=== PATIENT | female | born 1945 | race Caucasian/White ===

== ENCOUNTER 2018-05-22 15:25 | Outpatient (REF) | payer MEDICARE, OTHER, SELFPAY | END 2018-05-22 15:26 | LOC: NCHCN 15:25 | PROVIDERS: PCP Family Medicine; Visit Provider Nurse Practitioner Family | DX: R82.90 Unspecified abnormal findings in urine (principal) | CPT/HCPCS: 87077; 87086; 87186 ==

== ENCOUNTER 2019-03-11 17:45 | Outpatient (REF) | payer MEDICARE, OTHER, SELFPAY | END 2019-03-11 18:05 | LOC: NCHCN 17:45 | PROVIDERS: PCP Family Medicine; Visit Provider Registered Nurse | DX: N39.46 Mixed incontinence (principal) | CPT/HCPCS: 87086 ==

== ENCOUNTER 2019-03-24 13:03 | Outpatient (REF) | payer MEDICARE, OTHER, SELFPAY ==
[2019-03-24 21:40] LABS: Bilirubin Negative (Negative); Blood Moderate (Negative); Clarity Clear; Glucose Negative (Negative); Ketones Negative (Negative); Leukocyte Esterase Negative (Negative); Nitrite Negative (Negative); Specific Gravity 1.015 (1.005-1.025); Urobilinogen 0.2 EU/dL (Up TO 0.2)
[2019-03-24 22:00] LABS: Bacteria Rare HPF (Negative); C & S Indicated? No; Casts Negative LPF (Negative); Crystals Negative HPF (Negative); Epithelial Cells Rare HPF (Negative); Mucus Negative (Negative); WBC Negative HPF (0-5)
== END 2019-03-24 13:23 ==
LOC: NCHCN 13:03
PROVIDERS: PCP Family Medicine; Visit Provider Registered Nurse
DX: R31.9 Hematuria, unspecified (principal)
CPT/HCPCS: 81003; 81015

== ENCOUNTER 2019-06-11 16:58 | Outpatient (REF) | payer MEDICARE, OTHER, SELFPAY ==
[2019-06-11 21:08] LABS: Bilirubin Negative (Negative); Blood Moderate (Negative); Clarity Clear (Clear); Glucose Negative (Negative); Ketones Trace mg/dL (Negative); Leukocyte Esterase Small (Negative); Nitrite Negative (Negative); Specific Gravity 1.015 (1.005-1.025); pH 6.5 (5-8)
[2019-06-11 21:35] LABS: Bacteria Moderate HPF (Negative); C & S Indicated? C&S Done As Ordered; Epithelial Cells Moderate HPF (Negative); Mucus Heavy (Negative); Other Cells Rare Renal (Negative)
== END 2019-06-11 17:18 ==
LOC: NCHCN 16:58
PROVIDERS: PCP Family Medicine; Visit Provider Nurse Practitioner Family
DX: R31.9 Hematuria, unspecified (principal)
CPT/HCPCS: 81003; 81015; 87086

== ENCOUNTER 2020-07-08 14:33 | Outpatient (REF) | payer MEDICARE, OTHER, SELFPAY ==
[2020-07-08 21:43] LABS: HCT 41.2 % (36.0-46.0); HGB 13.6 g/dL (11.2-15.7); MCH 29.8 pg (27.0-33.0); MCV 90.2 fL (80-95); MPV 10.6 fL (8.0-11.0); Platelet Count 196 10^3/uL (130-400); RBC 4.57 10^6/uL (3.93-5.22); RDW 12.7 % (11.7-14.6); WBC 3.92 10^3/uL (4.4-10.8)
[2020-07-08 21:49] LABS: Iron 89 ug/dL (50-170); Total Iron Binding Capacity 325 ug/dL (250-450); Transferrin Sat 27 % (15-50)
[2020-07-08 22:05] LABS: Anion Gap 6.3 mmol/L (3-11); BUN 6 mg/dL (7-18); CO2 30.7 mmol/L (21.0-32.0); Calcium 9.1 mg/dL (8.5-10.1); Chloride 98 mmol/L (98-107); Ferritin 134 ng/mL (8-252); Glucose 100 mg/dL (74-106); Potassium 3.8 mmol/L (3.5-5.1); Sodium 135 mmol/L (136-145)
== END 2020-07-08 14:53 ==
LOC: NCHCN 14:33
PROVIDERS: PCP Family Medicine; Visit Provider Family Medicine
DX: I48.0 Paroxysmal atrial fibrillation (principal); F01.50 Vascular dementia, unspecified severity, without behavioral disturbance, psychotic disturbance, mood disturbance, and anxiety; I69.30 Unspecified sequelae of cerebral infarction; E11.9 Type 2 diabetes mellitus without complications; Z91.81 History of falling
CPT/HCPCS: 80048; 85027; 82728; 83540; 83550

== ENCOUNTER 2022-01-31 16:21 | Outpatient (REF) | payer MEDICARE, OTHER, SELFPAY ==
--- OUTSIDE RECORDS SUMMARY | 2022-01-31 16:29 | XMS_ITS ---
:1945 Author Care Team Providers Name Role Phone GINGER SAPP MD Primary Care Provider [phone] [facility] MEDICAL RECORDS OTHER [phone] [facility] OTHER [phone] Allergies Code Code System Name Reaction Severity Status Onset 2670 RxNorm Codeine ? ? Active ? 95376 RxNorm Oxybutynin ? ? Active ? Penicillins ? ? Active ? Medications Name Status Start Date Stop Date ? ? Aricept 10 mg tablet Active ? Not availab le Take 1 tablet every day by oral route. fluoxetine 40 mg capsule Active ? Not johann ilable Take 1 capsule every day by oral route. Forteo 20 mcg/dose (620 mcg/2.48 mL) subcutaneous pen injector A ctive ? Not available Inject 20 micrograms every day by subcutaneous route. Hyzaar 100 mg-25 mg tablet Active ? Not a vailable Take 1 tablet every day by oral route. metoprolol succinate ER 50 mg tablet,extended release Active ? Not available Take 1 tablet every day by oral route. Myrbetriq 25 mg tablet,extended release Active ? Not available Take 1 tablet every day by oral route. omeprazole 20 mg capsule,delayed release Active ? Not available Take 1 capsule every day by oral route. Pradaxa 150 mg capsule Active ? Not avail able Take 1 capsule twice a day by oral route. simvastatin 20 mg tablet Active ? Not johann ilable Take 1 tablet every day by oral route. Problems Name Status Onset Date Source ? Type 2 Diabetes Mellitus Active 11/22/2021 ? Metabolic Syndrome X Active 11/22/2021 ? Obesity Active 11/22/2021 ? Anemia Active 11/22/2021 ? Vascular Dementia Active 11/22/2021 ? Depressive Disorder Active 11/22/2021 ? Obstructive Sleep Apnea Syndrome Active 11/22/2021 ? Cataract Active 11/22/2021 ? Decreased Hearing Active 11/22/2021 ? Hypertensive Disorder Active 11/22/2021 ? Atrial Fibrillation Active 11/22/2021 ? Allergic Rhinitis Active 11/22/2021 ? Gastroesophageal Reflux Disease Active 11/22/2021 ? Hiatal Hernia Active 11/22/2021 ? Hematuria Syndrome Active 11/22/2021 ? Pruritus of Skin Active 11/22/2021 ? Chronic Back Pain Active 11/22/2021 ? Hallux Valgus and Bunion Active 11/22/2021 ? Osteoporosis Active 11/22/2021 ? Daytime Somnolence Active 11/22/2021 ? Snoring Active 11/22/2021 ? Incontinence Active 11/22/2021 ? Compression Fracture of Lumbar Spine Active 11/22/2021 ? Late Effect of Fracture of Lumbar Vertebra Active 11/22 ? Falls Active 11/22/2021 ? Anticoagulant Therapy Active 11/22/2021 ? Weakness of Right Hand Active 11/22/2021 ? 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 Procedures None recorded. Results Lab Results None recorded. Past Encounters 01/20/2022 Health Education Given; Obstructive Slee p Apnea Syndrome Amber Wilson, TOLL GATE TENDER: [address] [place] [address] [place] [phone], Ph. 11/28/2021 Snoring; Health Education Given; Abnorma l Involuntary Movement; Cramp in Lower Limb Associated with Sleep Consuelo Justice MD, Board Certified Sleep Ph ysician: [address] [place] [address] [address], [place] [address], Ph. Social History Tobacco Smoking Status Never Smoker Vaccine List None recorded. Plan of Care Patient Instructions We discussed signs and symptoms you are exhibiting that may be due to Obstructive Sleep Apnea or other sleep disorders. We went over sleep conditions that I suspect you may have that will benefit from further evaluation. The next step is to diagnose your sleep disorder through sleep study testing. We will get permission from your insuran ce to do the home sleep study. Call us back in 2 to 3 weeks if you do not get a call from us about scheduling your sleep study. Please call [facility] if you ar e not able to make it to your sleep study Follow-up of home sleep study results, r epeat home sleep study if needed, when results are conclusive can have follow-up with Amber Wilson TOLL GATE TENDER to go over Reminders Provider Appointments None recorded. ? ? Lab None recorded. ? ? Referral None recorded. ? ? Procedures None recorded. ? ? Surgeries None recorded. ? ? Imaging None recorded. ? ? Vitals 01/20/2022 03:15PM Office 30 Height Weight BMI Blood Pressure 144.78 cm 75.3 kg 35.9 kg/m2 128/74 mm[Hg] 11/28/2021 03:45PM New Patient 45 Height Weight BMI Blood Pressure 144.78 cm 75.3 kg 35.9 kg/m2 133/82 mm[Hg]
--- OUTSIDE RECORDS SUMMARY | 2022-01-31 16:29 | XMS_ITS | Encounter Summary ---
:1945 Author Care Team Providers Name Role Phone Valerie Santana MD Primary Care Provider [phone] [facility] Medical Records OTHER [phone] [facility] OTHER [phone] Reason for Visit SLEEP CLINIC Follow-Up Other (specify) Assessment and Plan Assessment Note I provided greater than 40 minutes in the care of this patient, more than half the time was spent in afqu-wn-cemr couns eling. 1. Health education given ? learning about sleeping we ll 2. Obstructive sleep apnea syndr ome Patient is a pleasant 76-year- old female who follows up today for HST results. The study is positive for moderate BI associated with significant nocturnal hypoxia. The results are an underest imation due to poor quality data that is a common problem of unmonitored home sleep studies. Overall AHI 28.5/AHR; supine AHI 29/HR; cristhian SPO2 85% on room air; 10.4 minutes spent with SPO2 less than or equal to 88% on room air. Today I discu ssed the results with the patient and treatment options. The patient will be started on CPAP therapy. We discussed commonly encountered difficulties when getting acclimated to CPAP, including mask/inter face issues. The patient will use [facility] for her DME. Once the patient has received her CPAP machine, she will trial for 1 month and follow-up thereafter. If dur ing that time she has any questions or c oncerns she is strongly encouraged to contact our office. All questions were answered and she appears to have a good understanding of plan of care. ? auto-Pap equipment ? sleep apnea: care instruct ions Discussion Note Remember to always take precautio ns on drowsy driving. If you experience sleepiness while driving, find a safe area to socket puller and take a break. Research suggests taking a power nap (15 to 20 sujata sherrie) and/or coffee (or caffeine containi ng food such as dark chocolate) may be effective aides. As always, you should use your judgement on whether to drive at all, if you are sleep deprived or feeling sleepy. Thank you for the kind opportunity to pa rticipate in your medical care. You expressed good understanding of your diagnosis and treatment, and agreed to proceed with the plan we discussed together. If yo u have any questions or concerns prior t o your next appointment, please call Sleep Clinic. Plan of Care Reminders Provider Appointments Return to on or around Kerri Wilson, Office 04/21/2022 HOSI[facility] KNITTER Lab None ? ? recorded. Referral None ? ? recorded. Procedures None ? ? recorded. Surgeries None ? ? recorded. Imaging None ? ? recorded. Medications Name Start Date ? ? Aricept 10 mg tablet ? Take 1 tablet every day by oral route. fluoxetine 40 mg capsule ? Take 1 capsule every day by oral route. Forteo 20 mcg/dose (620 mcg/2.48 mL) subcutaneous pen injector ? Inject 20 micrograms every day by subcutaneous route. Hyzaar 100 mg-25 mg tablet ? Take 1 tablet every day by oral route. metoprolol succinate ER 50 mg tablet,extended release ? Take 1 tablet every day by oral route. Myrbetriq 25 mg tablet,extended release ? Take 1 tablet every day by oral route. omeprazole 20 mg capsule,delayed release ? Take 1 capsule every day by oral route. Pradaxa 150 mg capsule ? Take 1 capsule twice a day by oral route. simvastatin 20 mg tablet ? Take 1 tablet every day by oral route. Medications Administered None recorded. Vitals Height Weight BMI Blood Pressure 4 ft 9 in 166 lbs 35.9 kg/m2 128/74 mm[Hg] Results Lab Results None recorded. Allergies Code Code System Name Reaction Severity Onset 0380 RxNorm Codeine ? ? ? 92223 RxNorm Oxybutynin ? ? ? Penicillins ? ? ? Problems Name Status Onset Date Source ? [...] Accident Active 10/2021 ? Procedures None recorded. Vaccine List None recorded. Social History Tobacco Smoking Status Never Smoker What is your level of alcohol Occasional Notes: a few times a year consumption? Live alone or with others? with others Are you currently employed? N What is your level of caffeine Occasional Notes: 3 c decafe coffee a consumption? day Do you or have you ever used any other N forms of tobacco or nicotine? Do you use any illicit or recreational N drugs? Functional Status Unknown. Past Encounters 01/20/2022 Health Education Given; Obstructive Slee p Apnea Syndrome Amber Wilson HOSIERY KNITTER: [address] [place] [phone], Ph. History of Present Illness Note: <div><strong>The patient is a pleasant 76-year-old female who presents today for follow-up HST</strong>

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
</div><div>
</div><div><strong>PREVIOUS SLEEP EVALUATION: </strong></div><div><strong>12/19/2021. HST. ESS , [place] 12/22, weight 166 pounds, BMI 35.92.</strong>
<strong>1. Positive for obstructive sleep apnea associated with significant nocturnal hypoxemia. The severity is at least moderate, but may be underestimated due to poor data quality that is a common problem of unmonitored home sleep studies.</strong>
<strong>2. Overall AHI 28.5/HR; supine AHI 29/HR; right lateral AHI N/A; left lateral AHI N/A; prone AHI N/A</strong>
<strong>3. Mean SPO2: 93% and cristhian SPO2: 85% on room air; 10.4 minutes spent with SPO2 less than or equal to 88% on room air.</strong>
<strong>4. Note there were large p eriods with poor quality PT AF data, during which airflow channel was used to score respiratory events. Unfortunately this is a common problem with HST.</strong></div><div>
</div><div><strong>11/28/2021. Sleep consult for further evaluation of loud snoring, witnessed apnea, excessive daytime sleepiness, memory deficits.</strong>

<strong>TODAY: </strong></div><div><strong>Patient states she slept well on the night of her home sleep study. She has had no significant changes since her initial consult visit 11/28/2021. She continues to have mild snoring, daughter reports witnessed periods of apnea and excessive daytime sleepiness.</strong></div><div>

</div> Review of Systems ? Notes: A 14-point <strong>REVIEW OF SYSTEM</strong> was obtained and reviewed, includes CONSTITUTIONAL, EYE S, ALLERGY, NEUROLOGIC, ENDOCRINE, GI, CARDIOVASCULAR, SKIN, MSK, E NT, , RESPIRATORY, HEMATOLOGIC, PSYCH systems. Pertinent symptoms are discu ssed in history, otherwise negative. Physical Exam ? Notes: <div>GENERAL: {{chronically ill appearing well appearing#}}, appearing {{older than younger than stated#}} age, no acute distress, {{normal tall lean obese#}} build, accompanied by her daughter and sister today

PSYCHIATRIC: we ll groomed, fluent speech, good insight, linear thought process, good eye co ntact, {{flat balanced#}} affect
NEUROLOGIC: alert, oriented, symmetric f acial expression

<strong>Clinical Data Reviewed:</strong>

1. {{Modified Pediatric Vaiden Sleepiness Scale Vaiden Sleepiness Sca le*}}: _8_ out of {{21 due to not driving 24#}}.

2. {{S leep study results not available, requested Unable to obtain sleep study report s No sleep study reports Sleep study results as above.#}}

3. {{Lab re sults as outlined. Labs pending. No pertinent labs available. #}}

</ div>
--- OUTSIDE RECORDS SUMMARY | 2022-01-31 16:29 | XMS_ITS | CCD ---
:1945 Author Care Team Providers Name Role Phone Tali STROUD Attending Physician Unavailable Sumit HERNANDEZ Er Physician 1 Unavailable D. Registered Nurse Unavailable P. Registered Nurse Unavailable Vital Signs Vital Sign Value Unit Date/Time Recent/Initial? BMI (Body Mass Index) 35.92 kg/m^2 01/05/2022 17:23 In itial VS Weight Measured 166 lbs 01/05/2022 17:23 Initial VS Height 57 in 01/05/2022 17:23 Initial VS BSA (Body Surface 1.74 m^2 01/05/2022 17:23 Initia l VS Area) BP Systolic 152 mmHg 01/05/2022 17:23 Initial VS BP Diastolic 131 mmHg 01/05/2022 17:23 Initial VS Respiratory Rate 18 bpm 01/05/2022 17:23 Initial VS Heart Rate 85 bpm 01/05/2022 17:23 Initial VS O2 % BldC Oximetry 98 % 01/05/2022 17:23 Initi al VS Body Temperature 36.8 degrees 01/05/2022 17:23 Initial VS BP Systolic 90 mmHg 01/05/2022 21:47 Most Recent VS BP Diastolic 64 mmHg 01/05/2022 21:47 Most Recent VS Respiratory Rate 20 bpm 01/05/2022 21:47 Most Re cent VS Heart Rate 80 bpm 01/05/2022 21:47 Most Recent VS O2 % BldC Oximetry 96 % 01/05/2022 21:47 Most Recent VS Body Temperature 36 degrees 01/05/2022 21:47 Most Re cent VS Allergies Allergy Code Allergy Type Reaction Status PENICILLINS (CLASS) 37562 Drug allergy Anaphylaxis Active LISINOPRIL 77246 Drug allergy UNKNOWN Active CODEINE 2670 Drug allergy UNKNOWN Active Procedures Unknown or Not Available. History of Immunizations Unknown or Not Available. Problems Problem Code Start Date Resolved Date Status Fracture of shaft of 97956758 08/12/2019 Active humerus, sequela Intermittent atrial 433846166 Active fibrillation Hypertension 57154843 Active Dementia 75946985 Active A fib 81694046 Active Results COMPREHENSIVE METABOLIC PANEL (CMP) - Co llect Date/Time: 01/05/2022 18:10 Test Name Code Test Result Test Units Test Ref Range GLUCOSE 2345-7 119 mg/dL L=70 H=11 6 BUN 3094-0 22 mg/dL L=6 H=25 CREATININE 2160-0 0.75 mg/dL L=0.51 H=0.95 SODIUM SERUM 2951-2 133 mmol/L L=136 H=14 5 POTASSIUM SERUM 2823-3 4.1 mmol/L L=3.4 H =5.2 CHLORIDE SERUM 2075-0 96 mmol/L L=96 H= 110 CARBON DIOXIDE (CO2) 2028-9 32 mmol/L L=22 H=34 ANION GAP 08011-0 5.3 mmol/L CALCIUM SERUM 55936-7 9.6 mg/dL L=8.2 H=10.2 BILIRUBIN TOTAL 1975-2 0.4 mg/dL L=0.0 H =1.3 ALK. PHOS. 6768-6 57 U/L L=46 H=11 6 SGOT (AST) 1920-8 23 U/L L=15 H=37 SGPT (ALT) 1742-6 19 U/L L=12 H=78 TOTAL PROTEIN 2885-2 6.9 gm/dL L=6.0 H=8 .0 ALBUMIN 1751-7 3.5 gm/dL L=3.4 H=5. 0 AGE 76 years eGFR (non-Afr.Amer.) 56857-4 75 mL/min eGFR (Afr-Eritrean) 02488-4 91 mL/min CBC W/ DIFFERENTIAL* - Collect Date/Time : 01/05/2022 21:35 Test Name Code Test Result Test Units Test Ref Range WBC 6690-2 7.05 th/cmm L=5.00 H=10.00 NEUT % 72.5 % L=40.0 H=80.0 LYMPH % 14.6 % L=10.0 H=50.0 MONO % 97105-7 12.2 % L=2.0 H=12.0 EOS % 0.3 % L=0.0 H=8. 0 BASO % 0.1 % L=0.0 H=3. 0 IG % 2514-8 0.3 % L=0.0 H=1. 1 NRBC % 62056-3 0.0 % L=0.0 H=0. 0 NEUT abs count 751-8 5.1 th/cmm L=1.6 H= 8.4 LYMPH abs count 731-0 1.0 th/cmm L=1.5 H =4.0 MONO abs count 742-7 0.9 th/cmm L=0.2 H= 1.0 EOS abs count 711-2 0.0 th/cmm L=0.0 H=0 .5 BASO abs count 704-7 0.0 th/cmm L=0.0 H= 0.2 IG abs count 83333-4 0.0 th/cmm L=0.0 H=0. 1 NRBC abs count 33470-2 0.0 mil/cmm L=0.0 H= 0.0 RBC 789-8 3.68 mil/cmm L=3.90 H=5.40 HEMOGLOBIN 718-7 11.4 gm/dL L=12.0 H=16.0 HEMATOCRIT 4544-3 34 % L=37 H=47 MCV 787-2 91 fL L=82 H=92 MCH 785-6 31.0 pg L=27.0 H=31.0 MCHC 786-4 34.0 % L=32.0 H=36.0 RDW-SD 788-0 44.4 fL L=39.0 H=49.0 PLATELET COUNT 777-3 204 th/cmm L=150 H= 450 CBC W/ DIFFERENTIAL* - Collect Date/Time : 01/05/2022 18:10 Test Name Code Test Result Test Units Test Ref Range WBC 6690-2 8.24 th/cmm L=5.00 H=10.00 NEUT % 80.5 % L=40.0 H=80.0 LYMPH % 7.8 % L=10.0 H=50.0 MONO % 89398-5 10.9 % L=2.0 H=12.0 EOS % 0.1 % L=0.0 H=8. 0 BASO % 0.2 % L=0.0 H=3. 0 IG % 2514-8 0.5 % L=0.0 H=1. 1 NRBC % 79368-4 0.0 % L=0.0 H=0. 0 NEUT abs count 751-8 6.6 th/cmm L=1.6 H= 8.4 LYMPH abs count 731-0 0.6 th/cmm L=1.5 H =4.0 MONO abs count 742-7 0.9 th/cmm L=0.2 H= 1.0 EOS abs count 711-2 0.0 th/cmm L=0.0 H=0 .5 BASO abs count 704-7 0.0 th/cmm L=0.0 H= 0.2 IG abs count 51740-2 0.0 th/cmm L=0.0 H=0. 1 NRBC abs count 68896-8 0.0 mil/cmm L=0.0 H= 0.0 RBC 789-8 3.81 mil/cmm L=3.90 H=5.40 HEMOGLOBIN 718-7 11.7 gm/dL L=12.0 H=16.0 HEMATOCRIT 4544-3 35 % L=37 H=47 MCV 787-2 92 fL L=82 H=92 MCH 785-6 30.7 pg L=27.0 H=31.0 MCHC 786-4 33.5 % L=32.0 H=36.0 RDW-SD 788-0 45.0 fL L=39.0 H=49.0 PLATELET COUNT 777-3 201 th/cmm L=150 H= 450 URINALYSIS WITH REFLEX CULT IF POSITIVE* - Collect Date/Time: 01/05/2022 19:30 Test Name Code Test Result Test Units Test Ref Range COLLECTION MODE: CLEAN CATCH N/A Color 5778-6 YELLOW N/A yellow Appearance 5767-9 CLEAR N/A clear Glucose urine 77190-7 NEGATIVE N/A negative mg/ dl Bilirubin 5770-3 NEGATIVE N/A negative Ketones 2514-8 TRACE N/A negative mg/d l Spec gravity 5811-5 1.010 N/A 1.003 - 1.030 pH urine 2756-5 7.0 N/A 5.0 - 7.0 Protein 37322-9 NEGATIVE N/A negative mg/d l Urobilinogen 28098-0 0.2 N/A <or= 1 EU/d l Nitrite. 5802-4 NEGATIVE N/A negative Blood 5794-3 SMALL N/A negative Leukocytes. NEGATIVE N/A negative MICROSCOPIC INDICATED N/A WBCs. 45986-3 0-5 N/A 0-5 / hpf RBCs 98873-2 10-25 N/A 0-5 / hpf Epith cells 05033-7 0-5 N/A 0-5 / hpf Cell types renal N/A Crystals none N/A none Bacteria none N/A none Mucus 8247-9 none N/A none Casts 33803-3 0-5 N/A none /lp f Cast types hyaline N/A TYPE AND SCREEN* - Collect Date/Time: 18:10 Test Name Code Test Result Test Units Test Ref Range Blood Group 883-9 O N/A Rh (D) 06412-3 POSITIVE N/A Antibody Screen 1005-8 NEGATIVE N/A Active Medications Unknown or Not Available. Medications Administered During Visit Medication Dose Units Frequency Route Date/Time of Last Dose FentaNYL INJ SDV: 25 MCG X1 IVP 022 22:01 100MCG/2ML Encounters Encounter Diagnosis Diagnosis Code Start Date Contusion of abdominal wall, initial encounter I684AUD 01/05/2022 Social History Smoking Status Code Start Date End Date Never smoker [id number] Patient Decision Aids Unknown or Not Available. Discharge Instructions You were admitted to [facility] on 01/05/2022 17:12 with a principal diagnosis of Contusion of abdominal wall , initial encounter You had the following tests done: CBC W/ DIFFERENTIAL* URINALYSIS WITH REFLEX CULT IF POSITIVE* CBC W/ DIFFERENTIAL* COMPREHENSIVE METABOLIC PANEL (CMP) TYPE AND SCREEN* You were discharged from [facility] on 01/05/2022 22:07 Should you have any questions prior to d ischarge, please contact a member of your healthcare team. If you have left the ho spital and have any questions, please contact your primary care physician. Chief Complaint and Reason For Visit Chief Complaint Date of Onset BACK PAIN Function Status Unknown or Not Available. Plan of Care Unknown or Not Available. Referral/Transition of Care Unknown or Not Available.
--- OUTSIDE RECORDS SUMMARY | 2022-01-31 16:29 | XMS_ITS | Encounter Summary ---
:1945 Author Care Team Providers Name Role Phone Valerie Santana MD Primary Care Provider [phone] [facility] Medical Records OTHER [phone] [facility] OTHER [phone] Reason for Visit SLEEP CLINIC New Adult Patient Assessment and Plan Assessment Note I provided greater than 60 minutes in th e care of this patient, more than half the time was spent in dgod-ms-taon counseling. Home sleep study, although in lab sleep study would be preferred, due to patient's dementia, mobility limitations requiring caregiver help, and erratic sleep schedule, we mutually decided with patient a nd her family members that home study wo uld be the best modality. If the first home study attempt fails, w e will try again a second time. 1. Snoring Suspect Obstructive Sleep Apnea based o n loud snoring, witnessed apneas, excessive daytime sleepiness, memory deficits. Patient also appears to have a movement disorder, unclear if this is severe restl ess legs or something else, and reports a lot of movements in sleep including sometimes falling out of bed. Comorbidities include dementia, CVA, day time somnolence, chronic back pain, depression, hiatal hernia, incontinence, suspected movement disorder that is not diagnosed, We had a thorough discussion of Obstruc tive Sleep Apnea, including pathophysiology, associated meterman cardiovascular, neurocognitive, and overall health effects, and importance of treatment. Weight loss encouraged. Treatment options discussed. Proceed with home sleep study, she is u nable to come in for diagnostic sleep study due to fall risk, confusion, and requiring higher levels of caregiving then tech can provide, if needed we will repeat multiple times to try to get a conclusi ve results. ? home sleep testing (PROC) - Please note if the first home sleep study is inconclusive we need to repeat it, vishnu macias cannot have an in lab study due to reasons in note Her follow-up will be wi Amber Wilson SECURITY SALES CONSULTANT 2. Health education given ? learning about sleeping we ll 3. Abnormal involuntary movement 4. Cramp in lower limb associate d with sleep Start trial of magnesium Discussion Note Remember to always take precautio ns on drowsy driving. If you experience sleepiness while driving, find a safe area to mandrel puller and take a break. Research suggests [...] please call Sleep Clinic. Plan of Care Patient Instructions We discussed [...] conclusive can have follow-up with Amber Wilson SECURITY SALES CONSULTANT to go over Reminders Provider Appointments Return to on or around Kerri Wilson, Office 04/21/2022 SECURITY SALES CONSULTANT Lab None ? ? recorded. Referral None ? ? recorded. Procedures Home Sleep 11/28/2021 ? Testing (PROC) Surgeries None ? ? recorded. Imaging None [...] ft 9 in 166 lbs 35.9 kg/m2 133/82 mm[Hg] Results Lab Results None recorded. Allergies Code Code System Name Reaction Severity Onset 2670 RxNorm Codeine ? ? ? 44956 RxNorm Oxybutynin ? ? ? Penicillins ? [...] N drugs? Functional Status Unknown. Past Encounters 11/28/2021 Snoring; Health Education Given; Abnorma l Involuntary Movement; Cramp in Lower Limb Associated with Sleep Consuelo Justice MD, Board Certified Sleep Ph ysician: [address] [place] [address] [address], [place] [address], Ph. History of Present Illness Note: <div><strong>Sleep Medicine New Patient Consult</strong></div><div&gt ;Karla Shah is a 76-year-old woman, with her daughter as power of material specialist, with history of dementia, CVA, daytime somnolence, chronic back pain, depression, hiatal hernia, incontinence, suspected movement disorder that is not diagnosed, who presents for new patient sleep evaluation</div>< div>
</div><div><strong>PREVIOUS SLEEP EVALUATION: </strong>{{Reviewed in detail and summarized as follows: Records not available, requested. Records not available. None. None #}}</div><div>
</div><div><strong>CHIEF COMPLAINT/HI STORY OF PRESENT ILLNESS: </strong> </div><div>Patients reports biggest problem with sleep is </div><div>splits time with Karla, her sister</div><div>ARELIS Wilson na </div><div>early onset dementia, vascular dementia</div><div>fallen out of bed a couple of times</div><div>daytime sleepiness</div><div>falling asleepat wheel</div><div>loud snoring</div><div>witnessed apneas</div><div>restless legs, had it for decades, both legs</div><div>symptoms years ago</div><div>has fallen out of bed</div><div>tried to get up</div><div>moves in bed a lot</div><div>on donepezil for memory, took it in morning</div><div>? visual hallucinations</div><div>
</div><div>
</div><div><strong>SLEEP SCHEDULE:</strong> Bedtime {{ variable#}} {{am pm#}}, sleeping a lot during the day. Sleep onset latency {{less than 30 30 to 60 greater than 60 variable few#}} minutes, Awakenings {{0-2 variable multiple#}} times per night, Able to fall backasleep within {{up to 30 minutes up to few hours variable few minutes #}}, Wake time {{ noon#}} {{pm am#}}. Naps {{Rare Occasionally Nearly Everyday Everyday*}}.</div><div><br&g t;</div><div><strong>SLEEP ENVIRONMENT:</strong> {{Pets wake patient up. Chil dren wake patient up. Noise from outside room wake patient up. Light wakes patient up. No environmental disruptions identified. No environmental disruptions identified. #}} </div><div>sleepin same room w/ sister.</div><div>
</div><div><strong>SLEEP QUALITY:</strong> {{Fair Very good Adequate Very poor Poor#}}</div><div>
&lt ;/div><div><strong>DAYTIME/NEUROCOGNITIVE FUNCTION:</strong> {{Sleepy* Alert}}. {{Problems with memory Problems with memory, concentration and mood* No problems with memory, concentration, mood}}.</div><div>
</div><div><strong>SLEEP RELATED THOUGHTS/BEHAVIORS:</strong> {{Deny insomnia related thought patterns or behaviors, except Gautier active mind. Stressful thoughts interfering with sleep. Tendency to clock watch. Worry about getting good night sleep. Deny insomnia related thought patterns or behaviors. #}}. {{Gautier active mind. St ressful thoughts interfering with sleep. Tendency to clock watch. Worry about getting good night sleep. .#}} {{Stressful thoughts interfering with sleep. Tendency to clock watch. Worry about getting good night sleep. .#}} {{Tendency to clock watch. Worry about getting good night sleep. .#}} {{Worry about getting good night sleep. .#}}</div><div>
</div><div><strong>SLEEP BREATHING:</strong> {{Snoring. Witnessed apneas. Loud Snoring.#}} {{Witnessed apneas.* Waking up gasping for air.}} {{Witnessed apneas. Waking up gasping for air.*}} {{Mouth breathing. Chronic nasal congestion. Mouth breathing occ#}} {{Chronic nasal congestion. .#}}</div><div>
</div><div><strong>LEG SYMPTOMS:</strong> {{Legs move before sleepand/or during sleep.*}} {{Leg movements are worse in evenings. .#}} {{Relieved by movement. .#}} {{Relieved by counterpressure. .#}} {{Leg cramps especially in evening.*}} {{Toss and turn at night.* Sheets are messy after sleep.}} {{Sheets are messy after sleep.*}} </div><div>
</div><div>
</div><div><strong>MOVEMENT SYMPTOMS</strong>{{S leeptalk. Sleepwalk: No sleepwalking #}}.</div><div>
</div><div><strong>DREAM SYMPTOMS:</strong> {{Dream enactment behavior:*}}Possible, she has fallen out o f bed, unclear if this is dream enactment behavior versus movements very severe restless movements. {{Disturbing nightmares Recurring nightmares No disturbing dreams #}}.</div><div>
</div><div><strong>WEAKNESS SYMPTOMS:</strong> {{Muscles suddenly become weak triggered by emotion Muscles may feel weak but no emotional triggers known Deny cataplexy related symptoms #}} {{Experienced inability to move upon waking up in remote past Experiences inability to move upon waking up on regular basis Deny sleep paralysis #}}.</div><div>
</div ><div><strong>DRIVING:</strong> {{Experienced drowsy driving in past related to sleep deprivation Intermittent drowsy driving episodes Regular drowsy driving episodes Deny drowsy driving #}}. {{Follows drowsy driving precautions. Aware of drowsy driving precautions and plans to follow them. .#}}</div><div>
</div><div><strong>OTHER PERTINENT SYMPTOMS: </strong> </div><div>
</div><div><strong>PRODUCT/SUBSTANCE USE:</strong>{{No smoking No smoking, quit in remote past No smoking quit recently Current Smoker}}. {{Contemplating quitting Ready to quit Not interested in quitting .#}}. {{No alcohol use 1-2 alcohol drinks daily 3+ alcohol drinks daily Variable alcohol use Rare alcohol use#}}. {{Recreational MJ use Medical MJ use Rare MJ use Cocaine Heroin/Non-prescribed Opiate No regular illicitdrug use#}}.</div><div>
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
</div><div>
</div> Review of Systems ? Notes: <div>A 14-point <strong>REVI EW OF SYSTEM</strong> was obtained and reviewed, includes CONSTITUTIONAL, EYE S, ALLERGY, NEUROLOGIC, ENDOCRINE, GI, CARDIOVASCULAR, SKIN, MSK, E NT, , RESPIRATORY, HEMATOLOGIC, PSYCH systems. Pertinent symptoms are discu ssed in history, otherwise negative.

Fatigue, vo ice problems, swallowing problems, frequent cough, nausea, constipation, heartb urn, irregular heart rate, frequent urination, muscle weakness in legs, debbi n in knees, pain in back, skin itch</div> Physical Exam ? Notes: <div>GENERAL: {{chronically ill appearing well appearing#}}, appearing {{older than younger than stated#}} age, no acute distress, {{normal tall lean obese#}} build
HEENT: atraumatic skull, moist mucous membranes, Mallampati 3</div ><div>PSYCHIATRIC: well groomed, fluent speech, good insight, linear thought process, good eye contact, {{flat balanced#}} affect
NEUROLOGIC: alert, oriented, symmetric facial expression

<stron g>Clinical Data Reviewed:</strong>

1. {{Modified Pediatric Bonnyman Sleepiness Scale Bonnyman Sleepiness Scale*}}: _13_ out of {{21 due to not driving 24#}}.

2. [place] [employer] Questionnaire positive for {{0 1 2 3#}} ou t of 3 Categories.

3. {{Sleep study results as above. Sleep study result s not available, requested Unable to obtain sleep study reports No sleep study reports#}}

4. {{Lab results as outlined. Labs pending. No p ertinent labs available. #}}

5. {{Sleep log reviewed, consistent with hi story. Sleep log reviewed. Sleep log not filled. #}}</div>
[2022-01-31 20:33] LABS: Reticulocyte 1.9 % (0.5-2.4)
[2022-01-31 20:43] LABS: Iron 58 ug/dL (50-170); Total Iron Binding Capacity 340 ug/dL (250-450); Transferrin Sat 17 % (15-50)
[2022-01-31 20:55] LABS: Ferritin 105 ng/mL (8-252)
== END 2022-01-31 16:22 | disposition home or self-care (01) ==
LOC: NCHCN 16:21
PROVIDERS: PCP Family Medicine; Visit Provider Internal Medicine
DX: D64.9 Anemia, unspecified (principal); K66.1 Hemoperitoneum
CPT/HCPCS: 82728; 83540; 83550; 85045

== ENCOUNTER 2022-05-12 23:25 | Outpatient (REF) | payer MEDICARE, OTHER, SELFPAY ==
[2022-05-12 20:41] LABS: Bilirubin Negative (Negative); Blood Moderate (Negative); Clarity Clear (Clear); Glucose Negative (Negative); Ketones Negative (Negative); Leukocyte Esterase Moderate (Negative); Nitrite Negative (Negative); Specific Gravity 1.015 (1.005-1.025); Urobilinogen 0.2 EU/dL (Up TO 0.2)
[2022-05-12 20:48] LABS: Bacteria Few HPF (Negative); C & S Indicated? Yes; Casts Negative LPF (Negative); Crystals Negative HPF (Negative); Epithelial Cells Few HPF (Negative); Mucus Negative (Negative)
== END 2022-05-12 23:26 | disposition home or self-care (01) ==
LOC: NCHCN 23:25
PROVIDERS: PCP Family Medicine; Visit Provider Family Medicine
DX: N39.46 Mixed incontinence (principal)
CPT/HCPCS: 87077; 81003; 81015; 87086; 87186

== ENCOUNTER 2022-05-17 15:57 | Outpatient (REF) | payer MEDICARE, OTHER, SELFPAY | END 2022-05-17 15:58 | disposition home or self-care (01) | LOC: NCHCN 15:57 | PROVIDERS: PCP Family Medicine; Visit Provider Family Medicine ==

== ENCOUNTER 2022-05-22 22:31 | Outpatient (REF) | payer MEDICARE, OTHER, SELFPAY ==
[2022-05-22 23:16] LABS: BUN 18 mg/dL (7-18); CREATININE 0.7 mg/dL (0.55-1.02); Calcium 9.3 mg/dL (8.5-10.1); Chloride 98 mmol/L (98-107); Glucose 103 mg/dL (74-106); Potassium 4.4 mmol/L (3.5-5.1); Sodium 133 mmol/L (136-145)
== END 2022-05-22 22:32 | disposition home or self-care (01) ==
LOC: NCHCN 22:31
PROVIDERS: PCP Family Medicine; Visit Provider Family Medicine
DX: I10 Essential (primary) hypertension (principal)
CPT/HCPCS: 80048

== ENCOUNTER 2022-11-13 16:54 | Outpatient (REF) | payer MEDICARE, OTHER, SELFPAY ==
[2022-11-13 21:05] LABS: COMMENT (LAB VIEW ONLY) 27.16 mg/dL; Microalb ug/mg Crea 27.2 ug/mg Cr
== END 2022-11-13 16:55 | disposition home or self-care (01) ==
LOC: NCHCN 16:54
PROVIDERS: PCP Family Medicine; Visit Provider Family Medicine
DX: E11.9 Type 2 diabetes mellitus without complications (principal)
CPT/HCPCS: 82043; 82570

== ENCOUNTER 2023-03-22 16:28 | Outpatient (REF) | payer MEDICARE, OTHER, SELFPAY | END 2023-03-22 16:29 | disposition home or self-care (01) | LOC: NCHCN 16:28 | PROVIDERS: PCP Family Medicine; Visit Provider Family Medicine | DX: R30.0 Dysuria (principal) | CPT/HCPCS: 87086 ==

== ENCOUNTER 2023-10-19 21:35 | Outpatient (REF) | payer MEDICARE, OTHER, SELFPAY ==
--- OUTSIDE RECORDS SUMMARY | 2023-10-19 21:37 | XMS_ITS | CCD ---
Author Name Unknown Address [address] [place] [address] [id number] Organization Unknown Address [address] [place] [address] [id number] Care Team Providers Care Putty And Patch Worker Name Role Phone SEKOUGINGER Jeramie Attending Physician [phone] Vital Signs Unknown or Not Available. Allergies Allergy Code Allergy Type Reaction Status PENICILLINS (CLASS) 14432 Drug allergy Anaphylaxis Ac tive LISINOPRIL 88354 Drug allergy UNKNOWN Active CODEINE 2670 Drug allergy UNKNOWN Active Procedures Unknown or Not Available. History of Immunizations Unknown or Not Available. Problems Problem Code Start Date Resolved Date Status Fracture of shaft of humerus, sequela 06674020 9 Active Intermittent atrial fibrillation 343642391 Active Hypertension 64673596 Active Dementia 70115411 Active A fib 38866028 Active Results Unknown or Not Available. Active Medications Medication Code Dose Units Frequency Route Modificatio n Start Date/Time oxyCODONE HCl 5MG Oral Tablet 6194470 1 TABLET NEEDED EVERY 4 HOURS ORAL 08/14/2019 16:18 Prescription Detail TAKE 1 TABLET ORAL NEEDED EVERY 4 DENG RS. Not to exceed 6 tabs daily Acetaminophen 500MG Oral Tablet 664013 2 TABLET NEEDED THREE TIMES A DAY ORAL 08/14/2019 16:07 Prescription Detail TAKE 2 TABLET ORAL NEEDED THREE TIMES A DAY FOR PAIN Aricept 10MG Oral Tablet 458904 10 MILLIGRAMS DAILY ORAL 019 16:06 Prescription Detail TAKE 10 MILLIGRAMS ORAL DAILY Dok 100MG Oral Capsule, Liquid Filled 0015136 100 MILLIGRAMS TWICE A DAY ORAL 019 16:06 Prescription Detail TAKE 100 MILLIGRAMS ORAL TWICE A DAY Hyzaar 100MG-25MG Oral Tablet 069582 1 EACH DAILY ORAL 08/14/2019 16:06 Prescription Detail TAKE 1 EACH ORAL DAILY Metoprolol Succinate 100MG Oral Tablet, Extended Release 363319 100 MILLIGRAMS DAILY ORAL 16:06 Prescription Detail TAKE 100 MILLIGRAMS ORAL DAILY Pradaxa 150MG Oral Capsule 6508899 150 MILLIGRAMS TWICE A DAY ORAL 07/23 16:06 Prescription Detail TAKE 150 MILLIGRAMS ORAL TWICE A DAY Simvastatin 20MG Oral Tablet 855128 20 MILLIGRAMS DAILY ORAL 019 16:06 Prescription Detail TAKE 20 MILLIGRAMS ORAL DAILY Medications Administered During Visit Unknown or Not Available. Encounters Encounter Diagnosis Diagnosis Code Start Date Encounter for screening mamm ogram for malignant neoplasm of breast Z1231 02/17/2022 Social History Smoking Status Code Start Date End Date Never smoker [id number] Patient Decision Aids Unknown or Not Available. Discharge Instructions You were admitted to [facility] on 02/17/2022 12:55 with a principal diagnosis of Encounter for screening mammogram for malignant neoplasm of breast You were discharged from [facility] on 02/17/2022 12:55 Should you have any questions prior to discharge, please contact a member of your healthcare team. If you have left the hospital and have any questions, please contact your primary care physician. Chief Complaint and Reason For Visit Chief Complaint Date of Onset SCR Function Status Unknown or Not Available. Plan of Care Unknown or Not Available. Referral/Transition of Care Unknown or Not Available.
--- OUTSIDE RECORDS SUMMARY | 2023-10-19 21:37 | XMS_ITS | CCD ---
Author Name Unknown Address [address] [place] [address] [id number] Organization Unknown Address [address] [place] [address] [id number] Care Team Providers Care Log Hauler Name Role Phone CATALINO STROUD Attending Physician [phone] MINERVA HERNANDEZ Er Physician [phone] JUDY Saldaña Registered Nurse [phone] KARLEE Booker Registered Nurse [phone] Vital Signs Vital Sign Value Unit Date/Time Recent/Initial ? BMI (Body Mass Index) 35.92 kg/m^2 01/05/2022 17: 23 Initial VS Weight Measured 166 lbs 01/05/2022 17:23 Ini tial VS Height 57 in 01/05/2022 17:23 Initial VS BSA (Body Surface Area) 1.74 m^2 01/05/2022 1 7:23 Initial VS BP Systolic 152 mmHg 01/05/2022 17:23 Initial VS BP Diastolic 131 mmHg 01/05/2022 17:23 Initia l VS Respiratory Rate 18 bpm 01/05/2022 17:23 In itial VS Heart Rate 85 bpm 01/05/2022 17:23 Initial VS O2 % BldC Oximetry 98 % 01/05/2022 17:23 Initial VS Body Temperature 36.8 degrees 01/05/2022 17:23 In itial VS BP Systolic 90 mmHg 01/05/2022 21:47 Most Re cent VS BP Diastolic 64 mmHg 01/05/2022 21:47 Most R ecent VS Respiratory Rate 20 bpm 01/05/2022 21:[address] Recent VS Heart Rate 80 bpm 01/05/2022 21:47 Most Rec ent VS O2 % BldC Oximetry 96 % 01/05/2022 21:47 Most Recent VS Body Temperature 36 degrees 01/05/2022 21:[address] Recent VS Allergies Allergy Code Allergy Type Reaction Status PENICILLINS (CLASS) 62351 Drug allergy Anaphylaxis Ac tive LISINOPRIL 96732 Drug allergy UNKNOWN Active CODEINE 2670 Drug allergy UNKNOWN Active Procedures Unknown or Not Available. History of Immunizations Unknown or Not Available. Problems Problem Code Start Date Resolved Date Status Fracture of shaft of humerus, sequela 79471907 9 Active Intermittent atrial fibrillation 384143887 Active Hypertension 70065256 Active Dementia 01771639 Active A fib 63108668 Active Results COMPREHENSIVE METABOLIC PANE L (CMP) - Collect Date/Time: 01/05/2022 18:10 Test Name Code Test Result Test Units Test Ref Rang e GLUCOSE 2345-7 119 mg/dL L=70 H=116 BUN 3094-0 22 mg/dL L=6 H=25 CREATININE 2160-0 0.75 mg/dL L=0.51 H=0.95 SODIUM SERUM 2951-2 133 mmol/L L=136 H=145 POTASSIUM SERUM 2823-3 4.1 mmol/L L=3.4 H=5 .2 CHLORIDE SERUM 2075-0 96 mmol/L L=96 H=110 CARBON DIOXIDE (CO2) 2028-9 32 mmol/L L=22 H=34 ANION GAP 17909-2 5.3 mmol/L CALCIUM SERUM 28856-6 9.6 mg/dL L=8.2 H=10. 2 BILIRUBIN TOTAL 1975-2 0.4 mg/dL L=0.0 H=1 .3 ALK. PHOS. 6768-6 57 U/L L=46 H=116 SGOT (AST) 1920-8 23 U/L L=15 H=37 SGPT (ALT) 1742-6 19 U/L L=12 H=78 TOTAL PROTEIN 2885-2 6.9 gm/dL L=6.0 H=8.0 ALBUMIN 1751-7 3.5 gm/dL L=3.4 H=5.0 AGE 76 years eGFR (non-Afr.Amer.) 47259-9 75 mL/min eGFR (Afr-Azerbaijani) 00148-8 91 mL/min CBC W/ DIFFERENTIAL* - Colle ct Date/Time: 01/05/2022 21:35 Test Name Code Test Result Test Units Test Ref Rang e WBC 6690-2 7.05 th/cmm L=5.00 H=10.00 NEUT % 72.5 % L=40.0 H=80.0 LYMPH % 14.6 % L=10.0 H=50.0 MONO % 27794-6 12.2 % L=2.0 H=12.0 EOS % 0.3 % L=0.0 H=8.0 BASO % 0.1 % L=0.0 H=3.0 IG % 2514-8 0.3 % L=0.0 H=1.1 NRBC % 93389-3 0.0 % L=0.0 H=0.0 NEUT abs count 751-8 5.1 th/cmm L=1.6 H=8. 4 LYMPH abs count 731-0 1.0 th/cmm L=1.5 H=4 .0 MONO abs count 742-7 0.9 th/cmm L=0.2 H=1. 0 EOS abs count 711-2 0.0 th/cmm L=0.0 H=0.5 BASO abs count 704-7 0.0 th/cmm L=0.0 H=0. 2 IG abs count 01703-9 0.0 th/cmm L=0.0 H=0.1 NRBC abs count 84765-6 0.0 mil/cmm L=0.0 H=0. 0 RBC 789-8 3.68 mil/cmm L=3.90 H=5.40 HEMOGLOBIN 718-7 11.4 gm/dL L=12.0 H=16.0 HEMATOCRIT 4544-3 34 % L=37 H=47 MCV 787-2 91 fL L=82 H=92 MCH 785-6 31.0 pg L=27.0 H=31.0 MCHC 786-4 34.0 % L=32.0 H=36.0 RDW-SD 788-0 44.4 fL L=39.0 H=49.0 PLATELET COUNT 777-3 204 th/cmm L=150 H=45 0 CBC W/ DIFFERENTIAL* - [facility] ct Date/Time: 01/05/2022 18:10 Test Name Code Test Result Test Units Test Ref Rang e WBC 6690-2 8.24 th/cmm L=5.00 H=10.00 NEUT % 80.5 % L=40.0 H=80.0 LYMPH % 7.8 % L=10.0 H=50.0 MONO % 48356-3 10.9 % L=2.0 H=12.0 EOS % 0.1 % L=0.0 H=8.0 BASO % 0.2 % L=0.0 H=3.0 IG % 2514-8 0.5 % L=0.0 H=1.1 NRBC % 56395-9 0.0 % L=0.0 H=0.0 NEUT abs count 751-8 6.6 th/cmm L=1.6 H=8. 4 LYMPH abs count 731-0 0.6 th/cmm L=1.5 H=4 .0 MONO abs count 742-7 0.9 th/cmm L=0.2 H=1. 0 EOS abs count 711-2 0.0 th/cmm L=0.0 H=0.5 BASO abs count 704-7 0.0 th/cmm L=0.0 H=0. 2 IG abs count 36810-0 0.0 th/cmm L=0.0 H=0.1 NRBC abs count 40557-8 0.0 mil/cmm L=0.0 H=0. 0 RBC 789-8 3.81 mil/cmm L=3.90 H=5.40 HEMOGLOBIN 718-7 11.7 gm/dL L=12.0 H=16.0 HEMATOCRIT 4544-3 35 % L=37 H=47 MCV 787-2 92 fL L=82 H=92 MCH 785-6 30.7 pg L=27.0 H=31.0 MCHC 786-4 33.5 % L=32.0 H=36.0 RDW-SD 788-0 45.0 fL L=39.0 H=49.0 PLATELET COUNT 777-3 201 th/cmm L=150 H=45 0 URINALYSIS WITH REFLEX CULT IF POSITIVE* - Collect Date/Time: 01/05/2022 19:30 Test Name Code Test Result Test Units Test Ref Rang e COLLECTION MODE: CLEAN CATCH N/A Color 5778-6 YELLOW N/A yellow Appearance 5767-9 CLEAR N/A clear Glucose urine 87164-7 NEGATIVE N/A negative mg /dl Bilirubin 5770-3 NEGATIVE N/A negative Ketones 2514-8 TRACE N/A negative mg/dl Spec gravity 5811-5 1.010 N/A 1.003 - 1.03 0 pH urine 2756-5 7.0 N/A 5.0 - 7.0 Protein 86704-8 NEGATIVE N/A negative mg/dl Urobilinogen 65298-7 0.2 N/A <or= 1 EU/dl Nitrite. 5802-4 NEGATIVE N/A negative Blood 5794-3 SMALL N/A negative Leukocytes. NEGATIVE N/A negative MICROSCOPIC INDICATED N/A WBCs. 03457-7 0-5 N/A 0-5 / hpf RBCs 25081-7 10-25 N/A 0-5 / hpf Epith cells 05848-7 0-5 N/A 0-5 / hpf Cell types renal N/A Crystals none N/A none Bacteria none N/A none Mucus 8247-9 none N/A none Casts 51291-9 0-5 N/A none /lpf Cast types hyaline N/A TYPE AND SCREEN* - Collect D ate/Time: 01/05/2022 18:10 Test Name Code Test Result Test Units Test Ref Rang e Blood Group 883-9 O N/A Rh (D) 59494-0 POSITIVE N/A Antibody Screen 1005-8 NEGATIVE N/A Active Medications Medications Administered During Visit Medication Dose Units Frequency Route Date/Time of Last Dose FentaNYL INJ SDV: 100MCG/2ML 25 MCG X1 I EXPELLER OPERATOR 01/05/2022 22:01 Encounters Encounter Diagnosis Diagnosis Code Start Date Contusion of abdominal wall, initial encounter S 301XXA 01/05/2022 Social History Smoking Status Code Start Date End Date Never smoker 737244538 Patient Decision Aids Unknown or Not Available. Discharge Instructions You were admitted to [facility] on 01/05/2022 17:12 with a principal diagnosis of Contusion of abdominal wall, initial encounter You had the following tests done:CBC W/ DIFFERENTIAL*URINALYSIS WITH REFLEX CULT IF POSITIVE*CBC W/ DIFFERENTIAL*COMPREHENSIVE METABOLIC PANEL (CMP)TYPE AND SCREEN* You were discharged from [facility] on 01/05/2022 22:07 Should you have [...]
--- OUTSIDE RECORDS SUMMARY | 2023-10-19 21:37 | XMS_ITS | CCD ---
Author Name Unknown Address [address] [place] [address] [phone] Organization Unknown Address [address] [place] [address] [phone] Care Team Providers Care Manufacturing Manager Name Role Phone SEKOUGINGER Jeramie Attending Physician [phone] Vital Signs Unknown or Not Available. Allergies Allergy Code Allergy Type Reaction Status PENICILLINS (CLASS) 85719 Drug allergy Anaphylaxis Ac tive LISINOPRIL 21761 Drug allergy UNKNOWN Active CODEINE 2670 Drug allergy UNKNOWN Active Procedures Unknown or Not Available. History of Immunizations Unknown or Not Available. Problems Problem Code Start Date Resolved Date Status Fracture of shaft of humerus, sequela 54963398 9 Active Intermittent atrial fibrillation 322115339 Active Hypertension 18173117 Active Dementia 34622731 Active A fib 45943617 Active Results Unknown or Not Available. Active Medications Medication Code Dose Units Frequency Route Modificatio n Start Date/Time oxyCODONE HCl 5MG Oral Tablet 9500689 1 TABLET NEEDED EVERY 4 HOURS ORAL 08/14/2019 16:18 Prescription Detail TAKE 1 TABLET ORAL NEEDED EVERY 4 DENG RS. Not to exceed 6 tabs daily Acetaminophen 500MG Oral Tablet 169287 2 TABLET NEEDED THREE TIMES A DAY ORAL 08/14/2019 16:07 Prescription Detail TAKE 2 TABLET ORAL NEEDED THREE TIMES A DAY FOR PAIN Aricept 10MG Oral Tablet 308033 10 MILLIGRAMS DAILY ORAL 019 16:06 Prescription Detail TAKE 10 MILLIGRAMS ORAL DAILY Dok 100MG Oral Capsule, Liquid Filled 9023205 100 MILLIGRAMS TWICE A DAY ORAL 019 16:06 Prescription Detail TAKE 100 MILLIGRAMS ORAL TWICE A DAY Hyzaar 100MG-25MG Oral Tablet 501193 1 EACH DAILY ORAL 08/14/2019 16:06 Prescription Detail TAKE 1 EACH ORAL DAILY Metoprolol Succinate 100MG Oral Tablet, Extended Release 460451 100 MILLIGRAMS DAILY ORAL 16:06 Prescription Detail TAKE 100 MILLIGRAMS ORAL DAILY Pradaxa 150MG Oral Capsule 2344370 150 MILLIGRAMS TWICE A DAY ORAL 07/23 16:06 Prescription Detail TAKE 150 MILLIGRAMS ORAL TWICE A DAY Simvastatin 20MG Oral Tablet 405387 20 MILLIGRAMS DAILY ORAL 019 16:06 Prescription Detail TAKE 20 MILLIGRAMS ORAL DAILY Medications Administered During Visit Unknown or Not Available. Encounters Encounter Diagnosis Diagnosis Code Start Date Localized swelling, mass and lump, trunk R222 02/07/2022 Social History Smoking Status Code Start Date End Date Never smoker [id number] Patient Decision Aids Unknown or Not Available. Discharge Instructions You were admitted to [facility] on 02/07/2022 14:32 with a principal diagnosis of Localized swelling, mass and lump, trunk You were discharged from [facility] on 02/07/2022 14:33 Should you have any questions prior to discharge, please contact a member of your healthcare team. If you have left the hospital and have any questions, please contact your primary care physician. Chief Complaint and Reason For Visit Chief Complaint Date of Onset SEROMA R SIDE OF BACK Function Status Unknown or Not Available. Plan of Care Unknown or Not Available. Referral/Transition of Care Unknown or Not Available.
== END 2023-10-19 21:36 | disposition home or self-care (01) ==
LOC: NCHCN 21:35
PROVIDERS: PCP Family Medicine; Visit Provider Family Medicine
DX: N39.0 Urinary tract infection, site not specified (principal)
CPT/HCPCS: 87077; 87086; 87186

== ENCOUNTER 2024-05-20 16:10 | Outpatient (REF) | payer MEDICARE, OTHER, SELFPAY ==
--- OUTSIDE RECORDS SUMMARY | 2024-05-20 16:13 | XMS_ITS ---
Author Organization Unknown Address [address] [place] [address] [phone] Phone Care Team Providers Care Organizational Development Director Name Role Phone JUDY MUNIZ Registered Nurse Unavailable KARLEE FREDERICK Registered Nurse Unavailable LUANNE Cesar Attending Unavailable [facility] Unavailable SEKOU Bobo Primary Unavailable UNLISTED PROVIDER - REQUESTED Xhandoff Un available Results CBC W/ DIFFERENTIAL* - Colle ct Date/Time: 01/05/2022 21:35 [facility] ID: [id number] [address] [place] [address], [address] LOINC: 41266-3 Test Value Unit Reference Range Code Code System Flag WBC 7.05 th/cmm L=5.00 H=10.00 6690-2 LOINC NEUT % 72.5 % L=40.0 H=80.0 LYMPH % 14.6 % L=10.0 H=50.0 MONO % 12.2 % L=2.0 H=12.0 27304-2 LOINC H EOS % 0.3 % L=0.0 H=8.0 BASO % 0.1 % L=0.0 H=3.0 IG % 0.3 % L=0.0 H=1.1 2514-8 LOINC NRBC % 0.0 % L=0.0 H=0.0 82369-0 LOINC NEUT abs count 5.1 th/cmm L=1.6 H=8.4 751-8 LOINC LYMPH abs count 1.0 th/cmm L=1.5 H=4.0 731-0 LOINC L MONO abs count 0.9 th/cmm L=0.2 H=1.0 742-7 LOINC EOS abs count 0.0 th/cmm L=0.0 H=0.5 711-2 LOINC BASO abs count 0.0 th/cmm L=0.0 H=0.2 704-7 LOINC IG abs count 0.0 th/cmm L=0.0 H=0.1 43545-0 LOINC NRBC abs count 0.0 mil/cmm L=0.0 H=0.0 42118-6 LOINC RBC 3.68 mil/cmm L=3.90 H=5.40 789-8 LOINC L HEMOGLOBIN 11.4 gm/dL L=12.0 H=16.0 718-7 LOINC L HEMATOCRIT 34 % L=37 H=47 4544-3 LOINC L MCV 91 fL L=82 H=92 787-2 LOINC MCH 31.0 pg L=27.0 H=31.0 785-6 LOINC MCHC 34.0 % L=32.0 H=36.0 786-4 LOINC RDW-SD 44.4 fL L=39.0 H=49.0 788-0 LOINC PLATELET COUNT 204 th/cmm L=150 H=450 777-3 LOINC URINALYSIS WITH REFLEX CULT IF POSITIVE* - Collect Date/Time: 01/05/2022 19:30 [facility] ID: [id number] [address] [employer] [employer], [place], [address] LOINC: 05118-3 Test Value Unit Reference Range Code Code System Flag COLLECTION MODE: CLEAN CATCH Color YELLOW yellow 5778-6 LOINC Appearance CLEAR clear 5767-9 LOINC Glucose urine NEGATIVE negative mg/dl 39462-3 LOINC Bilirubin NEGATIVE negative 5770-3 LOINC Ketones TRACE negative mg/dl 2514-8 LOINC A Spec gravity 1.010 1.003 - 1.030 5811-5 LOINC pH urine 7.0 5.0 - 7.0 2756-5 LOINC Protein NEGATIVE negative mg/dl 81422-4 LOINC Urobilinogen 0.2 <or= 1 EU/dl 62212-6 LOINC Nitrite. NEGATIVE negative 5802-4 LOINC Blood SMALL negative 5794-3 LOINC A Leukocytes. NEGATIVE negative MICROSCOPIC INDICATED WBCs. 0-5 0-5 / hpf 38222-7 LOINC RBCs 10-25 0-5 / hpf 28289-6 LOINC Epith cells 0-5 0-5 / hpf 20939-0 LOINC Cell types renal Crystals none none Bacteria none none Mucus none none 8247-9 LOINC Casts 0-5 none /lpf 41977-9 LOINC Cast types hyaline Other 98874-3 LOINC TYPE AND SCREEN* - Collect D ate/Time: 01/05/2022 18:10 [facility] ID: [id number] [address] [employer] [employer], [place], [id number] LOINC: Test Value Unit Reference Range Code Code System Flag Blood Group O 883-9 LOINC Rh (D) POSITIVE 36947-2 LOINC Antibody Screen NEGATIVE 1005-8 [facility] COMPREHENSIVE METABOLIC PANE L (CMP) - Collect Date/Time: 01/05/2022 18:10 [facility] ID: [id number] [address] [place] [address], [address] LOINC: 92946-4 Test Value Unit Reference Range Code Code System Flag GLUCOSE 119 mg/dL L=70 H=116 2345-7 LOINC H BUN 22 mg/dL L=6 H=25 3094-0 LOINC CREATININE 0.75 mg/dL L=0.51 H=0.95 2160-0 LOINC SODIUM SERUM 133 mmol/L L=136 H=145 2951-2 LOINC L POTASSIUM SERUM 4.1 mmol/L L=3.4 H=5.2 2823-3 LOINC CHLORIDE SERUM 96 mmol/L L=96 H=110 2075-0 LOINC CARBON DIOXIDE (CO2) 32 mmol/L L=22 H=34 2028-9 LOINC ANION GAP 5.3 mmol/L 03841-3 LOINC CALCIUM SERUM 9.6 mg/dL L=8.2 H=10.2 35840-6 LOINC BILIRUBIN TOTAL 0.4 mg/dL L=0.0 H=1.3 1975-2 LOINC ALK. PHOS. 57 U/L L=46 H=116 6768-6 LOINC SGOT (AST) 23 U/L L=15 H=37 1920-8 LOINC SGPT (ALT) 19 U/L L=12 H=78 1742-6 LOINC TOTAL PROTEIN 6.9 gm/dL L=6.0 H=8.0 2885-2 LOINC ALBUMIN 3.5 gm/dL L=3.4 H=5.0 1751-7 LOINC AGE 76 years eGFR (non-Afr.Amer.) 75 mL/min 96457-9 LOINC eGFR (Afr-Marshallese) 91 mL/min 45002-0 LOINC CBC W/ DIFFERENTIAL* - Colle ct Date/Time: 01/05/2022 18:10 [facility] ID: [id number] [address] [employer] [employer], [place], [address] LOINC: 00206-3 Test Value Unit Reference Range Code Code System Flag WBC 8.24 th/cmm L=5.00 H=10.00 6690-2 LOINC NEUT % 80.5 % L=40.0 H=80.0 H LYMPH % 7.8 % L=10.0 H=50.0 L MONO % 10.9 % L=2.0 H=12.0 20020-8 LOINC EOS % 0.1 % L=0.0 H=8.0 BASO % 0.2 % L=0.0 H=3.0 IG % 0.5 % L=0.0 H=1.1 2514-8 LOINC NRBC % 0.0 % L=0.0 H=0.0 17349-9 LOINC NEUT abs count 6.6 th/cmm L=1.6 H=8.4 751-8 LOINC LYMPH abs count 0.6 th/cmm L=1.5 H=4.0 731-0 LOINC L MONO abs count 0.9 th/cmm L=0.2 H=1.0 742-7 LOINC EOS abs count 0.0 th/cmm L=0.0 H=0.5 711-2 LOINC BASO abs count 0.0 th/cmm L=0.0 H=0.2 704-7 LOINC IG abs count 0.0 th/cmm L=0.0 H=0.1 01155-3 LOINC NRBC abs count 0.0 mil/cmm L=0.0 H=0.0 69621-6 LOINC RBC 3.81 mil/cmm L=3.90 H=5.40 789-8 LOINC L HEMOGLOBIN 11.7 gm/dL L=12.0 H=16.0 718-7 LOINC L HEMATOCRIT 35 % L=37 H=47 4544-3 LOINC L MCV 92 fL L=82 H=92 787-2 LOINC MCH 30.7 pg L=27.0 H=31.0 785-6 LOINC MCHC 33.5 % L=32.0 H=36.0 786-4 LOINC RDW-SD 45.0 fL L=39.0 H=49.0 788-0 LOINC PLATELET COUNT 201 th/cmm L=150 H=450 777-[address] CXR ABD PELVIS WITH IV ON LY* - Completed: 01/05/2022 20:54 LOINC: Radiation optimization: All CT scans at this facility use at least one of these dose optimization techniques: automated exposure control; mA and/or kV adjustment per patient size (includes targeted exams where dose is matched to clinical indication); or iterative reconstruction. CT CHEST: Lungs: No infiltrates nor lung contusion. No pleural effusions. No pneumothorax. No nodules of concern. No significant focal findings in the trachea and main stem bronchi. Mediastinum: No evidence of mediastinal hematoma. No hilar nor mediastinal adenopathy. Cardiac: Mild cardiomegaly. No pericardial effusion. Caliber of thoracic aorta is within normal limits. No dissection. Osseous: No acute rib nor scapular nor sternal fractures. No acute thoracic vertebral fractures. There is non acute chronic appearing mild compression fracture of T2 vertebral body with approximately 10-15% height loss. No significant osseous lesions. CT OF THE ABDOMEN AND PELVIS:There is a large hematoma over the posterior right side of the lower chest and abdomen. This exhibits signs of active bleeding/contrast extravasation. This large hematoma measures approximately 15 cm wide by 3 cm AP by 15 cm craniocaudal. There is a nondisplaced fracture of the right transverse process of L1 noted. No other fracture is identified. There are superior end plate compression fractures of L1, L2, L3, L4, and L5, most prominent at L4 where there is greater than 50% loss of vertebral height. No retropulsion. No acute fracture lines evident in these vertebrae. There is no ascites. There is a 2.5 cm benign appearing cyst in the liver/right hepatic lobe. No other focal hepatic findings. No dilated intrahepatic ducts. There is a 5 mm hyperdense structure in the gallbladder posterior wall which is either a small gallstone or polyp. This can be studied with ultrasound. CBD is not dilated. Pancreas unremarkable. Spleen size is normal. No splenic laceration. The splenic and portal veins are patent. There are no adrenal masses. No evidence of renal laceration. Tiny cysts are noted in both kidneys. Small nonobstructive calculus in the left kidney. No hydronephrosis. Abdominal aorta is calcified but not enlarged. No evidence of aortic nor aortoiliac segment trauma. No incidental periaortic adenopathy. No evidence of anterior abdominal wall hernia. No bowel obstruction. No evidence of bowel wall nor mesenteric hematoma. In the pelvis the uterus and adnexal regions are age-appropriate. No free fluid. No intrapelvic nor inguinal adenopathy. No evidence of appendicitis nor acute diverticulitis. There is uniform urinary bladder wall thickening. Osseous: Right transverse process L1 nondisplaced fracture. Chronic compression fractures as described above. No significant osseous lesions. IMPRESSION: 1. There is a large posterior right subcutaneous hematoma with evidence of active bleeding. This measures approximately 15 by 15 by 3 cm. There is a subjacent nondisplaced fracture of the right transverse process of L1. No other fracture is identified. 2. No evidence of significant intrathoracic nor intraabdominal/pelvic trauma sequelae. 3. Small gallstone versus polyp incidentally noted. No dilatation of the biliary tree. Also benign 2.5 cm cyst in the liver and multiple tiny cysts in both kidneys. Dictated by: PERRY RANGEL MD Transcribed by: WENCESLAO 01/06/22/09:54 D Thursday, January 06, 2022 8:56:55 AM/#[id number] Electronically Reviewed and Signed By: GERSON RANGEL MD 01/06/22 10:19 Copy for: [facility] HEALTH INFORMATION MGMT DISCHARGED Social History Type Status Start Date End Date Code Code Syst em Smoking History Never smoker (Never Smoked) 668996943 SNOMED CT Sex Female Gender Identity Female [id number] Vital Signs Vital Sign Value Unit [place] Value [place] Unit Date/Time Recent/Initial? Code Code System Body Mass Index 35.92 kg/m2 01/05/2022 17:23 Initial 59310 -5 LOINC Systolic Blood Pressure 90 mm[Hg] 01/05/2022 21:47 Most Recent 8480- 6 LOINC Diastolic Blood Pressure 64 mm[Hg] 01/05/2022 21:47 Most Recent 8462- 4 LOINC Systolic Blood Pressure 152 mm[Hg] 01/05/2022 17:23 Initial 8480- 6 LOINC Diastolic Blood Pressure 131 mm[Hg] 01/05/2022 17:23 Initial 8462- 4 LOINC Body Surface Area 1.74 m2 01/05/2022 17:23 Initial 3140- 1 LOINC Height 144.780 0 cm 57.00 in 01/05/2022 17:23 Initial 8302- 2 LOINC O2 Saturation 96 % 2021 21:47 Most Recent 20167 -5 INC O2 Saturation 98 % 2021 17:23 Initial 05992 -5 LOINC Pulse 80.0 /min 01/05/2022 21:47 Most Recent 8867- 4 LOINC Pulse 85.0 /min 01/05/2022 17:23 Initial 8867- 4 LOINC Respiration 20 /min 01/06/20 22 21:47 Most Recent 9279- 1 LOINC Respiration 18 /min 01/06/20 22 17:23 Initial 9279- 1 LOINC Temperature 36.0 Juliette 96.8 F 01/06/20 22 21:47 Most Recent 8310- 5 LOINC Temperature 36.8 Juliette 98.2 F 01/06/20 22 17:23 Initial 8310- 5 LOINC Weight 75.30 kg 166.00 lbs 01/05/2022 17:23 Initial 07873 -7 [facility] Medications Medication Start Date End Date Route Frequency Dose Code Code System Medication Instructions Home Meds oxyCODONE HCl 5MG Oral Tablet 08/14/2019 Unknown ORAL NEEDED EVERY 4 HOURS 1 TABLET 2938361 RxNorm TAKE 1 TABLET ORAL NEEDED EVERY 4 HOURS. Not to exceed 6 tabs daily Aricept 10MG Oral Tablet 08/14/2019 Unknown ORAL DAILY 10 MILLIGRAMS 544907 RxNorm TAKE 10 MILLIGRAMS ORAL DAILY Hyzaar 100MG-25MG Oral Tablet 08/14/2019 Unknown ORAL DAILY 1 unit(s) 438424 RxNorm TAKE 1 EACH ORAL DAILY Metoprolol Succinate 100MG Oral Tablet, Extended Release 08/14/2019 Unknown ORAL DAILY 100 MILLIGRAMS 341064 RxNorm TAKE 100 MILLIGRAMS ORAL DAILY Acetaminophen 500MG Oral Tablet 08/14/2019 Unknown ORAL NEEDED THREE TIMES A DAY 2 TABLET 340230 RxNorm TAKE 2 TABLET ORAL NEEDED THREE TIMES A DAY FOR PAIN Dok 100MG Oral Capsule, Liquid Filled 08/14/2019 Unknown ORAL TWICE A DAY 100 MILLIGRAMS 4861771 RxNorm TAKE 100 MILLIGRAMS ORAL TWICE A DAY Pradaxa 150MG Oral Capsule 08/14/2019 Unknown ORAL TWICE A DAY 150 MILLIGRAMS 2685799 RxNorm TAKE 150 MILLIGRAMS ORAL TWICE A DAY Simvastatin 20MG Oral Tablet 08/14/2019 Unknown ORAL DAILY 20 MILLIGRAMS 333375 RxNorm TAKE 20 MILLIGRAMS ORAL DAILY OMEPRAZOLE 20MG ORAL TABLET, DELAYE 08/14/2019 Unknown ORAL TWICE A DAY 20 MILLIGRAMS RxNorm TAKE 20 MILLIGRAMS ORAL TWICE A DAY TOLTERODINE TART ER 4 MG CAP 08/14/2019 Unknown ORAL DAILY 1 MILLIGRAMS RxNorm TAKE 1 MILLIGRAMS ORAL DAILY Assessment You had the following problems:FRACTURE OF SHAFT OF HUMERUS, SEQUELAINTERMITTENT ATRIAL FIBRILLATIONHYPERTENSIONDEMENTIAA FIB Hospital Discharge Instructions Should you have any questions prior to discharge, please contact a member of your healthcare team. If you have left the hospital and have any questions, please contact your primary care physician. Reason For Referral No Data Found Problems Problem Start Date Resolved Date Status Code Code System FRACTURE OF SHAFT OF HUMERUS , SEQUELA active 53449198 SNOMED-CT INTERMITTENT ATRIAL FIBRILLATION active 700184893 SNOMED-CT HYPERTENSION active 00179234 SNOMED- CT DEMENTIA active 30860227 SNOMED-CT A FIB active 60930685 SNOMED-CT STROKE 08/13/2019 resolved 579215254 SNOMED-CT Allergies and Adverse Reactions Allergy Substance Reaction Severity Start Date Concern Status Code Code System PENICILLINS (CLASS) Anaphylaxis (SNOMED-CT: 74417777) Moderate Active 93230 RxNorm CODEINE Active 2670 RxNorm LISINOPRIL Active 86410 RxNorm Plan of Treatment MM SCREEN BILAT 02/17/2022 US EXTREMITY 02/07/2022 Encounters Encounter Diagnosis Start Date Code Code Sys tem Contusion of abdominal wall, initial encounter 022 SNOMED-CT Personal Care Team Section Performer Name Performer Role Active Date Inactive Da te
--- OUTSIDE RECORDS SUMMARY | 2024-05-20 16:14 | XMS_ITS ---
Author Organization Unknown Address [address] [place] [phone] Phone Care Team Providers Care Zoning Engineer Name Role Phone SEKOU Bobo Attending Unavailable Results MM SCREENING BILAT MAMMO W T DAJUAN W CAD - Completed: 02/17/2022 14:48 LOINC: Digital mammograms were inte rpreted according to the usual protocol including computer analysis with CADx system including tomosynthesis. Comparison with prior examinations. No suspicious masses or microcalcifications are seen. The skin and axilla are unremarkable. There has been no significant change compared to the prior examinations. IMPRESSION: No evidence for malignancy. Yearly mammography is recommended. BI-RADS Assessment: Category 1. Negative. BREAST DENSITY: b. There are scattered areas of fibroglandular density. TECHNOLOGIST: Kalyani Arroyo RT (R) (CT) Dictated by: JOEL ORTIZ MD Transcribed by: [facility] 02/17/22/15:14 D Thursday, February 17, 2022 1:46:54 PM [id number] Electronically Reviewed and Signed By: MARI ORTIZ MD 02/17/22 15:52 Copy for: SEKOU Bobo via fax Copy for: [facility] HEALTH INFORMATION MGMT Social History Type Status Start Date End Date Code Code Syst em Smoking History Never smoker (Never Smoked) 086853373 SNOMED CT Sex Female Gender Identity Female [id number] Medications Medication Start Date End Date Route Frequency Dose Code Code System Medication Instructions Home Meds oxyCODONE HCl 5MG Oral Tablet 08/14/2019 Unknown ORAL NEEDED EVERY 4 HOURS 1 TABLET 2483620 RxNorm TAKE 1 TABLET ORAL NEEDED EVERY 4 HOURS. Not to exceed 6 tabs daily Aricept 10MG Oral Tablet 08/14/2019 Unknown ORAL DAILY 10 MILLIGRAMS 473245 RxNorm TAKE 10 MILLIGRAMS ORAL DAILY Hyzaar 100MG-25MG Oral Tablet 08/14/2019 Unknown ORAL DAILY 1 unit(s) 114421 RxNorm TAKE 1 EACH ORAL DAILY Metoprolol Succinate 100MG Oral Tablet, Extended Release 08/14/2019 Unknown ORAL DAILY 100 MILLIGRAMS 759637 RxNorm TAKE 100 MILLIGRAMS ORAL DAILY Acetaminophen 500MG Oral Tablet 08/14/2019 Unknown ORAL NEEDED THREE TIMES A DAY 2 TABLET 367722 RxNorm TAKE 2 TABLET ORAL NEEDED THREE TIMES A DAY FOR PAIN Dok 100MG Oral Capsule, Liquid Filled 08/14/2019 Unknown ORAL TWICE A DAY 100 MILLIGRAMS 1775963 RxNorm TAKE 100 MILLIGRAMS ORAL TWICE A DAY Pradaxa 150MG Oral Capsule 08/14/2019 Unknown ORAL TWICE A DAY 150 MILLIGRAMS 3596696 RxNorm TAKE 150 MILLIGRAMS ORAL TWICE A DAY Simvastatin 20MG Oral Tablet 08/14/2019 Unknown ORAL DAILY 20 MILLIGRAMS 003165 RxNorm TAKE 20 MILLIGRAMS ORAL DAILY OMEPRAZOLE [...] OF SHAFT OF HUMERUS , SEQUELA active 60238349 SNOMED-CT INTERMITTENT ATRIAL FIBRILLATION active 390894774 SNOMED-CT HYPERTENSION active 55267865 SNOMED- CT DEMENTIA active 18157245 SNOMED-CT A FIB active 90773656 SNOMED-CT STROKE 08/13/2019 resolved 553030451 SNOMED-CT Allergies and Adverse Reactions Allergy Substance Reaction Severity Start Date Concern Status Code Code System PENICILLINS (CLASS) Anaphylaxis (SNOMED-CT: 82109466) Moderate Active 99365 RxNorm CODEINE Active 2670 RxNorm LISINOPRIL Active 47408 RxNorm Plan of Treatment MM SCREEN BILAT 02/17/2022 US EXTREMITY 02/07/2022 Encounters Encounter Diagnosis Start Date Code Code Sys tem Encounter for screening mamm ogram for malignant neoplasm of breast 02/17/2022 SNOMED-CT Personal Care Team Section Performer Name Performer Role Active Date Inactive Da te
--- OUTSIDE RECORDS SUMMARY | 2024-05-20 16:14 | XMS_ITS ---
Author Organization Unknown Address [address] [place] [phone] Phone Care Team Providers Care Career Development Coordinator/Teacher Name Role Phone SEKOU Bobo Attending Unavailable Results US EXAM CHEST - Completed: 0 02/07/2022 15:55 LOINC: ULTRASOUND OF THE SUPERFICIA L TISSUES OF THE BACK: Comparison is made with chest CT dated 05 January 2022. There is a fluid collection with septations in the subcutaneous fat of the lower back, which is measured at 15.3 x 3.4 x 14.2 cm consistent with a seroma. There is no visible blood flow currently. The size measured has not significantly changed from the prior exam. IMPRESSION: Roughly stable size of previously noted hematoma in the subcutaneous tissues of the back. Dictated by: CEO ENDER LAGUERRE MD Transcribed by: VERA 02/08/22/09:57 [id number] Electronically Reviewed and Signed By: ENDER LAGUERRE MD 02/08/22 12:13 Copy for: SEKOU Bobo via fax Copy for: 185 HEALTH INFORMATION MGMT Social History Type Status Start Date End Date Code Code Syst em Smoking History Never smoker (Never Smoked) 111179514 SNOMED CT Sex Female Gender Identity Female [id number] Medications Medication Start Date End Date Route Frequency Dose Code Code System Medication Instructions Home Meds oxyCODONE HCl 5MG Oral Tablet 08/14/2019 Unknown ORAL NEEDED EVERY 4 HOURS 1 TABLET 1536233 RxNorm TAKE 1 TABLET ORAL NEEDED EVERY 4 HOURS. Not to exceed 6 tabs daily Aricept 10MG Oral Tablet 08/14/2019 Unknown ORAL DAILY 10 MILLIGRAMS 083296 RxNorm TAKE 10 MILLIGRAMS ORAL DAILY Hyzaar 100MG-25MG Oral Tablet 08/14/2019 Unknown ORAL DAILY 1 unit(s) 794234 RxNorm TAKE 1 EACH ORAL DAILY Metoprolol Succinate 100MG Oral Tablet, Extended Release 08/14/2019 Unknown ORAL DAILY 100 MILLIGRAMS 318889 RxNorm TAKE 100 MILLIGRAMS ORAL DAILY Acetaminophen 500MG Oral Tablet 08/14/2019 Unknown ORAL NEEDED THREE TIMES A DAY 2 TABLET 478515 RxNorm TAKE 2 TABLET ORAL NEEDED THREE TIMES A DAY FOR PAIN Dok 100MG Oral Capsule, Liquid Filled 08/14/2019 Unknown ORAL TWICE A DAY 100 MILLIGRAMS 3145670 RxNorm TAKE 100 MILLIGRAMS ORAL TWICE A DAY Pradaxa 150MG Oral Capsule 08/14/2019 Unknown ORAL TWICE A DAY 150 MILLIGRAMS 2013183 RxNorm TAKE 150 MILLIGRAMS ORAL TWICE A DAY Simvastatin 20MG Oral Tablet 08/14/2019 Unknown ORAL DAILY 20 MILLIGRAMS 455899 RxNorm TAKE 20 MILLIGRAMS ORAL DAILY OMEPRAZOLE [...] OF SHAFT OF HUMERUS , SEQUELA active 72697291 SNOMED-CT INTERMITTENT ATRIAL FIBRILLATION active 154046973 SNOMED-CT HYPERTENSION active 27114390 SNOMED- CT DEMENTIA active 24372733 SNOMED-CT A FIB active 15999268 SNOMED-CT STROKE 08/13/2019 resolved 916366474 SNOMED-CT Allergies and Adverse Reactions Allergy Substance Reaction Severity Start Date Concern Status Code Code System PENICILLINS (CLASS) Anaphylaxis (SNOMED-CT: 22307541) Moderate Active 41063 RxNorm CODEINE Active 2670 RxNorm LISINOPRIL Active 54904 RxNorm Plan of Treatment MM SCREEN BILAT 02/17/2022 US EXTREMITY 02/07/2022 Encounters Encounter Diagnosis Start Date Code Code Sys tem Localized swelling, mass and lump, trunk 02/07/2022 SNOMED-CT Personal Care Team Section Performer Name Performer Role Active Date Inactive Da te
--- OUTSIDE RECORDS SUMMARY | 2024-05-20 16:15 | XMS_ITS | Encounter Summary ---
Author Organization [facility] Address [address] [place] [address] Care Team Providers Care Frame Maker Name Role Phone Valerie Santana MD Primary Care Provider [phone] Reason for Visit * Reason Comments Memory Loss * Referral (Routine) - Receiving Office to Obtain Authorization Specialty Diagnoses / Procedures Referred By Adi trejo Referred To Contact Psychology Diagnoses Vascular dementia (HCC-CMS) Atypical depression Valerie Santana MD [address] [place] [phone] [facility] [address] [place] [id number] Referral ID Status Reason Start Date Expiration Date Visits Requested Visits Authorized [id number] Receiving Office to Obtain Authorization 2 2 Encounter Details Date Type Department Care Team (Late st Contact Info) Description 12/01/2022 15:00 EST Office Visit [facility] Memory Program - Medical Office Building [address] [place] [id number] Bertha Madden, PhD [address] [place] [address] [address] [place] [address] Memory loss (Primary Dx) Social History Tobacco Use Types Packs/Day Years Used Date Smoking Tobacco: Never Smokeless Tobacco: Never Interpersonal Safety Answer Date Record ed Physically Hurt Never 05/23/2020 Verbally Threaten Not on file 05/23/2020 Sex and Gender Information Value Date Recorded Sex Assigned at Not on file Gender Identity Female 08/12/2021 14:27 EDT Sexual Orientation Not on file documented as of this encounter Functional Status Functional Status Response Date of Assess ment Are you deaf or do you have serious difficulty h earing? No 01/06/2022 Are you blind or do you have serious difficulty seeing, even when wearing glasses? No 01/06/2022 Do you have serious difficul ty walking or climbing stairs? (5 years old or older) Yes 01/06/2022 Do you have difficulty dress ing or bathing? (5 years old or older) No 01/06/2022 Because of a physical, menta l, or emotional condition, do you have difficulty doing errands alone such as visiting a doctor's office or shopping? (15 years old or older) No 01/06/2022 Cognitive Status Response Date of Assessm ent Because of a physical, menta l, or emotional condition, do you have serious difficulty concentrating, remembering, or making decisions? (5 years old or older) No 01/06/2022 documented as of this encounter Progress Notes * Bertha Madden, PhD - 12/01/2022 1500 EST NEUROPSYCHOLOGICAL EVALUATION Karla Gillis was seen for interview and testing on 12/01/2022. She was referred by Valerie Santana MDand was seen as an outpatient at the Medical Office Building on the [facility]. She was referred to the Memory Program by her primary care providerfor evaluation of her cognitive status and neurological work-up in the setting of a prior CVA (2016) and diagnosis of vascular dementia (2017). Concerns have been raised for possible Lewy body or Alzheimer's disease in addition to her vascular dementia in the setting of visual hallucinations, irritability/argumentative behavior (with some improvement on fluoxetine), and progressive cognitive decline. PATIENT PROFILE: Ms. Gillis is a 77-year-old, right-handed, woman who was born in [place] and raised in [place]. Her mother at age 68 from heart failure, and her father at age 65 from a blood disease. She has four siblings, one of whom at age 72 from heart issues. Her of 45 years in 2009. She has four children from that marriage. Ms. 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 She currently resides in [place], [place] with her daughter, Artem, and her daughter's significant other. Additionally, her sister, Chaparrita (age 72), is currently staying with them until June 2023. The plan is for Ms. Gillis to then return with Chaparrita to her home in [place], where she usually spends part of the year. There is no known family history of dementia. Family psychiatric history is positive for schizophrenia in a son. Ms. Gillis's pertinent medical history is positive for A-fib, hypertension, hyperlipidemia, type IIdiabetes, and bilateral sensorineural hearing loss. She is prescribed fluoxetine (20 mg) for mood. Additionally, as mentioned, neurological history is positive for CVA (2015) and vascular dementia. She was prescribed donepezil by her primary care doctor in 2016 for the latter. Ms. Gillis was seen by Dr. Cadence Cabrera for neurological work-up in May 2017, who documented the following: The clinical picture reflects a combination of R CVA (left visual and tactile extinction and subtle L sided neglect) and extensive bi-hemispheric microvascular disease. MoCA shows deficits in divided attention/concentration, calculations, and mild memory deficits. She has had some impulsive and dis inhibited behavior. She was administered the SLUMS during a primary care office visit in May 2022, which yielded a score of 19/30 (c/w MOCA 22/30 in mid-2015). CT of the head was completed in October 2022 (in the context of a fall) and reportedly demonstratedthe following findings: Brain: Moderate cerebral atrophy. Moderate periventricular white matter hypodensity. No edema or hemorrhage. 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 Cerebral ventricles: Ex vacuo dilation of the ventricular system. HISTORY OF PRESENTING ILLNESS: Ms. Gillis states that her primary care physician, Dr. Santana, referred her to the Memory Program, though she was uncertain as to why she was being seen. She did recallthat she had completed some cognitive testing in the past following her stroke. Upon inquiry, she de nies problems with recalling remote information, recent events, or conversations. She states that her daughter has been managing her appointments and scheduled activities since she had her stroke. She denies problems with procedural memory, such as when accessing previously well-learned skills (e.g., cooking). She reports that she occasionally misplaces her belongings, though notes that this doesnot represent a change for her. She denies problems with word finding. She reports no issues with auditory comprehension, reading comprehension, or changes in her handwriting. She states that she has never been very good at math, but she does not feel that there have been any declines in this area. She reports no difficulty with decision- making/reasoning. Regarding geographic orientation, she reports that she had to stop driving after her stroke due to a loss of her peripheral vision. However, she states that she is not getting lost or disoriented in familiar areas. Ms. Gillis reports a positive mood, denying depression or anxiety. She reports occasional irritability, stating, I fight with my sister all the time. She expressed disappointment that she is unableto live alone. She denies anhedonia, a passive wish for , or suicidal ideation. Regarding sleep, she states that she wakes up in the middle of the night due to incontinence that leads to her soaking through her adult diapers. She uses a CPAP due to diagnosed apnea. She states that her energy level during the day is lousy. Appetite is described as okay. She states that she lost her sense of taste after her stroke. Weight has reportedly been stable. She reports frequent, well-formed visual hallucinations, including seeing fairies in the trees. She does not find these perceptual experiences to be upsetting/disturbing, and she reports that she has always had these experiences (evenpreceding her stroke). Delusions are not reported. She reports that she rarely drinks alcohol (an occasional drink if she goes out with her daughter or sister), and she does not use tobacco products.She reports that she does not get routine exercise because her left side has been too weak since the stroke. Ms. Gillis's daughter, Artem, and her sister, Chaparrita, were available to provide additional information about Ms. Gillis's cognitive functioning and daily activities. Artem states that it is difficult to say exactly when she first began to notice that her mother was having cognitive issues, butbelieves that symptoms predated her stroke and then worsened considerably after her stroke. She reports that her mother's remote memory is fairly well-preserved, but she sometimes believes that her daughter was present during events that occurred during her childhood. She states that her mother's recall of recent events is inconsistent, noting that sometimes she is sharp as a tack, while in other instances she seems more forgetful. She is reportedly more forgetful for conversations and repeats herself frequently. Artem has been managing her mother's appointments since she had her stroke.There have been declines in her procedural memory (e.g., phone use has declined), and Artem states that she no longer allows her mother to cook because she may forget to turn the stove off. She often misplaces and/or loses her belongings (e.g., dentures, phone). Artem feels that her mother's decision-making skills and judgment have declined. Artem has Power of Equine Intern. Her sister notes that they used to play [employer] on a regular basis, but Ms. Gillis is no longer able to do this duein part to a decline in her math skills. Ms. Gillis requires some prompts to wash her hair and a little bit of assistance in the shower due to physical limitations, but otherwise she is independent for basic self-care. Her sister and daughter help her manage her medications, as otherwise she would not remember to take them. Artem states that her mother no longer does any education paraprofessional, but she feels this is due to her mother's tendency to be somewhat of a primadonna rather than due to a cognitive deficit. Yulia states that her mother was having trouble managing her finances even prior to her stroke, noting that she had trouble accurately filling out checks and was constantly overdrawing her account. As such, Artem nowmanages her finances. Artem believes there have been declines in her navigational skills; when apassenger with others she will not recognize what road they are on, even in familiar areas. Yulia states that her mother does still tend to be socially engaged and enjoys being taken out for shopping trips. She does not believe that she is depressed or anxious, though consistent with Ms. Gillis's report, she notes that she tends to argue with her sister. Yulia states that her mother began having visual hallucinations after her stroke, including seeing animals and children playing. She has also been experiencing vivid dreams and is talking in her sleep, according to her sister. Regarding other concerns, Artem indicates that her mother refuses to exercise, and she questions whether this (as well as her refusal to assist with education paraprofessional) is due to being obstinate versus being incapable. Historically, she has not been compliant with recommended PT exercises. BEHAVIORAL OBSERVATION AND MENTAL STATUS EXAMINATION: Ms. Gillis presented as well-dressed, neatly groomed woman who arrived promptly for her scheduled appointment accompanied by her daughter and hersister. She ambulated with a rolling walker. She reported that her vision is 20/20 in the setting of past cataract surgery. She noted that she has hearing aids but did not wear them on the day of testing. Nevertheless, hearing appeared adequate for testing purposes. Speech was spontaneous and normal in rate, volume and prosody; no word finding difficulties or paraphasic errors were noted. Thinking was logical and goal directed. She appeared to be a reliable historian. Additionally, she remembered upcoming activities that were planned for later in the day following her appointment (going to the [employer] for lunch and to [place] to do some shopping). Affect was appropriate in range, and mood appeared euthymic. Behaviorally, she frequently moved/tapped her right foot throughout the int erview and testing. Additionally, she was observed to frequently pull down her mask and put her fingers in her mouth. Ms. Gillis's daughter and sister have also observed these behaviors, particularlyover the past year; they do not report other examples of hyperorality. She obtained a score of 6 onthe Geriatric Depression Scale, which is indicative of probable depression. NEUROPSYCHOLOGICAL FINDINGS: Ms. Gillis was administered a battery of neuropsychological tests, evaluating a range of cognitive functions. Her performance on these measures is reviewed below. 1. Orientation: She was mostly oriented to the time, with the exception of the date. She was oriented to place, except for the name of the [facility]. She was able to name the current foreign banknote teller. She could provide the first name of the [employer] and the last name of the Governor of [place]. 2. Attention/processing: She could repeat 5 digits forward and 3 digits backward, which falls in the low average range for her age. She was able to complete 2 out of 5 trials of a serial subtraction task. She was unable to spell world backwards. Her performance on a timed visual scanning and sequencing task fell within the low average range. 3. Communication skills: On a confrontation naming task, she was able to name 19 of 25 pictures. Her oral fluency was borderline impaired; she was able to generate 11 animal names in one minute. She was able to follow 4 out of 7 verbal commands. She made one error when asked to repeat a single sentence. She was able to read and write single sentences. Sight word reading skill was low average. 4. Memory functioning: She could correctly recall 1 of 3 words after a brief delay. Immediate recall of short stories was borderline impaired (5th percentile); 30-minute delayed recall of short stories was average (25th percentile); recognition performance fell within the low average range (10-16th percentile). Immediate recall of visually-presented spatial material was low average (9th percentile); 30-minute delayed recall of visuospatial information was low average (9th percentile); recognition performance fell within the low average to average range. On a 10-item list learning task, she was able to recall 2, 4 and 6 words across three trials which fell within the borderline range; following a delay she was able to recall 3 of the words which fell within the borderline range; on the recognition trial she correctly identified 10 of the words and misidentified none of the distractor word(s). 5. Spatial organization skills: Her block design reproductions were performed in the impaired rangefor her age. Her clock drawing earned 12 out of 15 possible points; she incorrectly placed the minute hand. On a task which required her to reproduce four geometric designs, she earned 7 out of 11 points; she was unable to copy a cube. She was unable to copy intersecting pentagons. 6. Reasoning skills: She earned 4 out of 8 possible points when asked to solve 4 word-pair similarities. She earned 8 out of 9 possible points when asked to solve 3 functional verbal problems. 7. Index scores: She achieved a score of 20 on the MMSE-2, which falls in the borderline impaired range (T = 31) and at the 3rd percentile, and an Adjusted Total Score of 74 on the CERAD-NB, which falls in the borderline impaired range (T = 30) and at the 2nd percentile. SUMMARY AND IMPRESSION: Ms. Gillis is a 77-year-old, right-handed, woman with 10 years of education. She was referred to the Memory Program by her primary care provider for evaluation of her cognitive status and neurological work-up in the setting of a prior CVA (2016) and diagnosis of vascular dementia (2017). Concerns have been raised for possible Lewy body or Alzheimer's disease in addition to her vascular dementia in the setting of visual hallucinations, irritability/argumentative behavior (with some improvement on fluoxetine), and progressive cognitive decline. According to her daughter, cognitive difficulties likely predated her stroke but significantly worsened following her CVA. On testing, Ms. Gillis was found to be mostly oriented to date/time and place. Weaknesses were documented across tests of auditory attention/working memory. Visual processing speed was low average. Assessment of language skills revealed weaknesses for confrontation naming, verbal fluency, and her ability to follow multi-step commands. Memory testing yielded inconsistent findings. Immediate recallof prose material was borderline impaired, though her retention of the material was adequate for her age. She showed borderline impaired learning and recall on a list-learning test, but she showed perfect recognition of the material. Immediate and delayed recall of visual material was low average. On other testing, she showed weaknesses for visual construction/spatial organization skills and conceptual reasoning. Functional problem-solving was intact. Overall, Ms. Gillis's neuropsychological assessment results showed weaknesses across multiple cognitive domains, including for aspects of complex attention and executive functioning, spatial organization skills, verbal fluency, and memory. Regarding the latter, she showed some inconsistency in her performance, and the overall pattern was not overly compelling for an amnestic process (i.e., rapid forgetting of material over time delays). Diagnostically, the documented cognitive weaknesses combined with associated declines in adaptive functioning meet criteria for a major neurocognitive disorder. In terms of etiological considerations, her pattern of performance on cognitive testing, combinedwith collateral report of perhaps some fluctuations in her cognitive status (i.e., at times she is sharp as a tack), continues to be most consistent with a vascular dementia. However, neurological work-up will help to more confidently clarify diagnoses, including exploring the possibility of a comorbid lewy body component. Of note, while her daughter reports that hallucinations emerged following her stroke, Ms. Gillis was less certain as to the exact onset. Additional behaviors that may warrant further evaluation include excessive right foot motor activity, possible hyper-oral behavior (though this seems limited to placing her fingers in her mouth), vivid dreams, and somniloquy. PLAN: Ms. Gillis will be seen for neurological consultation by Dr. Carl Estrada on 12/15/22 for thesecond part of her Memory Program work-up. DIAGNOSIS: Memory Loss (R41.3) TIME / PROCEDURES: Neurobehavioral Status Examination - 73 minutes (1 unit of 47541) provided by neuropsychologist; Professional services time - 85 minutes (1 unit of 45887) provided by neuropsychologist; Testing by lead manufacturing technician - 75 minutes (1 [place] of 21570 and 1 unit(s) of 96437) consisting of administration and scoring. Bertha Madden, PhD Psychologist - Doctorate documented in this encounter Plan of Treatment Not on file documented as of this encounter Visit Diagnoses Diagnosis Memory loss- Primary documented in this encounter Care Teams Frame Maker Relationship Specialty Start Date End Date Valerie Santana MD [address] [place] [id number] PCP - General 10/11/16 documented as of this encounter
--- OUTSIDE RECORDS SUMMARY | 2024-05-20 16:15 | XMS_ITS | Encounter Summary ---
Author Organization [facility] Address [address] [place] [address] Care Team Providers Care Rocket Engine Mechanic Name Role Phone Valerie Santana MD Primary Care Provider [phone] Encounter Details Date Type Department Care Team (Latest Contact Info) Description 05/21/2020 Travel Social History Tobacco Use Types Packs/Day Years Used Date Smoking Tobacco: Never Smokeless Tobacco: Never Sex and Gender Information Value Date Recorded Sex Assigned at Not on file Gender Identity Female 08/12/2021 14:27 EDT Sexual Orientation Not on file COVID-19 Exposure Response Date Recorded In the last month, have you been in contact with someone who was confirmed or suspected to have Coronavirus / COVID-19? No / Unsure 05/21/2020 13:40 EDT documented as of this encounter Functional Status Functional Status Response Date of Assess ment Because of a physical, menta l, or emotional condition, does this person have difficulty doing errands alone such as visiting a doctor's office or shopping? No 08/11/2019 Cognitive Status Response Date of Assessm ent Because of a physical, menta l, or emotional condition, does this person have serious difficulty concentrating, remembering, or making decisions? No 08/11/2019 documented as of this encounter Plan of Treatment Not on file documented as of this encounter Visit Diagnoses Not on filedocumented in this encounter Care Teams Rocket Engine Mechanic Relationship Specialty Start Date End Date Valerie Santana MD [address] [place] [id number] PCP - General 10/11/16 documented as of this encounter
--- OUTSIDE RECORDS SUMMARY | 2024-05-20 16:15 | XMS_ITS | Encounter Summary ---
Author Organization [facility] Address [address] [place] [address] Care Team Providers Care A/C Tech Name Role Phone Valerie Santana MD Primary Care Provider [phone] Reason for Visit * Reason Comments Fall Fell at 130pm, on bl ood thinners Encounter Details Date Type Department Care Team (Late st Contact Info) Description 11/01/2022 17:00 EST [facility] [id number] Asuncion Bloom PA-C [address] [place] [address] [address] [place], [place] [id number] Fall, initial encounter (Primary Dx) Social History Tobacco Use Types Packs/Day Years Used Date Smoking Tobacco: Never Smokeless Tobacco: Never Interpersonal Safety Answer Date Record ed Physically Hurt Never 05/23/2020 Verbally Threaten Not on file 05/23/2020 Sex and Gender Information Value Date Recorded Sex Assigned at Not on file Gender Identity Female 08/12/2021 14:27 EDT Sexual Orientation Not on file documented as of this encounter Last Filed Vital Signs Vital Sign Reading Time Taken Comments Blood Pressure 182/86 11/01/2022 1718 EST Pulse 72 11/01/2022 1718 EST Temperature 36.2 ??C (97.1 ??F) 11/01/2022 1718 EST Respiratory Rate 22 11/01/2022 1718 EST Oxygen Saturation 98% 11/01/2022 1718 EST Inhaled Oxygen Concentration - - Weight - - Height - - Body Mass Index - - documented in this encounter Functional Status Functional Status Response [...] as of this encounter Progress Notes * Jennifer Novak, RN - 11/01/2022 1700 EST CC/HPI: Pt's dtr reports fall at 130pm. Pt is on blood thinners. Not a witnessed fall. She fell off bed and struck her head on bookcase. Bump on forehead-not bleeding. Little scrape by her L eye. C/o RUE pain. Covid Screening: In the last 72 hours, has the patient had: New or unusual cough, shortness of breath, new nasal congestion, sore throat, fever, chills, body aches, or new loss of taste or smell without a reasonable alternative diagnosis*? (If yes, assign to ARC)- NO In the past 10 days, has the patient had a positive Covid test OR a confirmed close Covid exposure (<6ft for > 15mins in 24hr period)? (if yes, assign to ARC, regardless of vaccination status)-NO *may be determined by RN or in discussion with available provider (ASSISTANT BRANCH MANAGER's and CCA's can defer to Charge Nurse to complete triage when appropriate) PCP: Valerie Santana * Asuncion Bloom PA-C - 11/01/2022 1700 EST [facility] Chief Complaint(s): Fall (Fell at 130pm, on blood thinners) Assessment & Plan: Karla was seen today for fall. Diagnoses and all orders for this visit: Fall, initial encounter Karla Gillis is a 77 y.o. female who is anticoagulated with history of ischemic strokes presentsfor evaluation with her daughter today for evaluation of head injury. Patient reports that she fellgetting out of bed and struck her head at approximately 1:30 pm today. The fall was unwitnessed. Patient denies loss of consciousness. Patient is generally well appearing, afebrile, stable on exam with hematoma present on the left forehead. Pt meets criteria for CT scan of head due to age and anticoagulated. Discussed option for ambulance transfer for faster evaluation but daughter declines and will drive pt directly to [facility]. I did call ahead and notify [facility] to anticipate her arrival. An appropriate medical screening examination was performed. The patient was assessed prior to discharge and deemed stable for discharge to ED by private vehicle with daughter driving. Patient verbalizes understanding and agreement with this plan of care. HPI: Karla Gillis is a 77 y.o. female who is here with complaint of head injury. Pt is here with daughter today. Pt is anticoagulated due to Pt reportedly fell getting out of her bed and struck her head today around 1:30 pm. She denies LOC but was unwitnessed fall. Pt had immediate swelling over the forehead on the left side. She has history of stroke and daughter states she has no cognitive changes this afternoon from her baseline. Patient denies: nausea, vomiting, facial droop slurred speech, vision changes, confusion, new weakness or numbness/tingling in an extremity. Social History Tobacco Use Smoking Status Never Smokeless Tobacco Never I have reviewed current problem list, current medications and allergies. ROS: Review of Systems Musculoskeletal: Positive for falls. Neurological: Negative for dizziness, loss of consciousness and headaches. See HPI for details Objective: Vitals and nursing notes reviewed Examination: BP (!) 182/86 Pulse 72 Temp 36.2 ??C (97.1 ??F) (Skin) Resp 22 SpO2 98% Physical Exam Constitutional: General: She is not in acute distress. Skin: Comments: Hematoma present on the left forehead with small superficial wound overlying that is not bleeding. Neurological: Mental Status: She is alert. Cranial Nerves: No dysarthria or facial asymmetry. This note may be in part documented using [employer] dictation software. Please forgive any errors, omissions or typos that may result from use of dictation. documented in this encounter Plan of Treatment Not on file documented as of this encounter Visit Diagnoses Diagnosis Fall, initial encounter- Primary documented in this encounter Historical Medications * This list may reflect changes made after this encounter. Medication Sig Dispensed Refills Start Date End Date ibuprofen (MOTRIN) 600 mg tablet 1 Tablet every 8 hours. 11/26/2020 FLUoxetine (PROZAC) 20 mg tablet FLUOXETINE HCL 20 MG TABS 06/07/2021 metoprolol SUCCinate (TOPROL-XL) 50 mg tablet 1 Tablet every 24 hours. 11/10/2020 simvastatin (ZOCOR) 20 mg tablet Take 1 Tablet by mouth at bedtime. teriparatide 20 mcg/dose (620mcg/2.48mL) pen injector FORTEO 620 MCG/2.48ML SOPN METOPROLOL SUCCINATE ORAL Take 50 mg by mouth daily. 12/15/2022 alendronate (FOSAMAX) 70 mg tablet Take 70 mg by mouth. 12/17/2020 023 ibuprofen (MOTRIN) 800 mg tablet Take 800 mg by mouth every 6 hours as needed. 12/15/2022 mupirocin (BACTROBAN) 2 % ointment Apply 1 application topically 3 times daily. 12/15/2022 NYSTOP powder APPLY A SMALL AMOUNT TO SKIN TWICE DAILY 08/25/2022 12/15/2022 acetaminophen (TYLENOL) 500 mg tablet Take 1,000 mg by mouth every 6 hours as needed. 12/15/2022 added in this encounter Care Teams A/C Tech Relationship Specialty Start Date End Date Valerie Santana MD [address] [facility] [place] [address] (work) PCP - General 10/11/16 documented as of this encounter
--- OUTSIDE RECORDS SUMMARY | 2024-05-20 16:15 | XMS_ITS | Encounter Summary ---
Author Organization [facility] Address [address] [place] [address] Care Team Providers Care Strategic Sourcing Manager Name Role Phone Valerie Santana MD Primary Care Provider [phone] Reason for Referral * Radiology Services (Routine/Next Available) - New Request Specialty Diagnoses / Procedures Referred By Contac t Referred To Contact Diagnoses Age-related osteoporosis without current pathological fracture Asymptomatic menopausal state Procedures DXA BONE DENSITY Valerie Santana MD [address] [place] [address] [facility] Referral ID Status Reason Start Date Expiration Date V isits Requested Visits Authorized [id number] New Request 11/14/2022 1 1 Reason for Visit * Radiology Services (Routine/Next Available) - New Request Specialty Diagnoses / Procedures [facility] Referred To Contact Diagnoses Age-related osteoporosis without current pathological fracture Asymptomatic menopausal state Procedures DXA BONE DENSITY Valerie Santana MD [address] [place] [address] [facility] [place] Referral ID Status Reason Start Date Expiration Date V isits Requested Visits Authorized [id number] New Request 11/14/2022 1 1 Encounter Details Date Type Department Care Team (Latest Contact Info) Description 01/26/2023 13:42 EDT - 01/26/2023 23:59 EDT Hospital Encounter [facility] Xray [address] [place] [address] Age-related osteoporosis without current pathological fracture; Asymptomatic menopausal state Discharge Disposition: Home or Self Care Social History Tobacco Use Types Packs/Day Years [...] No 01/06/2022 documented as of this encounter Medications at Time of Discharge Medication Sig Dispensed Refills Start Date End Date acetaminophen (TYLENOL) 325 mg tablet Take 2 Tablets by mouth every 4 hours as needed for Pain. 01/10/2022 Cetirizine 10 mg capsule Take 1 Capsule by mouth daily. DABIGATRAN ETEXILATE MESYLATE (PRADAXA ORAL) Take 150 mg by mouth 2 times daily. donepezil (ARICEPT) 10 mg tablet Take 1 Tablet by mouth daily. FLUoxetine (PROZAC) 20 mg tablet FLUOXETINE HCL 20 MG TABS 06/07/2021 ibuprofen (MOTRIN) 600 mg tablet 1 Tablet every 8 hours. 11/26/2020 losartan-hydrochlorothi azide (HYZAAR) 100-25 mg per tablet Take 1 Tablet by mouth daily. metoprolol SUCCinate (TOPROL-XL) 50 mg tablet 1 Tablet every 24 hours. 11/10/2020 omeprazole (PRILOSEC) 20 mg capsule Take 1 Capsule by mouth daily. simvastatin (ZOCOR) 20 mg tablet Take 1 Tablet by mouth at bedtime. teriparatide 20 mcg/dose (620mcg/2.48mL) pen injector FORTEO 620 MCG/2.48ML SOPN mirabegron (MYRBETRIQ) 25 mg extended release tablet Take 1 Tablet by mouth 2 times daily. 04/21/2024 documented as of this encounter Discharge Disposition Disposition Code Departure Means Destination Home or Self Care documented in this encounter Plan of Treatment Not on file documented as of this encounter Procedures Procedure Name Priority Date/Time Associated Diagnosis Comments DXA BONE DENSITY Routine 01/26/2023 14:3 7 EDT Age-related osteoporosis without current pathological fracture Asymptomatic menopausal state documented in this encounter Results * DXA BONE DENSITY (01/26/2023 14:37 EDT) Anatomical Region Laterality Modality DEXA Narrative 01/29/2023 16:34 EDT Table formatting from the original result was not included. Indication: postmenopausal; screening for osteoporosis; prior fracture; Accession number: [id number] Clinical Information Provided by Patient: Have had a previous hip or vertebral fracture ?? Has had a low trauma fracture ?? Has used the following medications: Forteo (i.e. parathyroid hormone), Vitamin D, Calcium Patient maximum height was 60 Menopause Age 55 No regular weight bearing exercise ?? Onset of menses at age 17 Number of children 4 Bone Density: Exam date 01/26/2023 Region BMD (g/cm2) T-score Z-score Classification AP Spine(L1-L4) 0.965 -0.7 ??1.8 Normal Femoral Neck(Left) 0.384 -4.2 -2.0 Osteoporosis Total Hip(Left) 0.513 -3.5 -1.6 Osteoporosis World Health Organization criteria for BMD impression classify patients as Normal (T-score at or above -1.0), Osteopenia (T-score between -1.0 and -2.5), or Osteoporosis (T-score at or below -2.5). ?? 10-year Fracture Risk: FRAX not reported because: ??Some T-score for Spine Total or Hip Total or Femoral Neck at or below -2.5 ??Prior hip or vertebral fracture Impression: ??OSTEOPOROSIS. The patient has established osteoporosis, based on the Left Femoral Neck T-score and the existence of a prior fracture. The patient has risk factors, including: previous fracture. Discussion: HIGH RISK OF FRACTURE. BONE DENSITY IS UNDESIRABLY LOW AT ONE OR MORE SKELETAL SITES, CONSISTENT WITH POSTMENOPAUSAL OSTEOPOROSIS. This patient's lowest T-score, in a patient who has previously fractured, ?? meets the World Health Organization's (WHO) criteria for severe osteoporosis. In untreated patients, the risk of osteoporotic fracture increases approximately two-fold for each 1.0 SD decrease in T-score. ??Low bone density is not the only risk factor for fracture; also consider factors such as patient's age, frailty or poor health, risk of falling, risk of injury, previous osteoporotic fracture, family history of osteoporosis, cigarette smoking, low body weight, etc. ?? Not everyone with low bone mineral density has osteoporosis; osteomalacia and other metabolic bone disorders should also be considered. Patients who have osteoporosis should be evaluated for specific diseases and conditions (secondary causes) that may cause or contribute to bone loss. ?? The [place] [employer] Clinical Endocrinologists (AACE) and National Osteoporosis Foundation (NOF) recommend pharmacologic intervention for all postmenopausal women with a previous hip or vertebral fracture and a T-score in this range. The patient should follow a healthful lifestyle (good nutrition with adequate calcium and vitamin D, and appropriate weight-bearing exercise). *As indicated, always consider the FRAX assessment with all other relevant clinical risk factors. Follow-Up: Consider a repeat BMD and Vertebral Fracture Assessment (VFA) exam in 2 years or sooner if medically necessary, to reassess this patient's status. Reported by: Clay Boogie MD, on 01/26/2023 2:39:00 PM. Valerie Santana MD IMG DEXA ORDERABLES documented in this encounter Visit Diagnoses Diagnosis Age-related osteoporosis without current pathological fracture Senile osteoporosis Asymptomatic menopausal state Asymptomatic postmenopausal status (age-related) (natural) documented in this encounter Care Teams Strategic Sourcing Manager Relationship Specialty Start Date End Date Valerie Santana MD [address] [place] [address] PCP - General 10/11/16 documented as of this encounter
--- OUTSIDE RECORDS SUMMARY | 2024-05-20 16:15 | XMS_ITS | Encounter Summary ---
Author Organization [facility] Address [address] [place] [address] Care Team Providers Care Intern Architect Name Role Phone Valerie Santana MD Primary Care Provider [phone] Encounter Details Date Type Department Care Team (Late st Contact Info) Description 09/25/2022 Orders Only [facility] Memory Program - Medical Office Building [address] [place] [address] Hugo Estrada MD [address] [facility] Medical Office Building, [address] [place] [address] Memory loss (Primary Dx) Social History Tobacco [...] No 01/06/2022 documented as of this encounter Plan of Treatment Not on file documented as of this encounter Results * VITAMIN B12 (12/01/2022 14:19 EST) Pathologist [facility] Vitamin B12 375 211 - 911 pg/mL 12/01/2022 18:08 EST [facility] Blood VENOUS BLOOD / Unknown Venipuncture / Unknown 12/01/2022 14:19 EST 12/01/2022 14:19 EST Hugo Estrada MD CHEMISTRY & BLOOD GA S ORDERABLES Performing Organization Address City/[facility] de Phone Number [facility] [address] [place] [address] * TSH (12/01/2022 14:19 EST) Pathologist [facility] TSH 1.66 0.47 - 4.68 mIU/L 12/01/2022 17:07 EST [facility] Blood VENOUS BLOOD / Unknown Venipuncture / Unknown 12/01/2022 14:19 EST 12/01/2022 14:19 EST Narrative [facility] - 12/01/2022 17:07 EST The results of this assay can be falsely lowered due to the consumption of Biotin. Hugo Estrada MD CHEMISTRY & BLOOD GA S ORDERABLES Performing Organization Address [facility] Co de Phone Number [facility] [address] [place] [address] * SYPHILIS SEROLOGY (12/01/2022 14:19 EST) Pathologist [facility] Syphilis Serology Negative Negative 12/04/2022 11:29 EST [facility] Blood VENOUS BLOOD / Unknown Venipuncture / Unknown 12/01/2022 14:19 EST 12/01/2022 14:19 EST Hugo Estrada MD IMMUNOLOGY AND LARISA MARIE ORDERABLES [facility] [address] [place] [address] * (ABNORMAL) COMPREHENSIVE METABOLIC PANEL (CMP) (12/01/2022 14:19 EST) Sodium 136 136 - 145 mmol/L 12/01/2022 16:[address] [facility] Potassium 4.5 3.5 - 5.0 mmol/L 12/01/2022 16:[address] [facility] Chloride 98 96 - 110 mmol/L 12/01/2022 16:[address] [facility] CO2 Total 28 22 - 32 mmol/L 12/01/2022 16:[address] [facility] Glucose 113(H) 70 - 100 mg/dL 12/01/2022 16:[address] [facility] BUN 20 10 - 26 mg/dL 12/01/2022 16:[address] [facility] Creatinine 0.55 0.52 - 1.04 mg/dL 12/01/2022 16:[address] [facility] eGFR 94 >60 mL/min/1.7 3m2 12/01/2022 16:[address] [facility] Total Protein 6.8 6.3 - 8.2 g/dL 12/01/2022 16:[address] [facility] Albumin 4.2 3.4 - 4.9 g/dL 12/01/2022 16:[address] [facility] Alkaline Phosphatase 33(L) 38 - 126 U/L 12/01/2022 16:[address] [facility] AST 34 15 - 46 U/L 12/01/2022 16:[address] [facility] ALT 18 <35 U/L 12/01/2022 16:[address] [facility] Bilirubin, Total <0.5 <1.4 mg/dL 12/01/19 16:[address] [facility] Calcium 9.9 8.5 - 10.5 mg/dL 12/01/2022 16:[address] [facility] Albumin/Globulin Ratio 1.6 1.0 - 2.5 12/01/2022 16:[address] [facility] Anion Gap 10 5 - 14 12/01/2022 16:[address] [facility] Blood VENOUS BLOOD / Unknown Venipuncture / Unknown 12/01/2022 14:19 EST 12/01/2022 14:19 EST Hugo Estrada MD CHEMISTRY & BLOOD GA S ORDERABLES Performing Organization Address City/State/[facility] Co de Phone Number [facility] [address] [place] [address] * COMPLETE BLOOD COUNT AND DIFFERENTIAL (12/01/2022 14:19 EST) WBC 4.40 4.00 - 12.40 K/cmm 12/01/2022 16:[address] [facility] RBC 4.46 3.86 - 5.04 M/cmm 12/01/2022 16:[address] [facility] Hemoglobin 13.2 11.6 - 15.2 gm/dL 12/01/2022 16:[address] [facility] HCT 39.3 34.9 - 44.4 % 12/01/2022 16:[address] [facility] MCV 88 81 - 98 fl 12/01/2022 16:[address] [facility] MCH 29.6 26.7 - 33.3 pg 12/01/2022 16:[address] [facility] MCHC 33.6 32.1 - 35.9 gm/dL 12/01/2022 16:[address] [facility] RDW-CV 14.3 <14.7 % 12/01/2022 16:[address] [facility] RDW-SD 46.0 <50.4 fl 12/01/2022 16:[address] [facility] PLT 194 141 - 377 K/cmm 12/01/2022 16:[address] [facility] MPV 10.5 9.5 - 12.7 fl 12/01/2022 16:[address] [facility] % Neutrophils 57.0 % 12/01/2022 16:[address] [facility] % Lymphocytes 25.7 % 12/01/2022 16:[address] [facility] % Monocytes 14.8 % 12/01/2022 16:[address] [facility] % Eosinophils 1.6 % 12/01/2022 16:[address] [facility] % Basophils 0.7 % 12/01/2022 16:[address] [facility] % Immature Grans 0.2 % 12/01/19 16:[address] [facility] Absolute Neutrophils 2.51 2.20 - 8.85 K/cmm 12/01/2022 16:[address] [facility] Absolute Lymphocytes 1.13 1.09 - 3.30 K/cmm 12/01/2022 16:[address] [facility] Absolute Monocytes 0.65 0.10 - 0.80 K/cmm 12/01/2022 16:[address] [facility] Absolute Eosinophils 0.07 0.03 - 0.61 K/cmm 12/01/2022 16:[address] [facility] ABS Basophils 0.03 0.01 - 0.11 K/cmm 12/01/2022 16:[address] [facility] Absolute Immature Grans 0.01 0.00 - 0.06 K/cmm 12/01/2022 16:[address] [facility] Type of Differential: Auto 12/01/2022 16:[address] [facility] Blood VENOUS BLOOD / Unknown Venipuncture / Unknown 12/01/2022 14:19 EST 12/01/2022 14:19 EST Hugo Estrada MD PACKAGES & DNA PROBE ORDERABLES [facility] [address] [place] [address] documented in this encounter Visit Diagnoses Diagnosis Memory loss- Primary documented in this encounter Care Teams Intern Architect Relationship Specialty Start Date End Date Valerie Santana MD [address] [place] [address] PCP - General 10/11/16 documented as of this encounter
--- OUTSIDE RECORDS SUMMARY | 2024-05-20 16:15 | XMS_ITS | Encounter Summary ---
Author Organization [facility] Address [address] [place] [address] Care Team Providers Care Negative Turner Name Role Phone Valerie Santana MD Primary Care Provider [phone] Reason for Visit * Reason Comments Trauma GREEN TRAUMA TRANSFE R * Auth/Cert Specialty Diagnoses / Procedures Referred By Contac t Referred To Contact Diagnoses Hematoma Traumatic hematoma Fall at home, initial encounter Hematoma Referral ID Status Reason Start Date Expiration Date Visits Re quested Visits Authorized [id number] 1 1 Encounter Details Date Type Department Care Team (Late st Contact Info) Description 01/05/2022 23:05 EDT - 01/10/2022 13:56 EDT Hospital Encounter [facility] Neurosurgery Unit [address], [place] [address] Eliaen Peres MD MPH 111 [facility], [facility] [address] [place] [address] Sherman Blas MD 111 [facility] [address] [place] [address] Hematoma (Primary Dx); Fall at home, initial encounter; Compression fracture of lumbar vertebra, unspecified lumbar vertebral level, initial encounter (HCC) Discharge Disposition: Home-Health Care Svc Social History Tobacco Use Types Packs/Day Years [...] or suspected to have Coronavirus / COVID-19? Unable to assess 01/05/2022 21:30 EDT documented as of this encounter Last Filed Vital Signs Vital Sign Reading Time Taken Comments Blood Pressure 133/100 01/10/2022 1340 EDT Pulse 69 01/10/2022 1314 EDT Temperature 35.9 ??C (96.6 ??F) 01/10/2022 1314 EDT Respiratory Rate 16 01/10/2022 1314 EDT Oxygen Saturation 99% 01/10/2022 1314 EDT Inhaled Oxygen Concentration - - Weight 75.3 kg (166 lb) 01/05/2022 2309 EDT Height 139.7 cm (4' 7) 01/05/2022 2309 EDT Body Mass Index 38.58 01/05/2022 2309 EDT documented in this encounter Functional Status Functional [...] No 01/06/2022 documented as of this encounter Discharge Summaries * Ulices Phan MD - 01/10/2022 0735 EDT Discharge Summary Primary Care Provider: Valerie Santana Attending Physician: Sherman Blas MD Date of Injury: 01/05/2022 Admit Date: 01/05/2022 Discharge Date: 01/10/22 Disposition: Home with home health Problems and Procedures Admitting Diagnosis: Posterior abdominal wall hematoma Compression deformities T2-T3, T12-L5 Principal/Final Diagnosis: Post abdominal wall hematoma Compression deformities T2-T3, T12 L5 Additional Problems Managed in the Hospital Active Hospital Problems Diagnosis Date Noted ??? *Hematoma 01/06/2022 ??? Fall at home, initial encounter 01/08/2022 ??? Traumatic hematoma 01/06/2022 Resolved Hospital Problems No resolved problems to display. Hospital Course Karla Gillis is a 76-year-old woman with a history of atrial fibrillation on Pradaxa, prior CVA x2, HTN, HLD, dementia presented as a green trauma transfer after a mechanical ground-level fall. There was concern for active extravasation from her posterior abdominal wall, with hematoma and hypotensive episodes. Her Pradaxa was reversed, and she was stable to fluid responsive. There is no evidence of active extravasation on new imaging. She was also found to have compression deformities at T2-3, T12-L5 (some of which were chronic) for which spine surgery was consulted recommend nonoperative management we will follow her in clinic as an outpatient. She was admitted for observation in the setting of reversal of anticoagulation with posterior wall hematoma. She remained hemodynamically stable and had stable hematocrits. She worked with physical therapy who recommended QU[facility]IN, although she has significant assistance with her daughters at home therefore she would prefer to go home. She was discharged home after tolerating renal diet, pain controlled on oral agents, and ambulating on the unit. She will have home health physical therapy and Occupational Therapy. She does not necessitate follow-up with acute care surgery clinic. She will follow up with spine surgery as scheduled to discuss her thoracic and lumbar spine. Incidental findings: No Allergies and Immunizations Allergies Allergen Reactions ??? Oxybutynin Chloride Anaphylaxis ??? Penicillins Anaphylaxis and Other (See Comments) Ended up in a coma ??? Lisinopril ??? Codeine GI upset emesis There is no immunization history on file for this patient. Transition of Care Plans Prognosis: good Condition at Discharge Good Assessment at Discharge Vital signs: Patient Vitals for the past 12 hrs: BP Heart Rate Resp Temp SpO2 O2 Flow Rate (L/min) O2 Device 01/10/22 0849 140/53 65 BPM -- -- -- -- -- 01/10/22 0527 108/80 -- 16 37.1 ??C (98.8 ??F) 98 % 0 l/min None 01/10/22 0108 (!) 151/93 -- 17 36.9 ??C (98.4 ??F) 96 % -- None Exam at Discharge: General Appearance: alert, cooperative, no distress Lung: non labored breathing on RA Heart: regular rate and rhythm Abdomen: soft, nontender, nondistended Back: Right flank ecchymosis and hematoma stable Extremities: warm and well perfused Results Pending at Discharge Test results still pending from this admission None Relevant Studies at Discharge CT ANGIO ABDOMEN PELVIS Result Date: 01/06/2022 CT ANGIO ABDOMEN PELVIS 01/06/2022 12:25 AM Signs and Symptoms/Comments: Aureliano. fib on AC with fall ontobackside found to have active extravasation on CT with flank hematoma at [facility], hypotensive in route now corrected after fluid bolus Comparison: No relevant prior imaging available for comparison Technique: Prior to the intravenous injection of contrast media, precontrast CT scans were obtained throughout the abdomen and pelvis. Then, utilizing a multislice CT scanner, and following an intravenous bolus injection of nonionic contrast media, arterial and venous phase CT angiography of the abdomen and pelvis was performed. Scanning was performed from the lower lungs to the lesser trochanters. 3-D reconstructions were performed utilizing the coronal and sagittal MPR, radial CPR, and volume rendering algorithms on an independent work station. Findings: Vasculature: The aorta is normal in caliber. There is scattered atherosclerotic disease without evidence of flow-limiting stenosis. The celiac, superior mesenteric, renal, inferior mesenteric, common iliac, internal iliac, external iliac, common femoral, and proximal portions of the superficial and deep femoral arteries are widely patent. Incidentally noted is the origin of the common hepatic artery from the SMA. No evidence of acute va scular injury. The main venous structures of the abdomen and pelvis are unremarkable. Nonangiographic findings: Lower chest: No significant abnormality. Hepatobiliary: The liver parenchyma enhances normally. No evidence of traumatic liver injury There is a hepatic cyst. No suspicious lesions. The gallbladder and biliary system are unremarkable. Spleen, pancreas, adrenal glands: No significant abnormality including no evidence of traumatic injury Kidneys, ureters, bladder: No significant abnormality including no evidence of traumatic injury. Tiny hypodense lesions, statistically likely to represent small renal cysts. Reproductive organs: The uterus is surgically absent. No suspicious adnexalmass. Bowel: No evidence of acute traumatic injury. No evidence of obstruction or acute inflammation. There are colonic diverticula without associated focal inflammatory changes. Normal appendix. Peritoneal cavity: No organized fluid collection. No free air. Lymphatics: No lymphadenopathy. Abdominal wall: Centered in the right mid posterior abdominal wall there is a high density collection representing hematoma measuring approximately 14.1 x 2.1 x 7.5 cm. No actively extravasated contrast is seen on multiphase CT. There is extensive soft tissue bruising over the back and right flank and this area. Musculoskeletal: Multilevel compression deformities in the lumbar spine as reported on the accompanying CT of the lumbar spine. 1. No evidence of solid organ or hollow viscus traumatic injury in the abdomen or pelvis. No evidence of traumatic vascular injury. 2. In the right posterior abdominal wall there is a 14 x 1 x 2.1 x 7.[address] evidence of active extravasation. 3. Chronic and incidental findings as above. I have personally reviewed the images and the above interpretation and agree with the findings. CT CERVICAL SPINE WO CONTRAST Result Date: 01/06/2022 EXAM: CT CERVICAL SPINE WO CONTRAST HISTORY: Neck trauma (Age >= 65y) TECHNIQUE: CT cervical spine without contrast. Structured report code: [id number] COMPARISON: None. FINDINGS: SURGICAL CHANGES: None. FRACTURES: No acute fracture in the cervical spine. Approximately 20% height loss of the T2 superior endplate ALIGNMENT: Minimal anterolisthesis of C4 on C5 BONES: Superior endplate height loss at T2 as above. There are tiny cervical ribs at C7. No concerning lesions. INTERVERTEBRAL DISCS: Multilevel degenerative changes JOINTS: Multilevel facet arthropathy Anterior atlanto-axial, lateral atlanto-axial, and atlanto-occipital joints are normal in alignment. No abnormal joint space widening. SPINAL CANAL: No severe stenosis. NEURAL FORAMINA: Multilevel bilateral neural foraminal narrowing of varying degrees LUNG APICES: Clear. EXTRASPINAL SOFT TISSUES: Calcifications in the descending aorta. VISIBLE INTRACRANIAL CONTENTS: Unremarkable. 1. No acute fracture of the cervical spine. 2. There is approximately 20% height loss of the superior endplate of T2 consistent with an age-indeterminate fracture. Correlation for focal tenderness isrecommended. I have personally reviewed the images and the above interpretation and agree with the findings. CT HEAD WO CONTRAST Result Date: 01/06/2022 EXAM: CT HEAD WO CONTRAST HISTORY: fall hx dementia, on AC; Head trauma, mod- severe TECHNIQUE: CT head without contrast. Structured report code: [email or web address] COMPARISON: None available FINDINGS: PARENCHYMA: No evidence of acute large territory infarction. 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 No parenchymal hemorrhage. No mass or midline shift. There is diffuse parenchymal volume loss. Hypodensities in the supratentorial white matter are nonspecific but typically the sequela of chronic microangiopathic disease. EXTRA-AXIAL SPACES: No extra- axial hemorrhage. No extra-axial collection. No extra-axial mass. VENTRICULAR SYSTEM: No intraventricular hemorrhage. No obstructive hydrocephalus. Mild asymmetric enlargementof the right lateral ventricle secondary to right-sided encephalomalacia. VESSELS: Limited evaluation without IV contrast. Normal density in the dural venous sinuses. Calcifications in the carotid siphons. BONES: No concerning lesions. No evidence of fracture. ORBITS: Prior bilateral lens extractions. PARANASAL SINUSES/MASTOID AIR CELLS: Predominantly clear. EXTRACRANIAL SOFT TISSUES: Unremarkable. No acute intracranial abnormality including no evidence of calvarial fracture or intracranial hemorrhage. I have personally reviewed the images and the above interpretation and agree with the findings. MR CERVICAL SPINE WO CONTRAST Result Date: 01/08/2022 EXAM: MRI CERVICAL SPINE WO CONTRAST HISTORY: sustained lower extremity clonus on exam, assess for compressive cervical pathology TECHNIQUE: MRI of the cervical spine without contrast. Structured report code: [email or web address] COMPARISON: CT cervical spine 01/06/2022. FINDINGS: Detailed evaluation is significantly limited by motion artifacts. SURGICAL CHANGES: None. ALIGNMENT: Slight straightening of lordosis with minimal retrolisthesis C3 on C4 and slight anterolisthesis C7 on T1. BONES: No significant vertebral body height loss. No concerning lesions. Multilevel uncovertebral hypertrophy and multilevel degenerative facet arthropathy. INTERVERTEBRAL DISCS: Multilevel degenerative disc disease, most pr onounced at C5-C6. SPINAL CANAL AND SPINAL CORD: There is faint apparent long segment T2 hyperintensity involving the central aspect of the cervical cord extending from the cervicomedullary junction into the upper thoracic cord seen best on the sagittal T2-weighted sequence, not clearly seen on theaxial sequences. No fluid collections. No high-grade spinal canal stenosis. Slight flattening of the ventral thecal sac and slight indentation of the dorsal thecal sac noted at several levels secondary to degenerative changes. NEURAL FORAMINA: Varying degrees of stenosis secondary to uncovertebral hypertrophy and degenerative facet arthropathy. Evaluation is limited on oblique sequences by motionartifacts. On the right, stenosis appears severe at C4-C5 and C5-C6, mild at remaining levels. On the left, stenosis appears severe at C5-C6, moderate at C2-C3 and C4-C5, and mild at remaining levels. VISIBLE EXTRASPINAL SOFT TISSUES AND INTRACRANIAL CONTENTS: Unremarkable. Significantly limited evaluation due to motion artifacts. Multilevel degenerative changes, without high grade spinal canal stenosis. Varying degrees of neural foraminal stenosis, which appears severeon the right at C4-C5 and C5- C6 and on the left at C5-C6. Faint apparent long segment T2 hyperintensity in the cervical cord seen on the sagittal T2-weighted sequence is not clearly seen on axial sequences and is favored to represent artifact. If there is persistent concern for myelopathy, a repeatexamination should be considered with efforts to reduce motion artifacts. MR THORACIC SPINE WO CONTRAST Result Date: 01/08/2022 EXAM: MRI THORACIC SPINE WO CONTRAST HISTORY: sustained lower extremity clonus on exam, assess for compressive cervical pathology TECHNIQUE: MRI of the thoracic spine without contrast. Large qpnxd-mu-zcit sagittal T2-weighted sequences were obtained. COMPARISON: CT thoracic and lumbar spine 01/06/2022. FINDINGS: Large kiypb-na-xbsc sagittal T2-weighted sequence again demonstrates compression deformities involving the T2, T11, T12 vertebral bodies and each lumbar vertebral body. There is slight anterolisthesis of L3 on L4 and slight buckling of the L4 posterior cortex causing mild spinal canal stenosis. No significant buckling of the posterior cortex at other levels. Mild associated edema associated with the L1 fracture. No significant edema associated with the remaining fractures. Remaining thoracic vertebral bodies demonstrate normal height. Previously seen transverse process fractures are poorly imaged. No concerning osseous lesions. No spinal canal fluid collections. No high-grade sp inal canal stenosis identified in the thoracic spine. No definite signal abnormality involving the thoracic cord or conus, the assessment of which is significantly limited by motion artifacts. Discogenic and facet degenerative changes are present throughout the thoracic and lumbar spine. Varying degrees of neural foraminal stenosis are noted, considered moderate in severity on both sides at T10-T11 and T12-L1 and multiple lumbar levels although poorly imaged. Included extraspinal soft tissues are unremarkable. No high grade spinal canal stenosis in the thoracic spine. No definite thoracic cord signal abnormality, the evaluation of which is significantly limited by motion artifacts. Redemonstrated multiple compression deformities in the thoracic and lumbar spine. Mild edema associated with the L1 fracturesuggests subacute age. Remaining fractures appear chronic, without significant associated edema. XR CHEST PORTABLE 1 VIEW Result Date: 01/06/2022 XR CHEST PORTABLE 1 VIEW 01/06/2022 1:50 AM CLINICAL HISTORY/COMMENTS: trauma fall COMPARISON: None available. FINDINGS: Single portable AP view of the chest performed 15 degrees upright. Lines/tubes:None Soft tissues, bones and extrathoracic findings: No significant abnormalities. Cardiac and mediastinal contours: Normal. Lungs: Lung volumes are low. The lungs are clear. The pulmonary vascularity is normal. Pleura: No visible pleural abnormalities. Low lung volumes. Otherwise unremarkable chest radiograph. I have personally reviewed the images and the above interpretation and agree with the findings. CT LUMBAR SPINE WO CONTRAST Result Date: 01/06/2022 EXAM: CT LUMBAR SPINE WO CONTRAST HISTORY: recon lower T and L spine, ttp over lower t spine and L spine TECHNIQUE: CT lumbar spine without contrast. Structured report code: [id number] COMPARISON: MR lumbar spine 08/21/2007 FINDINGS: SURGICAL CHANGES: None. FRACTURES/BONES: Evaluation is limited by diffuse osseous demineralization. There are multilevel compression deformities throughout the lumbar spine. Approximately 80% height loss at L4 and approximately 30% height loss L2 are similar compared with 2007. The remaining visible vertebral bodies show compression deformities new or worse comparedwith 2007 including approximately 30% height loss at L5, 20% height loss at the superior endplate of L3, 30% height loss at L1, and 30% height loss at T12. Subtle lucency through the right L1 transverse process likely represents a nondisplaced fracture. No concerning lesions. ALIGNMENT: No significant spondylolisthesis. INTERVERTEBRAL DISCS: Multilevel degenerative disease JOINTS: Multilevel facet arthropathy. No joint space widening to suggest ligamentous injury. SPINAL CANAL: There is likely severe spinal canal stenosis at the level L4 secondary to retropulsion as a sequela of chronic compression deformity, similar to 2007. NEURAL FORAMINA: Multiple levels of bilateral neural foraminal narrowing, many of them severe. EXTRASPINAL SOFT TISSUES: Please see the separate report for the concurrently performed CTA of the abdomen and pelvis. 1. Limited evaluation due to diffuse severe osseous demineralization. There are compression deformities at every vertebral level imaged (T12-L5). Chronic depression deformities at L2 and L4 appear similar compared with 2007. The other levels are age indeterminate but new since 2007. 2. Apparent nondisplaced right L1 transverse process fracture. I have personally reviewed the images and the above interpretation and agree with the findings. CT THORACIC SPINE WO CONTRAST Result Date: 01/06/2022 EXAM: CT THORACIC SPINE WO CONTRAST HISTORY: t-spine tenderness, fall TECHNIQUE: CT thoracic spine without contrast. Structured report code: [id number] COMPARISON: None. FINDINGS: SURGICAL CHANGES: None. FRACTURES: Redemonstrated age- indeterminate compression deformities of T12 and L1 with no intervalchange. Mild compression deformity of T11, age indeterminate. Lucency in right transverse process of L1 is more distinct on this exam, consistent with acute nondisplaced fracture. There are also moresubtle cortical lucencies to the T10, T11, and T12 transverse processes on the right. ALIGNMENT: Normal. BONES: Compression deformities as above. No concerning lesions. Bilateral cervical ribs. INTERV ERTEBRAL DISCS: No significant abnormality. JOINTS: Multilevel facet arthropathy. No joint space widening to suggest ligamentous injury. SPINAL CANAL: No significant stenosis. NEURAL FORAMINA: Moderate to severe neural foraminal stenosis bilaterally at T8-9 and T10-T11. LUNGS: Clear where visible. EXTRASPINAL SOFT TISSUES: Partial expiratory imaging of kidneys. Vicariously expressed contrast in gallbladder. Partially imaged liver hypodensity, likely hepatic cyst. Large hematoma in the subcutaneous tissues of the posterior thorax, similar to prior. 1. Age-indeterminate compression deformities of T2, T3, T11-L1. 2. Nondisplaced fractures of the right T10, T11, T12, and L1 transverse processes. 3. Moderate to severe stenosis of neural foramina atT8-9 and T10-T11. 4. Subcutaneous hematoma in the dorsal soft tissues. I have personally reviewed the images and the above interpretation and agree with the findings. Last Lab Results at Discharge CBC: Recent Labs 03/20/22 0533 01/09/22 0702 01/10/22 0612 WBC 4.69 3.81* 3.88* RBC 2.68* 2.80* 2.64* HGB 8.2* 8.4* 8.1* HCT 24.0* 26.0* 24.0* MCV 90 93 91 MCH 30.6 30.0 30.7 MCHC 34.2 32.3 33.8 PLT 137* 148 154 NEUTROABS 3.02 2.59 2.33 Discharge Follow Up Follow-up appointments and procedures Other - Amb Consult/Follow Up Home Health Services I certify that this patient is under my care and that I, or another Medicare allowed practitioner (DO WEN, HANNAH) working with me, had a [id number] encounter with this patient on this date: 01/10/2022 The discharge summary or progress note will provide further details that support the need for the home health services and the plan of care.: Yes Enter the allowed practitioner (DO WEN, HANNAH) who will provide oversight of this patient's home heatlh care needs and plan of care: Oscar Shani The patient???s homebound status is related to the following diagnoses, illness or condition (describe): multiple non-op spine fractures, post abd wall hematoma (resolved) Patient needs one or more of the following to leave home: The assistance or supervision of another person Leaving the home is medically contraindicated due to: Risk of falls and/or history of falls requirethe assistance/supervision of another person The following conditions illustrate the patient???s normal inability to leave home AND that leavinghome requires a considerable and taxing effort: Other Please Specify: frequent falls, sustained multiple non-operative spine fractures and needs assistance with mobilization Skilled Care Requested: Physical Therapy Occupational therapy Physical therapy is needed for: Evaluation Safety Gait/Mobility Assessment and Training Strength Training/Exercise Program Occupational Therapy for: ADL Training Authorizing Provider: Ulices Phan MD Amb Consult/Follow Up Orthopedics Fall T2-3, T12-L5 comp frx; T10-L1 TP frx Reason for Request: Fall T2-3, T12-L5 comp frx; T10-L1 TP frx Authorizing Provider: Aubree Paul MD Follow-up labs and tests XR LUMBAR SPINE 2-3 VIEWS Complete by: Feb 08, 2022 (Approximate) Authorizing Provider: Aubree Paul MD XR THORACIC SPINE 2 VIEWS Complete by: Feb 08, 2022 (Approximate) Authorizing Provider: Aubree Paul MD WARREN NIELSEN, MD 01/10/2022 9:42 documented in this encounter Medications at Time of Discharge [...] capsule Take 1 Capsule by mouth daily. alendronate (FOSAMAX) 70 mg tablet Take 70 mg by mouth. 12/17/2020 023 clindamycin (CLEOCIN) 150 mg capsule Take 300 mg by mouth 4 times daily. Take for poor dentition, infection prevention prior to tooth removal 3 conjugated estrogens 0.625mg/G (PREMARIN) vaginal cream Place 0.5 g vaginally daily. 12/15/2022 FLUoxetine (PROZAC) 20 mg capsule Take 20 mg by mouth daily. 12/15/2022 METOPROLOL SUCCINATE ORAL Take 50 mg by mouth daily. 12/15/2022 mirabegron (MYRBETRIQ) 25 mg extended release tablet Take 1 Tablet by mouth 2 times daily. 04/21/2024 simvastatin (ZOCOR) 20 mg tablet Take 30 mg by mouth at bedtime. 12/15/2022 teriparatide (FORTEO) 20 mcg/dose (600mcg/2.4mL) pen injector Inject 20 mcg into the skin daily. 12/15/2022 documented as of this encounter Ordered Prescriptions Prescription Sig Dispensed Refills Start Date End Da te acetaminophen (TYLENOL) 325 mg tablet Take 2 Tablets by mouth every 4 hours as needed for Pain. 01/10/2022 documented in this encounter Discharge Disposition Disposition Code Departure Means Destination Home-Health Care [facility] [place] [place] Home documented in this encounter Progress Notes * Amado Heart OTR-L - 01/10/[address] [facility] Rehabilitation Therapy [facility] Therapy [facility] Occupational Therapy Discontinue/Discharge Note Date: 01/10/2022 SUBJECTIVE: None OBJECTIVE: The patient initiated occupational therapy on 01/08/2022. The patient has been discharged from the hospital. Please refer to the Occupational Therapy Initial Evaluation Note dated 01/08/2022 for details. ASSESSMENT: Unable to assess her current status as the patient was not seen for any additional therapy sessions. GOALS: All goals discontinued. PLAN: Discontinue occupational therapy. SHAKEEL Giraldo 01/10/2022 14:14 * Meli Fink DPT - 01/10/[address] [facility] Rehabilitation Therapy [facility] Physical Therapy Discontinue/Discharge Note Date: 01/13/2022 SUBJECTIVE: None OBJECTIVE: The patient initiated physical therapy on 01/09/22 The patient has been discharged from the hospital. Please refer to the Physical Therapy Initial Evaluation Note dated 01/09/22 for details. ASSESSMENT: Unable to assess her current status as the patient was not seen for any additional therapy sessions. GOALS: All goals discontinued. PLAN: Discontinue physical therapy. Meli Fink DPT 01/13/2022 20:51 * Anne Lopez - 01/10/2022 0945 EDT CM Discharge Note CASE MANAGEMENT DISCHARGE NOTE DISCHARGE DATE/TIME: 01/10/2022 1300 DESTINATION: Home with Home Health (If discharging to [facility]) COVID swab ordered and completed: TRANSPORTATION: Private Car ACCEPTING MD AND NUMBER: Valerie Santana MD RN REPORT/UNIT: NA TREASURY ANALYST/CHARGE/MD NOTIFIED (Y/N): yes FORMS: (Acute to acute, COLST, MOLST, WILLIAMS, Screen, PASRR, Ambulance): na IM SIGNED (Y/NA): yes HOME HEALTH: [facility] DME: No new DME indicated, has walker and cane at home. PHARMACY/PRESCRIPTIONS: [id number] - [place], [place] - [address] [facility] [phone] [address] [place] [address] MEDS TO BEDS UTILIZED : YES/NO no Patient and/or family who participated in discharge plan: Plan developed with Karla and her daughter OTHER: Plan was to discharge to a [facility] only if it was a local facility. No beds were offered, daughter was agreeable to discharge home with 13/05 care and Home Health. Home Health was ordered. Daughter is hoping that OP PT could be explored after wraps up services. Head Of Data encouraged daughter to call PCP to support on going orders. Daughter also would like Karla to be on a purwick at home, Head Of Data encouraged her to call Karla's Urologist to explore home options for increased urination that may be contributing to her falls. No new DME indicated. Daughter picking up around 1300. Anne Lopez [facility] Trauma Equipment Operator Trauma Services Ph# [phone] Pg# [phone] * Meli Fink DPT - 01/09/[address] [facility] Rehabilitation Therapy Acute Therapy [facility] Physical Therapy Initial Evaluation Note Date of Service: 01/09/2022 Reason for Referral: Evaluate and treat Mobility Precautions Activity: Activity as tolerated SUBJECTIVE: Subjective Information Reported by: Patient Reporting Person Comment: I think I will be able to go home. My sister and daughter can help. Pain Comments: Pt verbalized LBP, did not quantify the pain OBJECTIVE: Patient Profile: Patient is a 76 y.o. female admitted on 01/05/2022 secondary to Hematoma The patient lives at [address] [place] [id number] HPI: Per note 01/06/22 Patient is a 76-year-old female with a history of A. fib on Pradaxa, prior strokes x2, with no residual deficits, with symptoms of dysarthria on one, and confusion on another, hypertension, hyperlipidemia, dementia, who presented as a transfer from outside hospital following evaluation after a fallthat happened earlier on 01/05/22. She was getting out of her bed and collapsed due to weakness, andsprung backwards hitting her back on a bar of the bed. Her family brought her to the hospital for evaluation, where she was found to have a hematoma of her back with likely active extravasation. She was transferred to [facility], and was noted to have 2 episodes of hypotension in a row, butthese were responsive to fluids. She was given Praxbind in the ED. ?? She notes that she does not have any pain right now except when people press on her back. She notesthat she takes the Pradaxa because of her aversion to the frequent INR checks. ?? Medications (per memory of daughter, needs med rec if stays) Cozaar, metoprolol, omeprazole, simvastatin, Detrol ?? Past surgical history: Cervix repair, related Tonsillectomy Foot surgery ?? Allergies: Lisinopril, cough. Penicillins, coma for 5 days. Codeine, vomiting ?? Family history: Son with schizophrenia. No known family history of clotting/bleeding disorders. ?? Social history: Non-smoker. Infrequent alcohol. No recreational drugs. Home Environment: Safety Assessment / Living Environment Home environment: Trailer/Mobile home Home layout: One level Entrance Stairs: Stairs to enter with rails # of Steps to Enter: 4 Bathroom Accessibility: Accessible via walker Bathroom Set up: Walk-in shower, Handicapped height toilet Bedrooms/Bathrooms: Able to live on main level with bedroom/bathroom Home Equipment Mobility Equipment: Cane, Walker Walker Specifics: Rolling walker - 4 wheels Support Person: Siblings, Family Support Comment: Pt appears to have 24/7 assistance from daughteradam's and pt's sister General Information Hand Dominance: Right Support Support Person: Siblings, Family Support Comment: Pt appears to have 24/7 assistance from daughteradam's and pt's sister Prior Level of Function: Prior Level of Function Comment: Pt needed supervision level of assist for shower transfer, had assist from daughter and family for all home management, transportation, medication- per OT note Occupation: Retired Medical/Surgical History: Current: The patient has Traumatic hematoma; Hematoma; and Fall at home, initial encounter on theirproblem list. Past: The patient has no past medical history on file. The patient has no past surgical history on file. Medications Current Medications: Current medications reviewed Arousal, Attention, and Cognition: Arousal/Alertness: Alert Orientation Level: Oriented X 4 Following Commands: Follows one step commands consistently Safety Awareness Comments: Pt reports having urge incontinence Behavioral Characteristics: Pleasant and cooperative Cardiopulmonary: Vital Signs Vital Signs with Activity Comment: Vitals taken prior to mobilization, please see chart for details Integumentary/Anthropometric: Additional Comments: Present on mid/lower back around thoracic region, TTP R posterior side Skin Status and Appearance: Ecchymosis Devices: IV Sitting Posture General Assessment: Impairments noted Head: Forward Head Shoulders: Rounded shoulders Trunk: Forward trunk lean Range of Motion and Joint Integrity: General Assessment Range of Motion: Within normal limits as demonstrated functionally except as noted Muscle Performance: Strength: Manual muscle testing not formally performed, strength observed to be > 3/5 with grossmovement Throughout: Bilateral upper extremities, Bilateral lower extremities Sensation, Reflexes, and Nerve Integrity: Sensory Function Additional Comments: Light touch grossly intact Neuromotor Function/Development: Not evaluated Balance, Mobility, and Gait: Static Sitting Balance Static Sitting Balance: No problems noted Additional Comments: Pt sitting in recliner upon entry of room Dynamic Sitting Balance Additional Comments: Once pt was assisted to toilet, provided call almaraz, pt instructed to ring prior to standing, pt able to manage hygiene seated independently,pt was assisted from toilet (transfer section for details) Static Standing Balance Additional Comments: Tolerated standing ~2-3 mins w/ min contact-close supervision assist x1 w/ RW,- following use of toilet pt was assisted w/ doffing old and donning fresh brief Mobility Additional Comments: Transfers: From recliner, pt cued for hand placement on walker, getting to edge of seat and required min contact assist x1 w/ RW. Pt transferred from stand to sit on toilet w/ mod assist x1, step by step cueing provided by therapist for technique to align LE up w/ toilet seat and use of grab bar to control lowering. Sit to stand from toilet, min contact assist x1, cues for use of UE support and use of grab bar and increased RALEIGH. Pt transferred an additional 3x's throughout session to w/c and recliner at a level of min contact-close supervision level of assist w/ RW, improvement in ability to apply cues for hand placement on RW. Gait: Requires use of assistive device for ambulation Gait Additional Comments: Pt demonstrated initially ~15 feet to restroom w/ min contact assist x1 and use of RW. Pt ambulated an additional ~50 feet w/ min contact assist x1 and use of RW. Following stairs pt ambulated ~25 feet back to room. VC for pacing, rest breaks as appropriate (longer distance ambulation), step/stride length and energy conservation techniques. Pt was to/from stair well by wheelchair to assist w/ energy conservation prior to use of stairs. Gait Pattern/Gait Deviations Observable at Foot and Ankle: Decreased push off bilaterally, Shuffled steps, Wide base of support,Bilateral decreased heel strike Observable Full Body Gait Deviations: Forward flexed posture, Antalgic, Step discontinuity, Increased yaneth Weight Bearing: Effective weight bearing through upper extremities Stairs Stair Management: One rail right, One rail left Level of Assistance: Moderate assistance Additional Comments: Prior to pt trial, therapist performed demonstration w/ step-to technique and use of unilateral railing. Pt returned demo and ascended/descended 10 steps w/ mod assist x1 and unilateral railing. Pt cued for sequencing, pacing and rest breaks as appropriate. Pt additionally cuedfor breathing technique following activity. Self-Care, Home Management, Work, Leisure: Self-Care, Home Management, Work, Leisure: Not evaluated Informed Consent: Informed Consent: The patient consented to the Physical Therapy evaluation. The patient agrees to and understands the Physical Therapy treatment plan and goals. Interventions Completed Today: Time: 1335 Total Treatment Time (minutes): 40 Timed Code Treatment Minutes: 23 Present for the Therapy Session Comments: RN student nurse present through latter half of session Procedures: Therapeutic activities Therapeutic Activities Minutes: Please refer to Mobility (transfers), gait and stair sections for details on intervention provided Patient Status at the End of the Therapy Session, The patient was left in the: recliner with the: Call almaraz in reach, Chair alarm on Patient Status at the End of the Therapy Session Comments: Rn aware of pt status Patient/Family Education: Activity/Work/Community: Activity/energy conservation, Importance of out of bed activity, Pacing, Energy conservation techniques Mobility, Transfers, and Gait: Balance training, Functional transfers, Gait training safety, Stair training safety, Mobility recommendations Recommendations: Discharge recommendations/planning, Postural education Safety: Fall risk, Safety Therapy Specific: Comprehensive team approach, Role of physical therapy, Treatment plan/goals, Planof care Learner: Patient Method: Demonstration, Verbal Barriers to Learning: None Outcome: Verbalized understanding, Needs reinforcement, Requires assist Team Communication Notified: Nurse, Primary occupational therapist When: Prior to therapy session, After therapy session By: [id number] communication Notification Comments: Prior: spoke w/ RN in regards to pt status Post: Spoke w/ RN/primary OT in regards to pt performance and d/c recommendations ASSESSMENT: The patient presents with a physical therapy diagnosis of: Impaired gait, Impaired self-care, Pain,Impaired posture which is consistent with the medical diagnosis of: R posterior abdominal wall hematoma, nondisplaced fracture of T10, T11, T12, L1 transverse process Pt was appropriate for skilled physical therapy evaluation and intervention in the acute care setting due to the above stated functional deficits. Prior to admission pt was utilizing RW for ambulation in home and required assistance from family members for ADL's. Today pt was at a level of min-mod assist w/ the majority of her functional tasks: transfers, short distance ambulation and stair management. Anticipate slow and steady progression, throughout course of clinical stay. Once medically appropriate, recommendation is for return home w/ 14/05 adequate physical assist w/ the addition of HH Pt services. If adequate assistance was not available, pt will require QUENTIN to further maximize functional mobility and enhance activity tolerance. Physical Therapy is medically necessary to: address these body structure/function impairments, activity limitations, and participation restrictions, establish and progress mobility/exercise and provide recommendations for staff and safe discharge planning, provide family/caregiver education to assist the patient Short-Term Goals: Time Frame: N/a Long-Term Goals: Time Frame: 1-2 weeks Goal: Pt demonstrates bed mobility w/ close supervision assist x1 w/o bed features Status: Initiated Goal: Pt demonstrates consistent transfers w/ close supervision assist x1 and use of RW Status: Initiated Goal: Pt demonstrates ambulation 50-100 feet w/ close supervision assist x1 and use of RW Status: Initiated Goal: Pt demonstrates stairs similar to home set-up w/ min contact assist x1 Status: Initiated Goal: Pt/caregivers verbalize understanding of d/c recommendations Status: Initiated PLAN: Frequency: Times per week Times Per Week: 1-2 Intensity: 15-45 minutes Duration: Duration of hospitalization Interventions May Include: Therapeutic activities, Therapeutic exercise, Gait training Patient/Family Education: Discharge planning, Recommendations, Equipment, Falls Prevention, Family/caregiver education, Safety, Role of physical therapy/occupational therapy/rehabilitation, Patient education Recommended Discharge Destination: Home vs. subacute rehabilitation Recommended Discharge Destination Comments: If home pt requires adequate 24/7 physical assistance Therapy Specific Services: Physical therapy Therapy Specific Services Comments: PT vs PT at rehab Equipment Recommended: Patient has all necessary equipment Meli Fink DPT 01/09/2022 20:22 * Meli Fink DPT - 01/09/[address] [facility] Rehabilitation Therapy Acute Therapy [facility] Physical Therapy Contact Note Date of Service: 01/09/2022 A physical therapy consult order was received, the medical record was reviewed, and an examination was completed. Please refer to the completed therapy notes for specifics. Full note to follow. The recommendation for discharge is home w/ 24/7 adequate physical assistance vs QUENTIN. Meli Fink DPT 01/09/2022 16:27 * Patsy Austin RN - 01/09/2022 1453 EDT Data: AAOx4, x1 assist w/walker. Can be inc of urine. Action: Medications administered per MAR, pt takes pills whole in applesauce Response: Home vs QUENTIN PATSY AUSTIN RN 01/09/2022 14:54 * Anne Lopez - 01/09/2022 1001 EDT Images from the original note were not included. Case Management: The patient has been deemed appropriate for placement at a half-way facility (SNF). Listed patient at the following facilities: Explained to patient and/or family that patients who are deemed medically ready for discharge to a SNF will be listed with all the facilities in the surrounding area of their home. We will make everyeffort to discharge the patient a SNF of their preference or an area of preference that meets the patient's health care needs. We will provide the patient with a choice of bed offers from accepting fa cilities. If there is no SNF bed available or being offered in the patient's preferred area after 1day, the search will be expanded. The patient will be expected to accept the first available bed offer as determined to be reasonable by the payor. If the patient is ready for discharge & no longer requires acute care, or refused to accept appropriate placement, this could result in a financialobligation to the patient for the cost of the continued hospital stay. Choice form signed, copy given to patient and/or family. Head Of Data will follow up with family around potential beds and time lines. Addendum: Karla and her daughter are in agreement with facilities close to home but will not accept a placement in [facility]. They said if a bed is available at local locations to their home they willmove forward, if not they will plan to discharge home with home health. Anne Lopez [facility] Trauma Equipment Operator Trauma Services Ph# [phone] Pg# [phone] * Litzy Pablo MD - 01/09/2022 0791 EDT Surgery Progress Note Service Date: 01/09/2022 Admit Date: 01/05/2022 23:05 Procedure: None Chief Complaint: Fall 24 Hour Events: - NATHAN Subjective Doing well this morning. Pain worse with movement but manageable. Has been out of bed to the bathroom. Tolerating diet. Passing gas and having bowel movements. Objective Vital Signs: Temp: [35.9 ??C (96.7 ??F)-37.1 ??C (98.8 ??F)] , Heart Rate: [57 BPM-58 BPM] , Pulse:[55-74] , Pulse From Oximetry: [63 BPM] , Resp: [16-18] , BP: (121-158)/(49-80) , SpO2: [95 %-100 %] I/O: Intake/Output Summary (Last 24 hours) at 01/09/2022 0739 Last data filed at 01/08/2022 0900 Gross per 24 hour Intake 240 ml Output -- Net 240 ml No intake/output data recorded. Physical Exam: General Appearance: alert, cooperative, no distress Lung: non labored breathing on RA Heart: regular rate and rhythm Abdomen: soft, nontender, nondistended Back: Right flank ecchymosis and hematoma (stable), some extension of ecchymosis to left flank (stable0 Extremities: warm and well perfused Labs: Recent Labs 01/06/22 2358 01/07/22 0515 01/08/22 0533 WBC 3.98* 3.98* 4.69 RBC 2.85* 2.84* 2.68* HGB 8.6* 8.6* 8.2* HCT 25.0* 25.0* 24.0* MCV 88 88 90 MCH 30.2 30.3 30.6 MCHC 34.4 34.4 34.2 PLT 135* 140* 137* NEUTROABS 2.41 2.44 3.02 No results for input(s): NA, K, CL, CO2, BUN, CREATININE, CALCIUM, CALCCA, CAION, MG, PHOS, LABALBUin the last 72 hours. No results for input(s): PROTIME, INR, PTT in the last 72 hours. No results for input(s): TBIL, ALKPHOS, AST, ALT, LIPASE, AMYLASE in the last 72 hours. No results for input(s): PHISTAT, PCOISTAT, POISTAT, POCTCO2, R3NQNONS, POCFIO2 in the last 72 hours. No results for input(s): CK, MB, CKMBINDEX, TROPONINI in the last 72 hours. Imaging: MRI THORACIC SPINE WO CONTRAST IMPRESSION No high grade spinal canal stenosis in the thoracic spine. No definite thoracic cord signal abnormality, the evaluation of which is significantly limited by motion artifacts.Redemonstrated multiple compression deformities in the thoracic and lumbar spine. Mild edema associated with the L1 fracture suggests subacute age. Remaining fractures appear chronic, without significant associated edema MRI CERVICAL SPINE WO CONTRAST IMPRESSION Significantly limited evaluation due to motion artifacts. Multilevel degenerative changes, without high grade spinal canal stenosis. Varying degrees of neural foraminal stenosis, which appears severeon the right at C4-C5 and C5- C6 and on the left at C5-C6. Faint apparent long segment T2 hyperintensity in the cervical cord seen on the sagittal T2-weighted sequence is not clearly seen on axial sequences and is favored to represent artifact. If there is persistent concern for myelopathy, a repeatexamination should be considered with efforts to reduce motion artifacts. Assessment 76-year-old female with a history of A. fib on Pradaxa, prior strokes x2, , hypertension, hyperlipidemia, dementia,??who presented as a green trauma transfer after a fall from standing. Hypotensive with active extrav in R flank hematoma at OSH. Repeat imaging at [facility], w/o active extrav. Now stable from hemodynamic and lab standpoint, MR without concern for canal stenosis or cord abnormality, Spinesigned off. ?? Injury list: - Right posterior abdominal wall hematoma - Nondisplaced fractures of the right T10, T11, T12, and L1 transverse processes - Age-indeterminate compression deformities of T2, T3, T11-L1 Plan - Appreciate Spine consult Follow up 1 month [facility] with upright XR (referral placed) - Regular diet - CBC QD - AAT - Lovenox dvt ppx 30mg BID - PT/OT - OT recommending QUENTIN Dispo: Patient medically ready for discharge, pending PT eval LITZY PABLO MD 01/09/2022 7:39 [facility] #[id number] Associated attestation - Oscar Mcleod MD - 01/09/2022 1926 EDT I saw and examined this patient with the residents and agree with the above note as it relates to the observations that were made and the treatment plan that was proposed. My specific comments follow: Patient on anti-coagulants, presented with an abdominal wall hematoma after a fall. Stable OT/PT evaluation for DC planning * Aubree Paul MD - 01/08/2022 1812 EDT Neurosurgery Sign Off Note Patient s/p fall on Pradaxa found to have T2-T3; T12-L5 compression fractures on imaging and right sided thoracic TP fractures. Stable on upright XR. MR without concern for canal stenosis or cord abnormality. No acute neurosurgical intervention. Please re-consult at [phone] with further neurosurgical concerns. Plan/ -Neurosurgery to sign off -Follow up 1 month Jakub Spine with upright XR (referral placed) AUBREE PAUL MD 01/08/22 18:15 Neurosurgery Resident Pager [phone] with questions * Amado Heart, OTR-L - 01/08/[address] [facility] Rehabilitation Therapy Acute Therapy [facility] [place] Occupational Therapy Initial Evaluation Note Date of Service: 01/08/2022 Reason for Referral: Evaluate and treat Mobility Precautions Activity: Activity as tolerated Monitors/Equipment Precautions Monitors: Bed alarm, Chair alarm SUBJECTIVE: Subjective Information Reported by: Patient Reporting Person Comment: My back still hurts Pain Comments: Pt verbalized LBP, did not quantify the pain OBJECTIVE: Patient Profile: Patient is a 76 y.o. female admitted on 01/05/2022 secondary to Hematoma. The patient lives at [address] [place] [address] Hand Dominance: Right Current Illness / Injury: Per MD's H&P, Patient is a 76-year-old female with a history of A. fib on Pradaxa, prior strokes x2, with no residual deficits, with symptoms of dysarthria on one, and confusion on another, hypertension, hyperlipidemia, dementia, who presented as a transfer from outside hospital following evaluation after a fall that happened earlier on 01/05/22. She was getting out of her bed and collapsed due to weakness, and sprung backwards hitting her back on a bar of the bed. Her family brought her to the hospital for evaluation, where she was found to have a hematoma of herback with likely active extravasation. She was transferred to [facility], and was noted to have 2 episodes of hypotension in a row, but these were responsive to fluids. She was given Praxbindin the ED. ?? She notes that she does not have any pain right now except when people press on her back. She notesthat she takes the Pradaxa because of her aversion to the frequent INR checks Support Person: Siblings, Family Amount of Support Support Comment: Pt seems to have 24/7 assistance from daughter and her SO, pt's sister Prior Level of Function: Prior Level of Function Comment: Pt needed supervision level of assist for shower transfer, had assist from daughter and family for all home management, transportation, medication Occupation: Retired Medical/Surgical History: Current: The patient has Traumatic hematoma; Hematoma; and Fall at home, initial encounter on theirproblem list. Past: The patient has no past medical history on file. The patient has no past surgical history on file. Current Medications: Current medications reviewed Body Functions and Performance Skills Cardiovascular/Respiratory Systems Function: Other Comment: Vitals were monitored this session, all WNL. Pt remained asymtomatic throughout Mental Functions: Arousal/Alertness: Alert Orientation Level: Oriented X 4 Following Commands: Follows one step commands consistently, Follows two step commands with increased time Attention: Attends with cues to redirect, Impaired sustained attention Safety Awareness: Demonstrates decreased safety awareness Safety Awareness Comments: Pt reports that she has been rushing to the bathroom to urinate and haveBM. Pt reports having urge incontinence, states that it's relatively safe to do the same. Executive Function: Planning, Insight Behavioral Characteristics: Pleasant Short Zivctkwbfyl-Kbwdll-[id number] Test of Cognitive Impairment (Short-Blessed) Short-Blessed - Total score (n/28): 10 Pt demonstrates deficits in areas of delayed recall, sustained attention to task Sensory Functions: Sensory Function Additional Comments: Light touch grossly intact Hearing: Intact to conversational tones Vision - Basic Assessment Current Vision: No new vision problems reported Neuromusculoskeletal and Movement Related Functions: Range of Motion: No problems noted Strength: Manual muscle testing not formally performed, strength observed to be > 3/5 with grossmovement Skin and Related Structure Functions: Skin General Assessment Additional Comments: Noted palmsize echymoses and swelling on pt's lower back, Skin Palpation Palpation: Warm to touch, Tender to palpation Areas of Occupation and Performance Skills Basic Activities of Daily Living: Feeding Level of Assistance: Complete independence Grooming Level of Assistance: Minimal contact assistance (For stability when reaching forward at the sink.) Upper Body Dressing Level of Assistance: Complete independence Lower Body Dressing Don/Doff Right Sock: Supervision assist while performing in figure 4 position, after providing education on bending/lifting and twisting activity modifications Don/Doff Left Sock: Supervision assist while performing in figure 4 position, after providing education on bending/lifting and twisting activity modifications Pull Up Over Hips: Min contact assist to pull up briefs Toileting Clothing Management in Stance: Mod A for stabilization and pulling/removing briefs from the hips. Hygiene Management Seated: Supervision Mobility General Mobility: Impaired Additional Comments: Upon standing, pt demonstrates retroward LOB, needs min contact assist to correct it. Performed x3 trials, with 2nd and 3rd therapist cued pt to maintain shoulder width RALEIGH, and blocked pt's foot from sliding forward. Pt ambulates from recliner to bathroom with close supervision level assist. Pt demonstrates difficulty planning and sequencing her movements when turning in bathroom, needs verbal cueing to sequence the same. Sit to Stand Transfer: From recliner Level of Assistance: Moderate assistance Sit to Stand Transfer: From toilet Level of Assistance: Moderate assistance Adaptive Equipment for Toileting: Grab bar Adaptive Equipment for Transfers: Rolling walker Additional Comments: Pt needed verbal cueing appropriate hand placement on DMEs, posture correction Stand to Sit Transfer: To recliner Level of Assistance: Moderate assistance Stand to Sit Transfer: To toilet Level of Assistance: Moderate assistance Adaptive Equipment for Transfers: Grab bar, Rolling walker Additional Comments: Pt needed verbal cueing appropriate hand placement on DMEs, posture correction Instrumental Activities of Daily Living: Instrumental Activities of Daily Living: Not evaluated Not Evaluated Reason: Not appropriate for diagnosis/reasons for referral Informed Consent: The patient consented to the Occupational Therapy evaluation. The patient agrees to and understandsthe Occupational Therapy treatment plan and goals. Interventions Completed Today: Time: 0945 Total Treatment Time (minutes): 30 Timed Code Treatment Minutes: 10 Procedures: Self-care/home management Self-Care/Home Management 1: Refer to Mobility section for skilled for techniques and safety provided throughout the session. Therapist educate pt on basic presentation of her injury and activity modifications to ensure pt's safety and limiting pain , pt verbalized understanding, needs practice Self-Care/Home Management 2: Educated pt on maintaining and bowel/bladder schedule and regulate thefrequency in order to prevent incidence of urge incontinence. Pt verbalized understanding Patient Status at the End of the Therapy Session, The patient was left in the: recliner with the: Call almaraz in reach, Chair alarm on Patient/Family Education: Activity/Work/Community: Activity/energy conservation, Importance of out of bed activity, Pacing, Energy conservation techniques Bowel and Bladder: Bladder schedule Recommendations: Discharge recommendations/planning Safety: Fall risk, Safety Therapy Specific: Role of occupational therapy, Treatment plan/goals Learner: Patient Method: Demonstration, Verbal Barriers to Learning: Cognition Outcome: Verbalized understanding, Needs practice Team Communication Notified: Nurse, Primary physical therapist When: Prior to therapy session, After therapy session By: [id number] communication About: Pt's status and dc recommendations ASSESSMENT: Ms Acosta was appropriate for skilled OT evaluation this date due to R posterior abdominal wall hematoma, nondisplaced fracture of T10, T11, T12, L1 transverse process. Currently presents with impaired balance, limited attention to task, decreased safety awareness, increased fall risk. Per CM notesand pt's reports she appears to be functioning below her baseline and anticipate she would require a short [facility] for inpatient rehab for working towards improving her functional skills, safety and prevent further falls and injuries prior to return to her normal context Medical Necessity: occupational therapy is medically necessary to provide compensatory and remediation training to maximize the patient's independence and participation in activities of daily living and instrumental activities of daily living. Short Term Goals: Time Frame: Refer to LTGs [facility] Goals: Time Frame: 4-5 weeks Goal: Pt will perform LB dressing with Mod I Goal: Pt will complete toileting tasks with Set up assist Goal: Pt will demonstrate dynamic standing balance with Mod I Goal: Pt will verbalize understanding and apply activity modifications to avoid bending/lifting andtwisting in order to promote healing at the site of injury PLAN: Occupational therapy will be provided by the occupational therapist and/or prn occupational therapist when medically appropriate Frequency: Times per week Times Per Week: 1-2 Intensity: 15-45 minutes Duration: Duration of hospitalization Interventions May Include: Therapeutic activities, Therapeutic exercise, Self- care/home management,Neuromuscular re-education, Cognitive function intervention Patient/Family Education: Discharge planning, Recommendations, Equipment, Falls Prevention, Family/caregiver education, Safety, Role of physical therapy/occupational therapy/rehabilitation Further Data: Continued evaluation Recommended Discharge Destination: Subacute rehabilitation Therapy Specific Services: Physical therapy, Occupational therapy Equipment Recommended: To be determined SHAKEEL Giraldo, 01/08/2022, 15:56 * Amado Heart OTR-L - 01/08/[address] [facility] Rehabilitation Therapy [facility] Therapy [facility] Occupational Therapy Contact Note Date of Service: 01/08/2022 OT orders received and evaluated this AM. Pt presents with impaired balance and limited safety awareness. Anticipate would require a short [facility] stay for skilled inpatient rehab prior to return home. SHAKEEL Giraldo, 01/08/2022, 12:17 * Meli Fink DPT - 01/08/[address] [facility] Rehabilitation Therapy [facility] Therapy [facility] Physical Therapy Contact Note Date of Service: 01/08/2022 A physical therapy consult order was received, the medical record was reviewed. Discussion w/ RN prior, pt is heading to MRI at 12:00pm, pending when pt returns from MRI skilled therapy will follow up later this PM or tomorrow AM. ADDENDUM: Primary OT evaluated pt, recommending short stay at [facility] prior to return home. Skilled PT will follow up tomorrow AM for formal evaluation. Meli Fink DPT 01/08/2022 12:03 * Roger Baker MD - 01/08/2022 0952 EDT Neurosurgery Daily Progress Note Problems: T2-T3; T12-L5 compression deformities Right T10, T11, T12, and L1 transverse process fractures Posterior abdominal wall hematoma History of: Paroxysmal atrial fibrillation on Pradaxa CVA without residual deficit Hypertension Hyperlipidemia Dementia 24 Hr/ No acute events, MRI pending Subjective: No new complaints. EXAM: Awake, alert, conversant Tour Driver 5/5 bilaterally Elbow flexion 5/5 bilaterally Elbow extension 5/5 bilaterally Deltoids 5/5 bilaterally Sensation light touch grossly symmetric in the bilateral upper extremities Hip flexion 5/5 bilaterally Knee flexion 5/5 bilaterally Dorsiflexion 5/5 bilaterally Plantar flexion 5/5 bilaterally Sensation light touch grossly symmetric in bilateral lower extremities LABS: Laboratory studies independently reviewed. WBC/Hgb/Hct/Plts: 4.69/8.2/24.0/137 (01/08 05) PT/INR/PTT: 17.4/1.5/40 (01/05 2307) Assessment: Karla is a 76-year-old female with past medical history of atrial fibrillation on Pradaxa and CVA without residual deficits on exam who presented after she fell getting out of bed secondary to global weakness causing her to roll backwards and hit her side and head on bed. Found to have posterior abdominal wall hematoma in addition to T2-T3; T12-L5 compression fractures on imaging and right sidedthoracic TP fractures. On exam, patient is full strength and sensation throughout but hyperreflexicwith sustained clonus in the lower extremities. Plan for MR cervical spine to assess for compressive cervical pathology. Plan: No acute neurosurgical intervention MR cervical spine without contrast to include licensing and registration director of the thoracic spine Okay for activity as tolerated from neurosurgery perspective Okay for diet from neurosurgery perspective Okay for DVT chemoprophylaxis from neurosurgery perspective Roger Baker MD Neurosurgery resident 01/08/2022 9:52 Page 1221 with questions * Kim Boggs MD - 01/08/2022 0731 EDT Surgery Progress Note Service Date: 01/08/2022 Admit Date: 01/05/2022 23:05 Procedure: None Chief Complaint: Fall 24 Hour Events: - H/H stable, spaced to daily CBCs - NATHAN Subjective Doing well this morning, has ongoing R flank pain but otherwise no issues. Asking about a urine culture because her urine is cloudy and dark. Denies dysuria and frequency. Objective Vital Signs: Temp: [36.3 ??C (97.3 ??F)-37.2 ??C (99 ??F)] , Heart Rate: [60 BPM] , Pulse: [61-66] , Pulse From Oximetry: [65 BPM-72 BPM] , Resp: [16-20] , BP: (106-150)/(47-74) , SpO2: [96 %-99 %] I/O: Intake/Output Summary (Last 24 hours) at 01/08/2022 0731 Last data filed at 01/07/2022 1800 Gross per 24 hour Intake 640 ml Output -- Net 640 ml I&O By Type - 3 Shifts Including Current In: 240 [P.O.:240] Out: - Physical Exam: General Appearance: alert, cooperative, no distress Lung: non labored breathing on RA Heart: regular rate and rhythm Abdomen: soft, nontender, nondistended Back: Right flank ecchymosis and hematoma, some extension of ecchymosis to left flank, mid thoracictenderness Extremities: warm and well perfused, no edema Labs: Recent Labs 01/05/22230601/06/22 1115 01/06/22 1815 01/06/22 2358 01/07/22 0515 WBC 5.95 < > 3.30* 3.98* 3.98* RBC 3.40* < > 2.85* 2.85* 2.84* HGB 10.2* < > 8.4* 8.6* 8.6* HCT 30.4* < > 25.7* 25.0* 25.0* MCV 89 < > 90 88 88 MCH 30.0 < > 29.5 30.2 30.3 MCHC 33.6 < > 32.7 34.4 34.4 PLT 170 < > 149 135* 140* NEUTROABS 4.61 -- -- 2.41 2.44 < > = values in this interval not displayed. Recent Labs 01/05/222306 NA 131* K 3.9 CL 95* CO2 30 BUN 21 CREATININE 0.48* Recent Labs 03/17/22 2307 PROTIME 17.4* INR 1.5* PTT 40* No results for input(s): TBIL, ALKPHOS, AST, ALT, LIPASE, AMYLASE in the last 72 hours. No results for input(s): PHISTAT, PCOISTAT, POISTAT, POCTCO2, N1BBRLHT, POCFIO2 in the last 72 hours. No results for input(s): CK, MB, CKMBINDEX, TROPONINI in the last 72 hours. Imaging: EXAM: CT THORACIC SPINE WO CONTRAST IMPRESSION 1. Age-indeterminate compression deformities of T2, T3, T11-L1. 2. Nondisplaced fractures of the right T10, T11, T12, and L1 transverse processes. 3. Moderate to severe stenosis of neural foramina at T8-9 and T10-T11. 4. Subcutaneous hematoma in the dorsal soft tissues. Assessment 76-year-old female with a history of A. fib on Pradaxa, prior strokes x2, , hypertension, hyperlipidemia, dementia,??who presented as a green trauma transfer after a fall from standing. Hypotensive with active extrav in R flank hematoma at OSH. Repeat imaging at [facility], w/o active extrav. Now stable from hemodynamic and lab standpoint, awaiting MRs per Spine consult. ?? Injury list: - Right posterior abdominal wall hematoma - Nondisplaced fractures of the right T10, T11, T12, and L1 transverse processes - Age-indeterminate compression deformities of T2, T3, T11-L1 Plan - Appreciate Spine consult MR cervical spine without contrast to include licensing and registration director of the thoracic spine Upright thoracolumbar x-rays, AP and lateral, after mobilization Okay for activity as tolerated Okay for DVT chemoprophylaxis - Regular diet, discontinue mIVF - CBC QD - AAT - Lovenox dvt ppx 30mg BID - PT/OT Kim Boggs MD 01/08/2022 7:31 ACS #[id number] Associated attestation - Raulito Cervantes MD PhD - 01/22/2022 0027 EDT Attending attestation statement: I saw and examined the patient on 01/08/22 and agree with the findings and plans as documented in the resident/ADVERTISING COLUMNIST note. Raulito Cervantes MD PhD Acute Care Surgery Pager #[phone] * Vesta Cruz MD - 01/07/2022 0958 EDT Surgery Progress Note Service Date: 01/07/2022 Admit Date: 01/05/2022 23:05 Procedure: None Chief Complaint: Fall 24 Hour Events: - Spine consult - Hct stabilized at 25 - regular diet, AAT, restarted dvt ppx Subjective Doing well this morning. Has flank pain with movement. Has not been out of bed. Tolerating diet. Nonausea/emesis. No lightheadedness or dizziness. Objective Vital Signs: Temp: [36.1 ??C (97 ??F)-37 ??C (98.6 ??F)] , Heart Rate: [60 BPM- 75 BPM] , Pulse: --,Pulse From Oximetry: [79 BPM] , Resp: [16-18] , BP: (106-153)/(47-74) , SpO2: [95 %-98 %] I/O: Intake/Output Summary (Last 24 hours) at 01/07/2022 0958 Last data filed at 01/07/2022 0800 Gross per 24 hour Intake 2100.08 ml Output 420 ml Net 1680.08 ml I&O By Type - 3 Shifts Including Current In: 2100.1 [P.O.:400; I.V.:1700.1] Out: 420 [Urine:420] Physical Exam: General Appearance: alert, cooperative, no distress Lung: non labored breathing on RA Heart: regular rate and rhythm Abdomen: soft, nontender, nondistended Back: Right flank ecchymosis and hematoma, some extension of ecchymosis to left flank, mid thoracictenderness Extremities: warm and well perfused, no edema Labs: Recent Labs 01/05/22 2307 01/06/22 1115 01/06/22 1815 01/06/22 2358 01/07/22 0515 WBC 5.95 < > 3.30* 3.98* 3.98* RBC 3.40* < > 2.85* 2.85* 2.84* HGB 10.2* < > 8.4* 8.6* 8.6* HCT 30.4* < > 25.7* 25.0* 25.0* MCV 89 < > 90 88 88 MCH 30.0 < > 29.5 30.2 30.3 MCHC 33.6 < > 32.7 34.4 34.4 PLT 170 < > 149 135* 140* NEUTROABS 4.61 -- -- 2.41 2.44 < > = values in this interval not displayed. Recent Labs 01/05/22 2307 NA 131* K 3.9 CL 95* CO2 30 BUN 21 CREATININE 0.48* Recent Labs 01/05/22 2307 PROTIME 17.4* INR 1.5* PTT 40* No results for input(s): TBIL, ALKPHOS, AST, ALT, LIPASE, AMYLASE in the last 72 hours. No results for input(s): PHISTAT, PCOISTAT, POISTAT, POCTCO2, G2FACJFT, POCFIO2 in the last 72 hours. No results for input(s): CK, MB, CKMBINDEX, TROPONINI in the last 72 hours. Imaging: EXAM: CT THORACIC SPINE WO CONTRAST IMPRESSION 1. Age-indeterminate compression deformities of T2, T3, T11-L1. 2. Nondisplaced fractures of the right T10, T11, T12, and L1 transverse processes. 3. Moderate to severe stenosis of neural foramina at T8-9 and T10-T11. 4. Subcutaneous hematoma in the dorsal soft tissues. Assessment 76-year-old female with a history of A. fib on Pradaxa, prior strokes x2, , hypertension, hyperlipidemia, dementia,??who presented as a green trauma transfer after a fall from standing. Hypotensive with active extrav in R flank hematoma at OSH. Repeat imaging at [facility], w/o active extrav ?? Injury list: - Right posterior abdominal wall hematoma - Nondisplaced fractures of the right T10, T11, T12, and L1 transverse processes - Age-indeterminate compression deformities of T2, T3, T11-L1 Plan - Appreciate Spine consult MR cervical spine without contrast to include licensing and registration director of the thoracic spine Upright thoracolumbar x-rays, AP and lateral, after mobilization Okay for activity as tolerated Okay for diet from Okay for DVT chemoprophylaxis - Regular diet, discontinue mIVF once taking adequate PO - CBC Q12 - AAT - Lovenox dvt ppx 30mg BID - PT/OT LITZY PABLO MD PGY-2 01/07/2022 9:58 Attestation statement: I performed or was present during the guerrero or critical portions of the visit and participated in the management of the patient. I agree with the findings and plan of care documented in the resident's/fellow's note. Feels much better, start to mobilize today. Vesta Cruz MD Acute Care Surgery Pager #[phone] 01/07/22 * Roger Baker MD - 01/07/2022 0853 EDT Neurosurgery Daily Progress Note Problems: T2-T3; T12-L5 compression deformities Right T10, T11, T12, and L1 transverse process fractures Posterior abdominal wall hematoma History of: Paroxysmal atrial fibrillation on Pradaxa CVA without residual deficit Hypertension Hyperlipidemia Dementia 24 Hr/ No acute events, MRI pending Subjective: Doing well, no complaints this AM EXAM: Awake, alert, conversant Tour Driver 5/5 bilaterally Elbow flexion 5/5 bilaterally Elbow extension 5/5 bilaterally Deltoids 5/5 bilaterally Sensation light touch grossly symmetric in the bilateral upper extremities Hip flexion 5/5 bilaterally Knee flexion 5/5 bilaterally Dorsiflexion 5/5 bilaterally Plantar flexion 5/5 bilaterally Sensation light touch grossly symmetric in bilateral lower extremities LABS: Laboratory studies independently reviewed. WBC/Hgb/Hct/Plts: 3.98/8.6/25.0/140 (01/07 0515) PT/INR/PTT: 17.4/1.5/40 (01/05 2307) Assessment: Karla is a 76-year-old female with past medical history of atrial fibrillation on Pradaxa and CVA without residual deficits on exam who presented after she fell getting out of bed secondary to global weakness causing her to roll backwards and hit her side and head on bed. Found to have posterior abdominal wall hematoma in addition to T2-T3; T12-L5 compression fractures on imaging and right sidedthoracic TP fractures. On exam, patient is full strength and sensation throughout but hyperreflexicwith sustained clonus in the lower extremities. Plan for MR cervical spine to assess for compressive cervical pathology. Plan: No acute neurosurgical intervention MR cervical spine without contrast to include licensing and registration director of the thoracic spine Okay for activity as tolerated from neurosurgery perspective Okay for diet from neurosurgery perspective Okay for DVT chemoprophylaxis from neurosurgery perspective Roger Baker MD Neurosurgery resident 01/07/2022 8:55 Page 3330 with questions * Anne Lopez - 01/06/2022 1156 EDT Initial Case Management/Social Work Assessment and Discharge Plan/Readmission Risk Assessment REASON FOR ADMISSION: Hematoma Patient understands reason for admission: Yes PATIENT INFO VERIFIED: PCP Type of housing (single family, condo, apartment, intermediate, single room occupancy, [facility] funded hotel room, group fpc) - Single level home Who does the patient live with? Daughter and sister Does the patient have access to their own bedroom/bathroom/kitchen - or is it shared with others? shared LIVING ARRANGEMENTS AND ACCESSIBILITY ISSUES: Living Arrangements: Children, Family members, Private residence Levels: 1 Stairs to enter: 4 or more Handicap access: Railings to upstairs Bathroom located on bedroom level?: Yes What in home social supports are available to the patient? Children, Family member(s) Is 24/7 care available? Yes ADVANCED DIRECTIVES, POA &/or COLST IN PLACE: Healthcare Directive: No, patient does not have advance directive for healthcare treatment DIRECTIVES FOR FINANCES: TRANSPORTATION: Transportation: Family CULTURAL, JAINISM and/or LANGUAGE factors affecting health care/discharge planning: Spiritual/Cultural Requests: None Insurance Information: Nutrition: DISCHARGE RISK ASSESSMENT: Lives at home with limited or no community support;History of falls;Incontinent (Cronic Afib) Total # selected above: Score of 2 - 4: This patient is at MODERATE RISK for re-hospitalization Tentative plan to address the risk of re-hospitalization for those at HIGH MODERATE RISK: Increasedcommunity/outpatient support RAPT TOOL: Age: >75 Gender: Male Ambulation distance: Housebound most of the time Gait device: Crutch/Walker Community Services: Home health, MOW, SAS-none of one time a week Will you live with someone who will care for you?: Yes RAPT Tool Score: 6 SBIRT: SASQ (Single Alcohol Screening Question) How many times in the past year have you had 4 or more drinks in a single day?: Never How many times in the past year have you used an illegal drug or used a prescription medication fornon-medical reasons?: Never Intervention in place/initiated?: No, not indicated FUNCTIONAL STATUS: Activities patient requires assistance: Bathing, Mobility Assistive Devices: Walker, Cane Walker type: Front wheel COMMUNITY RESOURCES/SUPPORTS: Primary Care Provider: Valerie Santana PCP Verified: Specialists: Cardiology Type of Home Health Services: None DME Provider: Pharmacy: [id number], [place] - [address] [facility] [address] [facility] [id number] [address] [facility] [id number], [place] [address] [facility] [address] [place] [facility] [address] [facility] [id number] Home Health: Other: POST HOSPITAL TRANSITION PLAN: Once medically ready for discharge Karla would like to transition home as she has support from sister and daughter and granddaughter next door. Patient is a 76-year-old female with a history of A. fib on Pradaxa, prior strokes x2, with no residual deficits, with symptoms of dysarthria on one, and confusion on another, hypertension, hyperlipidemia, dementia, who presented as a transfer from outside hospital following evaluation after a fallthat happened earlier on 01/05/22. She was getting out of her bed and collapsed due to weakness, andsprung backwards hitting her back on a bar of the bed. Her family brought her to the hospital for evaluation, where she was found to have a hematoma of her back with likely active extravasation. She was transferred to [facility], and was noted to have 2 episodes of hypotension in a row, butthese were responsive to fluids. She was given Praxbind in the ED. Head Of Data met with Karla in her room. Karla reports that she falls a lot. She said the reason she fell this time was she was getting out of bed to use the restroom and was moving to quickly. She fell on the floor urinated and was unable to get up. Her sister and daughter were scared to move her but was able to help her off the ground. Karla lives in a house and trailer. Her bathroom is small but has a shower chair and is assisted daily with her hygiene needs do to her risk of falling. Once in the house she is on one floor. She uses a cane and walker to move throughout the house. There is a small lip/step into the kitchen. Karla stated that if she were to be discharged today she would call her daughter to come get her. At time of assessment her morning labs were not back and still was NPO. Karla moved to [place] from the [facility] with her who was a vet, he passed within two years of moving to [place] from [facility]. She reports no large health issues, but does have significant osteopetrosis, Afib, and she has to urinate a lot, at night is out of bed 5-6 times a night. If she discharges over the weekend she will not likely need any DME as she has cane, walker and shower chair at home. Anne Lopez [facility] Trauma Equipment Operator Trauma Services Ph# [phone] Pg# [phone] ANNE LOPEZ 01/06/2022 11:56 * Litzy Pablo MD - 01/06/2022 1130 EDT C-Spine Clearance Report is final? yes Report has been read by [facility] attending radiologist? yes Final report negative for any cervical spine injury? yes If ???Yes?? to ALL questions the patient is cleared radiologically and collar can be removed If ???No?? to ANY of the questions discuss with team/spine consult Plan: - Remove C-collar * Litzy Pablo MD - 01/06/2022 1101 EDT Trauma Tertiary Summer Counselor Complaint: Fall from standing Admit Date: 01/05/2022 24 Hour Events: - Admitted to ACS - NAEO Subjective: Doing ok today. Right flank is sore where bruising is. No weakness or numbness in extremities. No nausea/emesis. Pain well controlled. She remembers the fall and did not hit her head. Shedid have the wind knocked out of her. No issues breathing now. Injuries Identified: See problem list VS: Vital Signs BP: (!) 144/86 Pulse: 61 Heart Rate: 73 BPM Resp: 20 Temp: 37 ??C (98.6 ??F) SpO2: 98 % O2 Flow Rate (L/min): 0 l/min O2 Device: None Limitations to participate in tertiary survey no Physical Exam: Head: normocephalic/atraumatic Eyes: pupils 3 mm, bilaterally reactive to light ENT: oropharynx clear Neck: supple, non-tender and trachea midline Respiratory: clear to auscultation bilaterally, nonlabored on RA Cardiovascular: regular rate and rhythm Abdomen: soft, nontender, nondistended Back: right flank ecchymosis and hematoma, mid thoracic tenderness, no L spine tenderness Pelvis: non-tender, stable to anterior/posterior/lateral compression Genitourinary: normal female genitalia Musculoskeletal/Extremities: no palpable long bone deformities and motor/sensation grossly intact Skin: grossly intact, right flank ecchymosis Neurologic: alert, oriented, normal speech, no focal findings or movement disorder noted Pressure Ulcer Present on admission? No Lab results: Labs reviewed significant for Hgb 9.2, Hct 27.4 I&O's: No intake/output data recorded. Imaging: EXAM: CT HEAD WO CONTRAST 01/06/22 IMPRESSION No acute intracranial abnormality including no evidence of calvarial fracture or intracranial hemorrhage. EXAM: CT CERVICAL SPINE WO CONTRAST 01/06/22 IMPRESSION 1. No acute fracture of the cervical spine. 2. There is approximately 20% height loss of the superior endplate of T2 consistent with an age-indeterminate fracture. Correlation for focal tenderness is recommended. CT ANGIO ABDOMEN PELVIS 01/06/2022 12:25 AM IMPRESSION 1. No evidence of solid organ or hollow viscus traumatic injury in the abdomen or pelvis. No evidence of traumatic vascular injury. 2. In the right posterior abdominal wall there is a 14 x 1 x 2.1 x 7.[address] evidence of active extravasation. 3. Chronic and incidental findings as above. EXAM: CT LUMBAR SPINE WO CONTRAST 01/06/22 IMPRESSION 1. Limited evaluation due to diffuse severe osseous demineralization. There are compression deformities at every vertebral level imaged (T12-L5). Chronic depression deformities at L2 and L4 appear similar compared with 2007. The other levels are age indeterminate but new since 2006. 2. Apparent nondisplaced right L1 transverse process fracture. XR CHEST PORTABLE 1 VIEW 01/06/2022 1:50 AM IMPRESSION Low lung volumes. Otherwise unremarkable chest radiograph. Assessment/Problems: Active Hospital Problems Diagnosis Date Noted ??? *Hematoma 01/06/2022 ??? Traumatic hematoma 01/06/2022 76-year-old female with a history of A. fib on Pradaxa, prior strokes x2, , hypertension, hyperlipidemia, dementia, who presented as a green trauma transfer after a fall from standing. Injury list: - Right posterior abdominal wall hematoma - Nondisplaced right L1 transverse process fracture - T2 endplate fracture, indeterminate age Any pertinent new history? No Any significant new examination findings? Yes, plan thoracic c-spine ordered Med reconciliation complete? Yes Final radiology reads checked? Yes Any significant new traumatic findings on radiologic reads? Yes, plan spine consult Any significant Incidental findings on final radiologic reads? No All ED Lines removed? (all trauma ED Lines should be removed within 24hrs) Yes Plan: - Repeat CBC this evening - NPO pending repeat CBC - Follow up CT T-spine - Appreciate spine consult - Upright thoracolumbar x-rays, AP and lateral, after mobilization - MR cervical spine without contrast to include licensing and registration director of the thoracic spine - Holding chemoppx pending CBC Discharge Plan/Referrals Needed: None Prophylaxis: SCDs, holding chemoppx for bleeding Is PICC or Central line present? No, PICC/Central line not present. LITZY PABLO MD 01/06/2022 11:02 Associated attestation - Raphael Duffy MD - 01/06/2022 [id number] EDT Attending note I examined and discussed this pt with the residents on 01/06/22 and agree with the above note. Slow drift Hgb, repeat this evening, no skin thread, T spine fx seen on fu, spine consult Raphael Duffy MD [id number] documented in this encounter H&P Notes * Luis Pelaez MD - 01/06/2022 0357 EDT Trauma Surgery Admission H+P Date/Time of Injury: 01/05/22 Date/Time Arrival to [facility]: 01/06/2022 Date of Service: 01/06/2022 Transferred from: [facility] Mode of Transport: Ambulance Trauma Alert: yes Trauma Attending Present: Erb Trauma Team Evaluation: Green Mechanism of Injury: FFS Protective Equipment: none Head Injury: GCS on arrival: 15 GCS: Alert and oriented x3 Chief Complaint: Trauma, FFS, hematoma HPI: Patient is a 76-year-old female with a history of A. fib on Pradaxa, prior strokes x2, with no residual deficits, with symptoms of dysarthria on one, and confusion on another, hypertension, hyperlipidemia, dementia, who presented as a transfer from outside hospital following evaluation after a fallthat happened earlier on 01/05/22. She was getting out of her bed and collapsed due to weakness, andsprung backwards hitting her back on a bar of the bed. Her family brought her to the hospital for evaluation, where she was found to have a hematoma of her back with likely active extravasation. She was transferred to [facility], and was noted to have 2 episodes of hypotension in a row, butthese were responsive to fluids. She was given Praxbind in the ED. She notes that she does not have any pain right now except when people press on her back. She notesthat she takes the Pradaxa because of her aversion to the frequent INR checks. Medications (per memory of daughter, needs med rec if stays) Cozaar, metoprolol, omeprazole, simvastatin, Detrol Past surgical history: Cervix repair, related Tonsillectomy Foot surgery Allergies: Lisinopril, cough. Penicillins, coma for 5 days. Codeine, vomiting Family history: Son with schizophrenia. No known family history of clotting/bleeding disorders. Social history: Non-smoker. Infrequent alcohol. No recreational drugs. Review of Systems: A 10 point review of systems was completed with the patient pertinent positives are in the history of present illness all others are negative PMH PSH No past medical history on file. No past surgical history on file. Social History Family history Social History Tobacco Use ??? Smoking status: Never Smoker ??? Smokeless tobacco: Never Used Substance Use Topics ??? Alcohol use: Not on file No family history on file. Medications Medications Prior to Admission Medication Sig Dispense Refill Last Dose ??? Cetirizine 10 mg capsule Take 1 Capsule by mouth daily. ??? conjugated estrogens 0.625mg/G (PREMARIN) vaginal cream Place 0.5 g vaginally daily. ??? DABIGATRAN ETEXILATE MESYLATE (PRADAXA ORAL) Take by mouth 2 times daily. 01/05/2022 ??? diphenhydrAMINE (BENADRYL) 25 mg capsule Take 25 mg by mouth every 6 hours as needed (1-2 tabs). ??? GLUC HCL/GLUC MARRERO/KI-[id number]-[id number] (GLUCOSAMINE COMPLEX ORAL) Take by mouth. ??? loratadine (CLARITIN) 10 mg tablet Take 10 mg by mouth daily. ??? losartan (COZAAR) 100 mg tablet Take 100 mg by mouth daily. 01/05/2022 ??? METOPROLOL SUCCINATE ORAL Take 100 mg by mouth daily. 01/05/2022 ??? omeprazole (PRILOSEC) 20 mg capsule Take 20 mg by mouth daily. 01/05/2022 ??? simvastatin (ZOCOR) 20 mg tablet Take 30 mg by mouth at bedtime. 01/05/2022 ??? tolterodine (DETROL LA) 4 mg long acting capsule Take 4 mg by mouth daily. 01/05/2022 Allergies Allergies Allergen Reactions ??? Oxybutynin Chloride Anaphylaxis ??? Penicillins Anaphylaxis and Other (See Comments) Ended up in a coma ??? Lisinopril ??? Codeine GI upset emesis Immunizations There is no immunization history on file for this patient. Physical Exam: Initial VS: BP 109/68 HR 69 RR 14 T 97.2 SP02 100 Exam: Head: normocephalic/atraumatic Eyes: pupils 2 mm, bilaterally reactive to light ENT: oropharynx clear Neck: supple, non-tender and trachea midline Respiratory: clear to auscultation bilaterally Cardiovascular: palpable peripheral pulses present Abdomen: soft, non-tender Back: hematoma, no spinal tendernous, though obscured at level of hematoma Pelvis: non-tender, stable to anterior/posterior/lateral compression Rectal: normal spincter tone, no gross blood Genitourinary: normal female genitalia Musculoskeletal: no palpable long bone deformities and motor/sensation grossly intact Skin: grossly intact hematoma, ecchymosis on back Neurologic: alert, oriented, normal speech, no focal findings or movement disorder noted, screeningmental status exam normal Pressure Ulcer Present on admission? No Objective Data: Labs:I have personally reviewed CBC: Lab Results Component Value Date WBC 5.95 01/05/2022 RBC 3.40 (L) 01/05/2022 HGB 10.2 (L) 01/05/2022 HCT 30.4 (L) 01/05/2022 MCV 89 01/05/2022 MCH 30.0 01/05/2022 MCHC 33.6 01/05/2022 PLT 170 01/05/2022 NEUTROABS 4.61 01/05/2022 SEDRATE 5 06/11/2014 BMP: Lab Results Component Value Date NA 131 (L) 01/05/2022 K 3.9 01/05/2022 CL 95 (L) 01/05/2022 CO2 30 01/05/2022 BUN 21 01/05/2022 CREATININE 0.48 (L) 01/05/2022 CALCIUM 9.3 06/11/2014 MG 1.60 (L) 11/09/2017 LABALBU 4.1 06/11/2014 Coagulation: Lab Results Component Value Date PROTIME 17.4 (H) 01/05/2022 PTT 40 (H) 01/05/2022 FAST: Normal ECG: N/A Radiographic Findings: CT ANGIO ABDOMEN PELVIS Result Date: 01/06/2022 1. No evidence of solid organ or hollow viscus traumatic injury in the abdomen or pelvis. No evidence of traumatic vascular injury. 2. In the right posterior abdominal wall there is a 14 x 1 x 2.1 x 7.[address] evidence of active extravasation. 3. Chronic and incidental findings as above. CT CERVICAL SPINE WO CONTRAST Result Date: 01/06/2022 No acute fracture of the cervical spine. There is approximately 20% height loss of the superior endplate of T2 Correlate for focal symptoms. CT HEAD WO CONTRAST Result Date: 01/06/2022 No acute intracranial abnormality including no evidence of calvarial fracture or intracranial hemorrhage. XR CHEST PORTABLE 1 VIEW Result Date: 01/06/2022 Low lung volumes. Otherwise unremarkable chest radiograph. CT LUMBAR SPINE WO CONTRAST Result Date: 01/06/2022 Limited evaluation due to diffuse severe osseous demineralization. There are compression deformities at every vertebral level imaged (T12-L5). Chronic depression deformities at L2 and L4 appear similar compared with 2007. The other levels are age indeterminate but new since 2007. Widespread degenerative changes. Assessment: 76-year-old female with a history of A. fib on Pradaxa, prior strokes x2, , hypertension, hyperlipidemia, dementia, who presented as a green trauma transfer after a fall. Initially with concern for active extravasation also with hypotensive episodes. Pradaxa has been reversed, stable after fluid boluses. No active extravasation on new imaging. We will follow serial crit. Injuries: Posterior abdominal wall hematoma Active Hospital Problems Diagnosis Date Noted ??? *Hematoma 01/06/2022 ??? Traumatic hematoma 01/06/2022 Plan: Admit for obs, NPO Tertiary in am Follow-up am crit Follow-up final reads Clear c-collar when final read back Holding DVT prophylaxis Patient discussed with ACS chief Dr. Tarun PELAEZ MD 01/06/2022 3:59 Associated attestation - Sherman Blas MD - 01/13/2022 0947 EDT Attending attestation statement: I saw and examined the patient on 01/05/2022 and agree with the findings and plans as documented. Karla Gillis is a 76 y.o. female who presents to the [facility] as a green trauma activation following fall from standing, sustaining the following identified injuries: Posterior Abdominal Wall Hematoma: Admit given reported hypotensive episodes. Praxbind has been given to reverse pradaxa, currently HD stable, monitor carefully for hematoma expansion. Tertiary survey will be completed once medically appropriate. Georges Blas MD Acute Care Surgery Pager #[phone] documented in this encounter Consult Notes * Yasmany Waters MD - 01/06/2022 1211 EDT Neurosurgery Consult Problems: T2-T3; T12-L5 compression deformities Right T10, T11, T12, and L1 transverse process fractures Posterior abdominal wall hematoma History of: Paroxysmal atrial fibrillation on Pradaxa CVA without residual deficit Hypertension Hyperlipidemia Dementia Anticoagulation or Antiplatelet use: HPI: Karla is a 76-year-old female with past medical history of atrial fibrillation on Pradaxa, CVA without residual deficits, hypertension, hyperlipidemia, and dementia who presented after a fall that occurred on 01/05 when she was getting out of bed and collapsed due to weakness resulting in a fall backwards causing her to hit the back of her head on the bed bar. Family transported her to the hospital where she was found to have a posterior abdominal wall hematoma in addition to age-indeterminate T2-T3; T12-L5 compression deformities and right sided thoracic transverse process fractures. She had2 episodes of hypotension which responded to fluid bolus at OSH and was given Praxbind to reverse Pradaxa. Patient transferred to [facility] for higher level of care. Neurosurgery consulted for thoracolumbar compression deformities. On bedside interview, patient states that she has generally felt weaker on the left side since CVA 5 years ago. She currently uses a walker to get around at home and has done so for approximately 4 years. She feels unsteady on her feet and thinks subjective left-sided weakness plays a part as well.She denies current back pain but endorses side pain on the right which is where she hit during the fall. She denies any leg pain, new numbness/tingling, changes in bowel or bladder habits. She does endorse that she has some trouble holding onto things at times and gives example as moving things around in the refrigerator and dropping them. PMH: No past medical history on file. PSH: No past surgical history on file. Problem List: Patient Active Problem List Diagnosis ??? Traumatic hematoma ??? Hematoma ROS: A 10 point ROS was completed and pertinent positives were mentioned in the HPI and ALL OTHERS ARE NEGATIVE FH: No family history on file. SH: Social History Substance and Sexual Activity Alcohol Use None Social History Tobacco Use Smoking Status Never Smoker Smokeless Tobacco Never Used ALL: Allergies Allergen Reactions ??? Oxybutynin Chloride Anaphylaxis ??? Penicillins Anaphylaxis and Other (See Comments) Ended up in a coma ??? Lisinopril ??? Codeine GI upset emesis MEDS: Medications Prior to Admission Medication Sig Dispense Refill Last Dose ??? Cetirizine 10 mg capsule Take 1 Capsule by mouth daily. ??? conjugated estrogens 0.625mg/G (PREMARIN) vaginal cream Place 0.5 g vaginally daily. ??? DABIGATRAN ETEXILATE MESYLATE (PRADAXA ORAL) Take by mouth 2 times daily. 01/05/2022 ??? diphenhydrAMINE (BENADRYL) 25 mg capsule Take 25 mg by mouth every 6 hours as needed (1-2 tabs). ??? GLUC HCL/GLUC MARRERO/NG-BPE-R-GLUC (GLUCOSAMINE COMPLEX ORAL) Take by mouth. ??? loratadine (CLARITIN) 10 mg tablet Take 10 mg by mouth daily. ??? losartan (COZAAR) 100 mg tablet Take 100 mg by mouth daily. 01/05/2022 ??? METOPROLOL SUCCINATE ORAL Take 100 mg by mouth daily. 01/05/2022 ??? omeprazole (PRILOSEC) 20 mg capsule Take 20 mg by mouth daily. 01/05/2022 ??? simvastatin (ZOCOR) 20 mg tablet Take 30 mg by mouth at bedtime. 01/05/2022 ??? tolterodine (DETROL LA) 4 mg long acting capsule Take 4 mg by mouth daily. 01/05/2022 EXAM: Awake alert Sitting upright in bed Appears comfortable Upper extremities: Tour Driver 5/5 bilaterally Elbow flexion 5/5 bilaterally Elbow extension 5/5 bilaterally Deltoids 5/5 bilaterally Sensation light touch grossly symmetric in the bilateral upper extremities Triceps reflex 2-3+ bilaterally No apparent Shira sign Lower extremity: Hip flexion 5/5 bilaterally Knee flexion 5/5 bilaterally Dorsiflexion 5/5 bilaterally Plantar flexion 5/5 bilaterally Sensation light touch grossly symmetric in bilateral lower extremities 3-4+ patellar reflex bilaterally Sustained ankle clonus on the left and greater than 5 beats of clonus on the right HEENT: Normocephalic and atraumatic CV: Regular rate, normotensive PULM: No increased work of breathing on room air LABS: Laboratory studies independently reviewed. WBC/Hgb/Hct/Plts: 3.84/9.2/27.4/161 (01/06 1115) Na/K/Cl/CO2/BUN/Creat/C Bili/UC Bili:131/3.9/95/30/21/0.48/--/-- (01/05 2307) PT/INR/PTT: 17.4/1.5/40 (01/05 2307) IMAGING: Imaging studies independently reviewed. CT lumbar spine: IMPRESSION 1. Limited evaluation due to diffuse severe osseous demineralization. There are compression deformities at every vertebral level imaged (T12-L5). Chronic depression deformities at L2 and L4 appear similar compared with 2007. The other levels are age indeterminate but new since 2006. ?? 2. Apparent nondisplaced right L1 transverse process fracture. Assessment: Karla is a 76-year-old female with past medical history of atrial fibrillation on Pradaxa and CVA without residual deficits on exam who presented after she fell getting out of bed secondary to global weakness causing her to roll backwards and hit her side and head on bed. Found to have posterior abdominal wall hematoma in addition to T2-T3; T12-L5 compression fractures on imaging and right sidedthoracic TP fractures. On exam, patient is full strength and sensation throughout but hyperreflexicwith sustained clonus in the lower extremities. Plan for upright thoracolumbar x-rays after mobilization and MR cervical spine to assess for compressive cervical pathology. Plan: No acute neurosurgical intervention Upright thoracolumbar x-rays, AP and lateral, after mobilization MR cervical spine without contrast to include licensing and registration director of the thoracic spine Okay for activity as tolerated from neurosurgery perspective Okay for diet from neurosurgery perspective Okay for DVT chemoprophylaxis from neurosurgery perspective Patient's status and plan discussed with chief neurosurgery resident, Sharon Page DO. YASMANY WATERS MD Neurosurgery resident 01/06/2022 13:20 Page [phone] with questions Associated attestation - Jamar King MD - 01/07/2022 0908 EDT Attending Attestation: I saw and examined the patient with the residents and agree with the assessment and plan documented in this encounter ED Notes * Eliane Peres MD MPH - 01/05/20222 EDT This patient received an evaluation and medical screening exam for emergent medical conditions at the [facility] on 01/05/2022 This note was created and authored by SALVADOR MARTINEZ MD, working under the supervision of Domo Peres MD MPH. This documentation is recorded by Nadia Olvera acting as Scribe under the direction and presence of Eliane Peres MD MPH and SALVADOR MARTINEZ MD. Eliane Peres MD MPH and SALVADOR MARTINEZ MD: We personally performed the services recorded by the scribe in our presence. We confirm the scribe's documentation has been reviewed by us to accurately andcompletely record our work, treatment, procedures, and medical decision making. ED Attending's Supervisory Statement I, Eliane Peres MD MPH, performed a history and exam of this patient and discussed the case withthe resident. I have reviewed and edited this note, and the documentation is consistent with my findings, assessment and plan. I fully participated in the medical decision making. Medical Decision Making and ED Course Well-appearing with reassuring vital signs and exam with large hematoma and ecchymosis along the right back and flank. Had episode of hypotension in route but now resolved post fluid resuscitation. Patient is on metoprolol and dabigatran. Did not get reversed. No new traumatic findings on primary or secondary survey. Plan of care includes trauma minor, type and screen, coags, CT angio abdomen pelvis given findings of active extravasation and episode of interval hypotension. Will also recon L-spine with her tenderness to palpation and no formal L-spine views. Given her documented dementia though appearing generally alert and oriented here in the ED will also obtain CT head and C-spine thoughoverall low suspicion for C-spine or intracranial injury. A medical screening was performed. Imaging obtained was reviewed and independently interpreted: CT reads pending at time of admission laboratory results independently reviewed, significant for: Hemoglobin 10.2 from 13.5 4 years ago. Sodium 131, BMP otherwise unremarkable. PTT at 40. INR 1.5. Lactic acid 1.2. 2349: Patient administered 5 g IV idarucizumab. 0139: Case discussed with ACS who agreed to evaluate the patient. Patient admitted to [facility] Karla Gillis is a 76 y.o. female with a history of atrial fibrillation and dementia who presentsto the ED as a Green Trauma transfer. The patient reports that this morning, she fell while trying to get out of her bed and landed on her back. She denies head strike. She presented to [facility] and had CT imaging which demonstrated large hematoma on her right flank. She was referred here for furtherevaluation. EMS reports that en route, the patient was hypotensive but responded well to fluids. The patient denies urinary symptoms, chest pain, or shortness of breath. She states she ambulates witha walker at baseline. She is anti-coagulated on warfarin. History was provided by: Patient, EMS, Medical records Patient's pertinent PMH, FH, SH were reviewed and updated PRN. ROS A 10-point review of systems was performed. The patient answered negative to all questions with theexceptions of those explicitly detailed as positives in the HPI. Pertinent negatives are also explicitly stated. Physical Exam Vital Signs Temp: 36.8 ??C (98.3 ??F) Temp src: Oral Pulse: 61 Resp: 18 SpO2: 100 % BP: 109/68 BP Device: BP Machine O2 Device: None (Room air) Nursing notes and vital signs were reviewed. PRIMARY SURVEY Airway intact Breathing spontaneously. Equal breath sounds. Circulation: No obvious source of blood loss. 2+ Distal pulses. Disability: GCS 15. Moving all extremities spontaneously. Sensation intact throughout. SECONDARY SURVEY Head: Atraumatic ENT: No septal hematoma. Patent oropharynx. Moist mucus membranes. Neck/back: Large hematoma with surrounding ecchymoses extending along the midline of the back alongthe right flank. L spine and low T spine tenderness to palpation without deformity. Chest: No chest wall tenderness. No flail physiology. Abdomen: Soft, nontender, nondistended. Pelvis: Stable to compression and distraction. Extremities: No long bone tenderness to palpation or deformities. No edema. Skin: Warm and dry. Psych: No overt thought or mood disorder. Procedures Procedures Clinical Impression Final diagnoses: Hematoma Disposition Condition at departure from the Emergency Department: Stable Disposition decisions were made weighing risks and benefits of hospitalization vs. outpatient treatment, the risk for further decompensation, and the patient???s wishes. Admitted. The patient required admission for further workup or management of their condition * Sunshine Torre RN - 01/05/2022 0724 EDT TCALL: KARLA GILLIS, 45, REFERRED BY LYN, 76 Y O F FALL THIS A.M. W/ H/O AFIB ON PRADAXA,R BACK PAIN W/ CT SCAN, SUB Q HEMATOMA AND ACTIVE BLEEDING. INITIAL H/H. BASELINE ANEMIA. documented in this encounter Miscellaneous Notes * Plan of Care - Jamie Hendrix RN - 01/10/2022 1355 EDT Problem: High Fall Risk: Goal: Patient will Remain Free of Falls due to Med. Side Effects Outcome: Met This Shift Problem: High Fall Risk: Goal: Patient Will Remain Free from Fall-Related Injury Outcome: Met This Shift Problem: High Fall Risk: Goal: Patient will Remain Free of Falls due to Dizziness/Vertigo Outcome: Met This Shift Problem: Daily Care Plan Goals Goal: Care Plan Documentation Outcome: Met This Shift Flowsheets (Taken 01/10/2022 0830) Area of Focus: Discharge Plan Goal This Shift: pt will discharge home safely Nursing Discharge Note D: Patient noted with discharge orders to: home with home health. A: No prescriptions. Reviewed discharge instructions and prescriptions with Patient and Family IV d/c'd. Belongings collected and sent home with patient. Report called to MI Downing at [facility]. R: Patient and Family verbalized understanding of discharge instructions and denied further questions. JAMIE HENDRIX RN 01/10/2022 13:55 * Plan of Care - Anne Lopez - 01/10/2022 0924 EDT 01/10/22 09 Home Health Referral Information [place] [facility] * Plan of Care - Sherrie De La Rosa RN - 01/10/2022 0254 EDT Data: Pt s/p fall with head strike. A&Ox3, PERRLA intact, 5/5 strength throughout. Hematoma on R flank. Denies pain. Assist x1 OOB with walker. Rings appropriately. Action: Administered medications per MAR. Q4 VS. Hourly checks and bed alarm in place to maintain safety. Clustered care to promote rest. Response: VSS. Remained free of falls/injury. Call almaraz within reach. Slept between care. No acute distress noted. SHERRIE DE LA ROSA RN 01/10/2022 2:55 * Plan of Care - Thom Roper - 01/09/2022 1350 EDT Problem: Nutritional: Goal: Ability to attain and maintain optimal nutritional status will improve Outcome: Ongoing D: admitted with dx thoracic spine fx and right flank hematoma s/p standing height fall at home. CAOX3 and has no complaints or pain. No pain on ambulation but only with turns. Able to express needs to utilize bathroom, but can have urinary incontinence and uses incontinence brief. Regular diet. A: Q4 VS, x1 assist with walker, supported nutrition by helping order meals, assisted PT with ambulation up and down stairs. R: tolerated ambulation well. Ate 100% breakfast without difficulty. Plan according to GEORGES and isto discharge to [facility] or home. Resting in chair comfortably. Thom Roper RN Student. 01/09/22 * Plan of Care - Kelsey Hines - 01/08/2022 1453 EDT 01/08/22 1453 Medicare IM Notice IM notice status Surrogate received notification verbally and IM mailed or emailed. IM notice given on admission? Yes * Plan of Care - Mahogany Darnell RN - 01/07/2022 1524 EDT Problem: High Fall Risk: Goal: Patient Will Remain Free from Fall-Related Injury Outcome: Ongoing Problem: Daily Care Plan Goals Goal: Care Plan Documentation Outcome: Ongoing Problem: Pain: Goal: Pain level will decrease Outcome: Ongoing Data: pt is a&ox2-3/confused at times, large hematoma on R flank/back-painful on exertion, up wone assist and walker to the BR, purewick in place, tolerating a regular diet, VSS Action: q4 vitals and neuros, meds given per MAR, bed bath this morning, tylenol administered for LYNNE Response: pt sitting up in bed, LYNNE relieved by meds, denies pain and any needs at this time, will monitor pt safety and comfort MAHOGANY DARNELL RN 01/07/2022 15:24 * Plan of Care - Kelsey Hines - 01/07/2022 1457 EDT 01/07/22 1454 Observation Notification Notification of outpatient observation services Surrogate received notification verbally and the RAMON sent by certified mail or emailed. Obs letter complete? Yes * Plan of Care - Roxanne Gonzalez RN - 01/06/2022 1734 EDT Data: Admitted for workup post-fall. Large hematoma to back is painful when moved or when area is touched but patient denies pain at rest. Monitoring VS q4h Action: Patient kept NPO and on bedrest per MD orders. Bathed and changed bedsheets. Using purewickto manage incontinence. Patient cleared of c-spine precautions by , Lola J collar removed. Daughter provided med list from PCP, PATIENT RELATIONS DIRECTOR med rec completed and MD updated regarding changes. Clindamycin added to med list by and they are aware that the home med list is available in the paper chart ifneeded. Response: Tolerated bed mobility well and agreeable to SCD/CODY hose applications. Hungry but agreeable to POC. Pending MRI. ROXANNE VELÁZQUEZ RN 01/06/2022 17:34 Problem: High Fall Risk: Goal: Patient will Remain Free of Falls due to Med. Side Effects 01/06/2022 1734 by Roxanne Velázquez RN Outcome: Met This Shift 01/06/2022 1734 by Roxanne Velázquez RN Outcome: Met This Shift 01/06/2022 172 by Roxanne Velázquez RN Outcome: Met This Shift Problem: High Fall Risk: Goal: Patient Will Remain Free from Fall-Related Injury 01/06/2022 1734 by Roxanne Velázquez RN Outcome: Met This Shift 01/06/2022 1734 by Roxanne Velázquez RN Outcome: Met This Shift Problem: High Fall Risk: Goal: Patient will Remain Free of Falls due to Altered Elimination 01/06/2022 1734 by Roxanne Velázquez RN Outcome: Met This Shift 01/06/2022 173 by Roxanne Velázquez RN Outcome: Met This Shift 01/06/2022 172 by Roxanne Velázquez RN Outcome: Met This Shift Problem: High Fall Risk: Goal: Patient will Remain Free of Falls due to Dizziness/Vertigo 01/06/2022 1734 by Roxanne Velázquez RN Outcome: Met This Shift 01/06/2022 173 by Roxanne Velázquez RN Outcome: Met This Shift 01/06/2022 172 by Roxanne Velázquez RN Outcome: Met This Shift Problem: High Fall Risk: Goal: Patient will Remain Free of Falls due to Altered Mobility 01/06/2022 1734 by Roxanne Velázquez RN Outcome: Met This Shift 01/06/2022 1734 by Roxanne Velázquez RN Outcome: Met This Shift 01/06/2022 1729 by Roxanne Velázquez RN Outcome: Met This Shift Problem: High Fall Risk: Goal: Patient will Remain Free of Falls due to Confusion 01/06/2022 1734 by Roxanne Velázquez RN Outcome: Met This Shift 01/06/2022 1734 by Roxanne Velázquez RN Outcome: Met This Shift 01/06/2022 172 by Roxanne Velázquez RN Outcome: Met This Shift Problem: Daily Care Plan Goals Goal: Care Plan Documentation 01/06/2022 1734 by Roxanne Velázquez RN Outcome: Met This Shift 01/06/2022 1734 by Roxanne Velázquez RN Outcome: Met This Shift 01/06/2022 1729 by Roxanne Velázquez RN Outcome: Met This Shift Problem: Pain: Goal: Pain level will decrease 01/06/2022 1734 by Roxanne Velázquez RN Outcome: Met This Shift 01/06/2022 1734 by Roxanne Velázquez RN Outcome: Met This Shift Problem: Nutritional: Goal: Ability to attain and maintain optimal nutritional status will improve 01/06/2022 1734 by Roxanne Velázquez RN Outcome: Met This Shift 01/06/2022 1734 by Roxanne Velázquez RN Outcome: Met This Shift documented in this encounter Plan of Treatment Not on file documented as of this encounter Procedures Procedure Name Priority Date/Time Associated Diagnosis Comments COMPLETE BLOOD COUNT AND DIFFERENTIAL Routine 01/10/2022 6:12 EDT COMPLETE BLOOD COUNT AND DIFFERENTIAL Routine 01/09/2022 7:02 EDT MR THORACIC SPINE WO CONTRAST Routine 01/08/2022 13:21 EDT MR CERVICAL SPINE WO CONTAST Routine 01/08/2022 13:20 EDT COMPLETE BLOOD COUNT AND DIFFERENTIAL Routine 01/08/2022 5:33 EDT COMPLETE BLOOD COUNT AND DIFFERENTIAL Routine 01/07/2022 5:15 EDT COMPLETE BLOOD COUNT AND DIFFERENTIAL Routine 01/06/2022 23:58 EDT COMPLETE BLOOD COUNT Routine 01/06/2022 18:[address] THORACIC SPINE WO CONTRAST Routine 01/06/2022 12:31 EDT COMPLETE BLOOD COUNT Routine 01/06/2022 11:15 EDT ZZCOVID-19 TEST [facility] PCR Today 01/06/2022 2:55 EDT COVID-19 TESTING Routine 01/06/2022 2:55 EDT XR CHEST PORTABLE 1 VIEW STAT 01/06/2022 2:[address] LUMBAR SPINE WO CONTRAST STAT 01/06/2022 1:[address] ANGIO ABDOMEN PELVIS STAT 01/06/2022 1:[address] HEAD WO CONTRAST STAT 01/06/2022 0 [address] CERVICAL SPINE WO CONTRAST STAT 01/06/2022 0:51 EDT SCREENING GLUCOSE Routine 01/05/2022 23: 07 EDT TRAUMA PACK MINOR Routine 01/05/2022 23: 07 EDT LACTIC ACID STAT 01/05/2022 23:07 EDT PTT Routine 01/05/2022 23:07 EDT PROTIME Routine 01/05/2022 23:07 EDT COMPLETE BLOOD COUNT AND DIFFERENTIAL Routine 01/05/2022 23:07 EDT TYPE AND SCREEN STAT 01/05/2022 23:07 EDT BUN Routine 01/05/2022 23:07 EDT CREATININE Routine 01/05/2022 23:07 EDT ELECTROLYTES Routine 01/05/2022 23:07 EDT documented in this encounter Results * (ABNORMAL) COMPLETE BLOOD COUNT AND DIFFERENTIAL (01/10/2022 6:12 EDT) WBC 3.88(L) 4.00 - 12.40 K/cmm 01/10/2022 8:10 [facility] RBC 2.64(L) 3.86 - 5.04 M/cmm 01/10/2022 8:10 [facility] Hemoglobin 8.1(L) 11.6 - 15.2 gm/dL 01/10/2022 8:10 [facility] HCT 24.0(L) 34.9 - 44.4 % 01/10/2022 8:10 [facility] MCV 91 81 - 98 fl 01/10/2022 8:10 [facility] MCH 30.7 26.7 - 33.3 pg 01/10/2022 8:10 [facility] MCHC 33.8 32.1 - 35.9 gm/dL 01/10/2022 8:10 [facility] RDW-CV 13.6 <14.7 % 01/10/2022 8:10 [facility] RDW-SD 44.7 <50.4 fl 01/10/2022 8:10 [facility] PLT 154 141 - 377 K/cmm 01/10/2022 8:10 [facility] MPV 10.4 9.5 - 12.7 fl 01/10/2022 8:10 [facility] % Neutrophils 59.9 % 01/10/2022 8:10 [facility] % Lymphocytes 22.2 % 01/10/2022 8:10 [facility] % Monocytes 13.4 % 01/10/2022 8:10 [facility] % Eosinophils 3.4 % 01/10/2022 8:10 [facility] % Basophils 0.8 % 01/10/2022 8:10 [facility] % Immature Grans 0.3 % 01/11/20 8:10 [facility] Absolute Neutrophils 2.33 2.20 - 8.85 K/cmm 01/10/2022 8:10 [facility] Absolute Lymphocytes 0.86(L) 1.09 - 3.30 K/cmm 01/10/2022 8:10 T [facility] Absolute Monocytes 0.52 0.10 - 0.80 K/cmm 01/10/2022 8:10 T [facility] Absolute Eosinophils 0.13 0.03 - 0.61 K/cmm 01/10/2022 8:10 [facility] ABS Basophils 0.03 0.01 - 0.11 K/cmm 01/10/2022 8:10 [facility] Absolute Immature Grans 0.01 0.00 - 0.06 K/cmm 01/10/2022 8:10 [facility] Type of Differential: Auto 01/10/2022 8:10 [facility] Blood VENOUS BLOOD / Unknown Venipuncture / Unknown 01/10/2022 6:12 EDT 01/10/2022 7:55 EDT Vesta Cruz MD PACKAGES & DNA PROBE ORDERABLES Performing Organization Address City/State/[facility] Co de Phone Number [facility] [address] [place] [address] * (ABNORMAL) COMPLETE BLOOD COUNT AND DIFFERENTIAL (01/09/2022 7:02 EDT) WBC 3.81(L) 4.00 - 12.40 K/cmm 01/09/2022 7:57 [facility] RBC 2.80(L) 3.86 - 5.04 M/cmm 01/09/2022 7:57 [facility] Hemoglobin 8.4(L) 11.6 - 15.2 gm/dL 01/09/2022 7:57 [facility] HCT 26.0(L) 34.9 - 44.4 % 01/09/2022 7:57 [facility] MCV 93 81 - 98 fl 01/09/2022 7:57 [facility] MCH 30.0 26.7 - 33.3 pg 01/09/2022 7:57 [facility] MCHC 32.3 32.1 - 35.9 gm/dL 01/09/2022 7:57 [facility] RDW-CV 13.3 <14.7 % 01/09/2022 7:57 [facility] RDW-SD 45.4 <50.4 fl 01/09/2022 7:57 [facility] PLT 148 141 - 377 K/cmm 01/09/2022 7:57 [facility] MPV 10.2 9.5 - 12.7 fl 01/09/2022 7:57 [facility] % Neutrophils 68.0 % 01/09/2022 7:57 [facility] % Lymphocytes 16.0 % 01/09/2022 7:57 [facility] % Monocytes 12.6 % 01/09/2022 7:57 [facility] % Eosinophils 2.4 % 01/09/2022 7:57 [facility] % Basophils 0.5 % 01/09/2022 7:57 [facility] % Immature Grans 0.5 % 01/10/20 7:57 [facility] Absolute Neutrophils 2.59 2.20 - 8.85 K/cmm 01/09/2022 7:57 [facility] Absolute Lymphocytes 0.61(L) 1.09 - 3.30 K/cmm 01/09/2022 7:57 [facility] Absolute Monocytes 0.48 0.10 - 0.80 K/cmm 01/09/2022 7:57 [facility] Absolute Eosinophils 0.09 0.03 - 0.61 K/cmm 01/09/2022 7:57 [facility] ABS Basophils 0.02 0.01 - 0.11 K/cmm 01/09/2022 7:57 [facility] Absolute Immature Grans 0.02 0.00 - 0.06 K/cmm 01/09/2022 7:57 [facility] Type of Differential: Auto 01/09/2022 7:57 EDT [facility] Blood VENOUS BLOOD / Unknown Venipuncture / Unknown 01/09/2022 7:02 EDT 01/09/2022 7:44 EDT Vesta Cruz MD PACKAGES & DNA PROBE ORDERABLES [facility] [address] [place] [address] * MR THORACIC SPINE WO CONTRAST (01/08/2022 13:21 EDT) Anatomical Region Laterality Modality Spine Magnetic Resonan ce 01/08/2022 13:4 3 EDT Impressions 01/08/2022 13:43 EDT No high grade spinal canal stenosis in the thoracic spine. No definite thoracic cord signal abnormality, the evaluation of which is significantly limited by motion artifacts. Redemonstrated multiple compression deformities in the thoracic and lumbar spine. Mild edema associated with the L1 fracture suggests subacute age. Remaining fractures appear chronic, without significant associated edema. Narrative 01/08/2022 13:43 EDT EXAM: MRI THORACIC SPINE WO CONTRAST HISTORY: sustained lower extremity clonus on exam, assess for compressive cervical pathology TECHNIQUE: MRI of the thoracic spine without contrast. Large niqje-fv-pyxw sagittal T2-weighted sequences were obtained. COMPARISON: CT thoracic and lumbar spine 01/06/2022. FINDINGS: Large makbi-at-ikmq sagittal T2-weighted sequence again demonstrates compression deformities involving the T2, T11, T12 vertebral bodies and each lumbar vertebral body. There is slight anterolisthesis of L3 on L4 and slight buckling of the L4 posterior cortex causing mild spinal canal stenosis. No significant buckling of the posterior cortex at other levels. Mild associated edema associated with the L1 fracture. No significant edema associated with the remaining fractures. Remaining thoracic vertebral bodies demonstrate normal height. Previously seen transverse process fractures are poorly imaged. No concerning osseous lesions. No spinal canal fluid collections. No high-grade spinal canal stenosis identified in the thoracic spine. No definite signal abnormality involving the thoracic cord or conus, the assessment of which is significantly limited by motion artifacts. Discogenic and facet degenerative changes are present throughout the thoracic and lumbar spine. Varying degrees of neural foraminal stenosis are noted, considered moderate in severity on both sides at T10-T11 and T12-L1 and multiple lumbar levels although poorly imaged. Included extraspinal soft tissues are unremarkable. Procedure Note Luis Manuel Marcos MD - 01/08/2022 EXAM: MRI THORACIC SPINE WO CONTRAST HISTORY: sustained lower extremity clonus on exam, assess for compressivecervical pathology TECHNIQUE: MRI of the thoracic spine without contrast. Large tgsze-gt-zhfgcihqfaqs T2-weighted sequences were obtained. COMPARISON: CT thoracic and lumbar spine 01/06/2022. FINDINGS: Large nngyu-nc-hlqt sagittal T2-weighted sequence again demonstratescompression deformities involving the T2, T11, T12 vertebral bodies andeach lumbar vertebral body. There is slight anterolisthesis of L3 on L4and slight buckling of the L4 posterior cortex causing mild spinal canalstenosis. No significant buckling of the posterior cortex at other levels.Mild associated edema associated with the L1 fracture. No significantedema associated with the remaining fractures. Remaining thoracicvertebral bodies demonstrate normal height. Previously seen transverseprocess fractures are poorly imaged. No concerning osseous lesions. No spinal canal fluid collections. Nohigh-grade spinal canal stenosis identified in the thoracic spine. Nodefinite signal abnormality involving the thoracic cord or conus, theassessment of which is significantly limited by motion artifacts. Discogenic and facet degenerative changes are present throughout thethoracic and lumbar spine. Varying degrees of neural foraminal stenosisare noted, considered moderate in severity on both sides at T10-T11 [id number] and multiple lumbar levels although poorly imaged. Included extraspinal soft tissues are unremarkable. IMPRESSION No high grade spinal canal stenosis in the thoracic spine. No definitethoracic cord signal abnormality, the evaluation of which is significantlylimited by motion artifacts. Redemonstrated multiple compression deformities in the thoracic and lumbarspine. Mild edema associated with the L1 fracture suggests subacute age.Remaining fractures appear chronic, without significant associatededema. Parisa Sharif MD IMG MRI ORDERABLES * MR CERVICAL SPINE WO CONTRAST (01/08/2022 13:20 EDT) Anatomical Region Laterality Modality Spine Magnetic Resonan ce 01/08/2022 13:3 2 EDT Impressions 01/08/2022 13:32 EDT Significantly limited evaluation due to motion artifacts. Multilevel degenerative changes, without high grade spinal canal stenosis. Varying degrees of neural foraminal stenosis, which appears severe on the right at C4-C5 and C5-C6 and on the left at C5-C6. Faint apparent long segment T2 hyperintensity in the cervical cord seen on the sagittal T2-weighted sequence is not clearly seen on axial sequences and is favored to represent artifact. If there is persistent concern for myelopathy, a repeat examination should be considered with efforts to reduce motion artifacts. Narrative 01/08/2022 13:32 EDT EXAM: MRI CERVICAL SPINE WO CONTRAST HISTORY: sustained lower extremity clonus on exam, assess for compressive cervical pathology TECHNIQUE: MRI of the cervical spine without contrast. Structured report code: [id number] COMPARISON: CT cervical spine 01/06/2022. FINDINGS: Detailed evaluation is significantly limited by motion artifacts. SURGICAL CHANGES: None. ALIGNMENT: Slight straightening of lordosis with minimal retrolisthesis C3 on C4 and slight anterolisthesis C7 on T1. BONES: No significant vertebral body height loss. No concerning lesions. Multilevel uncovertebral hypertrophy and multilevel degenerative facet arthropathy. INTERVERTEBRAL DISCS: Multilevel degenerative disc disease, most pronounced at C5-C6. SPINAL CANAL AND SPINAL CORD: There is faint apparent long segment T2 hyperintensity involving the central aspect of the cervical cord extending from the cervicomedullary junction into the upper thoracic cord seen best on the sagittal T2-weighted sequence, not clearly seen on the axial sequences. No fluid collections. No high-grade spinal canal stenosis. Slight flattening of the ventral thecal sac and slight indentation of the dorsal thecal sac noted at several levels secondary to degenerative changes. NEURAL FORAMINA: Varying degrees of stenosis secondary to uncovertebral hypertrophy and degenerative facet arthropathy. Evaluation is limited on oblique sequences by motion artifacts. On the right, stenosis appears severe at C4-C5 and C5-C6, mild at remaining levels. On the left, stenosis appears severe at C5-C6, moderate at C2-C3 and C4-C5, and mild at remaining levels. VISIBLE EXTRASPINAL SOFT TISSUES AND INTRACRANIAL CONTENTS: Unremarkable. Procedure Note Luis Manuel Marcos MD - 01/08/2022 EXAM: MRI CERVICAL SPINE WO CONTRAST HISTORY: sustained lower extremity clonus on exam, assess for compressivecervical pathology TECHNIQUE: MRI of the cervical spine without contrast. Structured reportcode: [id number] COMPARISON: CT cervical spine 01/06/2022. FINDINGS: Detailed evaluation is significantly limited by motion artifacts. SURGICAL CHANGES: None. ALIGNMENT: Slight straightening of lordosis with minimal retrolisthesis C3 on C4 andslight anterolisthesis C7 on T1. BONES: No significant vertebral body height loss. No concerning lesions.Multilevel uncovertebral hypertrophy and multilevel degenerative facetarthropathy. INTERVERTEBRAL DISCS: Multilevel degenerative disc disease, most pronounced at C5-C6. SPINAL CANAL AND SPINAL CORD: There is faint apparent long segment T2 hyperintensity involving thecentral aspect of the cervical cord extending from the cervicomedullaryjunction into the upper thoracic cord seen best on the sagittalT2-weighted sequence, not clearly seen on the axial sequences. No fluid collections. No high-grade spinal canal stenosis. Slightflattening of the ventral thecal sac and slight indentation of the dorsalthecal sac noted at several levels secondary to degenerative changes. NEURAL FORAMINA: Varying degrees of stenosis secondary to uncovertebral hypertrophy anddegenerative facet arthropathy. Evaluation is limited on oblique sequencesby motion artifacts. On the right, stenosis appears severe at C4-C5 andC5-C6, mild at remaining levels. On the left, stenosis appears severe atC5-C6, moderate at C2-C3 and C4-C5, and mild at remaining levels. VISIBLE EXTRASPINAL SOFT TISSUES AND INTRACRANIAL CONTENTS: Unremarkable. IMPRESSION Significantly limited evaluation due to motion artifacts. Multilevel degenerative changes, without high grade spinal canal stenosis.Varying degrees of neural foraminal stenosis, which appears severe on theright at C4-C5 and C5-C6 and on the left at C5-C6. Faint apparent long segment T2 hyperintensity in the cervical cord seen onthe sagittal T2-weighted sequence is not clearly seen on axial sequencesand is favored to represent artifact. If there is persistent concern formyelopathy, a repeat examination should be considered with efforts toreduce motion artifacts. Parisa Sharif MD [facility] [place] ORDERABLES * (ABNORMAL) COMPLETE BLOOD COUNT AND DIFFERENTIAL (01/08/2022 5:33 EDT) WBC 4.69 4.00 - 12.40 K/cmm 01/08/2022 8:01 EDT [facility] RBC 2.68(L) 3.86 - 5.04 M/cmm 01/08/2022 8:01 [facility] Hemoglobin 8.2(L) 11.6 - 15.2 gm/dL 01/08/2022 8:01 [facility] HCT 24.0(L) 34.9 - 44.4 % 01/08/2022 8:01 [facility] MCV 90 81 - 98 fl 01/08/2022 8:01 [facility] MCH 30.6 26.7 - 33.3 pg 01/08/2022 8:01 [facility] MCHC 34.2 32.1 - 35.9 gm/dL 01/08/2022 8:01 [facility] RDW-CV 13.2 <14.7 % 01/08/2022 8:01 [facility] RDW-SD 43.6 <50.4 fl 01/08/2022 8:01 [facility] PLT 137(L) 141 - 377 K/cmm 01/08/2022 8:01 [facility] MPV 10.5 9.5 - 12.7 fl 01/08/2022 8:01 [facility] % Neutrophils 64.5 % 01/08/2022 8:01 [facility] % Lymphocytes 20.9 % 01/08/2022 8:01 [facility] % Monocytes 11.9 % 01/08/2022 8:01 [facility] % Eosinophils 2.1 % 01/08/2022 8:01 [facility] % Basophils 0.2 % 01/08/2022 8:01 [facility] % Immature Grans 0.4 % 01/09/20 8:01 [facility] Absolute Neutrophils 3.02 2.20 - 8.85 K/cmm 01/08/2022 8:01 [facility] Absolute Lymphocytes 0.98(L) 1.09 - 3.30 K/cmm 01/08/2022 8:01 [facility] Absolute Monocytes 0.56 0.10 - 0.80 K/cmm 01/08/2022 8:01 [facility] Absolute Eosinophils 0.10 0.03 - 0.61 K/cmm 01/08/2022 8:01 [facility] ABS Basophils 0.01 0.01 - 0.11 K/cmm 01/08/2022 8:01 [facility] Absolute Immature Grans 0.02 0.00 - 0.06 K/cmm 01/08/2022 8:01 [facility] Type of Differential: Auto 01/08/2022 8:01 [facility] Blood VENOUS BLOOD / Unknown Venipuncture / Unknown 01/08/2022 5:33 EDT 01/08/2022 7:54 EDT Vesta Cruz MD PACKAGES & DNA PROBE ORDERABLES Performing Organization Address City/State/[facility] Co de Phone Number [facility] [address] [place] [id number] * (ABNORMAL) COMPLETE BLOOD COUNT AND DIFFERENTIAL (01/07/2022 5:15 EDT) WBC 3.98(L) 4.00 - 12.40 K/cmm 01/07/2022 5:56 [facility] RBC 2.84(L) 3.86 - 5.04 M/cmm 01/07/2022 5:56 [facility] Hemoglobin 8.6(L) 11.6 - 15.2 gm/dL 01/07/2022 5:56 [facility] HCT 25.0(L) 34.9 - 44.4 % 01/07/2022 5:56 [facility] MCV 88 81 - 98 fl 01/07/2022 5:56 [facility] MCH 30.3 26.7 - 33.3 pg 01/07/2022 5:56 [facility] MCHC 34.4 32.1 - 35.9 gm/dL 01/07/2022 5:56 [facility] RDW-CV 13.3 <14.7 % 01/07/2022 5:56 [facility] RDW-SD 43.2 <50.4 fl 01/07/2022 5:56 [facility] PLT 140(L) 141 - 377 K/cmm 01/07/2022 5:56 [facility] MPV 10.4 9.5 - 12.7 fl 01/07/2022 5:56 [facility] % Neutrophils 61.3 % 01/07/2022 5:56 [facility] % Lymphocytes 22.1 % 01/07/2022 5:56 [facility] % Monocytes 13.8 % 01/07/2022 5:56 [facility] % Eosinophils 2.0 % 01/07/2022 5:56 [facility] % Basophils 0.5 % 01/07/2022 5:56 [facility] % Immature Grans 0.3 % 01/08/20 5:56 [facility] Absolute Neutrophils 2.44 2.20 - 8.85 K/cmm 01/07/2022 5:56 [facility] Absolute Lymphocytes 0.88(L) 1.09 - 3.30 K/cmm 01/07/2022 5:56 [facility] Absolute Monocytes 0.55 0.10 - 0.80 K/cmm 01/07/2022 5:56 [facility] Absolute Eosinophils 0.08 0.03 - 0.61 K/cmm 01/07/2022 5:56 [facility] ABS Basophils 0.02 0.01 - 0.11 K/cmm 01/07/2022 5:56 [facility] Absolute Immature Grans 0.01 0.00 - 0.06 K/cmm 01/07/2022 5:56 [facility] Type of Differential: Auto 01/07/2022 5:56 [facility] Blood VENOUS BLOOD / Unknown Venipuncture / Unknown 01/07/2022 5:15 EDT 01/07/2022 5:44 EDT Litzy Pablo MD PACKAGES & DNA PROBE ORDERABLES [facility] [address] [place] [address] * (ABNORMAL) COMPLETE BLOOD COUNT AND DIFFERENTIAL (01/06/2022 23:58 EDT) WBC 3.98(L) 4.00 - 12.40 K/cmm 01/07/2022 0:17 [facility] RBC 2.85(L) 3.86 - 5.04 M/cmm 01/07/2022 0:17 [facility] Hemoglobin 8.6(L) 11.6 - 15.2 gm/dL 01/07/2022 0:17 [facility] HCT 25.0(L) 34.9 - 44.4 % 01/07/2022 0:17 [facility] MCV 88 81 - 98 fl 01/07/2022 0:17 [facility] MCH 30.2 26.7 - 33.3 pg 01/07/2022 0:17 [facility] MCHC 34.4 32.1 - 35.9 gm/dL 01/07/2022 0:17 [facility] RDW-CV 13.3 <14.7 % 01/07/2022 0:17 [facility] RDW-SD 42.9 <50.4 fl 01/07/2022 0:17 [facility] PLT 135(L) 141 - 377 K/cmm 01/07/2022 0:17 [facility] MPV 9.7 9.5 - 12.7 fl 01/07/2022 0:17 [facility] % Neutrophils 60.4 % 01/07/2022 0:17 [facility] % Lymphocytes 22.6 % 01/07/2022 0:17 [facility] % Monocytes 14.6 % 01/07/2022 0:17 [facility] % Eosinophils 1.8 % 01/07/2022 0:17 [facility] % Basophils 0.3 % 01/07/2022 0:17 [facility] % Immature Grans 0.3 % 01/08/20 0:17 [facility] Absolute Neutrophils 2.41 2.20 - 8.85 K/cmm 01/07/2022 0:17 [facility] Absolute Lymphocytes 0.90(L) 1.09 - 3.30 K/cmm 01/07/2022 0:17 [facility] Absolute Monocytes 0.58 0.10 - 0.80 K/cmm 01/07/2022 0:17 [facility] Absolute Eosinophils 0.07 0.03 - 0.61 K/cmm 01/07/2022 0:17 [facility] ABS Basophils 0.01 0.01 - 0.11 K/cmm 01/07/2022 0:17 [facility] Absolute Immature Grans 0.01 0.00 - 0.06 K/cmm 01/07/2022 0:17 [facility] Type of Differential: Auto 01/07/2022 0:17 [facility] Blood VENOUS BLOOD / Unknown Venipuncture / Unknown 01/06/2022 23:58 EDT 01/07/2022 0:10 EDT Litzy Pablo MD PACKAGES & DNA PROBE ORDERABLES [facility] [address] [place] [address] * (ABNORMAL) COMPLETE BLOOD COUNT (01/06/2022 18:15 EDT) WBC 3.30(L) 4.00 - 12.40 K/cmm 01/06/2022 19:08 EDT [facility] RBC 2.85(L) 3.86 - 5.04 M/cmm 01/06/2022 19:08 [facility] Hemoglobin 8.4(L) 11.6 - 15.2 gm/dL 01/06/2022 19:08 [facility] HCT 25.7(L) 34.9 - 44.4 % 01/06/2022 19:08 [facility] MCV 90 81 - 98 fl 01/06/2022 19:08 [facility] MCH 29.5 26.7 - 33.3 pg 01/06/2022 19:08 [facility] MCHC 32.7 32.1 - 35.9 gm/dL 01/06/2022 19:08 [facility] RDW-CV 13.3 <14.7 % 01/06/2022 19:08 [facility] RDW-SD 43.9 <50.4 fl 01/06/2022 19:08 [facility] PLT 149 141 - 377 K/cmm 01/06/2022 19:08 [facility] MPV 10.3 9.5 - 12.7 fl 01/06/2022 19:08 [facility] Blood VENOUS BLOOD / Unknown Venipuncture / Unknown 01/06/2022 18:15 EDT 01/06/2022 18:51 EDT Litzy Pablo MD HEMATOLOGY & PF4 ORD ERABLES Performing Organization Address City/State/[facility] Co de Phone Number [facility] [address] [place] [address] * CT THORACIC SPINE WO CONTRAST (01/06/2022 12:31 EDT) Anatomical Region Laterality Modality Computed Tomogra phy 01/06/2022 15:0 7 EDT Impressions 01/06/2022 15:07 EDT 1. Age-indeterminate compression deformities of T2, T3, T11-L1. 2. Nondisplaced fractures of the right T10, T11, T12, and L1 transverse processes. 3. Moderate to severe stenosis of neural foramina at T8-9 and T10-T11. 4. Subcutaneous hematoma in the dorsal soft tissues. I have personally reviewed the images and the above interpretation and agree with the findings. Narrative 01/06/2022 15:07 EDT EXAM: CT THORACIC SPINE WO CONTRAST HISTORY: t-spine tenderness, fall TECHNIQUE: CT thoracic spine without contrast. Structured report code: [id number] COMPARISON: None. FINDINGS: SURGICAL CHANGES: None. FRACTURES: Redemonstrated age-indeterminate compression deformities of T12 and L1 with no interval change. Mild compression deformity of T11, age indeterminate. Lucency in right transverse process of L1 is more distinct on this exam, consistent with acute nondisplaced fracture. There are also more subtle cortical lucencies to the T10, T11, and T12 transverse processes on the right. ALIGNMENT: Normal. BONES: Compression deformities as above. No concerning lesions. Bilateral cervical ribs. INTERVERTEBRAL DISCS: No significant abnormality. JOINTS: Multilevel facet arthropathy. No joint space widening to suggest ligamentous injury. SPINAL CANAL: No significant stenosis. NEURAL FORAMINA: Moderate to severe neural foraminal stenosis bilaterally at T8-9 and T10-T11. LUNGS: Clear where visible. EXTRASPINAL SOFT TISSUES: Partial expiratory imaging of kidneys. Vicariously expressed contrast in gallbladder. Partially imaged liver hypodensity, likely hepatic cyst. Large hematoma in the subcutaneous tissues of the posterior thorax, similar to prior. Procedure Note Clay Greene MD - 01/06/2022 EXAM: CT THORACIC SPINE WO CONTRAST HISTORY: t-spine tenderness, fall TECHNIQUE: CT thoracic spine without contrast. Structured report code:[id number] COMPARISON: None. FINDINGS: SURGICAL CHANGES: None. FRACTURES: Redemonstrated age-indeterminate compression deformities of T12 and L1with no interval change. Mild compression deformity of T11, ageindeterminate. Lucency in right transverse process of L1 is more distincton this exam, consistent with acute nondisplaced fracture. There are alsomore subtle cortical lucencies to the T10, T11, and T12 transverseprocesses on the right. ALIGNMENT: Normal. BONES: Compression deformities as above. No concerning lesions. Bilateralcervical ribs. INTERVERTEBRAL DISCS: No significant abnormality. JOINTS: Multilevel facet arthropathy. No joint space widening to suggestligamentous injury. SPINAL CANAL: No significant stenosis. NEURAL FORAMINA: Moderate to severe neural foraminal stenosis bilaterally at T8-9 [id number]. LUNGS: Clear where visible. EXTRASPINAL SOFT TISSUES: Partial expiratory imaging of kidneys. Vicariously expressed contrast ingallbladder. Partially imaged liver hypodensity, likely hepatic cyst.Large hematoma in the subcutaneous tissues of the posterior thorax,similar to prior. IMPRESSION 1. Age-indeterminate compression deformities of T2, T3, T11-L1. 2. Nondisplaced fractures of the right T10, T11, T12, and L1 transverseprocesses. 3. Moderate to severe stenosis of neural foramina at T8-9 and T10-T11. 4. Subcutaneous hematoma in the dorsal soft tissues. I have personally reviewed the images and the above interpretation andagree with the findings. Ulicse Phan MD [facility] [place] ORDERABLES * (ABNORMAL) COMPLETE BLOOD COUNT (01/06/2022 11:15 EDT) WBC 3.84(L) 4.00 - 12.40 K/cmm 01/06/2022 11:36 [facility] RBC 3.08(L) 3.86 - 5.04 M/cmm 01/06/2022 11:36 [facility] Hemoglobin 9.2(L) 11.6 - 15.2 gm/dL 01/06/2022 11:36 [facility] HCT 27.4(L) 34.9 - 44.4 % 01/06/2022 11:36 [facility] MCV 89 81 - 98 fl 01/06/2022 11:36 [facility] MCH 29.9 26.7 - 33.3 pg 01/06/2022 11:36 [facility] MCHC 33.6 32.1 - 35.9 gm/dL 01/06/2022 11:36 [facility] RDW-CV 13.2 <14.7 % 01/06/2022 11:36 [facility] RDW-SD 43.3 <50.4 fl 01/06/2022 11:36 [facility] PLT 161 141 - 377 K/cmm 01/06/2022 11:36 EDT [facility] MPV 10.0 9.5 - 12.7 fl 01/06/2022 11:36 EDT [facility] Blood VENOUS BLOOD / Unknown Venipuncture / Unknown 01/06/2022 11:15 EDT 01/06/2022 11:28 EDT Luis Pelaez MD HEMATOLOGY & PF4 ORD ERABLES [facility] [address] [place] [address] * COVID-19 TEST [facility] PCR (01/06/2022 2:55 EDT) Swab ENTIRE NASOPHARYNX / Unknown Swab / Unknown 01/06/2022 2:55 EDT 01/06/2022 2:58 EDT Salvador Martinez MD MICROBIOLOGY - GENER AL ORDERABLES Performing Organization Address [facility] Co de Phone Number [facility] [address] [place] [address] * COVID-19 TESTING (01/06/2022 2:55 EDT) COVID-19 rt-PCR Result Negative Negative 01/06/2022 3:46 EDT [facility] Performing Lab GeneXpert [facility] 01/06/2022 3:46 EDT [facility] Swab ENTIRE NASOPHARYNX / Unknown Swab / Unknown 01/06/2022 2:55 EDT 01/06/2022 2:58 EDT Salvador Martinez MD MICROBIOLOGY - GENER AL ORDERABLES Performing Organization Address [facility] Co de Phone Number [facility] [address] [place] [address] * XR CHEST PORTABLE 1 VIEW (01/06/2022 2:02 EDT) Anatomical Region Laterality Modality Computed Radiogr aphy 01/06/2022 9:14 EDT Impressions 01/06/2022 9:14 EDT Low lung volumes. Otherwise unremarkable chest radiograph. I have personally reviewed the images and the above interpretation and agree with the findings. Narrative 01/06/2022 9:14 EDT XR CHEST PORTABLE 1 VIEW ??01/06/2022 1:50 AM CLINICAL HISTORY/COMMENTS: trauma fall COMPARISON: None available. FINDINGS: Single portable AP view of the chest performed 15 degrees upright. Lines/tubes: ??None Soft tissues, bones and extrathoracic findings: No significant abnormalities. Cardiac and mediastinal contours: Normal. Lungs: Lung volumes are low. The lungs are clear. The pulmonary vascularity is normal. Pleura: No visible pleural abnormalities. Procedure Note Manuela Muñoz MD - 01/06/2022 XR CHEST PORTABLE 1 VIEW 01/06/2022 1:50 AM CLINICAL HISTORY/COMMENTS: trauma fall COMPARISON: None available. FINDINGS: Single portable AP view of the chest performed 15 degrees upright. Lines/tubes: None Soft tissues, bones and extrathoracic findings: No significantabnormalities. Cardiac and mediastinal contours: Normal. Lungs: Lung volumes are low. The lungs are clear. The pulmonaryvascularity is normal. Pleura: No visible pleural abnormalities. IMPRESSION Low lung volumes. Otherwise unremarkable chest radiograph. I have personally reviewed the images and the above interpretation andagree with the findings. Luis Pelaez MD IMG DIAGNOSTIC IMAGI NG ORDERABLES * CT LUMBAR SPINE WO CONTRAST (01/06/2022 1:03 EDT) Anatomical Region Laterality Modality Computed Tomogra phy 01/06/2022 8:39 EDT Impressions 01/06/2022 8:39 EDT 1. Limited evaluation due to diffuse severe osseous demineralization. There are compression deformities at every vertebral level imaged (T12-L5). Chronic depression deformities at L2 and L4 appear similar compared with 2007. The other levels are age indeterminate but new since 2006. 2. Apparent nondisplaced right L1 transverse process fracture. I have personally reviewed the images and the above interpretation and agree with the findings. Narrative 01/06/2022 8:39 EDT EXAM: CT LUMBAR SPINE WO CONTRAST HISTORY: recon lower T and L spine, ttp over lower t spine and L spine TECHNIQUE: CT lumbar spine without contrast. Structured report code: [id number] COMPARISON: MR lumbar spine 08/21/2007 FINDINGS: SURGICAL CHANGES: None. FRACTURES/BONES: Evaluation is limited by diffuse osseous demineralization. There are multilevel compression deformities throughout the lumbar spine. Approximately 80% height loss at L4 and approximately 30% height loss L2 are similar compared with 2007. ??The remaining visible vertebral bodies show compression deformities new or worse compared with 2007 including approximately 30% height loss at L5, 20% height loss at the superior endplate of L3, 30% height loss at L1, and 30% height loss at T12. Subtle lucency through the right L1 transverse process likely represents a nondisplaced fracture. No concerning lesions. ALIGNMENT: No significant spondylolisthesis. INTERVERTEBRAL DISCS: Multilevel degenerative disease JOINTS: Multilevel facet arthropathy. No joint space widening to suggest ligamentous injury. SPINAL CANAL: There is likely severe spinal canal stenosis at the level L4 secondary to retropulsion as a sequela of chronic compression deformity, similar to 2007. NEURAL FORAMINA: Multiple levels of bilateral neural foraminal narrowing, many of them severe. EXTRASPINAL SOFT TISSUES: Please see the separate report for the concurrently performed CTA of the abdomen and pelvis. Procedure Note Clay Greene MD - 01/06/2022 EXAM: CT LUMBAR SPINE WO CONTRAST HISTORY: recon lower T and L spine, ttp over lower t spine and L spine TECHNIQUE: CT lumbar spine without contrast. Structured report code:[id number] COMPARISON: MR lumbar spine 08/21/2007 FINDINGS: SURGICAL CHANGES: None. FRACTURES/BONES: Evaluation is limited by diffuse osseous demineralization. There aremultilevel compression deformities throughout the lumbar spine.Approximately 80% height loss at L4 and approximately 30% height loss L2are similar compared with 2007. The remaining visible vertebral bodiesshow compression deformities new or worse compared with 2007 includingapproximately 30% height loss at L5, 20% height loss at the superiorendplate of L3, 30% height loss at L1, and 30% height loss at T12. Subtlelucency through the right L1 transverse process likely represents anondisplaced fracture. No concerning lesions. ALIGNMENT: No significant spondylolisthesis. INTERVERTEBRAL DISCS: Multilevel degenerative disease JOINTS: Multilevel facet arthropathy. No joint space widening to suggestligamentous injury. SPINAL CANAL: There is likely severe spinal canal stenosis at the level L4 secondary toretropulsion as a sequela of chronic compression deformity, similar [id number]. NEURAL FORAMINA: Multiple levels of bilateral neural foraminal narrowing, many of themsevere. EXTRASPINAL SOFT TISSUES: Please see the separate report for the concurrently performed CTA of theabdomen and pelvis. IMPRESSION 1. Limited evaluation due to diffuse severe osseous demineralization.There are compression deformities at every vertebral level imaged(T12-L5). Chronic depression deformities at L2 and L4 appear similarcompared with 2007. The other levels are age indeterminate but new [id number]. 2. Apparent nondisplaced right L1 transverse process fracture. I have personally reviewed the images and the above interpretation andagree with the findings. Salvador Martinez MD IMG CT ORDERABLES * CT ANGIO ABDOMEN PELVIS (01/06/2022 1:03 EDT) Anatomical Region Laterality Modality Body, Abdomen, Pelvis, Abdomen and Pelvis Computed Tomography 01/06/2022 8:40 EDT Impressions 01/06/2022 8:40 EDT 1. ??No evidence of solid organ or hollow viscus traumatic injury in the abdomen or pelvis. No evidence of traumatic vascular injury. 2. ??In the right posterior abdominal wall there is a 14 x 1 x 2.1 x 7.[address] evidence of active extravasation. 3. ??Chronic and incidental findings as above. I have personally reviewed the images and the above interpretation and agree with the findings. Narrative 01/06/2022 8:[address] ANGIO ABDOMEN PELVIS ??01/06/2022 12:25 AM Signs and Symptoms/Comments: ?? A. fib on AC with fall onto backside found to have active extravasation on CT with flank hematoma at [facility], hypotensive in route now corrected after fluid bolus Comparison: No relevant prior imaging available for comparison Technique: Prior to the intravenous injection of contrast media, precontrast CT scans were obtained throughout the abdomen and pelvis. Then, utilizing a multislice CT scanner, and following an intravenous bolus injection of nonionic contrast media, arterial and venous phase CT angiography of the abdomen and pelvis was performed. ??Scanning was performed from the lower lungs to the lesser trochanters. 3-D reconstructions were performed utilizing the coronal and sagittal MPR, radial CPR, and volume rendering algorithms on an independent work station. Findings: Vasculature: The aorta is normal in caliber. There is scattered atherosclerotic disease without evidence of flow-limiting stenosis. The celiac, superior mesenteric, renal, inferior mesenteric, common iliac, internal iliac, external iliac, common femoral, and proximal portions of the superficial and deep femoral arteries are widely patent. Incidentally noted is the origin of the common hepatic artery from the SMA. No evidence of acute vascular injury. The main venous structures of the abdomen and pelvis are unremarkable. Nonangiographic findings: Lower chest: No significant abnormality. Hepatobiliary: The liver parenchyma enhances normally. No evidence of traumatic liver injury There is a hepatic cyst. No suspicious lesions. The gallbladder and biliary system are unremarkable. Spleen, pancreas, adrenal glands: No significant abnormality including no evidence of traumatic injury Kidneys, ureters, bladder: No significant abnormality including no evidence of traumatic injury. Tiny hypodense lesions, statistically likely to represent small renal cysts. Reproductive organs: The uterus is surgically absent. No suspicious adnexal mass. Bowel: No evidence of acute traumatic injury. No evidence of obstruction or acute inflammation. There are colonic diverticula without associated focal inflammatory changes. Normal appendix. Peritoneal cavity: No organized fluid collection. No free air. Lymphatics: No lymphadenopathy. Abdominal wall: Centered in the right mid posterior abdominal wall there is a high density collection representing hematoma measuring approximately 14.1 x 2.1 x 7.5 cm. No actively extravasated contrast is seen on multiphase CT. There is extensive soft tissue bruising over the back and right flank and this area. Musculoskeletal: Multilevel compression deformities in the lumbar spine as reported on the accompanying CT of the lumbar spine. Procedure Note Cristino Amado MD - 01/06/2022 CT ANGIO ABDOMEN PELVIS 01/06/2022 12:25 AM Signs and Symptoms/Comments: A. fib on AC with fall onto backside found to have active extravasation onCT with flank hematoma at [facility], hypotensive in route now corrected afterfluid bolus Comparison: No relevant prior imaging available for comparison Technique: Prior to the intravenous injection of contrast media, precontrast CT scanswere obtained throughout the abdomen and pelvis. Then, utilizing amultislice CT scanner, and following an intravenous bolus injection ofnonionic contrast media, arterial and venous phase CT angiography of theabdomen and pelvis was performed. Scanning was performed from the lowerlungs to the lesser trochanters. 3-D reconstructions were performedutilizing the coronal and sagittal MPR, radial CPR, and volume renderingalgorithms on an independent work station. Findings: Vasculature: The aorta is normal in caliber. There is scattered atherosclerotic diseasewithout evidence of flow-limiting stenosis. The celiac, superiormesenteric, renal, inferior mesenteric, common iliac, internal iliac,external iliac, common femoral, and proximal portions of the superficialand deep femoral arteries are widely patent. Incidentally noted is theorigin of the common hepatic artery from the SMA. No evidence of acutevascular injury. The main venous structures of the abdomen and pelvis are unremarkable. Nonangiographic findings: Lower chest: No significant abnormality. Hepatobiliary: The liver parenchyma enhances normally. No evidence oftraumatic liver injury There is a hepatic cyst. No suspicious lesions. Thegallbladder and biliary system are unremarkable. Spleen, pancreas, adrenal glands: No significant abnormality including noevidence of traumatic injury Kidneys, ureters, bladder: No significant abnormality including noevidence of traumatic injury. Tiny hypodense lesions, statistically likelyto represent small renal cysts. Reproductive organs: The uterus is surgically absent. No suspiciousadnexal mass. Bowel: No evidence of acute traumatic injury. No evidence of obstructionor acute inflammation. There are colonic diverticula without associatedfocal inflammatory changes. Normal appendix. Peritoneal cavity: No organized fluid collection. No free air. Lymphatics: No lymphadenopathy. Abdominal wall: Centered in the right mid posterior abdominal wall thereis a high density collection representing hematoma measuring hwquwvuysqvqi10.1 x 2.1 x 7.5 cm. No actively extravasated contrast is seen onmultiphase CT. There is extensive soft tissue bruising over the back andright flank and this area. Musculoskeletal: Multilevel compression deformities in the lumbar spine asreported on the accompanying CT of the lumbar spine. IMPRESSION 1. No evidence of solid organ or hollow viscus traumatic injury in theabdomen or pelvis. No evidence of traumatic vascular injury. 2. In the right posterior abdominal wall there is a 14 x 1 x 2.1 x 7.[address] evidence of active extravasation. 3. Chronic and incidental findings as above. I have personally reviewed the images and the above interpretation andagree with the findings. Salvador Martinez MD [facility] [place] * CT CERVICAL SPINE WO CONTRAST (01/06/2022 0:51 EDT) Anatomical Region Laterality Modality Computed Tomogra phy 01/06/2022 8:43 EDT Impressions 01/06/2022 8:43 EDT 1. No acute fracture of the cervical spine. 2. There is approximately 20% height loss of the superior endplate of T2 consistent with an age-indeterminate fracture. Correlation for focal tenderness is recommended. I have personally reviewed the images and the above interpretation and agree with the findings. Narrative 01/06/2022 8:43 EDT EXAM: CT CERVICAL SPINE WO CONTRAST HISTORY: Neck trauma (Age >= 65y) TECHNIQUE: CT cervical spine without contrast. Structured report code: [email or web address] COMPARISON: None. FINDINGS: SURGICAL CHANGES: None. FRACTURES: No acute fracture in the cervical spine. Approximately 20% height loss of the T2 superior endplate ALIGNMENT: Minimal anterolisthesis of C4 on C5 BONES: Superior endplate height loss at T2 as above. There are tiny cervical ribs at C7. No concerning lesions. INTERVERTEBRAL DISCS: Multilevel degenerative changes JOINTS: Multilevel facet arthropathy Anterior atlanto-axial, lateral atlanto-axial, and atlanto-occipital joints are normal in alignment. No abnormal joint space widening. SPINAL CANAL: No severe stenosis. NEURAL FORAMINA: Multilevel bilateral neural foraminal narrowing of varying degrees LUNG APICES: Clear. EXTRASPINAL SOFT TISSUES: Calcifications in the descending aorta. VISIBLE INTRACRANIAL CONTENTS: Unremarkable. Procedure Note Clay Greene MD - 01/06/2022 EXAM: CT CERVICAL SPINE WO CONTRAST HISTORY: Neck trauma (Age >= 65y) TECHNIQUE: CT cervical spine without contrast. Structured report code:[email or web address] COMPARISON: None. FINDINGS: SURGICAL CHANGES: None. FRACTURES: No acute fracture in the cervical spine. Approximately 20% height loss ofthe T2 superior endplate ALIGNMENT: Minimal anterolisthesis of C4 on C5 BONES: Superior endplate height loss at T2 as above. There are tiny cervical ribsat C7. No concerning lesions. INTERVERTEBRAL DISCS: Multilevel degenerative changes JOINTS: Multilevel facet arthropathy Anterior atlanto-axial, lateralatlanto-axial, and atlanto-occipital joints are normal in alignment. Noabnormal joint space widening. SPINAL CANAL: No severe stenosis. NEURAL FORAMINA: Multilevel bilateral neural foraminal narrowing of varying degrees LUNG APICES: Clear. EXTRASPINAL SOFT TISSUES: Calcifications in the descending aorta. VISIBLE INTRACRANIAL CONTENTS: Unremarkable. IMPRESSION 1. No acute fracture of the cervical spine. 2. There is approximately 20% height loss of the superior endplate of [id number] with an age-indeterminate fracture. Correlation for focaltenderness is recommended. I have personally reviewed the images and the above interpretation andagree with the findings. Salvador Martinez MD IMG CT ORDERABLES * CT HEAD WO CONTRAST (01/06/2022 0:51 EDT) Anatomical Region Laterality Modality Head Computed Tomogra phy 01/06/2022 8:46 EDT Impressions 01/06/2022 8:46 EDT No acute intracranial abnormality including no evidence of calvarial fracture or intracranial hemorrhage. I have personally reviewed the images and the above interpretation and agree with the findings. Narrative 01/06/2022 8:46 EDT EXAM: CT HEAD WO CONTRAST HISTORY: fall hx dementia, on AC; Head trauma, mod-severe ?? TECHNIQUE: CT head without contrast. Structured report code: [email or web address] COMPARISON: None available FINDINGS: PARENCHYMA: No evidence of acute large territory infarction. 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 No parenchymal hemorrhage. No mass or midline shift. There is diffuse parenchymal volume loss. Hypodensities in the supratentorial white matter are nonspecific but typically the sequela of chronic microangiopathic disease. EXTRA-AXIAL SPACES: No extra-axial hemorrhage. No extra-axial collection. No extra-axial mass. VENTRICULAR SYSTEM: No intraventricular hemorrhage. No obstructive hydrocephalus. Mild asymmetric enlargement of the right lateral ventricle secondary to right-sided encephalomalacia. VESSELS: Limited evaluation without IV contrast. Normal density in the dural venous sinuses. Calcifications in the carotid siphons. BONES: No concerning lesions. No evidence of fracture. ORBITS: Prior bilateral lens extractions. PARANASAL SINUSES/MASTOID AIR CELLS: Predominantly clear. EXTRACRANIAL SOFT TISSUES: Unremarkable. Procedure Note Clay Greene MD - 01/06/2022 EXAM: CT HEAD WO CONTRAST HISTORY: fall hx dementia, on AC; Head trauma, mod-severe TECHNIQUE: CT head without contrast. Structured report code: [email or web address] COMPARISON: None available FINDINGS: PARENCHYMA: No evidence of acute large territory infarction. Encephalomalacia is seenin the right frontal and parietal lobes in a pattern suggestive of priorMCA territory infarct. No parenchymal hemorrhage. No mass or midlineshift. There is diffuse parenchymal volume loss. Hypodensities in thesupratentorial white matter are nonspecific but typically the sequela ofchronic microangiopathic disease. EXTRA-AXIAL SPACES: No extra-axial hemorrhage. No extra-axial collection. No extra-axialmass. VENTRICULAR SYSTEM: No intraventricular hemorrhage. No obstructive hydrocephalus. Mildasymmetric enlargement of the right lateral ventricle secondary toright-sided encephalomalacia. VESSELS: Limited evaluation without IV contrast. Normal density in the dural venoussinuses. Calcifications in the carotid siphons. BONES: No concerning lesions. No evidence of fracture. ORBITS: Prior bilateral lens extractions. PARANASAL SINUSES/MASTOID AIR CELLS: Predominantly clear. EXTRACRANIAL SOFT TISSUES: Unremarkable. IMPRESSION No acute intracranial abnormality including no evidence of calvarialfracture or intracranial hemorrhage. I have personally reviewed the images and the above interpretation andagree with the findings. Salvador Martinez MD IMG CT ORDERABLES * (ABNORMAL) PTT (01/05/2022 23:07 EDT) PTT 40(H) 26 - 37 secs 01/05/2022 23:31 EDT [facility] Blood VENOUS BLOOD / Unknown Venipuncture / Unknown 01/05/2022 23:07 EDT 01/05/2022 23:11 EDT Eliane Peres MD [facility] HEMATOLOGY & PF 4 ORDERABLES [facility] [address] [place] [address] * LACTIC ACID (01/05/2022 23:07 EDT) Lactic Acid 1.2 <=2.0 mmol/L 01/05/2022 23:24 EDT [facility] Blood VENOUS BLOOD / Unknown Venipuncture / Unknown 01/05/2022 23:07 EDT 01/05/2022 23:11 EDT Eliane Peres MD [facility] CHEMISTRY & BLO OD GAS ORDERABLES Performing Organization Address [facility] Co de Phone Number [facility] [address] [place] [address] * (ABNORMAL) PROTIME (01/05/2022 23:07 EDT) Pathologist [facility] I.N.R. 1.5(H) 0.9 - 1.1 Ratio 01/05/2022 23:31 EDT [facility] Pro Time 17.4(H) 10.4 - 12.6 secs 01/05/2022 23:31 EDT [facility] Blood VENOUS BLOOD / Unknown Venipuncture / Unknown 01/05/2022 23:07 EDT 01/05/2022 23:11 EDT Narrative [facility] - 01/05/2022 23:31 EDT Moderate Intensity Coumadin INR = 2.0-3.0 Adjustments in anticoagulant therapy dose should be based on the INR and NOT on the Protime. Eliane Peres MD M[facility] HEMATOLOGY & PF 4 ORDERABLES Performing Organization Address [facility] de Phone Number [facility] [address] [place] [address] * TYPE AND SCREEN (01/05/2022 23:07 EDT) ABO O 01/06/2022 0:04 EDT [facility] Rh Factor Positive 01/06/2022 0:04 EDT [facility] Antibody Screen Negative 01/06/2022 0:04 EDT [facility] Specimen Expires: 01/08/2022 @ 23:59 01/06/2022 0:04 EDT [facility] Blood VENOUS BLOOD / Unknown Venipuncture / Unknown 01/05/2022 23:07 EDT 01/05/2022 23:16 EDT Eliane Peres MD [facility] BLOOD BANK TEST S Performing Organization Address City/[facility]/ZIP Co de Phone Number [facility] [address] [place] [address] * (ABNORMAL) SCREENING GLUCOSE (01/05/2022 23:07 EDT) Glucose, Screening 122(H) 70 - 100 mg/dL 01/05/2022 23:46 EDT [facility] Blood VENOUS BLOOD / Unknown Venipuncture / Unknown 01/05/2022 23:07 EDT 01/05/2022 23:11 EDT Eliane Peres MD MPH CHEMISTRY & BLO OD GAS ORDERABLES Performing Organization Address [facility] Co de Phone Number [facility] [address] [place] [address] * (ABNORMAL) CREATININE (01/05/2022 23:07 EDT) Creatinine 0.48(L) 0.52 - 1.04 mg/dL 01/05/2022 23:46 EDT [facility] eGFR 96 >60 mL/min/1.73 m2 01/05/2022 23:46 EDT [facility] Blood VENOUS BLOOD / Unknown Venipuncture / Unknown 01/05/2022 23:07 EDT 01/05/2022 23:11 EDT Eliane Peres MD [facility] CHEMISTRY & BLO OD GAS ORDERABLES Performing Organization Address [facility]/ZIP Co de Phone Number [facility] [address] [place] [address] * BUN (01/05/2022 23:07 EDT) BUN 21 10 - 26 mg/dL 01/05/2022 23:46 EDT [facility] Blood VENOUS BLOOD / Unknown Venipuncture / Unknown 01/05/2022 23:07 EDT 01/05/2022 23:11 EDT Eliane Peres MD MPH CHEMISTRY & BLO OD GAS ORDERABLES Performing Organization Address [facility] de Phone Number [facility] [address] [place] [address] * (ABNORMAL) ELECTROLYTES (01/05/2022 23:07 EDT) Sodium 131(L) 136 - 145 mmol/L 01/05/2022 23:46 EDT [facility] Potassium 3.9 3.5 - 5.0 mmol/L 01/05/2022 23:46 EDT [facility] Chloride 95(L) 96 - 110 mmol/L 01/05/2022 23:46 EDT [facility] CO2 Total 30 22 - 32 mmol/L 01/05/2022 23:46 EDT [facility] Anion Gap 6 5 - 14 01/05/2022 23:46 EDT [facility] Blood VENOUS BLOOD / Unknown Venipuncture / Unknown 01/05/2022 23:07 EDT 01/05/2022 23:11 EDT Eliane Peres MD MPH CHEMISTRY & BLO OD GAS ORDERABLES Performing Organization Address [facility] de Phone Number [facility] [address] [place] [address] * (ABNORMAL) COMPLETE BLOOD COUNT AND DIFFERENTIAL (01/05/2022 23:07 EDT) WBC 5.95 4.00 - 12.40 K/cmm 01/05/2022 23:21 EDT [facility] RBC 3.40(L) 3.86 - 5.04 M/cmm 01/05/2022 23:21 EDT [facility] Hemoglobin 10.2(L) 11.6 - 15.2 gm/dL 01/05/2022 23:21 EDT [facility] HCT 30.4(L) 34.9 - 44.4 % 01/05/2022 23:21 [facility] MCV 89 81 - 98 fl 01/05/2022 23:21 [facility] MCH 30.0 26.7 - 33.3 pg 01/05/2022 23:21 [facility] MCHC 33.6 32.1 - 35.9 gm/dL 01/05/2022 23:21 [facility] RDW-CV 13.2 <14.7 % 01/05/2022 23:21 [facility] RDW-SD 43.6 <50.4 fl 01/05/2022 23:21 [facility] PLT 170 141 - 377 K/cmm 01/05/2022 23:21 [facility] MPV 9.8 9.5 - 12.7 fl 01/05/2022 23:21 [facility] % Neutrophils 77.4 % 01/05/2022 23:21 [facility] % Lymphocytes 9.9 % 01/05/2022 23:21 [facility] % Monocytes 12.1 % 01/05/2022 23:21 [facility] % Eosinophils 0.2 % 01/05/2022 23:21 [facility] % Basophils 0.2 % 01/05/2022 23:21 [facility] % Immature Grans 0.2 % 01/06/20 23:21 [facility] Absolute Neutrophils 4.61 2.20 - 8.85 K/cmm 01/05/2022 23:21 [facility] Absolute Lymphocytes 0.59(L) 1.09 - 3.30 K/cmm 01/05/2022 23:21 [facility] Absolute Monocytes 0.72 0.10 - 0.80 K/cmm 01/05/2022 23:21 [facility] Absolute Eosinophils 0.01(L) 0.03 - 0.61 K/cmm 01/05/2022 23:21 [facility] ABS Basophils 0.01 0.01 - 0.11 K/cmm 01/05/2022 23:21 EDT [facility] Absolute Immature Grans 0.01 0.00 - 0.06 K/cmm 01/05/2022 23:21 EDT [facility] Type of Differential: Auto 01/05/2022 23:21 EDT [facility] Blood VENOUS BLOOD / Unknown Venipuncture / Unknown 01/05/2022 23:07 EDT 01/05/2022 23:11 EDT Eliane Peres MD [facility] PACKAGES & DNA PROBE ORDERABLES Performing Organization Address City/State/[facility] Co de Phone Number [facility] [address] [place] [address] documented in this encounter Visit Diagnoses Diagnosis Hematoma- Primary Contusion of unspecified site Hematoma Contusion of unspecified site Fall at home, initial encounter Compression fracture of lumbar vertebra, unspecified lumbar vertebral level, initial encounter ([facility]) Traumatic hematoma Contusion of unspecified site Fall at home, initial encounter documented in this encounter Admitting Diagnoses Diagnosis Traumatic hematoma Contusion of unspecified site Fall at home, initial encounter documented in this encounter Administered Medications Inactive Administered Medications - up to 3 most recent administrations Medication Order MAR Action Action Date Dose Rate Site acetaminophen (TYLENOL) suppository 650 mg 650 mg, rectal, EVERY 4 HOURS PRN, Starting on Sun01/06/22 at 0328, Until Sun01/10/22 at 1556, Pain, Routine acetaminophen (TYLENOL) tablet 650 mg 650 mg, oral, EVERY 4 HOURS PRN, Starting on Sun01/06/22 at 0328, Until Sun01/10/22 at 1556, Pain, Routine Given 01/10/2022 5:40 EDT 650 mg Given 01/08/2022 21:02 EDT 650 mg Given 01/08/2022 11:56 EDT 650 mg clindamycin (CLEOCIN) capsule 300 mg 300 mg, oral, 4 TIMES DAILY, 7 doses, First dose on Sun01/06/22 at 2100, Last dose on Sun01/08/22 at 1200, Routine Given 01/06/2022 20:51 EDT 300 mg clindamycin (CLEOCIN) capsule 300 mg 300 mg, oral, 4 TIMES DAILY, 24 doses, First dose (after last modification) on 01/07/22 at 0800, Last dose on Tamara 01/12/22 at 2100, Routine Given 01/10/2022 11:56 EDT 300 mg Given 01/10/2022 8:48 EDT 300 mg Given 01/09/2022 21:11 EDT 300 mg electrolyte-A (PLASMALYTE-A) solution 115 mL/hr, intravenous, CONTINUOUS, Starting on Sun01/06/22 at 0415, Until 01/07/22 at 1209, Routine New Bag 01/07/2022 8:05 EDT 115 mL/hr 115 mL/hr New Bag 01/06/2022 22:43 EDT 115 mL/hr 115 mL/hr New Bag 01/06/2022 14:47 EDT 115 mL/hr 115 mL/hr enoxaparin (LOVENOX) injection 30 mg 30 mg, subcutaneous, EVERY 12 HOURS, First dose (after last modification) on 01/07/22 at 0900, Until Discontinued, Routine Given 01/10/2022 8:48 EDT 30 mg Given 01/09/2022 21:16 EDT 30 mg Given 01/09/2022 8:10 EDT 30 mg idaruCIZUmab (PRAXBIND) iv solution 5 g 5 g, intravenous, NOW X1, 1 dose, On Tamara 01/05/22 at 2330, [facility] approved indication: Major bleeding (Hgb drop > 5 g/dL) in patient anticoagulated with dabigatran requiring emergent reversal., Indicate approved Specialty of Attending Provider: Emergency Physician, Chava attending approval name: Eliane Peres, STAT Given 01/05/2022 23:49 EDT 5 g iohexoL (OMNIPAQUE 350) solution 100 mL 100 mL, intravenous, Once in imaging, 1 dose, Starting on Sun01/06/22 at 0033, Until Sun01/06/22 at 0103, Routine, Imaging Protocol Orders Given 01/06/2022 1:03 EDT 100 mL metoprolol SUCCinate (TOPROL-XL) tablet 100 mg 100 mg, oral, DAILY, First dose on Sun01/06/22 at 0900, Until Discontinued Given 01/10/2022 8:49 EDT 100 mg Given 01/09/2022 8:10 EDT 100 mg Given 01/08/2022 8:25 EDT 100 mg pantoprazole (PROTONIX) tablet 40 mg 40 mg, oral, DAILY, First dose on Sun01/06/22 at 0900, Until Discontinued Given 01/10/2022 8:49 EDT 40 mg Given 01/09/2022 8:10 EDT 40 mg Given 01/08/2022 8:24 EDT 40 mg simvastatin (ZOCOR) tablet 30 mg 30 mg, oral, AT BEDTIME, First dose on Sun01/06/22 at 2100, Until Discontinued, Routine Given 01/09/2022 21:10 EDT 3 0 mg Given 01/08/2022 21:02 EDT 30 mg Given 01/07/2022 20:02 EDT 30 mg tolterodine (DETROL LA) long acting capsule 4 mg 4 mg, oral, DAILY, First dose on Sun01/06/22 at 0900, Until Discontinued, Routine Given 01/10/2022 8:49 EDT 4 mg Given 01/09/2022 8:10 EDT 4 mg Given 01/08/2022 8:25 EDT 4 mg documented in this encounter Discontinued Medications Medication Sig Discontinue Reason Start Date End Da te warfarin (COUMADIN) 5 mg tablet Take 5 mg by mouth daily. 01/06/2022 clopidogrel (PLAVIX) 75 mg tablet Take 75 mg by mouth daily. 01/06/2022 tolterodine (DETROL LA) 4 mg long acting capsule Take 4 mg by mouth daily. 01/10/2022 loratadine (CLARITIN) 10 mg tablet Take 10 mg by mouth daily. 01/10/2022 GLUC HCL/GLUC MARRERO/RV-MIB-O-GLUC (GLUCOSAMINE COMPLEX ORAL) Take by mouth. 01/10/2022 diphenhydrAMINE (BENADRYL) 25 mg capsule Take 25 mg by mouth every 6 hours as needed (1-2 tabs). 01/10/2022 losartan (COZAAR) 100 mg tablet Take 100 mg by mouth daily. 01/10/2022 documented as of this encounter Historical Medications * This list may reflect changes made after this encounter. Medication Sig Dispensed Refills Start Date End Date losartan-hydrochlorothi azide (HYZAAR) 100-25 mg per tablet Take 1 Tablet by mouth daily. donepezil (ARICEPT) 10 mg tablet Take 1 Tablet by mouth daily. teriparatide (FORTEO) 20 mcg/dose (600mcg/2.4mL) pen injector Inject 20 mcg into the skin daily. 12/15/2022 mirabegron (MYRBETRIQ) 25 mg extended release tablet Take 1 Tablet by mouth 2 times daily. 04/21/2024 FLUoxetine (PROZAC) 20 mg capsule Take 20 mg by mouth daily. 12/15/2022 clindamycin (CLEOCIN) 150 mg capsule Take 300 mg by mouth 4 times daily. Take for poor dentition, infection prevention prior to tooth removal 3 added in this encounter Active and Recently Administered Medications Times are shown in EDT. Scheduled Medication Order 01/08/2022 01/09/2022 01/10/2022 clindamycin (CLEOCIN) capsule 300 mg 300 mg, oral, 4 TIMES DAILY, 24 doses, First dose (after last modification) on 01/07/22 at 0800, Last dose on Tamara 01/12/22 at 2100, Routine 0825 (Given - Provider: Juan Carlos Hansen RN)1157 (Given - Provider: Juan Carlos Hansen RN)1700 (Given - Provider: Juan Carlos Hansen RN)2102 (Given - Provider: Sariah Sullivan RN) 0811 (Given - Provider: Patsy Austin RN)1154 (Given - Provider: Patsy Austin RN)1635 (Given - Provider: Radha Browne RN)211 (Given - Provider: Sherrie De La [place], [place]) 0848 (Given - Provider: Jamie Hendrix RN)1156 (Given - Provider: Jamie Hendrix RN) enoxaparin (LOVENOX) injection 30 mg 30 mg, subcutaneous, EVERY 12 HOURS, First dose (after last modification) on 01/07/22 at 0900, Until Discontinued, Routine 0826 (Given - Provider: Juan Carlos Hansen RN)2102 (Given - Provider: Sariah Sullivan RN) 0810 (Given - Provider: Patsy Austin RN)2116 (Given - Provider: Sherrie De La Rosa RN) 0848 (Given - Provider: Jamie Hendrix RN) metoprolol SUCCinate (TOPROL-XL) tablet 100 mg 100 mg, oral, DAILY, First dose on Sun01/06/22 at 0900, Until Discontinued 0825 (Given - Provider: Juan Carlos Hansen RN) 0810 (Given - Provider: Patsy Austin RN) 0849 (Given - Provider: Jamie Hendrix RN) pantoprazole (PROTONIX) tablet 40 mg 40 mg, oral, DAILY, First dose on Sun01/06/22 at 0900, Until Discontinued 0824 (Given - Provider: Juan Carlos Hansen RN) 0810 (Given - Provider: Patsy Austin RN) 0849 (Given - Provider: Jamie Hendrix RN) simvastatin (ZOCOR) tablet 30 mg 30 mg, oral, AT BEDTIME, First dose on Sun01/06/22 at 2100, Until Discontinued, Routine 2101 (Given - Provider: Sariah Sullivan, [place]) 211 (Given - Provider: Sherrie De [place], [place]) tolterodine (DETROL LA) long acting capsule 4 mg 4 mg, oral, DAILY, First dose on Sun01/06/22 at 0900, Until Discontinued, Routine 0825 (Given - Provider: Juan Carlos Hansen RN) 0810 (Given - Provider: Patsy Austin RN) 0849 (Given - Provider: Jamie Hendrix RN) PRN Medication Order 01/08/2022 01/09/2022 01/10/2022 acetaminophen (TYLENOL) suppository 650 mg(Linked Group 1) 650 mg, rectal, EVERY 4 HOURS PRN, Starting on Sun01/06/22 at 0328, Until Sun01/10/22 at 1556, Pain, Routine 1156 (See Alternative - Provider: Juan Carlos Hansen RN)165 (See Alternative - Provider: Juan Carlos Hansen RN)210 (See Alternative - Provider: Sariah Sullivan, [place]) 0540 (See Alternative - Provider: Sherrie De [place], [place]) acetaminophen (TYLENOL) tablet 650 mg(Linked Group 1) 650 mg, oral, EVERY 4 HOURS PRN, Starting on Sun01/06/22 at 0328, Until Sun01/10/22 at 1556, Pain, Routine 1156 (Given - Provider: Juan Carlos Hansen RN)1659 (Not Given - Provider: Juan Carlos Hansen RN - Reason: Patient/family refused)2102 (Given - Provider: Sariah Sullivan RN) 0540 (Given - Provider: Sherrie De [place], [place]) ondansetron (PF) (ZOFRAN) injection 4 mg 4 mg, intravenous, EVERY 6 HOURS PRN, Starting on Sun01/06/22 at 0352, Until Sun01/10/22 at 1556, Nausea, Vomiting, Routine Linked Groups Order Group 1: acetaminophen (TYLENOL) tablet 650 mgJump to med 650 mg, oral, EVERY 4 HOURS PRN, Starting on Sun01/06/22 at 0328, Until Sun01/10/22 at 1556, Pain, Routine Or acetaminophen (TYLENOL) suppository 650 mgJump to med 650 mg, rectal, EVERY 4 HOURS PRN, Starting on Sun01/06/22 at 0328, Until Sun01/10/22 at 1556, Pain, Routine documented in this encounter Orders Medications Ordered That Eyad ht Not Have Been Administered Count Last Ordered Date First Ordered Date enoxaparin (LOVENOX) injection 40 mg 1 12/20 acetaminophen (TYLENOL) suppository 650 mg 1 01/06/2022 ondansetron (PF) (ZOFRAN) injection 4 mg 1 01/06/2022 Diet Count Last Ordered Date First Orde red Date DISCHARGE DIET 1 01/10/2022 Nursing Count Last Ordered Date First Orde red Date ACTIVITY INSTRUCTIONS 1 01/10/2022 CONTRAINDICATION TO ANTICOAG ULATION THERAPY 1 01/06/2022 OT Count Last Ordered Date First Orde red Date OT EVALUATION AND TREAT 1 01/08/2022 IV Count Last Ordered Date First Orde red Date IV REQUEST 1 01/07/2022 Admission Count Last Ordered Date First Orde red Date ADMIT TO INPATIENT 1 01/08/2022 OUTPATIENT WITH OBSERVATION SERVICES (INITIATE OBSERVATION STATUS) 1 01/06/2022 Transfer Count Last Ordered Date First Orde red Date ED BED REQUEST 1 01/06/2022 Discharge Count Last Ordered Date First Orde red Date DISCHARGE PATIENT 1 01/10/2022 Legal Count Last Ordered Date First Orde red Date MISCELLANEOUS DISCHARGE INSTRUCTIONS 3 12/21 documented in this encounter Care Teams Negative Turner Relationship Specialty Start Date End Date Valerie Santana MD [address] [place] [id number] PCP - General 10/11/16 documented as of this encounter
--- OUTSIDE RECORDS SUMMARY | 2024-05-20 16:15 | XMS_ITS | Encounter Summary ---
Author Organization [facility] Address [address] [place] [address] Care Team Providers Care Wood Coater Name Role Phone Valerie Santana MD Primary Care Provider [phone] Encounter Details Date Type Department Care Team (Late st Contact Info) Description 08/12/2021 Prep for Procedure [facility] Infectious Disease - [address] [address] Rocío Segura MD [address] [facility], [address] [place] [address] Social History Tobacco Use Types Packs/Day Years [...] No 08/11/2019 documented as of this encounter H&P Notes * Rocío Segura MD - 08/12/2021 1507 EDT I have been asked to order sars-cov-2 monoclonal antibodies on behalf of the patient's PCP as the PCP does not have infusion privileges at [facility]. I am trusting that the patient has a positive test orhigh risk exposure as defined in the EUA. I am trusting that the PCP has reviewed the EUA factsheetwith the patient. Rocío Segura MD 08/12/2021 15:07 documented in this encounter Plan of Treatment Not on file documented as of this encounter Visit Diagnoses Not on filedocumented in this encounter Care Teams Wood Coater Relationship Specialty Start Date End Date Valerie Santana MD [address] [place] [address] PCP - General 10/11/16 documented as of this encounter
--- OUTSIDE RECORDS SUMMARY | 2024-05-20 16:15 | XMS_ITS | Encounter Summary ---
Author Organization [facility] Address [address] [place] [address] Care Team Providers Care Maintenance Analyst Name Role Phone Valerie Santana MD Primary Care Provider [phone] Reason for Visit * Reason Comments Post-OP Follow Up POD#1 hiwot ZAMBRANO eye (12/11/2019) Encounter Details Date Type Department Care Team (Latest Contact Info) Description 12/12/2019 11:10 EST Post-op Visit [facility] Ophthalmology [place] [facility] [address] [place], [place] [id number] Cuca Mike MD [address] [place] [phone] Pseudophakia (Primary Dx) Social History Tobacco Use Types [...] No 08/11/2019 documented as of this encounter Patient Instructions * Patient Instructions* Cuca Mike MD - 12/12/2019 11:10 EST Prednisolone eye drop (pink cap) - Use 6 times a day in the RIGHT eye today, tomorrow and Sunday and then decrease to 4 times a day on Sunday documented in this encounter Progress Notes * Cuca Mike MD - 12/12/2019 1110 EST Chief Complaint Patient presents with ??? Post-OP Follow Up POD#1 CE PCIOL, right eye (12/11/2019) HPI The patient is a 74 y.o. female pod#1 s/p CE/PCIOL right eye 12/11/2019. Some pain, eyelid swelling yesterday. Slept well. Feels better this am. Also s/p CE/PCIOL left eye 11/20/2019. 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 Also has DM- 2-3 years, well controlled and taken off metformin. Routine care with Dr. Lucia. Right Eye: Blurred Vision Left Eye: Blurred Vision Visual Aid: None Current Rx Age Location: Pain: Quality: Severity: Duration: Timing: Lasts: Context: POD#1 CE PCIOL, right eye (12/11/2019) Had some pain and says upper eyelid was swollen yesterday. Today it is better. Used drops this morning. Modifying factors: Also s/p cataract surgery, left eye (11/20/19) doing well- finished all drops Associated Signs & Symptoms: Attestation: ROS Constitutional: NL ENT/Mouth Cardiovascular: Respiratory: Gastrointestinal: Genitourinary: Musculoskeletal: Integumentary: Neurologic: Psychiatric: Endocrine: Hematologic: Immunologic: Drug Allergy Metal Technician: Exposures: None Other: Attestation: Base Eye Exam Visual Acuity (Snellen - Linear) Right Left Dist sc 20/50 20/30 Dist ph sc 20/40 +2 20/20 -2 Tonometry (Tonopen, 10:58) Right Left Pressure 09 Pupils Pupils APD Right PERRL None Left PERRL None Slit Lamp and Fundus Exam External Exam Right Left External Normal Slit Lamp Exam Right Left Lids/Lashes Normal Conjunctiva/Sclera White and quiet Cornea Thickening at main incision, mild stromal edema centrally with Descemet's folds, incisions Ben negative Anterior Chamber 2+ Cell/pigment Iris Round and reactive Lens Posterior chamber intraocular lens Fundus Exam Right eye - positive red reflex DIAGNOSTIC TESTS: IMPRESSION & PLAN: ?? Pseudophakia, left eye - POW #3 (11/20/18) - ketorolac qid, pred acetate taper as instructed - call with pain, decreased vision, flashes, floaters ??? Pseudophakia, right eye - POD #1 (12/11/19), looks good, wounds tight, IOP good - Vigamox qid x 1 week, Ketorolac qid, Pred acetate 6 times a day for 3 days, then to qid and then follow taper as instructed - Shield at night, activity restrictions - Call with pain, redness, decreased vision, flashes or floaters - f/u 10 days VA/IOP ??? Type 2 diabetes mellitus without complication, without long-term current use of insulin - no ocular findings. Not examined today. - Recommend good blood sugar and blood pressure control - Recommend annual dilated eye exam - Letter to PCP ??? Posterior vitreous detachment of both eyes - retina flat with no holes/tears/retinal detachment. Not examined today. - call for increase in flashes or floaters, decreased vision ??? Homonymous hemianopia, left - VF from [address] Lucia reviewed - observe ??? Refractive error - per Dr. Lucia I have reviewed the patient's past medical, family, social and surgical history. I have also reviewed the patient's medications, allergies, and problem list. I performed my own HPI and have reviewed the tech's ROS as well. I completed this exam personally. Cuca Mike MD I am scribing for Cuca Mike MD, while she is personally performing the service. DENNYS Oquendo Patient Education Topic: post op Method: Handout and Verbal Taught to: Patient and Family Barriers: None Outcomes: independent Signature: Cuca Mike MD documented in this encounter Plan of Treatment Not on file documented as of this encounter Visit Diagnoses Diagnosis Pseudophakia- Primary Lens replaced by other means documented in this encounter Eye Exam Visual Acuity (Snellen - Linear) Right eye Left eye Dist sc 20/50 20/30 Dist ph sc 20/40 +2 20/20 -2 Tonometry (Tonopen, 10:58) Right eye Left eye Pressure 09 Pupils Pupils APD Right eye PERRL None Left eye PERRL None External Exam Right eye Left eye External Normal Slit Lamp Exam Right eye Left eye Lids/Lashes Normal Conjunctiva/Sclera White and quiet Cornea Thickening at main i ncision, mild stromal edema centrally with Descemet's folds, incisions Ben negative Anterior Chamber 2+ Cell/pigment Iris Round and reactive Lens Posterior chamber intraocular le ns Fundus Exam Right eye - positive red reflex Care Teams Maintenance Analyst Relationship Specialty Start Date End Date Valerie Santana MD [address] [place] [phone] PCP - General 10/11/16 documented as of this encounter
--- OUTSIDE RECORDS SUMMARY | 2024-05-20 16:15 | XMS_ITS | Clinical Summary ---
Author Organization [facility] Address [address] [place] [address] Care Team Providers Care Prototype Carpenter Name Role Phone Valerie Santana MD Primary Care Provider [phone] Allergies Active Allergy Reactions Criticality Noted Date Comments Chlorine Low 06/07/2021 Other reaction(s): itching Codeine GI upset Medium 08/15/2005 emesis Other reaction(s): GI Upset/Nausea/Vomiting , Nausea, U emesis Lisinopril Medium 06/19/2008 Other reaction(s): congestion ??cough, cough, Other, U Cough and congestion Oxybutynin Anaphylaxis High 11/05/2014 Other reaction(s): generalized pruritis Oxybutynin Chloride Anaphylaxis High 10/09/2016 Penicillins Anaphylaxis,Other (See Comments) High 11/17/2002 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 Active omeprazole (PRILOSEC) 20 mg capsule Take 1 Capsule by mouth daily. Active DABIGATRAN ETEXILATE MESYLATE (PRADAXA ORAL) Take 150 mg by mouth 2 times daily. Active donepezil (ARICEPT) 10 mg tablet Take 1 Tablet by mouth daily. Active losartan-hydroch lorothiazide (HYZAAR) 100-25 mg per tablet Take 1 Tablet by mouth daily. Active acetaminophen (TYLENOL) 325 mg tablet Take 2 Tablets by mouth every 4 hours as needed for Pain. 01/10/2022 Active teriparatide 20 mcg/dose (620mcg/2.48mL) pen injector FORTEO 620 MCG/2.48ML SOPN Active simvastatin (ZOCOR) 20 mg tablet Take 1 Tablet by mouth at bedtime. Active metoprolol SUCCinate (TOPROL-XL) 50 mg tablet 1 Tablet every 24 hours. 11/10/2020 Active FLUoxetine (PROZAC) 20 mg tablet FLUOXETINE HCL 20 MG TABS 06/07/2021 Active ibuprofen (MOTRIN) 600 mg tablet 1 Tablet every 8 hours. 11/26/2020 Active mirabegron (MYRBETRIQ) 50 mg ER tablet Take 1 Tablet by mouth daily. 90 Tablet 3 04/21/2024 Active mirabegron (MYRBETRIQ) 25 mg extended release tablet Take 1 Tablet by mouth 2 times daily. 04/21/2024 Discontinued (Order modification ) Active Problems Patient Care Coordination No te Formatting of this note migh t be different from the original. Patient has given permission for [facility] to verbally discuss the following information with Janet who has the following relationship to the patient: Son/Daughter: Scheduling/Appt/Billing/Payment Information (does not include clinical information unless specifically indicated with separate option) Medical Information including symptoms, diagnosis, medications, test results and treatment plan (does not include Mental Health unless specifically indicated with separate option) Permission remains in effect until the patient elects to revoke it.12/05/2022 Memory Program JAREN scanned Patient lives with daughter Janet - due to memory and speech difficulties daughter will preregister Karla for visits - Faiza Lantigua 08/12/21 14:39 Problem Noted Date Diagnosed Date Fall at home, initial encounter 01/08/2022 Traumatic hematoma 01/06/2022 Hematoma 01/06/2022 Encounters Date Type Department Care Team Description 04/21/2024 16:00 EDT Office Visit [facility] [address] [place] [address] Neri Garrett MD Urinary incontinence, unspecified type (Primary Dx) from Last 3 Months Social History Tobacco Use Types Packs/Day Years Used Date Smoking Tobacco: Never Smokeless Tobacco: Never Tobacco Cessation:Counseling Given: Not Answered Alcohol Use Standard Drinks/Week Comments Yes 0 (1 standard drink = 0.6 oz pure alcohol) 1 drink every 6mo: amaretto and milk Interpersonal Safety Answer Date Record ed Physically Hurt Never 05/23/2020 Verbally Threaten Not on file 05/23/2020 Sex and Gender Information Value Date Recorded Sex Assigned at Not on file Gender Identity Female 08/12/2021 14:27 EDT Sexual Orientation Not on file Obstetrics History Last Filed Vital Signs Vital Sign Reading Time Taken Comments Blood Pressure 143/55 01/24/2024 1117 EDT Pulse 58 01/24/2024 1117 EDT Temperature 36.1 ??C (97 ??F) 01/24/2024 0939 EDT Respiratory Rate 15 01/24/2024 1117 EDT Oxygen Saturation 95% 01/24/2024 1117 EDT Inhaled Oxygen Concentration - - Weight 75.3 kg (166 lb) 01/05/2022 230 EDT Height 139.7 cm (4' 7) 01/05/2022 2309 EDT Body Mass Index 38.58 01/05/2022 2309 EDT Plan of Treatment Health Maintenance Due Date Last Done Comments Hepatitis C Screen 1945 RSV Immunization ( o r 60+ Years) (1 - 1-dose 60+ series) 2005 Fall Risk Screening 2010 COVID-19 Vaccine (2022- season) 2023 Procedures Procedure Name Priority Date/Time Associated Diagnosis Comments UROLOGY BLADDER SCAN Routine 04/21/2024 Urinary incontinence, unspecified type from Last 3 Months Results * UROLOGY BLADDER SCAN (04/21/2024) Bladder Scan 14 [facility] P OINT OF CARE Comment:pvr Urine Neri Garrett MD UROLOGY ORDERABLES [facility] POINT OF CARE from Last 3 Months Advance Directives For more information, please contact: [phone] * Full Code (Latest Code Status on File) Date Activated Date Inactivated Comments 01/06/2022 3:52 01/10/2022 16:01 Question Answer Comments When the patient has NO PULSE: Full Code / CPR Who Made the Decision? Default/Not Discussed Care Teams Prototype Carpenter Relationship Specialty Start Date End Date Valerie Santana MD [address] [place] [phone] [facility] - General 10/11/16
--- OUTSIDE RECORDS SUMMARY | 2024-05-20 16:15 | XMS_ITS | Encounter Summary ---
Author Organization [facility] Address [address] [place] [address] Care Team Providers Care Nursing Executive Name Role Phone Valerie Santana MD Primary Care Provider Encounter Details Date Type Department Care Team (Latest Contact Info) Description 01/24/2024 Travel Social History Tobacco Use Types Packs/Day Years Used Date Smoking Tobacco: Never Smokeless Tobacco: Never Alcohol Use Standard Drinks/Week Comments Yes 0 [...] you have serious difficulty h earing? No 01/24/2024 Are you blind or do you have [...] on filedocumented in this encounter Care Teams Nursing Executive Relationship Specialty Start Date End Date Valerie Santana MD [address] [place] [phone] PCP - General 10/11/16 documented as of this encounter
--- OUTSIDE RECORDS SUMMARY | 2024-05-20 16:15 | XMS_ITS | Encounter Summary ---
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) Social History Tobacco Use Types [...] No 08/11/2019 documented as of this encounter Progress Notes * Myrtle Holley COA - 12/03/2019 1449 EST Right Eye Lens Calc w/o IOL Biometry Optical Coherence Biometry Calculations Date of original biometry: 11/05/2019 Read date: 12/03/19 Indicated eye: the right eye Procedure date: 12/11/2019 [address]: [facility] Lens type: [id number] Lens power: 24.0 Electronically Signed: Cuca Mike MD 12/03/19 documented in this encounter Plan of Treatment Pending Results Name Type Priority Associated Diagnoses Date /Time RIGHT EYE LENS CALC W/O IOL BIOMETRY Ophthalmology Routine Combined forms of age-related cataract of right eye 12/03/2019 14:50 EST documented as of this encounter Visit Diagnoses Diagnosis Combined forms of age-related cataract of right eye- Primary Other and combined forms of senile cataract documented in this encounter Care Teams Office Electrician Relationship Specialty Start Date End Date Valerie Santana MD [address] [place] [phone] PCP - General 10/11/16 documented as of this encounter
--- OUTSIDE RECORDS SUMMARY | 2024-05-20 16:15 | XMS_ITS | Encounter Summary ---
Author Organization [facility] Address [address] [place] [address] Care Team Providers Care Helmet Binder Name Role Phone Valerie Santana MD Primary Care Provider [phone] Reason for Visit * Reason Comments Memory Loss * Referral (Routine) - Receiving Office to Obtain Authorization Specialty Diagnoses / Procedures Referred By Adi trejo Referred To Contact Psychology Diagnoses Vascular dementia ([facility]) Atypical depression Valerie Santana MD [address] [place] [phone] [facility] [address] [place] [id number] Referral ID Status Reason Start Date Expiration Date Visits Requested Visits Authorized [id number] Receiving Office to Obtain Authorization 2 2 Encounter Details Date Type Department Care Team (Late st Contact Info) Description 12/15/2022 15:00 EST Office Visit [facility] - Medical Office Building [address] [place] [address] Hugo Estrada MD [address] [facility] Medical Office Building, [address] [place] [address] Moderate vascular dementia with mood disturbance (HCC-CMS) (Primary Dx) Social History Tobacco Use Types Packs/Day Years Used Date Smoking Tobacco: Never Smokeless Tobacco: Never Tobacco Cessation:Counseling Given: Not Answered Interpersonal Safety Answer Date Record ed Physically Hurt Never 05/23/2020 Verbally Threaten Not on file 05/23/2020 Sex and Gender Information Value Date Recorded Sex Assigned at Not on file Gender Identity Female 08/12/2021 14:27 EDT Sexual Orientation Not on file documented as of this encounter Last Filed Vital Signs Vital Sign Reading Time Taken Comments Blood Pressure 122/82 12/15/2022 1434 EST Pulse 66 12/15/2022 1434 EST Temperature - - Respiratory Rate - - Oxygen Saturation 93% 12/15/2022 1434 EST Inhaled Oxygen Concentration - - Weight [...] as of this encounter Progress Notes * Hugo Estrada Jr., MD - 12/15/2022 1500 EST Images from the original note were not included. [facility] New Patient Consultation Patient Name: Karla Gillis Date of Service: 12/15/2022 PCP: Valerie Santana Chief Complaint: memory loss History of Present Illness: Consultation has been requested by Dr. Valerie Santana MD, for the evaluation of cognitive decline. The patient is accompanied by daughter Janet and sister Chaparrita, and gives permission for them to be present for sharing of all testing data and diagnostic impressions. PMH is detailed below and is pertinent for atrial fibrillation, HTN, dyslipidemia, T2DM, bilateral sensorineural hearing loss, ischemic stroke in 2016 (large R MCA distribution), diagnosis of dementia in 2017 (presumed cerebrovascular in etiology, seen with Dr. Cabrera of Neurology in 2017). Apparently concern has been raised for possible alzheimers or DLB as a comorbid or alternative etiology in light of emerging behavioral changes and visual hallucinations. I corroborated with the patient and their family the following history as acquired from Dr. Dallas 12/01/2022 and this was taken into account in formulating a diagnostic impression and plan: Ms. Gillis states that her primary care physician, Dr. Santana, referred her to the Memory Program,though she was uncertain as to why she was being seen. She did recall that she had completed some cognitive testing in the past following her stroke. Upon inquiry, she denies problems with recalling remote information, recent events, or conversations. She states that her daughter has been managing her appointments and scheduled activities since she had her stroke. She denies problems with procedural memory, such as when accessing previously well-learned skills (e.g., cooking). She reports that she occasionally misplaces her belongings, though notes that this does not represent a change for her. ?? She denies problems with word finding. She [...] getting lost or disoriented in familiar areas. ?? Ms. Gillis reports a positive mood, denying [...] has been too weak since the stroke. ?? Ms. Gillis's daughter, Artem, and her sister, [...] judgment have declined. Artem has Power of Staff Physical Therapy Assistant. Her sister notes that they used to play [address] on a regular basis, but Ms. Gillis is no longer able to do this duein part to a decline in her math skills. ?? Ms. Gillis requires some prompts to wash her hair and a little bit of assistance in the shower due to physical limitations, but otherwise she is independent for basic self-care. Her sister and daughter help her manage her medications, as otherwise she would not remember to take them. Artem states that her mother no longer does any van loader, but she feels this is due to [...] they are on, even in familiar areas. ?? Yulia states that her mother does still [...] well as her refusal to assist with van loader) is due to being obstinate versus being incapable. Historically, she has not been compliant with recommended PT exercises. Seen with Dr. Cabrera in 2017, noting left visual and tactile extinction and subtle L sided neglect related to right hemispheric infarct, and extensive bi- hemispheric microvascular disease. Donepezil since 2017, takes in the AM. Family confirms the above. However they note that went they went to clean out her house after the stroke they noticed numerous financial errors and had made some bad financial decisions, as well as hoarding of items in some rooms of the house. Less alert in the AM or if she is tired. There otherwise are not major cognitive fluctuations. There has been no witnessed or subjective report of any activity concerning for seizure. Parkinsonism Intake: Hallucinations emerged after stroke, well formed, seem to have progressed since then, now a daily phenomenon. Common to see kids playing outside or animals. Often with poor insight that they are not there. Has not been distressing. Possible impairment in taste after stroke but seems to be improved. somniloquy but no actual dream enactment Impaired dexterity with the left hand. No rest tremor No micrographia. No hypomimia. bvFTD Intake hyperorality noted during initial neuropsychology evaluation (frequently pulling down mask and putting fingers in her mouth, behaviors also observed by family but no other examples of hyperorality. Some apathy is present. Some disinhibited statements and excessive jocularity; other major personality changes May be more impulsive in conversation Functional Status: (please also see patient and partner reported ADL form in the scans tab for more detail): The patient is reportedly requiring assistance across all instrumental ADLs (transportation, shopping, housework, finances, cooking, managing medications, arranging appointments/services), since the stroke. ADLs: generally intact (bathing, dressing, walking, toileting, transferring, eating) Driving: not driving Power of defense attorney: established Dementia Risk Factors: Major Hospitalizations / Serious Illnesses: none outside of stroke and falls; no ICU level stays History of delirium: no History of head trauma: nono TBI, but multiple head strikes in context of prior falls. History of meningitis: no History of substance abuse: no History of stroke: yes, in 2016 Vision: persistent left visual field loss and with additional left hemineglect. Otherwise acuity isok. Eyes are checked regularly Hearing: hearing impairment and with hearing aids that she does not like to use Review of Systems A 14-point ROS was performed with pertinent positive findings listed in the interval history and/orbelow. All other ROS are negative unless otherwise noted. Social History: Ms. Gillis is a 77-year-old, right-handed, woman who was born in [place] and raised in [place]. Her of 45 years in 2009. She has four children from that marriage. Ms. 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 She currently resides in [place], [place] with her daughter, Artem, and her daughter's significant other.Additionally, her sister, Chaparrita (age 72), is currently staying with them until June 2023. The plan is for Ms. Gillis to then return with Chaparrita to her home in [place], where she usually spends part of the year. Spending time around the house most days; generally at least one family member is with her. Tobacco: never ETOH: very rare and never was a heavy drinker Recreational Substances: none Diet: well rounded, all foods groups, regular meals. Has a major predilection for sweets but familylimits availability. Activity: uses a walker essentially all of the time. Had a period of time after her stroke when mobility improved, but subsequently declined in the last 2-3 years. Also had a fall with a vertebral fracture about 2 years ago. Multiple falls since then, including ED eval in 10/2022 after a fall with head strike. Planning to resume physical therapy. Has done well with physical therapy in the past, but has trouble remaining compliant with the home exercises Sleep: BI, compliant with CPAP, but may take it off at times in the night after nocturnal awakenings to urinate. Just diagnosed around 1 year ago (home sleep study) and CPAP started at that time; inhindsight BI had likely been longstanding. Some difficulties with her supplier and currently does not have the right hose. Also seen at sleep medicine clinic in [facility] and they are actively working with them to find a new supplier. Still with daytime fatigue and may fall asleep when sitting at the table. Extremely vivid dreams. Abundant talking in her sleep, more so in the second half of the night, no actually associated limb movements. Routine Medical Care: sees PCP regularly and is up to date on age appropriate vaccination and medical screening. Family History: personally reviewed with patient Her mother at age 68 from heart failure, and her father at age 65 from a blood disease. She has four siblings, one of whom at age 72 from heart issues.There is no known family history of dementia. Family psychiatric history is positive for schizophrenia in a son. Past Medical History: personally reviewed with patient No past medical history on file. Past Surgical History: personally reviewed with patient No past surgical history on file. Medications (before current encounter): personally reviewed and updated in [facility] Current Outpatient Medications Medication ??? acetaminophen (TYLENOL) 325 mg tablet ??? Cetirizine 10 mg capsule ??? DABIGATRAN ETEXILATE MESYLATE (PRADAXA ORAL) ??? donepezil (ARICEPT) 10 mg tablet ??? FLUoxetine (PROZAC) 20 mg tablet ??? ibuprofen (MOTRIN) 600 mg tablet ??? losartan-hydrochlorothiazide (HYZAAR) 100-25 mg per tablet ??? metoprolol SUCCinate (TOPROL-XL) 50 mg tablet ??? mirabegron (MYRBETRIQ) 25 mg extended release tablet ??? omeprazole (PRILOSEC) 20 mg capsule ??? simvastatin (ZOCOR) 20 mg tablet ??? teriparatide 20 mcg/dose (620mcg/2.48mL) pen injector No current facility-administered medications for this visit. Allergies and Adverse Reactions: Allergies Allergen Reactions ??? Oxybutynin Anaphylaxis Other reaction(s): generalized pruritis ??? Oxybutynin Chloride Anaphylaxis ??? Penicillins Anaphylaxis and Other (See Comments) Ended up in a coma Other reaction(s): AOF, coma, Other Ended up in a coma ??? Codeine GI upset emesis Other reaction(s): GI Upset/Nausea/Vomiting, Nausea, U emesis ??? Lisinopril Other reaction(s): congestion cough, cough, Other, U Cough and congestion ??? Chlorine Other reaction(s): itching Vital Signs: Patient Vitals for the past 24 hrs: BP Pulse SpO2 12/15/22 1434 122/82 66 93 % Examination: General: General appearance: alert, pleasant, conversational, no apparent distress Head/Neck: atraumatic, normocephalic, neck supple Mental Status: Alert and oriented to person, place, time, reason for visit; though insight and ability to provide a detailed medical history are poor. Dysarthric speech Naming, comprehension, repetition intact. See separate cognitive testing for additional findings. Cranial Nerves: PERRL, visual carr full to finger counting in all quadrants (no visual defect noted on crude testing), visual acuity grossly intact, EOM intact. Face is mildly asymmetric at rest and with activation, with less activation on the left Motor: Normal muscle bulk and tone. Mild bradykinesia in LUE with repetitive hand movements. Myotatic Stretch Reflexes: 2+ throughout on the left and 3+ throughout on the right Sensation: Intact to light touch, 128hz tuning fork, cold temperature at the wrists and ankles Coordination: Finger - nose - finger intact Station/Gait: Rises to stand with assistance Unsteady gait with use of walker. \ Negative pull test Data Review: Labs: Reviewed in EPIC and scanned documents. Pertinent recent studies include: Lab Results Component Value Date NA 136 12/01/2022 K 4.5 12/01/2022 CL 98 12/01/2022 CO2 28 12/01/2022 Lab Results Component Value Date TSH 1.66 12/01/2022 Lab Results Component Value Date [id number] 375 12/01/2022 Imaging: Personally reviewed in EPIC, PACS, and scanned documents. Pertinent recent studies include: CT head obtained in 10/2022 FINDINGS: Brain: Moderate cerebral atrophy. Moderate periventricular white matter hypodensity. No edema or hemorrhage. 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 Cerebral ventricles: Ex vacuo dilation of the ventricular system. Paranasal sinuses: No acute sinusitis. Mastoid air cells: No mastoid effusion. ?? Bones/joints: No acute fracture. Soft tissues: Moderate left frontal scalp swelling/laceration. ?? IMPRESSION No acute intracranial pathology. Moderate left frontal scalp swelling/laceration. Right MCA distribution encephalomalacia again seen I Electroencephalography: None prior Summary of Neuropsychological Testing: Geriatric Depression Scale: 6 (probable depressed range) She achieved a score of 20 on the MMSE-2, which falls in the borderline impaired range (T = 31) andat the 3rd percentile, and an Adjusted Total Score of 74 on the CERAD-NB, which falls in the borderline impaired range (T = 30) and at the 2nd percentile. Testing Summary: ...On testing, Ms. Gillis was found to be mostly oriented to date/time and place.Weaknesses were documented across tests of auditory attention/working memory. Visual processing speed was low average. Assessment of language skills revealed weaknesses for confrontation naming, verbal fluency, and her ability to follow multi-step commands. Memory testing yielded inconsistent findings. Immediate recall of prose material was borderline impaired, though her retention of the material was adequate for her age. She showed borderline impaired learning and recall on a list-learning test, but she showed perfect recognition of the material. Immediate and delayed recall of visual material was low average. On other testing, she showed weaknesses for visual construction/spatial organization skills and conceptual reasoning. Functional problem-solving was intact.... Neuropsychologist Impression: ...Overall, Ms. Gillis's neuropsychological assessment results showed weaknesses across multiple cognitive domains, including for aspects of complex attention and executive functioning, spatial organization skills, verbal fluency, and memory. Regarding the latter, sheshowed some inconsistency in her performance, and the overall pattern was not overly compelling neeta amnestic process (i.e., rapid forgetting of material over time delays). Diagnostically, the documented cognitive weaknesses combined with associated declines in adaptive functioning meet criteria for a major neurocognitive disorder. In terms of etiological considerations, her pattern of performance on cognitive testing, combined with collateral report of perhaps some fluctuations in [...] further evaluation include excessive right foot motor activity,possible hyper- oral behavior (though this seems limited to placing her fingers in her mouth), vividdreams, and somniloquy.... Assessment: 77 y.o. woman presents to the Memory Program in the context of at least 7 years of decline in memory and executive function, with accompanying behavioral changes and hallucinations, with symptoms progressed to the extent of dependence across instrumental ADLs. Symptoms largely coincided with large R MCA stroke in 2017, though some question of poor self care and decision making issues prior to thestroke. Neuroimaging shows fairly extensive encephalomalacia and gliosis in a right MCA distribution as well as advanced bilateral subcortical white matter disease. In careful history and examination, aside from hallucinations, no definite motor or nonmotor parkinsonian features are evident. The presentation is consistent with an established degenerative major neurocognitive disorder. Thisis best accounted for by underlying cerebrovascular disease with contributions from both ischemic stroke as well as ischemic microvascular disease of the white matter. Although I cannot entirely exclude the possibility of a accompanying premorbid or comorbid degenerative proteinopathy such as alzheimer's, I see no definite evidence of such and even if present would not solely account for the cognitive and functional deficits. I discussed the diagnostic impression at length with the patient and her family. I do not believe that any additional testing or medication changes are required at this time. Appropriate psychosocialsupports and advanced planning is in place. I agree with a plan to repeat physical therapy and encourage engaging in home exercises as prescribed, and agree with continuing to work with her sleep center to optimize the CPAP machine function and utilization. In discussion with the family we will not plan on regular follow-up at this time as they feel that a good plan has been established and that they have sufficient resources and advanced planning in place. I believe this is reasonable. Encounter Diagnosis Name Primary? Moderate vascular dementia with mood disturbance Yes Hugo Estrada MD Neurology Attending Physician - Memory Program Pager #[phone] 12/15/2022 I spent a total of 70 minutes on the date of this encounter as indicated in the above progress note. A copy of this report has been routed to the referring physician Dr Valerie Santana. * Huma Lisa MA - 12/15/2022 1500 EST Patient presents for SKIP PITMAN visit. Last seen 12/01/22 with RK. Patient is accompanied by daughter Winter. Allergies have been reconciled. Medications have been reconciled. Medications not being taken: Tylenol 500mg Fosamax 70mg Clindamycin 150mg Premarin Vaginal Cream Fluoxetine 20mg Ibuprofen 800mg Metoprolol Succinate Mupirocin 2% NYSTOP Powder Simvastatin 20mg Teriparatide 30mcg pen injector Vitals have been added to the chart. Huma Lisa MA II documented in this encounter Plan of Treatment Not on file documented as of this encounter Visit Diagnoses Diagnosis Moderate vascular dementia with mood disturbance ([facility] Primary documented in this encounter Discontinued Medications Medication Sig Discontinue Reason Start Date End Da te acetaminophen (TYLENOL) 500 mg tablet Take 1,000 mg by mouth every 6 hours as needed. Therapy completed 12/15/2022 clindamycin (CLEOCIN) 150 mg capsule Take 300 mg by mouth 4 times daily. Take for poor dentition, infection prevention prior to tooth removal Therapy completed 12/15/2022 conjugated estrogens 0.625mg/G (PREMARIN) vaginal cream Place 0.5 g vaginally daily. Therapy completed 12/15/2022 FLUoxetine (PROZAC) 20 mg capsule Take 20 mg by mouth daily. Dose adjustment 12/15/2022 ibuprofen (MOTRIN) 800 mg tablet Take 800 mg by mouth every 6 hours as needed. Therapy completed 12/15/2022 METOPROLOL SUCCINATE ORAL Take 50 mg by mouth daily. Duplicate order 12/15/2022 METOPROLOL SUCCINATE ORAL Take 50 mg by mouth daily. Duplicate Therapy 12/15/2022 mupirocin (BACTROBAN) 2 % ointment Apply 1 application topically 3 times daily. Duplicate order 12/15/2022 NYSTOP powder APPLY A SMALL AMOUNT TO SKIN TWICE DAILY Duplicate Therapy 08/25/2022 12/15/2022 simvastatin (ZOCOR) 20 mg tablet Take 30 mg by mouth at bedtime. Duplicate order 12/15/2022 teriparatide (FORTEO) 20 mcg/dose (600mcg/2.4mL) pen injector Inject 20 mcg into the skin daily. Duplicate Therapy 12/15/2022 alendronate (FOSAMAX) 70 mg tablet Take 70 mg by mouth. Alternate therapy 12/17/2020 3 documented as of this encounter Care Teams Helmet Binder Relationship Specialty Start Date End Date Valerie Santana MD [address] [place] [id number] PCP - General 10/11/16 documented as of this encounter
--- OUTSIDE RECORDS SUMMARY | 2024-05-20 16:15 | XMS_ITS | Encounter Summary ---
Author Organization [facility] Address [address] [place] [address] Care Team Providers Care Account Executive Trainee Name Role Phone Valerie Santana MD Primary Care Provider [phone] Encounter Details Date Type Department Care Team (Latest Contact Info) Description 01/05/2022 Travel Social History Tobacco Use Types Packs/Day [...] 21:30 EDT documented as of this encounter Functional [...] on filedocumented in this encounter Care Teams Account Executive Trainee Relationship Specialty Start Date End Date Valerie Santana MD [address] [place] [id number] PCP - General 10/11/16 documented as of this encounter
--- OUTSIDE RECORDS SUMMARY | 2024-05-20 16:15 | XMS_ITS | Encounter Summary ---
Author Organization [facility] Address [address] [place] [address] Care Team Providers Care Sales Enablement Lead Name Role Phone Valerie Santana MD Primary Care Provider [phone] Reason for Visit * Reason Comments Closed Head Injury Fell from bed and [facility]uck head, unsure of LOC, sent from [facility] for head CT because pt is on blood thinners Encounter Details Date Type Department Care Team (Late st Contact Info) Description 11/01/2022 17:59 EST - 11/01/2022 19:57 EST Emergency [facility] Emergency Department [address] [place] [address] Thiago Braswell, PA-C [address] [place] [address] Head injury consultation (Primary Dx) Discharge Disposition: Home or Self Care Social [...] Sign Reading Time Taken Comments Blood Pressure 182/73 11/01/20221952 EST Pulse 60 11/01/20221952 EST Temperature 36.6 ??C (97.9 ??F) 11/01/2022 1757 EST Respiratory Rate 20 11/01/2022 1757 EST Oxygen Saturation 100% 11/01/2022 1953 EST Inhaled Oxygen Concentration - - Weight [...] 01/06/2022 documented as of this encounter Discharge Instructions * Discharge Instructions* Thiago Braswell PA-C - 11/01/2022 19:45 EST Karla was seen in the emergency department after a head injury. A CT of her head was performed, she does not have any intracranial bleeding, an x-ray of her shoulder was also obtained which does not show a fracture. It is important for her to rest in the coming days, she will likely be sore, she can have Tylenol for pain, if additional symptoms or concern for additional injuries arise return to the emergency department, she can also follow-up with her primary care provider. * Attachments The following attachments cannot be sent through Care Everywhere. * Acute Concussion (Faroese) documented in this encounter Medications at Time [...] tablet 1 Tablet every 8 hours. 11/26/2020 losartan-hydrochloroth iazide (HYZAAR) 100-25 mg per tablet Take 1 Tablet by mouth daily. metoprolol SUCCinate (TOPROL-XL) 50 mg tablet 1 Tablet every 24 hours. 11/10/2020 omeprazole (PRILOSEC) 20 mg capsule Take 1 Capsule by mouth daily. simvastatin (ZOCOR) 20 mg tablet Take 1 Tablet by mouth at bedtime. teriparatide 20 mcg/dose (620mcg/2.48mL) pen injector FORTEO 620 MCG/2.48ML SOPN acetaminophen (TYLENOL) 500 mg tablet Take 1,000 mg by mouth every 6 hours as needed. 12/15/2022 alendronate (FOSAMAX) 70 mg tablet Take 70 mg by mouth. 12/17/2020 023 clindamycin (CLEOCIN) 150 mg capsule Take 300 mg by mouth 4 times daily. Take for poor dentition, infection prevention prior to tooth removal 3 conjugated estrogens 0.625mg/G (PREMARIN) vaginal cream Place 0.5 g vaginally daily. 12/15/2022 FLUoxetine (PROZAC) 20 mg capsule Take 20 mg by mouth daily. 12/15/2022 ibuprofen (MOTRIN) 800 mg tablet Take 800 mg by mouth every 6 hours as needed. 12/15/2022 METOPROLOL SUCCINATE ORAL Take 50 mg by mouth daily. 12/15/2022 METOPROLOL SUCCINATE ORAL Take 50 mg by mouth daily. 12/15/2022 mirabegron (MYRBETRIQ) 25 mg extended release tablet Take 1 Tablet by mouth 2 times daily. 04/21/2024 mupirocin (BACTROBAN) 2 % ointment Apply 1 application topically 3 times daily. 12/15/2022 NYSTOP powder APPLY A SMALL AMOUNT TO SKIN TWICE DAILY 08/25/2022 12/15/2022 simvastatin (ZOCOR) 20 mg tablet Take 30 mg by mouth at bedtime. 12/15/2022 teriparatide (FORTEO) 20 mcg/dose (600mcg/2.4mL) pen injector Inject 20 mcg into the skin daily. 12/15/2022 documented as of this encounter Discharge Disposition Disposition Code Departure Means Destination Home or Self Halfway documented in this encounter ED Notes * Thiago Braswell PA-C - 11/01/20221956 EST Emergency Department Visit Medical Decision Making 77-year-old female status post multiple CVAs who lives at home with her daughter presents to the emergency department after a fall that occurred at home. On exam she does have a hematoma to the left side of her forehead, she is conversive and appropriate, also was complaining of pain to her right shoulder although she is able to raise her arm. No focal neurologic deficit, vital signs are reassuring. CT head obtained showing no acute intracranial abnormality/ Daughter reports that she was behaving at her baseline before and after fall, feels that the falls explained by sitting on silk sheets, she had just gotten out of the shower, medical evaluation not obtained and this was discussed with patient and daughter. Plain film right shoulder shows no acute bony abnormality/ Was ultimately discharged home, see discharge instructions for patient education/return precautions Imaging obtained was reviewed and independently interpreted. } Final diagnoses: Head injury consultation Disposition: Discharged Chief complaint: Head injury after fall FRANCISCO J Acosta is a 77-year-old female status post multiple CVAs who lives at home with her daughter who presents to the emergency department after a fall that occurred at home. Daughter reports that she is typically never left alone, daughter went to use the restroom while patient was sitting on the edge of the bed, she fell forward striking the left side of her face on a bookcase, she is anticoagulated, no loss of consciousness, patient denies neck or back pain, denies nausea or vomiting since time of incident. Daughter reports that she was behaving normally prior to fall, she was sitting on a silk sheet and she slipped, behaving normally afterwards per daughter, daughter states that she is very unsteady onher feet and falls frequently. History was provided by: Patient Patient's pertinent PMH, FH, SH were reviewed and edited as necessary. Physical Exam BP (!) 182/73 Pulse 60 Temp 36.6 ??C (97.9 ??F) Resp 20 SpO2 100% A medical screening exam was performed. Physical Exam Vitals and nursing note reviewed. Constitutional: General: She is not in acute distress. Appearance: Normal appearance. HENT: Head: Normocephalic and atraumatic. Comments: Hematoma left side of forehead with a superficial laceration, some underlying ecchymosis,no underlying crepitus, no other signs of trauma to head Right Ear: External ear normal. Left Ear: External ear normal. Nose: Nose normal. Mouth/Throat: Mouth: Mucous membranes are moist. Eyes: Extraocular Movements: Extraocular movements intact. Conjunctiva/sclera: Conjunctivae normal. Pupils: Pupils are equal, round, and reactive to light. Cardiovascular: Rate and Rhythm: Normal rate and regular rhythm. Heart sounds: Normal heart sounds. Pulmonary: Effort: Pulmonary effort is normal. Breath sounds: Normal breath sounds. Abdominal: Palpations: Abdomen is soft. There is no mass. Tenderness: There is no abdominal tenderness. Musculoskeletal: General: Normal range of motion. Cervical back: Normal range of motion and neck supple. Comments: Tenderness to the right shoulder, she is able to abduct the arm, strong radial pulse, strong furnace hand strength Skin: General: Skin is warm and dry. Neurological: General: No focal deficit present. Mental Status: She is alert and oriented to person, place, and time. Psychiatric: Mood and Affect: Mood normal. Behavior: Behavior normal. Procedures Procedures * Salina Mcelroy RN - 11/01/20221956 EST Bacitracin and bandaid to head laceration * Isi Vicente RN - 11/01/2022 1830 EST PT at imaging and has family in room for when PT returns. New warm blankets provided * Isi Vicente RN - 11/01/2022 1811 EST PT to ED after falling from a sitting position in bed. Daughter states PT sat on edge of bed to getdressed as daughter stepped out of room momentarily. PT's daughter states she heard a thump and found PT on floor, conscious, with right arm twisted behind PT's back. Daughter states she put ice tolaceration where PT hit head and had minimal bleeding and states PT had no LoC. PT states head does not hurt but right shoulder/arm is painful to move. PT's daughter concerned as she is on blood thinners. PT's daughter and daughter's partner state no personality changes, gait change or other issuesat this time. documented in this encounter Plan of Treatment Not on file documented as of this encounter Procedures Procedure Name Priority Date/Time Associated Diagnosis Comments XR SHOULDER RIGHT 2 OR MORE VIEWS STAT 11/01/2022 18:[address] HEAD WO CONTRAST STAT 11/01/2022 1 8:26 EST documented in this encounter Results * XR SHOULDER RIGHT 2 OR MORE VIEWS (11/01/2022 18:43 EST) Anatomical Region Laterality Modality Right Computed Radiogr aphy 11/01/2022 18:5 3 EST Impressions 11/01/2022 18:53 EST 1. No acute bony pathology. 2. Mild acromioclavicular degenerative changes. THIS DOCUMENT HAS BEEN ELECTRONICALLY SIGNED BY AGA STEVENS MD FOR ANY QUESTIONS OR CONCERNS REGARDING THIS REPORT PLEASE CALL [facility] AT [phone] Narrative 11/01/2022 18:53 EST PROCEDURE INFORMATION: Exam: XR Right Shoulder Exam date and time: 11/01/2022 18:33 Age: 77 years old Clinical indication: Other: PT fell with right arm twisted behind. Pain in shoulder and upper right arm TECHNIQUE: Imaging protocol: Radiologic exam of the Right shoulder. Views: 2 or more views. COMPARISON: No relevant prior studies available. FINDINGS: Bones/joints: The bones are demineralized. No acute fracture or subluxation. Mild acromioclavicular degenerative changes. Soft tissues: Normal. Procedure Note Aga Stevens MD - 11/01/2022 PROCEDURE INFORMATION: Exam: XR Right Shoulder Exam date and time: 11/01/2022 18:33 Age: 77 years old Clinical indication: Other: PT fell with right arm twisted behind. Pain in shoulder and upper right arm TECHNIQUE: Imaging protocol: Radiologic exam of the Right shoulder. Views: 2 or more views. COMPARISON: No relevant prior studies available. FINDINGS: Bones/joints: The bones are demineralized. No acute fracture or subluxation. Mild acromioclavicular degenerative changes. Soft tissues: Normal. IMPRESSION 1. No acute bony pathology. 2. Mild acromioclavicular degenerative changes. THIS DOCUMENT HAS BEEN ELECTRONICALLY SIGNED BY AGA STEVENS MD FOR ANY QUESTIONS OR CONCERNS REGARDING THIS REPORT PLEASE CALL [facility] [phone] Thiago Braswell PA-C IMG DIAGNOSTIC IMAG ING ORDERABLES * CT HEAD WO CONTRAST (11/01/2022 18:26 EST) Anatomical Region Laterality Modality Head Computed Tomogra phy 11/01/2022 18:5 1 EST Impressions 11/01/2022 18:51 EST No acute intracranial pathology. Moderate left frontal scalp swelling/laceration. 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 THIS DOCUMENT HAS BEEN ELECTRONICALLY SIGNED BY AGA STEVENS MD FOR ANY QUESTIONS OR CONCERNS REGARDING THIS REPORT PLEASE CALL [facility] AT [phone] Narrative 11/01/2022 18:51 EST PROCEDURE INFORMATION: Exam: CT Head Without Contrast Exam date and time: 11/01/2022 18:22 Age: 77 years old Clinical indication: Alteration of consciousness; Other: Unknown; Additional info: Bht without loc TECHNIQUE: Imaging protocol: Computed tomography of the head without contrast. Radiation optimization: All CT scans at this facility use at least one of these dose optimization techniques: automated exposure control; mA and/or kV adjustment per patient size (includes targeted exams where dose is matched to clinical indication); or iterative reconstruction. COMPARISON: CT HEAD WITHOUT CONTRAST 03/14/2017 14:37 FINDINGS: Brain: Moderate cerebral atrophy. Moderate periventricular white matter hypodensity. No edema or hemorrhage. 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 Cerebral ventricles: Ex vacuo dilation of the ventricular system. Paranasal sinuses: No acute sinusitis. Mastoid air cells: No mastoid effusion. Bones/joints: No acute fracture. Soft tissues: Moderate left frontal scalp swelling/laceration. Procedure Note Aga Stevens MD - 11/01/2022 PROCEDURE INFORMATION: Exam: CT Head Without Contrast Exam date and time: 11/01/2022 18:22 Age: 77 years old Clinical indication: Alteration of consciousness; Other: Unknown; Additional info: Bht without loc TECHNIQUE: Imaging protocol: Computed tomography of the head without contrast. Radiation optimization: All CT scans at this facility use at least one of these dose optimization techniques: automated exposure control; mA and/or kV adjustment per patient size (includes targeted exams where dose is matched to clinical indication); or iterative reconstruction. COMPARISON: CT HEAD WITHOUT CONTRAST 03/14/2017 14:37 FINDINGS: Brain: Moderate cerebral atrophy. Moderate periventricular white matter hypodensity. No edema or hemorrhage. 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 Cerebral ventricles: Ex vacuo dilation of the ventricular system. Paranasal sinuses: No acute sinusitis. Mastoid air cells: No mastoid effusion. Bones/joints: No acute fracture. Soft tissues: Moderate left frontal scalp swelling/laceration. IMPRESSION No acute intracranial pathology. Moderate left frontal scalp swelling/laceration. 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 THIS DOCUMENT HAS BEEN ELECTRONICALLY SIGNED BY AGA STEVENS MD FOR ANY QUESTIONS OR CONCERNS REGARDING THIS REPORT PLEASE CALL [facility] [phone] Thiago Braswell PA-C IMTali CT ORDERABLES documented in this encounter Visit Diagnoses Diagnosis Head injury consultation- Primary Other reasons for seeking consultation documented in this encounter Administered Medications Inactive Administered Medications - up to 3 most recent administrations Medication Order MAR Action Action Date Dose Rate Site acetaminophen (TYLENOL) tablet 650 mg 650 mg, oral, NOW X1, 1 dose, On Sun11/01/22 at 2030, Routine Given 11/01/2022 20:08 EST 650 mg documented in this encounter Active and Recently Administered Medications Times are shown in EST. Scheduled Medication Order 10/30/2022 10/31/2022 11/01/2022 acetaminophen (TYLENOL) tablet 650 mg (COMPLETED) 650 mg, oral, NOW X1, 1 dose, On Sun11/01/22 at 2030, Routine 2007 (Given - Provid er: Myrtle Villanueva, [place]) documented in this encounter Orders Medications Ordered That Eyad ht Not Have Been Administered Count Last Ordered Date First Ordered Date acetaminophen (TYLENOL) tablet 650 mg 1 08/2023 documented in this encounter Care Teams Sales Enablement Lead Relationship Specialty Start Date End Date Valerie Santana MD [address] [place] [id number] PCP - General 10/11/16 documented as of this encounter
--- OUTSIDE RECORDS SUMMARY | 2024-05-20 16:15 | XMS_ITS | Encounter Summary ---
Author Organization [facility] Address [address] [place] [address] Care Team Providers Care Blast Furnace Operator Name Role Phone Valerie Santana MD Primary Care Provider [phone] Reason for Visit * Reason Comments Fall Pt fell off couch wh ile sleeping last night, hit head on ground, denies LOC. Bruising and swelling to left face and eyes. Pt is anticoagulated. Encounter Details Date Type Department Care Team (Late st Contact Info) Description 01/24/2024 9:40 EDT - 01/24/2024 11:31 EDT Emergency [facility] Emergency Department [address] [place] [address] Abiola Rubio MD [address] [facility], [facility] [address] [place] [address] Facial hematoma, initial encounter (Primary Dx) Discharge Disposition: Home or Self [...] EDT Inhaled Oxygen Concentration - - Weight - [...] this encounter Discharge Instructions * Discharge Instructions* Cadence Mejia PA-C - 01/24/2024 11:[address] scan did not show a fracture of the head or neck or bleeding inside the head. expect you will improve with time. recommend ice for the first few days, then can transition to heat to help the blood resorb. return as needed if you develop a significant headache, new confusion or weakness or other concerning symptoms. documented in this encounter Medications at Time [...] Discharge Disposition Disposition Code Departure Means Destination Comment s Home or Self Long-Term documented in this encounter ED Notes * Beverley Driscoll RN - 01/24/2024 1022 EDT Pt provided with ice pack for swelling over L eye. No other complaints att, daughter's BF remains bedside. * Cadence Mejia PA-C - 01/24/2024 0936 EDT Emergency Department Visit Medical Decision Making 78 yo female with atrial fibrillation on Pradaxa, prior CVA x2, HTN, HLD, dementia who presents to the ED for evaluation of facial trauma after falling off a couch while sleeping in the middle of thenight. notable swelling and ecchymosis to left orbital area, but EOM's intact and patient otherwise at [facility] with some left facial droop, has been ambulatory. ct head and neck without acute finding. recommend supportive care for hematoma and return as needed. case discussed with Dr. rubio. Imaging (independent interpretation) of the CT: no new ich, no fracture seen Medical Decision Making Problems Addressed: Facial hematoma, initial encounter: complicated acute illness or injury Amount and/or Complexity of Data Reviewed Radiology: ordered. Final diagnoses: Facial hematoma, initial encounter Disposition: Discharged Chief complaint: facial trauma HPI Karla Gillis is a 78 y.o. female with atrial fibrillation on Pradaxa, prior CVA x2, HTN, HLD, dementia who presents to the ED for evaluation of facial trauma. usually lives with daughter and son in law, last night was staying with a different daughter, sleeping on the couch, in the middle of thenight a thump was heard and she was found face down with her cpap still on, was easily awoken. this morning left eye swollen and purple. she has been up and ambulatory, denies a headache, neck pain. no change in left sided facial weakness. History was provided by: the patient and her son in law Records reviewed include: Patient's pertinent PMH, FH, SH were reviewed and edited as necessary. Nursing notes reviewed. A medical screening exam was performed. Physical Exam BP (!) 143/55 Pulse 58 Temp 36.1 ??C (97 ??F) Resp 15 SpO2 95% Physical Exam Constitutional: Well appearing in no acute distress HEENT: Normocephalic, notabe swelling and echcymosis to left eyelid, pupils equal and reactive to light, no scleral icterus. eom's are intact. Mouth: Moist oral mucosa without apparent lesions Neck: Full ROM, no cervical LAD. no tenderness, moving well. Heart: RRR without MRG. Symmetric pulses Lungs: Clear to auscultation. No respiratory distress. Abdomen: Soft, nontender, nondistended Skin: No overt rashes on exposed skin Extremities: Moving spontaneously, warm and well perfused. Neuro: Awake, alert, oriented. Speech is fluent. Movements show normal coordination. slight left facial droop, reported at baseline. Psych: Normal affect, appropriate speech, appropriate eye contact. Procedures Procedures documented in this encounter Plan of Treatment Not on file documented as of this encounter Procedures Procedure Name Priority Date/Time Associated Diagnosis Comments CT HEAD WO CONTRAST STAT 01/24/2024 1 0:[address] CERVICAL SPINE WO CONTRAST STAT 01/24/2024 10:40 EDT documented in this encounter Results * CT CERVICAL SPINE WO CONTRAST (01/24/2024 10:40 EDT) Anatomical Region Laterality Modality Computed Tomogra phy 01/24/2024 11:0 1 EDT Impressions 01/24/2024 11:01 EDT 1. No acute cervical spine fracture. 2. Degenerative spondylosis. [id number] Narrative 01/24/2024 11:01 EDT EXAM: CT CERVICAL SPINE WO CONTRAST HISTORY: fall, neck pain; TECHNIQUE: CT cervical spine without contrast. Structured report code: [email or web address] This CT used either dose modulation and/or iterative reconstruction techniques to lower radiation dose. COMPARISON: 01/06/2022 FINDINGS: SURGICAL CHANGES: None. FRACTURES: None. ALIGNMENT: Trace C7 anterolisthesis, likely degenerative in the setting of advanced facet arthrosis. BONES: No significant cerebral vertebral body height loss. No concerning lesions. Unchanged approximately 20% anterior height loss at T2, stable since December 2021. INTERVERTEBRAL DISCS: Moderate loss of disc height at C5-C6. Additional multilevel mild disc space narrowing. JOINTS: Multilevel moderate to severe facet arthrosis. Anterior atlanto-axial, lateral atlanto-axial, and atlanto-occipital joints are normal in alignment. No joint space widening to suggest ligamentous injury. SPINAL CANAL: No severe stenosis. NEURAL FORAMINA: Multilevel foraminal stenosis of varying degrees, similar compared to prior. LUNG APICES: Clear. EXTRASPINAL SOFT TISSUES: Mild carotid calcifications VISIBLE INTRACRANIAL CONTENTS: Unremarkable. Procedure Note Lanre Watson MD - 01/24/2024 EXAM: CT CERVICAL SPINE WO CONTRAST HISTORY: fall, neck pain; TECHNIQUE: CT cervical spine without contrast. Structured report code:[email or web address] This CT used either dose modulation and/or iterative reconstructiontechniques to lower radiation dose. COMPARISON: 01/06/2022 FINDINGS: SURGICAL CHANGES: None. FRACTURES: None. ALIGNMENT: Trace C7 anterolisthesis, likely degenerative in the setting of advancedfacet arthrosis. BONES: No significant cerebral vertebral body height loss. No concerning lesions.Unchanged approximately 20% anterior height loss at T2, stable since December2021. INTERVERTEBRAL DISCS: Moderate loss of disc height at C5-C6. Additional multilevel mild discspace narrowing. JOINTS: Multilevel moderate to severe facet arthrosis. Anterior atlanto-axial,lateral atlanto-axial, and atlanto-occipital joints are normal inalignment. No joint space widening to suggest ligamentous injury. SPINAL CANAL: No severe stenosis. NEURAL FORAMINA: Multilevel foraminal stenosis of varying degrees, similar compared toprior. LUNG APICES: Clear. EXTRASPINAL SOFT TISSUES: Mild carotid calcifications VISIBLE INTRACRANIAL CONTENTS: Unremarkable. IMPRESSION 1. No acute cervical spine fracture. 2. Degenerative spondylosis. [id number] Cadence MONTES-Izzy [facility] CT ORDERABL ES * CT HEAD WO CONTRAST (01/24/2024 10:40 EDT) Anatomical Region Laterality Modality Head Computed Tomogra phy 01/24/2024 10:5 5 EDT Impressions 01/24/2024 10:55 EDT 1. No acute intracranial abnormality. 2. Large left frontal scalp contusion and periorbital hematoma. Orbit intact. 3. Unchanged large area of right MCA distribution encephalomalacia. Unchanged vertebral atrophy and findings of underlying cerebral microangiopathy. [id number] Narrative 01/24/2024 10:55 EDT EXAM: CT HEAD WO CONTRAST HISTORY: fall, head injury; ?? TECHNIQUE: CT head without contrast. Structured report code: [email or web address] This CT used either dose modulation and/or iterative reconstruction techniques to lower radiation dose. COMPARISON: 11/01/2022 FINDINGS: PARENCHYMA: Unchanged large area of right MCA distribution encephalomalacia. No evidence of infarction. No parenchymal hemorrhage. No mass or shift of structures across the midline. Unchanged cerebral atrophy and findings of chronic cerebral microangiopathy. EXTRA-AXIAL SPACES: No extra-axial collection. No extra-axial mass. VENTRICULAR SYSTEM: Unchanged in size and configuration. No obstructive hydrocephalus. VESSELS: Limited evaluation without IV contrast. Normal density in the dural venous sinuses. BONES: No concerning lesions. No evidence of fracture. ORBITS: Large left periorbital hematoma. No orbital fracture. Globes intact. Postseptal fat planes preserved. PARANASAL SINUSES/MASTOID AIR CELLS: Predominantly clear. EXTRACRANIAL SOFT TISSUES: Large left frontal scalp and periorbital hematoma. Procedure Note Lanre Watson MD - 01/24/2024 EXAM: CT HEAD WO CONTRAST HISTORY: fall, head injury; TECHNIQUE: CT head without contrast. Structured report code: [email or web address] This CT used either dose modulation and/or iterative reconstructiontechniques to lower radiation dose. COMPARISON: 11/01/2022 FINDINGS: PARENCHYMA: Unchanged large area of right MCA distribution encephalomalacia. Noevidence of infarction. No parenchymal hemorrhage. No mass or shift ofstructures across the midline. Unchanged cerebral atrophy and findings ofchronic cerebral microangiopathy. EXTRA-AXIAL SPACES: No extra-axial collection. No extra-axial mass. VENTRICULAR SYSTEM: Unchanged in size and configuration. No obstructive hydrocephalus. VESSELS: Limited evaluation without IV contrast. Normal density in the dural venoussinuses. BONES: No concerning lesions. No evidence of fracture. ORBITS: Large left periorbital hematoma. No orbital fracture. Globes intact.Postseptal fat planes preserved. PARANASAL SINUSES/MASTOID AIR CELLS: Predominantly clear. EXTRACRANIAL SOFT TISSUES: Large left frontal scalp and periorbital hematoma. IMPRESSION 1. No acute intracranial abnormality. 2. Large left frontal scalp contusion and periorbital hematoma. Orbitintact. 3. Unchanged large area of right MCA distribution encephalomalacia.Unchanged vertebral atrophy and findings of underlying cerebralmicroangiopathy. [id number] Cadence Mejia PA-C IMG CT ORDERABL ES documented in this encounter Visit Diagnoses Diagnosis Facial hematoma, initial encounter- Primary documented in this encounter Care Teams Blast Furnace Operator Relationship Specialty Start Date End Date Valerie Santana MD [address] [place] [id number] PCP - General 10/11/16 documented as of this encounter
--- OUTSIDE RECORDS SUMMARY | 2024-05-20 16:15 | XMS_ITS | Encounter Summary ---
Author Organization [facility] Address [address] [place] [address] Care Team Providers Care Historic Sites Registrar Name Role Phone Valerie Santana MD Primary Care Provider [phone] Encounter Details Date Type Department Care Team (Late st Contact Info) Description 08/12/2021 Orders Only [facility] [address] [place] [address] Meaghan Chand, RN [address] [place] [address] Social History Tobacco Use Types Packs/Day Years [...] on filedocumented in this encounter Care Teams Historic Sites Registrar Relationship Specialty Start Date End Date Valerie Santana MD [address] [place] [address] PCP - General 10/11/16 documented as of this encounter
--- OUTSIDE RECORDS SUMMARY | 2024-05-20 16:15 | XMS_ITS | Encounter Summary ---
Author Organization [facility] Address [address] [place] [address] Care Team Providers Care Beet Flumer Name Role Phone Valerie Santana MD Primary Care Provider [phone] Reason for Visit * Reason Comments Follow-up s/p CE/PCIOL, both e yes (left eye:11/20/19 & right: 12/11/19) Encounter Details Date Type Department Care Team (Latest Contact Info) Description 05/21/2020 13:15 EDT Post-op Visit [facility] Ophthalmology [facility] [address] [place] [address] Cuca Mike MD [address] [place] [id number] Pseudophakia (Primary Dx) Social History Tobacco Use [...] as of this encounter Progress Notes * Cuca Mike MD - 05/21/2020 0439 EDT Chief Complaint Patient presents with ??? Follow-up s/p CE/PCIOL, both eyes (left eye:11/20/19 & right: 12/11/19) HPI The patient is a 75 y.o. female s/p CE/PCIOL right eye 12/11/2019. Also s/p CE/PCIOL left eye 11/20/2019. Very happy with vision. Using otc readers. Eyes have been itching some. 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 Also has DM- 2-3 years, well controlled and taken off metformin. Routine care with Dr. Lucia. Right Eye: Left Eye: Visual Aid: (OTC readers) Current Rx Age Location: Both eyes Pain: 0 - No pain Quality: Severity: Duration: Months Timing: Lasts: Context: s/p CE/PCIOL, both eyes (left eye: 11/20/19 & right: 12/11/19) Modifying factors: Patient says vision has been doing well. Does not need to use as strong OTC readers now. Says distance vision is pretty good without correction. No eye pain reported, but notes they have been itching and does have seasonal allergies. Associated Signs & Symptoms: Denies floaters or flashes. Wears sunglasses when outdoors. Attestation: ROS Constitutional: NL ENT/Mouth Cardiovascular: High Blood Pressure, High Cholesterol Respiratory: Gastrointestinal: Heartburn Genitourinary: Musculoskeletal: (broken shoulder) Integumentary: Neurologic: (balance trouble) Psychiatric: Endocrine: Hematologic: Immunologic: Drug Allergy Bridge Ironworker: Exposures: None Other: Attestation: Base Eye Exam Visual Acuity (Snellen - Linear) Right Left Dist sc 20/20 -1 20/30 +/- Tonometry (Tonopen, 14:12) Right Left Pressure 12 13 Pupils Pupils APD Right PERRL None Left PERRL None Neuro/Psych Oriented x3: Yes Mood/Affect: Normal Dilation Both eyes: Tropicamide 1%, Phenylephrine 2.5% @ 14:14 Slit Lamp and Fundus Exam External Exam Right Left External Normal Normal Slit Lamp Exam Right Left Lids/Lashes Normal Normal Conjunctiva/Sclera White and quiet White and quiet Cornea Clear corneal incisions Clear corneal incision Anterior Chamber No cell 2 cells per HPF post dilation Iris Round and reactive Round and reactive Lens Posterior chamber intraocular lens, well centered, trace PCO Posterior chamber intraocular lens, well centered, clear capsule Fundus Exam Right Left Vitreous Posterior vitreous detachment, no Erika's sign Posterior vitreous detachment, no Elizabeth'ssign Disc Normal Normal C/D Ratio 0.2 0.2 Macula No thickening or exudate, no microaneurysms, no dot blot hemorrhages No thickening or exudate, no microaneurysms, no dot blot hemorrhages Vessels Normal Normal Periphery No dot-blot hemorrhages or microaneurysms, no holes, tears, or retinal detachment No dot-blot hemorrhages or microaneurysms, no holes, tears, or retinal detachment Refraction Manifest Refraction (Auto) Sphere Cylinder [place] Right Left -1.50 +0.75 001 Manifest Refraction #2 Sphere Cylinder [place] Right [place] Sphere 20/20 Left -0.75 +0.50 180 20/25-1 DIAGNOSTIC TESTS: IMPRESSION & PLAN: ?? Pseudophakia, left eye - POM #6 (11/20/18), looks good, retina flat with no holes/tears - call with pain, decreased vision, flashes, floaters - f/u one year with Dr. Lucia, letter to Dr. Lucia ??? Pseudophakia, right eye - POM #5 (12/11/19), looks good, retina flat with no holes/tears - Call with pain, redness, decreased vision, flashes or floaters ??? Type 2 diabetes mellitus without complication, without long-term current use of insulin - no ocular findings - Recommend good blood sugar and blood pressure control - Recommend annual dilated eye exam - Letter to PCP ??? Posterior vitreous detachment of both eyes - retina flat with no holes/tears/retinal detachment. - call for increase in flashes or [...] Linear) Right eye Left eye Dist sc 20/20 -1 20/30 +/- Tonometry (Tonopen, 14:12) Right eye Left eye Pressure 12 13 Pupils Pupils APD Right eye PERRL None Left eye PERRL None Neuro/Psych Oriented x3: Yes Mood/Affect: Normal Dilation Both eyes: Tropicamide 1%, P henylephrine 2.5% @ 14:14 External Exam Right eye Left eye External Normal Normal Slit Lamp Exam Right eye Left eye Lids/Lashes Normal Normal Conjunctiva/Sclera White and quiet White and mamadou et Cornea Clear corneal incisions Clear co rneal incision Anterior Chamber No cell 2 cells per HPF post dilation Iris Round and reactive Round and sacha ctive Lens Posterior chamber in traocular lens, well centered, trace PCO Posterior chamber intraocular lens, well centered, clear capsule Vitreous Posterior vitreous d etachment, no Erika's sign Posterior vitreous detachment, no Erika's sign Fundus Exam Right eye Left eye Disc Normal Normal C/D Ratio 0.2 0.2 Macula No thickening or exu date, no microaneurysms, no dot blot hemorrhages No thickening or exudate, no microaneurysms, no dot blot hemorrhages Vessels Normal Normal Periphery No dot-blot hemorrha ges or microaneurysms, no holes, tears, or retinal detachment No dot-blot hemorrhages or microaneurysms, no holes, tears, or retinal detachment Manifest Refraction #1 (Auto) Sphere Cylinder [place] Right eye Left eye -1.50 +0.75 001 Manifest Refraction #2 Sphere Cylinder [place] Right eye [place] Sphere 20/20 Left eye -0.75 +0.50 180 20/25-1 Care Teams Beet Flumer Relationship Specialty Start Date End Date Valerie Santana MD [address] [place] [address] PCP - General 10/11/16 documented as of this encounter
--- OUTSIDE RECORDS SUMMARY | 2024-05-20 16:15 | XMS_ITS | Encounter Summary ---
Author Organization [facility] Address [address] [place] [address] Care Team Providers Care Blast Hole Driller Name Role Phone Valerie Santana MD Primary Care Provider [phone] Encounter Details Date Type Department Care Team (Late st Contact Info) Description 12/01/2022 14:50 EST Phlebotomy Only [facility] ([facility]) [address] [place] [address] [phone] Memory loss Social History Tobacco Use Types Packs/Day Years [...] Procedure Name Priority Date/Time Associated Diagnosis Comments SYPHILIS SEROLOGY Routine 12/01/2022 14: 19 EST Memory loss COMPLETE BLOOD COUNT AND DIFFERENTIAL Routine 12/01/2022 14:19 EST Memory loss TSH Routine 12/01/2022 14:19 EST Memory loss VITAMIN B12 Routine 12/01/2022 14:19 EST Memory loss COMPREHENSIVE METABOLIC PANEL (CMP) Routine 12/01/2022 14:19 EST Memory loss documented in this encounter Results * VITAMIN B12 (12/01/2022 14:19 EST) Vitamin B12 375 211 - 911 pg/mL 12/01/2022 18:08 EST [facility] Blood VENOUS BLOOD / Unknown Venipuncture / Unknown 12/01/2022 14:19 EST 12/01/2022 14:19 EST Hugo Estrada MD CHEMISTRY & BLOOD GA S ORDERABLES Performing Organization Address City/State/[facility] Co de Phone Number [facility] [address] [place] [address] * TSH (12/01/2022 14:19 EST) TSH 1.66 0.47 - 4.68 mIU/L 12/01/2022 17:07 EST [facility] Blood VENOUS BLOOD / Unknown Venipuncture / Unknown 12/01/2022 14:19 EST 12/01/2022 14:19 EST Narrative [facility] - 12/01/2022 17:07 EST The results of this assay can be falsely lowered due to the consumption of Biotin. Hugo Estrada MD CHEMISTRY & BLOOD GA S ORDERABLES Performing Organization Address City/[facility]/ZIP Co de Phone Number [facility] [address] [place] [address] * SYPHILIS SEROLOGY (12/01/2022 14:19 EST) Pathologist [facility] Syphilis Serology Negative Negative 12/04/2022 11:29 [facility] Blood VENOUS BLOOD / Unknown Venipuncture / Unknown 12/01/2022 14:19 EST 12/01/2022 14:19 EST Hugo Estrada MD IMMUNOLOGY AND SEROL OGY ORDERABLES Performing Organization Address [facility] Co de Phone Number [facility] [address] [place] [address] * (ABNORMAL) COMPREHENSIVE METABOLIC PANEL (CMP) (12/01/2022 14:19 EST) [facility] Sodium 136 136 - 145 mmol/L 12/01/2022 16:34 [facility] Potassium 4.5 3.5 - 5.0 mmol/L 12/01/2022 16:34 [facility] Chloride 98 96 - 110 mmol/L 12/01/2022 16:34 [facility] CO2 Total 28 22 - 32 mmol/L 12/01/2022 16:34 [facility] Glucose 113(H) 70 - 100 mg/dL 12/01/2022 16:34 [facility] BUN 20 10 - 26 mg/dL 12/01/2022 16:34 [facility] Creatinine 0.55 0.52 - 1.04 mg/dL 12/01/2022 16:34 [facility] eGFR 94 >60 mL/min/1.7 3m2 12/01/2022 16:34 [facility] Total Protein 6.8 6.3 - 8.2 g/dL 12/01/2022 16:34 [facility] Albumin 4.2 3.4 - 4.9 g/dL 12/01/2022 16:34 [facility] Alkaline Phosphatase 33(L) 38 - 126 U/L 12/01/2022 16:34 [facility] AST 34 15 - 46 U/L 12/01/2022 16:34 [facility] ALT 18 <35 U/L 12/01/2022 16:34 [facility] Bilirubin, Total <0.5 <1.4 mg/dL 12/01/19 16:34 [facility] Calcium 9.9 8.5 - 10.5 mg/dL 12/01/2022 16:34 [facility] Albumin/Globulin Ratio 1.6 1.0 - 2.5 12/01/2022 16:34 [facility] Anion Gap 10 5 - 14 12/01/2022 16:34 [facility] Blood VENOUS BLOOD / Unknown Venipuncture / Unknown 12/01/2022 14:19 EST 12/01/2022 14:19 EST Hugo Estrada MD CHEMISTRY & BLOOD GA S ORDERABLES Performing Organization Address City/State/[facility] Co de Phone Number [facility] [address] [place] [address] * COMPLETE BLOOD COUNT AND DIFFERENTIAL (12/01/2022 14:19 EST) WBC 4.40 4.00 - 12.40 K/cmm 12/01/2022 16:14 [facility] RBC 4.46 3.86 - 5.04 M/cmm 12/01/2022 16:14 [facility] Hemoglobin 13.2 11.6 - 15.2 gm/dL 12/01/2022 16:14 [facility] HCT 39.3 34.9 - 44.4 % 12/01/2022 16:14 [facility] MCV 88 81 - 98 fl 12/01/2022 16:14 [facility] MCH 29.6 26.7 - 33.3 pg 12/01/2022 16:14 [facility] MCHC 33.6 32.1 - 35.9 gm/dL 12/01/2022 16:14 [facility] RDW-CV 14.3 <14.7 % 12/01/2022 16:14 [facility] RDW-SD 46.0 <50.4 fl 12/01/2022 16:14 [facility] PLT 194 141 - 377 K/cmm 12/01/2022 16:14 [facility] MPV 10.5 9.5 - 12.7 fl 12/01/2022 16:14 [facility] % Neutrophils 57.0 % 12/01/2022 16:14 [facility] % Lymphocytes 25.7 % 12/01/2022 16:14 [facility] % Monocytes 14.8 % 12/01/2022 16:14 [facility] % Eosinophils 1.6 % 12/01/2022 16:14 [facility] % Basophils 0.7 % 12/01/2022 16:14 [facility] % Immature Grans 0.2 % 12/01/19 23 16:14 [facility] Absolute Neutrophils 2.51 2.20 - 8.85 K/cmm 12/01/2022 16:14 [facility] Absolute Lymphocytes 1.13 1.09 - 3.30 K/cmm 12/01/2022 16:14 [facility] Absolute Monocytes 0.65 0.10 - 0.80 K/cmm 12/01/2022 16:14 [facility] Absolute Eosinophils 0.07 0.03 - 0.61 K/cmm 12/01/2022 16:14 [facility] ABS Basophils 0.03 0.01 - 0.11 K/cmm 12/01/2022 16:14 [facility] Absolute Immature Grans 0.01 0.00 - 0.06 K/cmm 12/01/2022 16:14 [facility] Type of Differential: Auto 12/01/2022 16:14 [facility] Blood VENOUS BLOOD / Unknown Venipuncture / Unknown 12/01/2022 14:19 EST 12/01/2022 14:19 EST Hugo Estrada MD PACKAGES & DNA PROBE ORDERABLES [facility] [address] [place] [address] documented in this encounter Visit Diagnoses Diagnosis Memory loss documented in this encounter Care Teams Blast Hole Driller Relationship Specialty Start Date End Date Valerie Santana MD [address] [facility] [place] [phone] PCP - General 10/11/16 documented as of this encounter
--- OUTSIDE RECORDS SUMMARY | 2024-05-20 16:15 | XMS_ITS | Encounter Summary ---
Author Organization [facility] Address [address] [place] [address] Care Team Providers Care Tool Grinding Technician Name Role Phone Valerie Santana MD Primary Care Provider [phone] Reason for Referral * Prior Authorization (See Order Priority) - Authorized Specialty Diagnoses / Procedures Referred By Adi trejo Referred To Contact Infusion Therapy Diagnoses COVID-19 determined by clinical diagnostic criteria Rocío Segura MD [address] [facility], [address] [place] [address] Valerie Santana MD [address] [place] [phone] Referral ID Status Reason Start Date Expiration Date Visits Requested Visits Authorized [id number] Authorized Specialty Services Required 1 1 1 Question Answer Is this appt for transfusion, medication, test or injection? Infusion How many infusions need to be ordered for appt? 1 Infusion Name Other Please specify: Monoclonal Antibody Infusion Dose 1200 What is the infusion frequency? once Is this the first dose of infusion(s)? Yes Are labs to be obtained during the appt? No Does this have a lab dependency? This patient is not lab dependent Are preliminary tests complete (like MRI)? Yes Have orders been place for this appt? (i.e.: Blood Transfusion Order Set, Therapy Plan, Lab Orders, Supportive Plan, Etc) No Comments Valerie Santana MD [facility] [phone] Encounter Details Date Type Department Care Team (Late st Contact Info) Description 08/12/2021 Orders Only [facility] [address] [place] [address] Meaghan Chand, RN [address] [place] [address] COVID-19 determined by clinical diagnostic criteria (Primary Dx) Social History Tobacco Use Types [...] as of this encounter Plan of Treatment Scheduled Referrals Name Type Priority Associated Diagnoses Orde r Schedule AMB CONS/FOLLOW UP SHEP 4 INFUSIONS Outpatient Referral Urgent Covid-19 Determined By Clinical Diagnostic Criteria Expected: 08/14/2021 (Approximate), Expires: 08/12/2022 documented as of this encounter Visit Diagnoses Diagnosis COVID-19 determined by clinical diagnostic criteria- Primary documented in this encounter Care Teams Tool Grinding Technician Relationship Specialty Start Date End Date Valerie Santana MD [address] [place] [phone] PCP - General 10/11/16 documented as of this encounter
--- OUTSIDE RECORDS SUMMARY | 2024-05-20 16:15 | XMS_ITS | Encounter Summary ---
Author Organization [facility] Address [address] [place] [address] Care Team Providers Care Lumber Tailer Name Role Phone Valerie Santana MD Primary Care Provider Reason for Visit * (Routine/Next Available) - Receiving Office to Obtain Authorization Specialty Diagnoses / Procedures Referred By Adi trejo Referred To Contact Procedures CT OUTSIDE IMAGES BODY Imaging, External Referral ID Status Reason Start Date Expiration Date Visits Requested Visits Authorized [id number] Receiving Office to Obtain Authorization 03/28/2022 1 1 Encounter Details Date Type Department Care Team (Latest Contact Info) Description 01/05/2022 - 01/05/2022 23:04 EDT Hospital Encounter [facility] Secondary [place] Discharge Disposition: Home or Self Care Social [...] No 08/11/2019 documented as of this encounter Medications at [...] infection prevention prior to tooth removal 3 clopidogrel (PLAVIX) 75 mg tablet Take 75 mg by mouth daily. 01/06/2022 conjugated estrogens 0.625mg/G (PREMARIN) vaginal cream Place 0.5 g vaginally daily. 12/15/2022 diphenhydrAMINE (BENADRYL) 25 mg capsule Take 25 mg by mouth every 6 hours as needed (1-2 tabs). 01/10/2022 FLUoxetine (PROZAC) 20 mg capsule Take 20 mg by mouth daily. 12/15/2022 GLUC HCL/GLUC MARRERO/GE-SQW-H-GLUC (GLUCOSAMINE COMPLEX ORAL) Take by mouth. 01/10/2022 loratadine (CLARITIN) 10 mg tablet Take 10 mg by mouth daily. 01/10/2022 losartan (COZAAR) 100 mg tablet Take 100 mg by mouth daily. 01/10/2022 METOPROLOL SUCCINATE ORAL Take 50 mg by mouth daily. 12/15/2022 mirabegron (MYRBETRIQ) 25 mg extended release tablet Take 1 Tablet by mouth 2 times daily. 04/21/2024 simvastatin (ZOCOR) 20 mg tablet Take 30 mg by mouth at bedtime. 12/15/2022 teriparatide (FORTEO) 20 mcg/dose (600mcg/2.4mL) pen injector Inject 20 mcg into the skin daily. 12/15/2022 tolterodine (DETROL LA) 4 mg long acting capsule Take 4 mg by mouth daily. 01/10/2022 warfarin (COUMADIN) 5 mg tablet Take 5 mg by mouth daily. 01/06/2022 documented as of this encounter Discharge Disposition Disposition Code Departure Means Destination Home or Self Care documented in this encounter Plan of Treatment Not on file documented as of this encounter Procedures Procedure Name Priority Date/Time Associated Diagnosis Comments CT OUTSIDE IMAGES BODY Routine 03/28/2022 7:34 EDT documented in this encounter Results * CT OUTSIDE IMAGES BODY (03/28/2022 7:34 EDT) Narrative 03/28/2022 7:34 EDT This is a non-reportable exam. External Imaging IMG OTHER IMAGING OR DERABLES documented in this encounter Visit Diagnoses Not on filedocumented in this encounter Care Teams Lumber Tailer Relationship Specialty Start Date End Date Valerie Santana MD [address] [place] [phone] PCP - General 10/11/16 documented as of this encounter
--- OUTSIDE RECORDS SUMMARY | 2024-05-20 16:15 | XMS_ITS | Encounter Summary ---
Author Organization [facility] Address [address] [place] [address] Care Team Providers Care Scout Name Role Phone Valerie Santana MD Primary Care Provider [phone] Reason for Visit * Reason Comments New Patient Visit * Referral (Routine) - Authorization Not Required Specialty Diagnoses / Procedures Referred By Adi trejo Referred To Contact Urology Diagnoses Hematur[facility] [address] [place] [id number] Referral ID Status Reason Start Date Expiration Date Visits Requested Visits Authorized [id number] Authorization Not Required 1 1 Encounter Details Date Type Department Care Team (Late st Contact Info) Description 04/21/2024 16:00 EDT Office Visit Health [facility] - [facility] [address] [place] [address] Neri Garrett MD [address] [place] [address] [address]OB[address] [place] [phone] Urinary incontinence, unspecified type (Primary Dx) Social History Tobacco Use Types [...] No 01/06/2022 documented as of this encounter Ordered Prescriptions Prescription Sig Dispensed Refills Start Date End Da te mirabegron (MYRBETRIQ) 50 mg ER tablet Take 1 Tablet by mouth daily. 90 Tablet 3 04/21/2024 documented in this encounter Progress Notes * Guillermina Leos RN - 04/21/2024 1600 EDT Chart Prep Reason for Visit: incontinence (at least a year) Last Seen: new patient Other pertinent information from chart: 03/24 referral scanned- hx incontinence and doing pelvic floor PT at [facility] . Hx of hematuria dating back to approx 2018 with referral to [facility]. Some recurrent uti per scans as well. * Neri Garrett MD - 04/21/2024 1600 EDT 04/21/2024 NEW PATIENT CHIEF COMPLAINT New Patient Visit PATIENT: Karla Gillis HISTORY OF PRESENT ILLNESS Karla Gillis is a very pleasant 78 y.o. female who presents with urinary incontinence. Patient has a history of stress urinary incontinence and underwent a bladder procedure with Dr. Pandey which the patient says immediately failed. 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 She was seen back by Dr. Pandey who put her on Myrbetriq. Primary care doctor sent her to physical therapy who did pelvic floor therapy and Kegel exercises with her but she never really did these at home. She wears a pad and diaper and these need to be changed multiple times per day. Residual CVA symptoms include left-sided weakness, balance issues, decreased peripheral vision and cognitive issues and dementia. No frequent UTIs, no dysuria PAST HISTORY No past medical history on file. No past surgical history on file. No family history on file. Social History Tobacco Use Smoking status: Never Smokeless tobacco: Never Substance Use Topics Alcohol use: Yes Comment: 1 drink every 6mo: amaretto and milk Drug use: Never MEDICATIONS Current Outpatient Medications Medication Sig Dispense Refill acetaminophen (TYLENOL) 325 mg tablet Take 2 Tablets by mouth every 4 hours as needed for Pain. Cetirizine 10 mg capsule Take 1 Capsule by mouth daily. DABIGATRAN ETEXILATE MESYLATE (PRADAXA ORAL) Take 150 mg by mouth 2 times daily. donepezil (ARICEPT) 10 mg tablet Take 1 Tablet by mouth daily. FLUoxetine (PROZAC) 20 mg tablet FLUOXETINE HCL 20 MG TABS ibuprofen (MOTRIN) 600 mg tablet 1 Tablet every 8 hours. losartan-hydrochlorothiazide (HYZAAR) 100-25 mg per tablet Take 1 Tablet by mouth daily. metoprolol SUCCinate (TOPROL-XL) 50 mg tablet 1 Tablet every 24 hours. mirabegron (MYRBETRIQ) 50 mg ER tablet Take 1 Tablet by mouth daily. 90 Tablet 3 omeprazole (PRILOSEC) 20 mg capsule Take 1 Capsule by mouth daily. simvastatin (ZOCOR) 20 mg tablet Take 1 Tablet by mouth at bedtime. teriparatide 20 mcg/dose (620mcg/2.48mL) pen injector FORTEO 620 MCG/2.48ML SOPN No current facility-administered medications for this visit. ALLERGIES Allergies Allergen Reactions Oxybutynin Anaphylaxis Other reaction(s): generalized pruritis Oxybutynin Chloride Anaphylaxis Penicillins Anaphylaxis and Other (See Comments) Ended up in a coma Other reaction(s): AOF, coma, Other Ended up in a coma Codeine GI upset emesis Other reaction(s): GI Upset/Nausea/Vomiting, Nausea, U emesis Lisinopril Other reaction(s): congestion cough, cough, Other, U Cough and congestion Chlorine Other reaction(s): itching REVIEW OF SYSTEMS Genitourinary: As above Neurological: Post CVA residual deficits as above All other systems reviewed and are negative. VITALS There were no vitals filed for this visit. PHYSICAL EXAM Exam conducted with a back end web developer present. Constitutional: Appearance: Normal appearance. HENT: Head: Normocephalic and atraumatic. Right Ear: External ear normal. Left Ear: External ear normal. Nose: Nose normal. Mouth/Throat: Mouth: Mucous membranes are moist. Eyes: Conjunctiva/sclera: Conjunctivae normal. Cardiovascular: Rate and Rhythm: Normal rate. Pulmonary: Effort: Pulmonary effort is normal. Abdominal: General: Abdomen is flat. Palpations: Abdomen is soft. Tenderness: There is no right CVA tenderness or left CVA tenderness. Genitourinary: General: Normal vulva. Comments: No prolapse, mild urethral hypermobility, no stress incontinence. age- appropriate vaginalatrophy Neurological: General: No focal deficit present. Mental Status: She is alert and oriented to person, place, and time. Psychiatric: Mood and Affect: Mood normal. Behavior: Behavior normal. DIAGNOSTIC DATA Office Visit on 04/21/2024 Component Date Value Ref Range Status Bladder Scan 04/21/2024 14 Final pvr PSA: No results found for: PSA BMP: Lab Results Component Value Date NA 136 12/01/2022 K 4.5 12/01/2022 CL 98 12/01/2022 CO2 28 12/01/2022 BUN 20 12/01/2022 CREATININE 0.55 12/01/2022 CALCIUM 9.9 12/01/2022 CALCCA 9.6 06/11/2014 MG 1.60 (L) 11/09/2017 LABALBU 4.2 12/01/2022 DIAGNOSIS 1. 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, likely neurogenic bladder -Will switch Myrbetriq 25 mg to Myrbetriq 50 mg daily -Follow-up 4 weeks -Consider urodynamics -Records from prior urologist PLAN Other Orders Placed This Visit Procedures Urology Bladder Scan Neri Garrett MD Electronicaly signed by: Neri Garrett MD documented in this encounter Plan of Treatment Not on file documented as of this encounter Procedures Procedure Name Priority Date/Time Associated Diagnosis Comments UROLOGY BLADDER SCAN Routine 04/21/2024 Urinary incontinence, unspecified type documented in this encounter Results * UROLOGY BLADDER SCAN (04/21/2024) Bladder Scan 14 [facility] P OINT OF CARE Comment:pvr Urine Neri Garrett MD UROLOGY ORDERABLES [facility] POINT OF CARE documented in this encounter Visit Diagnoses Diagnosis Urinary incontinence, unspecified type- Primary documented in this encounter Discontinued Medications Medication Sig Discontinue Reason Start Date End Da te mirabegron (MYRBETRIQ) 25 mg extended release tablet Take 1 Tablet by mouth 2 times daily. Order modification 04/21/2024 documented as of this encounter Care Teams Scout Relationship Specialty Start Date End Date Valerie Santana MD [address] [place] [phone] PCP - General 10/11/16 documented as of this encounter
--- OUTSIDE RECORDS SUMMARY | 2024-05-20 16:15 | XMS_ITS ---
Author Organization Unknown Address [address] [place] [phone] Phone Care Team Providers Care Music Industry Intern Name Role Phone SEKOU Bobo Attending Unavailable Social History Type Status Start Date End Date Code Code Syst em Smoking History Never smoker (Never Smoked) 094844011 SNOMED CT Sex Female Gender Identity Female [id number] Medications Medication Start Date End Date Route Frequency Dose Code Code System Medication Instructions Home Meds oxyCODONE HCl 5MG Oral Tablet 08/14/2019 Unknown ORAL NEEDED EVERY 4 HOURS 1 TABLET 6778387 RxNorm TAKE 1 TABLET ORAL NEEDED EVERY 4 HOURS. Not to exceed 6 tabs daily Aricept 10MG Oral Tablet 08/14/2019 Unknown ORAL DAILY 10 MILLIGRAMS 391844 RxNorm TAKE 10 MILLIGRAMS ORAL DAILY Hyzaar 100MG-25MG Oral Tablet 08/14/2019 Unknown ORAL DAILY 1 unit(s) 034736 RxNorm TAKE 1 EACH ORAL DAILY Metoprolol Succinate 100MG Oral Tablet, Extended Release 08/14/2019 Unknown ORAL DAILY 100 MILLIGRAMS 481568 RxNorm TAKE 100 MILLIGRAMS ORAL DAILY Acetaminophen 500MG Oral Tablet 08/14/2019 Unknown ORAL NEEDED THREE TIMES A DAY 2 TABLET 469106 RxNorm TAKE 2 TABLET ORAL NEEDED THREE TIMES A DAY FOR PAIN Dok 100MG Oral Capsule, Liquid Filled 08/14/2019 Unknown ORAL TWICE A DAY 100 MILLIGRAMS 7347467 RxNorm TAKE 100 MILLIGRAMS ORAL TWICE A DAY Pradaxa 150MG Oral Capsule 08/14/2019 Unknown ORAL TWICE A DAY 150 MILLIGRAMS 9387754 RxNorm TAKE 150 MILLIGRAMS ORAL TWICE A DAY Simvastatin 20MG Oral Tablet 08/14/2019 Unknown ORAL DAILY 20 MILLIGRAMS 320834 RxNorm TAKE 20 MILLIGRAMS ORAL DAILY OMEPRAZOLE [...] OF SHAFT OF HUMERUS , SEQUELA active 58857032 SNOMED-CT INTERMITTENT ATRIAL FIBRILLATION active 150904176 SNOMED-CT HYPERTENSION active 82191981 SNOMED- CT DEMENTIA active 18150964 SNOMED-CT A FIB active 30923483 SNOMED-CT STROKE 08/13/2019 resolved 621229423 SNOMED-CT Allergies and Adverse Reactions Allergy Substance Reaction Severity Start Date Concern Status Code Code System PENICILLINS (CLASS) Anaphylaxis (SNOMED-CT: 33633540) Moderate Active 16756 RxNorm CODEINE Active 2670 RxNorm LISINOPRIL Active 60130 RxNorm Plan of Treatment MM SCREEN BILAT 02/17/2022 US EXTREMITY 02/07/2022 Encounters Encounter Diagnosis Start Date Code Code Sys tem Mixed incontinence 11/29/2023 SNOMED-CT Personal Care Team Section Performer Name Performer Role Active Date Inactive Da te
--- OUTSIDE RECORDS SUMMARY | 2024-05-20 16:15 | XMS_ITS | Encounter Summary ---
Author Organization [facility] Address [address] [place] [address] Care Team Providers Care High Pressure Firer Name Role Phone Valerie Santana MD Primary Care Provider [phone] Encounter Details Date Type Department Care Team (Latest Contact Info) Description 12/03/2019 Travel Social History Tobacco Use Types Packs/Day [...] on filedocumented in this encounter Care Teams High Pressure Firer Relationship Specialty Start Date End Date Valerie Santana MD [address] [place] [phone] PCP - General 10/11/16 documented as of this encounter
--- OUTSIDE RECORDS SUMMARY | 2024-05-20 16:15 | XMS_ITS | Referral Summary ---
Author Organization [facility] Address [address] [place] [address] Care Team Providers Care Plate Take Out Worker Name Role Phone Valerie Santana MD Primary Care Provider [phone] Encounters Date Type Department Care Team Description 04/21/2024 16:00 EDT Office Visit [facility] [address] [place], [place] [id number] Neri Garrett MD Urinary incontinence, unspecified type (Primary Dx) from Last 3 Months Allergies Active Allergy Reactions Criticality Noted Date [...] original. Patient has given permission for [facility] to verbally discuss the following [...] encounter 01/08/2022 Traumatic hematoma 01/06/2022 Hematoma 01/06/2022 Social History Tobacco Use Types Packs/Day Years [...] 14:27 EDT Sexual Orientation Not on file Last Filed Vital Signs Vital Sign Reading [...] Body Mass Index 38.58 01/05/2022 2309 EDT Functional Status Functional Status Response Date of [...] (5 years old or older) No 01/06/2022 Plan of Treatment Not on file Procedures Procedure Name Priority Date/Time Associated Diagnosis Comments UROLOGY BLADDER SCAN Routine 04/21/2024 Urinary incontinence, unspecified type from Last 3 Months Results * UROLOGY BLADDER SCAN (04/21/2024) Bladder Scan 14 [facility] P OINT OF CARE Comment:pvr Urine Neri Garrett MD UROLOGY ORDERABLES [facility] POINT OF CARE from Last 3 Months Advance Directives For more information, please contact: [phone] * Full Code (Latest Code Status on File) Date Activated Date Inactivated Comments 01/06/2022 3:52 01/10/2022 16:01 Question Answer Comments When the patient has NO PULSE: Full Code / CPR Who Made the Decision? Default/Not Discussed Care Teams Plate Take Out Worker Relationship Specialty Start Date End Date Valerie Santana MD [address] [place] [phone] PCP - General 10/11/16
--- OUTSIDE RECORDS SUMMARY | 2024-05-20 16:15 | XMS_ITS | Encounter Summary ---
Author Organization [facility] Address [address] [place] [address] Care Team Providers Care Police Commanding Officer Name Role Phone Valerie Santana MD Primary Care Provider [phone] Reason for Referral * Prior Authorization (See Order Priority) - Authorized Specialty Diagnoses / Procedures Referred By Adi trejo Referred To Contact Infusion Therapy Diagnoses COVID-19 determined by clinical diagnostic criteria Rocío Segura MD [address] [facility], [address] [place] [address] Valerie Santana MD [address] [place] [phone] Referral ID Status Reason Start Date Expiration Date Visits Requested Visits Authorized [id number] Authorized Specialty Services Required 1 1 1 [...] Plan, Etc) No Comments Valerie Santana MD [facility] [phone] Reason for Visit * Reason Comments Infusion * Prior Authorization (See Order Priority) - Authorized Specialty Diagnoses / Procedures Referred By Contac t Referred To Contact Infusion Therapy Diagnoses COVID-19 determined by clinical diagnostic criteria Rocío Segura MD [address] [place] [phone] Valerie Santana MD [address] [place] [phone] Referral ID Status Reason Start Date Expiration Date Visits Requested Visits Authorized [id number] Authorized Specialty Services Required 1 1 1 Encounter Details Date Type Department Care Team (Late st Contact Info) Description 08/15/2021 6:49 EDT - 08/15/2021 23:[address] [facility] [address] [address] Rocío Segura MD [address] [place] [phone] Infusion, Monoclonal Antibody COVID-19 determined by clinical diagnostic criteria Discharge Disposition: Home or Self Care Social [...] Sign Reading Time Taken Comments Blood Pressure 148/71 08/15/2021 1105 EDT Pulse 65 08/15/2021 0929 EDT Temperature 36.4 ??C (97.5 ??F) 08/15/2021 1105 EDT Respiratory Rate 20 08/15/2021 1105 EDT Oxygen Saturation 99% 08/15/2021 1105 EDT Inhaled Oxygen Concentration - - Weight [...] Sig Dispensed Refills Start Date End Date Cetirizine 10 mg capsule Take 1 Capsule by mouth daily. DABIGATRAN ETEXILATE MESYLATE (PRADAXA ORAL) Take 150 mg by mouth 2 times daily. FLUoxetine (PROZAC) 20 mg tablet FLUOXETINE HCL 20 MG TABS 06/07/2021 ibuprofen (MOTRIN) 600 mg tablet 1 Tablet every 8 hours. 11/26/2020 metoprolol SUCCinate (TOPROL-XL) 50 mg tablet 1 Tablet every 24 hours. 11/10/2020 omeprazole (PRILOSEC) 20 mg capsule Take 1 Capsule by mouth daily. alendronate (FOSAMAX) 70 mg tablet Take 70 mg by mouth. 12/17/2020 023 clopidogrel (PLAVIX) 75 mg tablet Take 75 mg by mouth daily. 01/06/2022 conjugated estrogens 0.625mg/G (PREMARIN) vaginal cream Place 0.5 g vaginally daily. 12/15/2022 diphenhydrAMINE (BENADRYL) 25 mg capsule Take 25 mg by mouth every 6 hours as needed (1-2 tabs). 01/10/2022 GLUC HCL/GLUC MARRERO/WL-EIF-P-GLUC (GLUCOSAMINE COMPLEX ORAL) Take by mouth. 01/10/2022 loratadine (CLARITIN) 10 mg tablet Take 10 mg by mouth daily. 01/10/2022 losartan (COZAAR) 100 mg tablet Take 100 mg by mouth daily. 01/10/2022 METOPROLOL SUCCINATE ORAL Take 50 mg by mouth daily. 12/15/2022 simvastatin (ZOCOR) 20 mg tablet Take 30 mg by mouth at bedtime. 12/15/2022 tolterodine (DETROL LA) 4 mg long acting capsule Take 4 mg by mouth daily. 01/10/2022 warfarin (COUMADIN) 5 mg tablet Take 5 mg by mouth daily. 01/06/2022 documented as of this encounter Discharge Disposition Disposition Code Departure Means Destination Home or Self Care documented in this encounter Progress Notes * Colby Jones RN - 08/15/2021 0930 EDT Images from the original note were not included. Karla Gillis arrives to [facility] infusion room for REGEN-COV treatment of COVID 19 related to ICD U07.1 VSS, Peripheral IV inserted/ Port accessed/PICC line in place. Consent and education for infusion performed by provider prior to arrival. Casirivimab-imdevimab initiated at 1027 Infusion completed at 1104 Pt remains for 1 hour post observation. Pt tolerated infusion without signs or symptoms of infusion reaction. Educated about importance of maintaining isolation protocol and signs and symptoms of delayed infusion reaction and when to call doctor. Today you received an infusion of a monoclonal antibody called REGEN-COV (casirivimab and imdevimab) for treatment of COVID-19 symptoms. After you are sent home you must continue with isolation precautions. Self isolate until all three criteria are met: - at least 24 hours have passed since last fever-reducing medications AND - symptoms have improved AND - at least 10 days after symptoms first appeared If you experience symptoms of delayed infusion reaction including Itching Nausea Dizziness Headache Rash Consult your medical doctor If you experience: Difficulty breathing or chest pain call 911 Provider Name: Contact Number: * Meaghan Chand RN - 08/15/2021 0930 EDT 1155 Pt tolerated infusion well, PIV flushed with NS, removed,CSD applied. documented in this encounter Plan of Treatment Scheduled Referrals Name Type Priority Associated Diagnoses Order Schedule AMB CONS/FOLLOW UP SHEP 4 INFUSIONS Outpatient Referral Urgent COVID-19 determined by clinical diagnostic criteria 1 Occurrences starting 08/15/2021 until 08/15/2021 documented as of this encounter Visit Diagnoses Diagnosis COVID-19 determined by clinical diagnostic criteria documented in this encounter Administered Medications Inactive Administered Medications - up to 3 most recent administrations Medication Order MAR Action Action Date Dose Rate Site casirivimab-imdevimab 1,200 mg in sodium chloride (NS) 0.9 % 150 mL IVPB 1,200 mg, intravenous, Administer over 31 Minutes, NOW X1, 1 dose, On Sun08/15/21 at 0715, Indication: Therapeutic Use/Patient is COVID positive, Select appropriate high risk criteria as outlined by the EUA: Age >/= 65 years, Provider has discussed the information consistent with the Fact Sheet for Patients, Parents, and Caregivers. Yes, Patient has been informed that casirivimab-imdevimab is an unapproved drug that is authorized under a EUA; and understands the risks and benefits? Yes, Routine Given 08/15/2021 10:27 EDT 1,200 mg 310 mL/hr sodium chloride 0.9 % (NS) infusion 100 mL/hr, intravenous, CONTINUOUS, Starting on Sun08/15/21 at 0715, Until Sun08/16/21 at 1024, Routine, Outpatient Infusion New Bag 08/15/2021 10:25 EDT 100 mL/hr 100 mL/hr documented in this encounter Orders Medications Ordered That Eyad ht Not Have Been Administered Count Last Ordered Date First Ordered Date acetaminophen (TYLENOL) tablet 650 mg 1 diphenhydrAMINE (BENADRYL) injection 50 mg 1 08/15/2021 EPINEPHrine (ADRENALIN) injection 0.3 mg 1 08/15/2021 lidocaine (PF) 10 mg/mL (1 % ) injection 2 mg 1 08/15/2021 methylPREDNISolone sod suc(P F) (SOLU-MEDROL) injection 100 mg 1 08/15/2021 ondansetron (PF) (ZOFRAN) injection 4 mg 1 08/15/2021 sodium chloride 0.9 % (flush) flush 10 mL 1 08/15/2021 sodium chloride 0.9 % (flush) flush 20 mL 1 08/15/2021 documented in this encounter Care Teams Police Commanding Officer Relationship Specialty Start Date End Date Valerie Santana MD [address] [place] [phone] PCP - General 10/11/16 documented as of this encounter
--- OUTSIDE RECORDS SUMMARY | 2024-05-20 16:16 | XMS_ITS | Encounter Summary ---
Author Organization [facility] Address [address] [place] [address] Care Team Providers Care Art Psychotherapist Or Therapist Name Role Phone Unavailable Primary Care Provider Unavailabl e Encounter Details Date Type Department Care Team (Late st Contact Info) Description 09/03/2007 14:06 [facility] Hospital Encounter [address] [address] Sharmila Mckeon PA-C [address] [place] [address], [address] [place] [phone] Social History Tobacco Use Types Packs/Day Years [...] 21:30 EDT documented as of this encounter Plan of Treatment Not on file documented as of this encounter Visit Diagnoses Not on filedocumented in this encounter
--- OUTSIDE RECORDS SUMMARY | 2024-05-20 16:16 | XMS_ITS | Encounter Summary ---
Author Organization [facility] Address [address] [place] [address] Care Team Providers Care Stove Mechanic Name Role Phone Valerie Santana MD Primary Care Provider [phone] Encounter Details Date Type Department Care Team (Latest Contact Info) Description 11/21/2019 Travel Social History Tobacco Use Types Packs/Day [...] on filedocumented in this encounter Care Teams Stove Mechanic Relationship Specialty Start Date End Date Valerie Santana MD [address] [place] [phone] PCP - General 10/11/16 documented as of this encounter
--- OUTSIDE RECORDS SUMMARY | 2024-05-20 16:16 | XMS_ITS | Encounter Summary ---
Author Organization [facility] Address [address] [place] [address] Care Team Providers Care Spanish Lecturer Name Role Phone Valerie Santana MD Primary Care Provider [phone] Reason for Visit * Reason Onset Date Comments Pre-op Exam 11/05/2019 Encounter Details Date Type Department Care Team (Late st Contact Info) Description 11/05/2019 15:00 EST Office Visit [facility] [address] [place] [address] Cuca Mike MD [address] [place] [phone] Social History Tobacco Use Types Packs/Day Years [...] No 08/11/2019 documented as of this encounter Ordered Prescriptions Prescription Sig Dispensed Refills Start Date End Da te moxifloxacin (VIGAMOX) 0.5 % ophthalmic solution Place 1 Drop into the left eye 4 times daily for 11 days. 1 Bottle 1 11/17/2019 11/28/2019 prednisoLONE (PRED FORTE) 1 % ophthalmic suspension Place 1 Drop into the left eye 4 times daily for 29 days. 1 Bottle 1 11/20/2019 12/03/2019 ketOROLAC tromethamine (ACULAR LS) 0.4 % drops Place 1 Drop into the left eye 4 times daily for 32 days. 5 mL 1 11/17/2019 12/03/2019 documented in this encounter Progress Notes * Myrtle Holley COA - 11/05/2019 1500 EST BIOMETRY Right eye Left eye Type: Lenstar Lenstar Indication: IOL Calculations IOL Calculations Biometry Completed by DENNYS Ramey Original tests to be found in patients shadow chart I was directly supervised by Dr. Jae Hicks and he was in the suite and immediately available for the entire time the service was provided. DENNYS Ramey 11/05/2019 documented in this encounter Plan of Treatment Not on file documented as of this encounter Procedures Procedure Name Priority Date/Time Associated Diagnosis Comments IOL MASTER/LENS STAR ONLY Routine 11/05/2019 15:11 EST Combined forms of age-related cataract of left eye documented in this encounter Results * IOL MASTER/LENS STAR ONLY (11/05/2019 15:11 EST) Narrative POINT OF CARE [facility] - 11/12/2019 9:04 EST BIOMETRY ??Right eye Left eye Type: ??Lenstar Lenstar ?? Indication: ??IOL Calculations ??IOL Calculations ?? Biometry Completed by DENNYS Ramey Original tests to be found in patients shadow chart I was directly supervised by Dr. Mike and she was in the suite and immediately available for the entire time the service was provided. Cuca Mike MD OPHTH ULTRASOUND POINT OF CARE [facility] documented in this encounter Visit Diagnoses Diagnosis Combined forms of age-related cataract of left eye- Primary Other and combined forms of senile cataract documented in this encounter Care Teams Spanish Lecturer Relationship Specialty Start Date End Date Valerie Santana MD [address] [place] [phone] PCP - General 10/11/16 documented as of this encounter
--- OUTSIDE RECORDS SUMMARY | 2024-05-20 16:16 | XMS_ITS | Encounter Summary ---
Author Organization [facility] Address [address] [place] [address] Care Team Providers Care Lead Case Manager Name Role Phone Unavailable Primary Care Provider Unavailabl e Encounter Details Date Type Department Care Team (Late st Contact Info) Description 07/03/2007 Before PRISM Converted Visit (Maple) [facility] conversion [address] [place] [address] Ulices Alexander MD Social History Tobacco Use Types Packs/Day Years Used Date Smoking Tobacco: Never Assessed Sex and Gender Information Value Date Recorded Sex Assigned at Not on file Gender Identity Female 08/12/2021 14:27 EDT Sexual Orientation Not on file documented as of this encounter Plan of Treatment Not on file documented as of this encounter Visit Diagnoses * Evaluation - Ulices Alexander MD - 09/01/2009 1023 EST [facility] [address] [facility] [address] [facility] [address] NEW PATIENT EVALUATION - 07/03/2007 Isrrael Lockett MD [facility] [address] [place] [address] Richie Vann MD [facility] [address] [place] [address] Dear Colleagues: Enclosed is my new patient evaluation of Mrs. Gillis. She appears to have a recent compression fracture of L4 due to her fall at work on June 17, 2007. I donsee any significant change in the vertebral height. On x-ray today. Mrs. Gillis is withoutneurologic deficit. I recommend symptomatic pain treatment as you see indicated. I will see her in follow-up in about four weeks to repeat her x-rays.I have given her a prescription to rent a wheelchair for the next three months. I anticipate that she may be out of work for three months. We will keep you informed of her progress. If you have questions, please call. . Sincerely, Ulices Alexander PROBLEM Severe back pain secondary to a fall at work. SUBJECTIVE Mrs. Gillis is referred from the E.R.. Her primary care physician is Dr. Lockett and Dr. Vann. 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 On June 18, 2007 she was walking into the building when one of the patients was holding the door, let go, this caused her to fall back into a square pillar hitting her back andit took her about five minutes before she could get up and walk in using the wheelchair as an aid. She got help and then went to the E.R[facility] with her x-rays and a CAT scan showing an old compression fracture of L2 and acute compression fracture of L4, no spinal canal compromise or fractures of the posterior elements. She has been using a wheelchair from work. She is taking Percocet, 5 mg. taking6 to8 a day. This does help her pain and Ibuprofen; she is taking 800 three times a day. Her review of systems is negative except for having gastric upset and takes Prilosec for that once a day. She has trouble sleeping because of her pain. There is nopositive family history. She is allergic to Penicillin and Codeine makes her sick. She has had no prior surgeries, doesnt smoke or drink. Her accompanies her today. OBJECTIVE On examination Karla is a pleasant 62-year-old female who is oriented X 3, under no overt distress. She is reasonably comfortable sitting in the chair. She says that when she gets up it causes her some discomfort in her low back. She has no leg pain. She walks with a slightly guarded halting gait but is able to walk on her heels and toes with normal motor control with my supporting her with one hand. She has no motor or sensory deficit in the upper or lower extremities. Her reflexes are equal at the biceps, triceps, knees and ankles. Her pulse is 72. I took x-rays of her lumbar spine, AP isrrael lateral and it does show the compression fractures at L2 and L4, essentially unchanged from when she had the x-rays taken on June 17, 2007. ASSESSMENT Acute compression fracture of L4. PLAN For right now we will watch Karla, allow activity to her comfort. I have given her a prescription to rent a wheelchair for the next three months. I am not able to give an exact time she will return to work yet. I want to see her in three weeks and we will repeat her x-ray, AP and lateral of the lumbar spine on arrival. I am requesting Dr. Stone help in pain management as he sees indicated as the local oversight will be necessary. Signed by Ulices Alexander MD 07/10/2007 12:53 Pattie Shen MD Ulices Alexander MD - Ulices Alexander MD - [facility] Job ID: [id number] Doc ID: [id number] cc: MD Richie Barney MD documented in this encounter
--- OUTSIDE RECORDS SUMMARY | 2024-05-20 16:16 | XMS_ITS | Encounter Summary ---
Author Organization [facility] Address [address] [place] [address] Care Team Providers Care Press Maintainer Name Role Phone Valerie Santana MD Primary Care Provider [phone] Reason for Visit * Reason Onset Date Comments Appointment Related 01/12/2017 Encounter Details Date Type Department Care Team (Late st Contact Info) Description 01/12/[address] [facility] Rehabilitation Therapy - Medical Office Building [address] [place] [id number] Therapy, Physical Appointment Related Social History Tobacco Use Types Packs/Day Years Used Date Smoking Tobacco: Never Smokeless Tobacco: Never Sex and Gender Information Value Date Recorded Sex Assigned at Not on file Gender Identity Female 08/12/2021 14:27 EDT Sexual Orientation Not on file documented as of this encounter Miscellaneous Notes * Telephone Encounter - Lauren Dobbs - 01/12/2017 1602 EDT [facility] - MEDICAL OFFICE BUILDING [address] [facility] [address] A confirmation call was made to patient regarding 01/16/2017 physical therapy appointment. Attempted to leave the date/time/location of appointment with patient, however she hung up on me before I could finish giving her the information about the appointment. documented in this encounter Plan of Treatment Not on file documented as of this encounter Visit Diagnoses Not on filedocumented in this encounter Care Teams Press Maintainer Relationship Specialty Start Date End Date Valerie Santana MD [address] [place] [phone] PCP - General 10/11/16 documented as of this encounter
--- OUTSIDE RECORDS SUMMARY | 2024-05-20 16:16 | XMS_ITS | Encounter Summary ---
Author Organization [facility] Address [address] [place] [address] Care Team Providers Care Tester Armature Or Fields Name Role Phone Unavailable Primary Care Provider Unavailabl e Encounter Details Date Type Department Care Team (Latest Contact Info) Description 07/03/2007 10:50 EDT - 07/03/2007 11:59 EDT Hospital Encounter [facility] conversion [address] [place] [address] Ulices Alexander MD Discharge Disposition: Auto Discharge Social History Tobacco Use Types Packs/Day Years Used Date Smoking Tobacco: Never Assessed Sex and Gender Information Value Date Recorded Sex Assigned at Not on file Gender Identity Female 08/12/2021 14:27 EDT Sexual Orientation Not on file documented as of this encounter Discharge Disposition Disposition Code Departure Means Destination Auto Discharge documented in this encounter Plan of Treatment Not on file documented as of this encounter Procedures Procedure Name Priority Date/Time Associated Diagnosis Comments L SPINE 2-3 VIEWS 07/03/2007 12: 13 EDT documented in this encounter Results * L SPINE 2-3 VIEWS (07/03/2007 12:13 EDT) Anatomical Region Laterality Modality Other 07/03/2007 12:1 3 EDT Narrative 04/12/2009 2:01 EDT lbp. fell at work. fx l4, check healing. L SPINE 2-3 VIEWS ??Jul 03, 2007 12:13:00 PM Signs and Symptoms:: ??lbp. ??fell at work. fx l4, ??check healing. Findings: No comparison available for trauma. Two views of the lumbar spine demonstrate a compression fracture the L4 vertebral body, involving approximately 30% height loss. The superior portion of the posterior aspect appears slightly retropulsed. This can be further evaluated with CT scan if indicated. There is also a compression fracture the L2 vertebral body, involving approximately 10% vertebral body height loss. No other fractures identified. Procedure Note Sj Ventura MD - 04/12/2009 lbp. fell at work. fx l4, check healing. L SPINE 2-3 VIEWS Jul 03, 2007 12:13:00 PM Signs and Symptoms:: lbp. fell at work. fx l4, check healing. Findings: No comparison available for trauma. Two views of the lumbar spine demonstrate a compression fracture the L4 vertebral body, involving approximately 30% height loss. The superior portion of the posterior aspect appears slightly retropulsed. This can be further evaluated with CT scan if indicated. There is also a compression fracture the L2 vertebral body, involving approximately 10% vertebral body height loss. No other fractures identified. Ulices Alexander MD IMG DIAGNOSTIC IMAG ING ORDERABLES documented in this encounter Visit Diagnoses Not on filedocumented in this encounter
--- OUTSIDE RECORDS SUMMARY | 2024-05-20 16:16 | XMS_ITS | Encounter Summary ---
Author Organization [facility] Address [address] [place] [address] Care Team Providers Care Orange Picking Supervisor Name Role Phone Valerie Santana MD Primary Care Provider [phone] Reason for Visit * Reason Onset Date Comments Appointment Related 12/13/2016 Encounter Details Date Type Department Care Team (Late st Contact Info) Description 12/13/2016 Telephone [facility] Rehabilitation Therapy - Medical Office Building [address] [place] [address] Therapy, Physical Appointment Related Social History Tobacco Use Types Packs/Day Years Used Date Smoking Tobacco: Never Smokeless Tobacco: Never Sex and Gender Information Value Date Recorded Sex Assigned at Not on file Gender Identity Female 08/12/2021 14:27 EDT Sexual Orientation Not on file documented as of this encounter Miscellaneous Notes * Telephone Encounter - Andria Mansfield - 12/13/2016 1036 EST [facility] REHABILITATION THERAPY - MEDICAL OFFICE BUILDING 2 [facility] [address] A confirmation call was made to patient regarding 12/15/2016 physical therapy appointment. A message was left with date/time/location of appointment and phone number to the [facility]. documented in this encounter Plan of Treatment Not on file documented as of this encounter Visit Diagnoses Not on filedocumented in this encounter Care Teams Orange Picking Supervisor Relationship Specialty Start Date End Date Valerie Santana MD [address] [place] [address] PCP - General 10/11/16 documented as of this encounter
--- OUTSIDE RECORDS SUMMARY | 2024-05-20 16:16 | XMS_ITS | Encounter Summary ---
Author Organization [facility] Address [address] [place] [address] Care Team Providers Care Certified Substance Abuse Counselor Name Role Phone Isrrael Lockett MD Primary Care Provider [phone] Encounter Details Date Type Department Care Team (Late st Contact Info) Description 10/09/2016 Results Only [facility] Pelvic Medicine and Reconstructive Surgery - Medical Office Building [address] [address] Mary Mcdonald MD 2 [facility] Medical Office [facility], [address] [phone] Social History Tobacco Use Types Packs/Day Years Used Date Smoking Tobacco: Never Smokeless Tobacco: Never Sex and Gender Information Value Date Recorded Sex Assigned at Not on file Gender Identity Female 08/12/2021 14:27 EDT Sexual Orientation Not on file documented as of this encounter Plan of Treatment Not on file documented as of this encounter Procedures Procedure Name Priority Date/Time Associated Diagnosis Comments CYTOPATHOLOGY Routine 10/09/2016 0:00 EST documented in this encounter Results * CYTOPATHOLOGY (10/09/2016 0:00 EST) Pathology Report: CYTOPATHOLOGY REPORT Reports generated via electronic interface contain original data; however they are lacking the format of the original report. Caution should be taken when reading/interpret ing unformatted reports. Name: ? KARLA GILLIS V ? Accession #: ? [id number] : ? 1945 (Age: 71) ??F ?Collect Date: ? 10/09/2016 Location: ? [facility] ? Receive Date: ? 10/10/2016 Provider: ? MARY MCDONALD MD Copy to: ? CYTOLOGIC DIAGNOSIS: URINE, VOIDED, CYTOLOGIC EVALUATION: - Negative for malignant cells. - Rare reactive and degenerated urothelial cells present. Document reviewed and electronically signed by: ? NÉSTOR PHOENIX MD Report Date: ??10/11/2016 09:14 By the signature above, the attending physician certifies that he/she has personally conducted a gross and/or microscopic examination of the described specimens and rendered or confirmed the above diagnosis. Specimen Type: ? Urine, Voided Clinical History: ? Hematuria. clinical diagnosis code: ??R32. ? Gross Description: ? 80ccs of clear yellow fluid were received and processed by selective cellular enhancement technique. ? End of Report [facility] 10/09/2016 10/10/2016 8:5 2 EST Mary Mcdonald MD PATHOLOGY MY ANDRADE [facility] [address] [place] [address] documented in this encounter Visit Diagnoses Not on filedocumented in this encounter Care Teams Certified Substance Abuse Counselor Relationship Specialty Start Date End Date Isrrael Lockett MD [address] [place] [address] PCP - General 06/11/14 10/10/16 documented as of this encounter
--- OUTSIDE RECORDS SUMMARY | 2024-05-20 16:16 | XMS_ITS | Encounter Summary ---
Author Organization [facility] Address [address] [place] [address] Care Team Providers Care Junior Technical Writer Name Role Phone Isrrael Lockett MD Primary Care Provider [phone] Encounter Details Date Type Department Care Team (Latest Contact Info) Description 06/11/2014 16:36 EDT - 06/11/2014 23:59 EDT Hospital Encounter [facility] [address] [place] [address] Unknown, Provider, Daryl Dorantes MD [address] [place] [phone] Discharge Disposition: Auto Discharge Social History Tobacco Use Types Packs/Day Years Used Date Smoking Tobacco: Never Assessed Sex and Gender Information Value Date Recorded Sex Assigned at Not on file Gender Identity Female 08/12/2021 14:27 EDT Sexual Orientation Not on file documented as of this encounter Discharge Diagnoses Diagnosis 698.9 PRURITIC DISORDER NOS[ICD-9-CM] documented in this encounter Discharge Disposition Disposition Code Departure Means Destination Auto Discharge Home documented in this encounter Plan of Treatment Pending Results Name Type Priority Associated Diagnoses Date /Time HEMAGRAM AND DIFFERENTIAL Lab Routine 06/11/2014 16:47 EDT Scheduled Orders Name Type Priority Associated Diagnoses Orde r Schedule HEMAGRAM AND DIFFERENTIAL Lab Routine One Time for 1 Occurrences starting 06/11/2014 until 06/11/2014 documented as of this encounter Procedures Procedure Name Priority Date/Time Associated Diagnosis Comments DIFFERENTIAL Routine 06/11/2014 16:47 EDT SED RATE Routine 06/11/2014 16:47 EDT COMPLETE BLOOD COUNT Routine 06/11/2014 16:47 EDT ANTI NUCLEAR AB (THIAGO), IFA Routine 06/11/2014 16:47 EDT THYROID ANTIBODIES Routine 06/11/2014 16 :47 EDT COMPREHENSIVE METABOLIC PANEL (CMP) Routine 06/11/2014 16:47 EDT documented in this encounter Results * DIFFERENTIAL (06/11/2014 16:47 EDT) % Neutrophils 55.7 45.5 - 79.7 % [facility] % Lymphocytes 30.4 15.0 - 46.8 % [facility] % Monocytes 10.1 1.8 - 12.0 % [facility] % Eosinophils 2.8 0.6 - 6.9 % [facility] % Basophils 1.0 0.2 - 1.4 % [facility] ABS Neutrophils 3.34 2.20 - 8.85 K/cmm [facility] ABS Lymphs 1.82 1.09 - 3.30 K/cmm [facility] ABS Monocytes 0.60 0.1 - 0.8 K/cmm [facility] ABS Eosinophils 0.17 0.03 - 0.61 K/cmm [facility] ABS Basophils 0.06 0.01 - 0.11 K/cmm [facility] Type of Diff: Automated [facility] 06/11/2014 16:4 7 EDT 06/11/2014 17:02 EDT Daryl Dorantes MD HEMATOLOGY & PF4 ORD ERABLES [facility] [address] [place] [address] * HEMAGRAM (06/11/2014 16:47 EDT) Pathologist [facility] WBC 5.99 4.0 - 12.4 K/cmm [facility] RBC 4.23 3.86 - 5.04 M/cmm [facility] Hemoglobin 12.6 11.6 - 15.2 gm/dl [facility] HCT 36.1 34.9 - 44.4 % [facility] MCV 85 81 - 98 fl [facility] MCH 29.8 26.7 - 33.3 pg [facility] MCHC 34.8 32.1 - 35.9 gm/dl [facility] PLT 218 141 - 320 K/cmm [facility] RDW-CV 13.8 11.7 - 14.6 % [facility] 06/11/2014 16:4 7 EDT 06/11/2014 17:02 EDT Daryl Dorantes MD HEMATOLOGY & PF4 ORD ERABLES Performing Organization Address City/[facility] Co de Phone Number [facility] [address] [place] [address] * THYROID ANTIBODIES (06/11/2014 16:47 EDT) [facility] Thyroglobulin Ab 21 <61 U/mL [facility] Thyroperoxidase Ab <28 <61 U/mL [facility] 06/11/2014 16:4 7 EDT 06/11/2014 17:02 EDT Daryl Dorantes MD CHEMISTRY & BLOOD GA S ORDERABLES Performing Organization Address [facility] Co de Phone Number [facility] [address] [place] [address] * SED. RATE:WESTERGREN (06/11/2014 16:47 EDT) Pathologist [facility] Sed. Rate Westergren 5 0 - 30 mm/hr [facility] 06/11/2014 16:4 7 EDT 06/11/2014 17:02 EDT Daryl Dorantes MD HEMATOLOGY & PF4 ORD ERABLES [facility] [address] [place] [address] * (ABNORMAL) COMPREHENSIVE METABOLIC PANEL (CMP) (06/11/2014 16:47 EDT) Potassium 4.1 3.5 - 5.0 mEq/L [facility] Sodium 136 136 - 145 mEq/L [facility] Chloride 102 96 - 110 mEq/L [facility] CO2 25 24 - 32 mEq/L [facility] Total Alkaline Phosphatase 54 38 - 126 U/L [facility] Bilirubin, Total <0.5 <1.4 mg/dl [facility] AST 36 15 - 46 U/L [facility] ALT 34 <53 U/L [facility] Albumin 4.1 3.4 - 4.9 g/dl [facility] Total Protein 7.0 6.5 - 8.3 g/dl [facility] Creatinine 0.62 0.52 - 1.04 mg/dl [facility] GFR, Calculated >60 >60 ml/min/1.7 3m2 [facility] BUN 18 10 - 26 mg/dl [facility] Calcium 9.3 8.5 - 10.5 mg/dl [facility] Calculated Calcium 9.6 8.5 - 10.5 mg/dl [facility] Glucose, Serum 104(H) 70 - 100 mg/dl [facility] Fasting? Unknown [facility] 06/11/2014 16:4 7 EDT 06/11/2014 17:02 EDT Daryl Dorantes MD CHEMISTRY & BLOOD GA S ORDERABLES Performing Organization Address City/[facility]/ZIP Co de Phone Number [facility] [address] [place] [address] * ANTI NUCLEAR ANTIBODY (06/11/2014 16:47 EDT) Anti Nuclear Ab <40 0 - 40 Dils [facility] 06/11/2014 16:4 7 EDT 06/11/2014 17:02 EDT Daryl Dorantes MD IMMUNOLOGY AND LARISA MARIE ORDERABLES Performing Organization Address City/State/[facility] Co de Phone Number [facility] [address] [place] [address] documented in this encounter Visit Diagnoses Not on filedocumented in this encounter Care Teams Junior Technical Writer Relationship Specialty Start Date End Date Isrrael Lockett MD [address] [place] [address] PCP - General 06/11/14 10/10/16 documented as of this encounter
--- OUTSIDE RECORDS SUMMARY | 2024-05-20 16:16 | XMS_ITS | Encounter Summary ---
Author Organization [facility] Address [address] [place] [address] Care Team Providers Care Rock Crushing Machine Operator Name Role Phone Valerie Santana MD Primary Care Provider [phone] Reason for Visit * Reason Onset Date Comments Appointment Related 12/05/2016 Encounter Details Date Type Department Care Team (Late st Contact Info) Description 12/05/2016 Telephone [facility] Rehabilitation Therapy - Medical Office Building [address] [place] [address] Therapy, Physical Appointment Related Social History Tobacco Use Types Packs/Day Years Used Date Smoking Tobacco: Never Smokeless Tobacco: Never Sex and Gender Information Value Date Recorded Sex Assigned at Not on file Gender Identity Female 08/12/2021 14:27 EDT Sexual Orientation Not on file documented as of this encounter Miscellaneous Notes * Telephone Encounter - Lauren Dobbs - 12/05/2016 1206 EST [facility] REHABILITATION THERAPY - MEDICAL OFFICE BUILDING 2 [facility] [address] A confirmation call was made to patient regarding 12/07/2016 physical therapy appointment. A message was left with date/time/location of appointment and phone number to the [facility]. documented in this encounter Plan of Treatment Not on file documented as of this encounter Visit Diagnoses Not on filedocumented in this encounter Care Teams Rock Crushing Machine Operator Relationship Specialty Start Date End Date Valerie Santana MD [address] [place] [phone] PCP - General 10/11/16 documented as of this encounter
--- OUTSIDE RECORDS SUMMARY | 2024-05-20 16:16 | XMS_ITS | Encounter Summary ---
Author Organization [facility] Address [address] [place] [address] Care Team Providers Care New Car Make Ready Worker Name Role Phone Valerie Santana MD Primary Care Provider [phone] Encounter Details Date Type Department Care Team (Latest Contact Info) Description 03/14/2017 13:57 EDT - 03/14/2017 23:59 EDT Hospital Encounter [facility] [address] [place] [address] Unknown, Provider, Discharge Disposition: Home or Self Care Social History Tobacco Use Types Packs/Day Years Used Date Smoking Tobacco: Never Smokeless Tobacco: Never Sex and Gender Information Value Date Recorded Sex Assigned at Not on file Gender Identity Female 08/12/2021 14:27 EDT Sexual Orientation Not on file documented as of this encounter Medications at Time of Discharge Medication Sig Dispensed Refills Start Date End Date Cetirizine 10 mg capsule Take 1 Capsule by mouth daily. omeprazole (PRILOSEC) 20 mg capsule Take 1 Capsule by mouth daily. clopidogrel (PLAVIX) 75 mg tablet Take 75 mg by mouth daily. 01/06/2022 diphenhydrAMINE (BENADRYL) 25 mg capsule Take 25 mg by mouth every 6 hours as needed (1-2 tabs). 01/10/2022 GLUC HCL/GLUC MARRERO/QV-WFN-C-GLUC (GLUCOSAMINE COMPLEX ORAL) Take by mouth. 01/10/2022 loratadine (CLARITIN) 10 mg tablet Take 10 mg by mouth daily. 01/10/2022 METOPROLOL SUCCINATE [...] Code Departure Means Destination Home or Self [facility] documented in this encounter Plan of Treatment Not on file documented as of this encounter Visit Diagnoses Not on filedocumented in this encounter Care Teams New Car Make Ready Worker Relationship Specialty Start Date End Date Valerie Santana MD [address] [place] [phone] PCP - General 10/11/16 documented as of this encounter
--- OUTSIDE RECORDS SUMMARY | 2024-05-20 16:16 | XMS_ITS | Encounter Summary ---
Author Organization [facility] Address [address] [place] [address] Care Team Providers Care Network Designer Name Role Phone Valerie Santana MD Primary Care Provider [phone] Encounter Details Date Type Department Care Team (Latest Contact Info) Description 03/08/2017 13:53 EDT - 03/08/2017 23:59 EDT Hospital Encounter [facility] - Medical Office Building [phone] Valerie Santana MD [address] [place] [address] Discharge Disposition: Auto Discharge Social History Tobacco Use Types Packs/Day Years Used Date Smoking Tobacco: Never Smokeless Tobacco: Never Sex and Gender Information Value Date Recorded Sex Assigned at Not on file Gender Identity Female 08/12/2021 14:27 EDT Sexual Orientation Not on file documented as of this encounter Discharge Diagnoses Diagnosis N39.46 Mixed incontinence-N39.46[ICD-10-CM] N81.6 Rectocele-N81.6[ICD-10-CM] N81.10 Cystocele, unspecified-N81.10[ICD-10-CM] documented in this encounter Medications at Time [...] as needed (1-2 tabs). 01/10/2022 GLUC HCL/GLUC MARRERO/GJ-POV-E-GLUC (GLUCOSAMINE COMPLEX ORAL) Take by mouth. 01/10/2022 [...] on filedocumented in this encounter Care Teams Network Designer Relationship Specialty Start Date End Date Valerie Santana MD [address] [place] [phone] PCP - General 10/11/16 documented as of this encounter
--- OUTSIDE RECORDS SUMMARY | 2024-05-20 16:16 | XMS_ITS | Encounter Summary ---
Author Organization [facility] Address [address] [place] [address] Care Team Providers Care Home Management Supervisor Name Role Phone Unavailable Primary Care Provider Unavailabl e Encounter Details Date Type Department Care Team (Late st Contact Info) Description 12/02/2010 Results Only [facility] Laboratory Services - [facility] [address] [place], [place] [address] Valerie Sapp MD [address] [place] [phone] Social History Tobacco Use Types Packs/Day Years Used Date Smoking Tobacco: Never Assessed Sex and Gender Information Value Date Recorded Sex Assigned at Not on file Gender Identity Female 08/12/2021 14:27 EDT Sexual Orientation Not on file documented as of this encounter Plan of Treatment Not on file documented as of this encounter Procedures Procedure Name Priority Date/Time Associated Diagnosis Comments CYTOPATHOLOGY Routine 12/02/2010 0:00 EST documented in this encounter Results * CYTOPATHOLOGY (12/02/2010 0:00 EST) Pathology Report: CYTOPATHOLOGY REPORT ? Reports generated via electronic interface contain original data; ? however they are lacking the format of the original report. ? Caution should be taken when reading/interpreti ng unformatted reports. ? Name: ? KARLA GILLIS V ? Accession #: ? [id number] ? : ? 1945 (Age: 65) ??F ?Collect Date: ? 12/02/2010 ? Location: ? [facility] ? Receive Date: ? 12/06/2010 ? Provider: ?VALERIE SAPP MD ? Copy to: ? Specimen/Source: ?Pap Test, Cervix/Endocervix, ThinPrep Imaging System ? with manual evaluation ? Last Menstrual Period: ? yrs ago ? SPECIMEN ADEQUACY ? Satisfactory for Evaluation ? - assessment of transformation zone component not applicable ( e.g. atrophy, ? vaginal sample, hysterectomy) ? GENERAL CATEGORIZATION ? Negative for Intraepithelial Lesion or Malignancy ? Document reviewed and electronically signed by: ? Ceci Judi, CT(ASCP) ? Report Date: ??12/08/2010 07:48 ? End of Report ? [facility] 12/02/2010 12/06/2010 Valerie Sapp MD PATHOLOGY ORDERABLES Performing Organization Address City/State/[facility] Co de Phone Number KELLY GONSALE[facility] [address] [place] [address] documented in this encounter Visit Diagnoses Not on filedocumented in this encounter
--- OUTSIDE RECORDS SUMMARY | 2024-05-20 16:16 | XMS_ITS | Encounter Summary ---
Author Organization [facility] Address [address] [place] [address] Care Team Providers Care Stenographer Secretary Name Role Phone Valerie Santana MD Primary Care Provider [phone] Encounter Details Date Type Department Care Team (Late st Contact Info) Description 08/02/2017 Documentation Visit [facility] - Medical Office Building [address] [place] [id number] Bridgette Matos, PT Social History Tobacco Use Types Packs/Day Years Used Date Smoking Tobacco: Never Smokeless Tobacco: Never Sex and Gender Information Value Date Recorded Sex Assigned at Not on file Gender Identity Female 08/12/2021 14:27 EDT Sexual Orientation Not on file documented as of this encounter Progress Notes * Bridgette Matos - 08/02/2017 1707 EDT REHABILITATION THERAPIES [facility] REHABILITATION THERAPY - MEDICAL OFFICE BUILDING [address] [place] [address] Physical Therapy Discontinue/Discharge Note Date: 08/02/2017 Reason for Referral: Diagnosis: JYOTI, cystocele, rectocele Date of Onset: 10/09/16 (sought care date) Referring Provider: Lucas Mcdonald MD Precautions: KATRINA December 2015 Date of Initial Eval: 11/30/16 Total Number of Visits: 2 SUBJECTIVE: None OBJECTIVE: Date of Initial Eval: 11/30/16. We are opting to discontinue Ms. Gillis's therapy at this time because, the patient has not returned after follow up with surgeon, and PT from [facility] contacted me today as pt would like to continuePT services there Please refer to the last Physical Therapy Progress Note for details. ASSESSMENT: Unable to assess her current status as the patient was not seen for any additional therapy sessions. Unable to assess progress as pt has not returned for scheduled follow up visit. Although patient has not returned for planned follow up appointments, skilled PT had been indicated due to incontinence, PFM weakness, and lack of awareness of functional use of these muscles. All Goals discontinued. GOALS: All goals discontinued. PLAN: Discontinue physical therapy. The patient is invited to contact us at any time, should any problems arise, or should her plans for rehabilitation change. Bridgette Matos, PT 08/02/2017 17:07 documented in this encounter Plan of Treatment Not on file documented as of this encounter Visit Diagnoses Not on filedocumented in this encounter Care Teams Stenographer Secretary Relationship Specialty Start Date End Date Valerie Santana MD [address] [place] [phone] PCP - General 10/11/16 documented as of this encounter
--- OUTSIDE RECORDS SUMMARY | 2024-05-20 16:16 | XMS_ITS | Encounter Summary ---
Author Organization [facility] Address [address] [place] [address] Care Team Providers Care Rfid Strategist Name Role Phone Valerie Santana MD Primary Care Provider [phone] Reason for Visit * Reason Comments Post-OP Follow Up POW #1 s/p CE PC/IOL , left eye (11/20/19) Encounter Details Date Type Department Care Team (Latest Contact Info) Description 12/03/2019 9:15 EST Post-op Visit [facility] Ophthalmology [facility] [address] [place] [address] Cuca Mike MD [address] [place] [phone] Pseudophakia (Primary Dx); Combined forms of age-related cataract of right eye Social History Tobacco Use Types Packs/Day Years [...] this encounter Patient Instructions * Patient Instructions* Abiola Rice COA - 12/03/2019 9:15 EST The date for surgery on the right eye is 12/11/2019 Start Moxifloxacin (carrera cap) and Ketorolac (moffett cap) 3 days prior to surgery. documented in this encounter Ordered Prescriptions Prescription Sig Dispensed Refills Start Date End Da te moxifloxacin (VIGAMOX) 0.5 % ophthalmic solution Place 1 Drop into the right eye 4 times daily for 11 days. 1 Bottle 1 12/08/2019 12/19/2019 prednisoLONE (PRED FORTE) 1 % ophthalmic suspension Place 1 Drop into the right eye 4 times daily for 29 days. 1 Bottle 1 12/11/2019 01/09/2020 ketOROLAC tromethamine (ACULAR LS) 0.4 % drops Place 1 Drop into the right eye 4 times daily for 32 days. 5 mL 1 12/08/2019 01/09/2020 documented in this encounter Progress Notes * Cuca Mike MD - 12/03/2019 0915 EST Chief Complaint Patient presents with ??? Post-OP Follow Up POW #1 s/p CE PC/IOL, left eye (11/20/19) HPI The patient is a 74 y.o. female pod#13 s/p CE/PCIOL left eye 11/20/2019, vision is good and improving. 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 Also has DM- 2-3 years, well controlled and taken off metformin. Routine care with Dr. Lucia. Right Eye: Blurred Vision Left Eye: Blurred Vision Visual Aid: None Current Rx Age Location: Pain: Quality: Severity: Duration: Timing: Lasts: Context: 1 week post op cataract surgery, left eye (11/20/19) - doing well, denies pain, flashes or floaters. Vision is good. Using drops as directed. Modifying factors: Associated Signs & Symptoms: Attestation: ROS Constitutional: NL ENT/Mouth Cardiovascular: Respiratory: Gastrointestinal: Genitourinary: Musculoskeletal: Integumentary: Neurologic: Psychiatric: Endocrine: Hematologic: Immunologic: Field Sales Engineer: Exposures: None Other: Attestation: Base Eye Exam Visual Acuity (Snellen - Linear) Right Left Dist sc 20/150 +1 20/25 Dist ph sc 20/30 Tonometry (Applanation, 9:33) Right Left Pressure 10 08 Pupils Pupils Dark Shape APD Right PERRL 3 Round None Left PERRL 3 Round None Neuro/Psych Oriented x3: Yes Mood/Affect: Normal Dilation Left eye: Phenylephrine 2.5%, Tropicamide 1% @ 9:33 Slit Lamp and Fundus Exam External Exam Right Left External Brow ptosis Normal Slit Lamp Exam Right Left Lids/Lashes Normal Normal Conjunctiva/Sclera White and quiet White and quiet Cornea Clear, no guttata Clear corneal incision Anterior Chamber Deep and quiet 1+ cell post dilation Iris Round and reactive, no pseudoexfoliation material Round and reactive Lens 2-3+ Nuclear sclerosis, cortical spokes Posterior chamber intraocular lens, well centered, clear capsule Fundus Exam Right Left Vitreous Posterior vitreous detachment, no [place]'s sign Disc Normal C/D Ratio 0.2 Macula No thickening or exudate, no microaneurysms, no dot blot hemorrhages Vessels Normal Periphery No dot-blot hemorrhages or microaneurysms, no holes, tears, or retinal detachment Refraction Manifest Refraction (Auto) Sphere Cylinder [place] Right Left -2.50 +1.00 129 Manifest Refraction #2 Sphere Cylinder [place] Right Left -0.75 +0.50 120 20/20-1 DIAGNOSTIC TESTS: IMPRESSION & PLAN: ?? Pseudophakia, left eye - POD #13, looks good, retina flat with no holes/tears - ketorolac qid, pred acetate taper as instructed - d/c vigamox - d/c shield - d/c activity restrictions - call with pain, decreased vision, flashes, floaters ??? Combined forms of age-related cataract of right eye - The patient has symptomatic visually significant cataract(s) in the right eye(s). The patient's vision cannot be maximized with a change in the prescription of glasses or contact lenses and this decreases the patient's ability to read due toglare. Testing for other eye diseases such as ARMD have been completed, and these conditions are not contributing to the patient's visual difficulties. R/B/A cataract surgery discussed including bleeding, infection, loss of vision, loss of the eye, retinal detachment, glaucoma, and subsequent surgery. Pt wishes to proceed. Discussed IOLs, options ofpremium IOLs at prior visit. Pt interested in monofocal IOL for distance emmetropia. Plan cataract extraction with IOL right eye first, target plano to match left eye. Consent signed today. ??? Type 2 diabetes mellitus without complication, without long-term current use of insulin - no ocular findings. Right eye not examined today. - Recommend good blood sugar and blood pressure control - Recommend annual dilated eye exam - Letter to PCP ??? Posterior vitreous detachment of both eyes - retina flat with no holes/tears/retinal detachment. Right eye not examined today. - call for increase in [...] my own HPI and have reviewed the [facility]'s ROS as well. I completed this exam personally. Cuca Mike MD I am scribing for Cuca Mike MD, while she is personally performing the service. DENNYS Ramey Patient Education Topic: post op Method: Handout and Verbal Taught to: Patient and Family Barriers: None Outcomes: independent Signature: Cuca Mike MD documented in this encounter Plan of Treatment Not on file documented as of this encounter Visit Diagnoses Diagnosis Pseudophakia- Primary Lens replaced by other means Combined forms of age-related cataract of right eye Other and combined forms of senile cataract documented in this encounter Discontinued Medications Medication Sig Discontinue Reason Start Date End Da te ketOROLAC tromethamine (ACULAR LS) 0.4 % drops Place 1 Drop into the left eye 4 times daily for 32 days. Reorder 11/17/2019 12/03/2019 prednisoLONE (PRED FORTE) 1 % ophthalmic suspension Place 1 Drop into the left eye 4 times daily for 29 days. Reorder 11/20/2019 12/03/2019 documented as of this encounter Eye Exam Visual Acuity (Snellen - Linear) Right eye Left eye Dist sc 20/150 +1 20/25 Dist ph sc 20/30 Tonometry (Applanation, 9:33) Right eye Left eye Pressure 10 08 Pupils Pupils Dark Shape APD Right eye PERRL 3 Round None Left eye PERRL 3 Round None Neuro/Psych Oriented x3: Yes Mood/Affect: Normal Dilation Left eye: Phenylephrine 2.5% , Tropicamide 1% @ 9:33 External Exam Right eye Left eye External Brow ptosis Normal Slit Lamp Exam Right eye Left eye Lids/Lashes Normal Normal Conjunctiva/Sclera White and quiet White and mamadou et Cornea Clear, no guttata Clear corneal incision Anterior Chamber Deep and quiet 1+ cell post di lation Iris Round and reactive, no pseudoexfoliation material Round and reactive Lens 2-3+ Nuclear scleros is, cortical spokes Posterior chamber intraocular lens, well centered, clear capsule Vitreous Posterior vitreo us detachment, no [place]'s sign Fundus Exam Right eye Left eye Disc Normal C/D Ratio 0.2 Macula No thickening or exudate, no microaneurysms, no dot blot hemorrhages Vessels Normal Periphery No dot-blot hemo rrhages or microaneurysms, no holes, tears, or retinal detachment Manifest Refraction #1 (Auto) Sphere Cylinder [place] Dist [place] Right eye Left eye -2.50 +1.00 129 Manifest Refraction #2 Sphere Cylinder [place] Dist [place] Right eye Left eye -0.75 +0.50 120 20/20-1 Care Teams Rfid Strategist Relationship Specialty Start Date End Date aVlerie Santana MD [address] [place] [address] PCP - General 10/11/16 documented as of this encounter
--- OUTSIDE RECORDS SUMMARY | 2024-05-20 16:16 | XMS_ITS | Encounter Summary ---
Author Organization [facility] Address [address] [place] [address] Care Team Providers Care Cad Draftsman Name Role Phone Valerie Santana MD Primary Care Provider [phone] Reason for Visit * Reason Comments Post-OP Follow Up 1 day post op Catara ct surgery - Left eye Encounter Details Date Type Department Care Team (Latest Contact Info) Description 11/21/2019 9:10 EST Post-op Visit [facility] Ophthalmology [facility] [address] [place] [address] Cuca Mike MD [address] [place] [phone] Pseudophakia (Primary Dx) Social History Tobacco Use [...] Progress Notes * Cuca Mike MD - 11/21/2019 0910 EST Chief Complaint Patient presents with ??? Post-OP Follow Up 1 day post op Cataract surgery - Left eye HPI The patient is a 74 y.o. female pod#1 s/p CE/PCIOL left eye 11/20/2019, did well overnight, happy this am. 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 Also has DM- 2-3 years, well controlled and taken off metformin. Routine care with Dr. Lucia. Right Eye: Blurred Vision Left Eye: Blurred Vision Visual Aid: None Current Rx Age Location: Pain: 0 - No pain Quality: Severity: Duration: Timing: Lasts: Context: 1 day post op Cataract surgery - Left eye. She is not having any pain in the eye. She did not take her drops this morning. I gave her 1 drop of Prednisolone, Moxifloxacin and Ketorolac in Left eye. Modifying factors: Associated Signs & Symptoms: Attestation: ROS Constitutional: NL ENT/Mouth Cardiovascular: Respiratory: Gastrointestinal: Genitourinary: Musculoskeletal: Integumentary: Neurologic: Psychiatric: Endocrine: Hematologic: Immunologic: Otolaryngology Surgeon: Exposures: None Other: Attestation: Base Eye Exam Visual Acuity (Snellen - Linear) Right Left Dist sc 20/20 Tonometry (Tonopen, 9:39) Right Left Pressure 13 Pupils Pupils Dark APD Right PERRL 3 None Left PERRL 3 None Neuro/Psych Oriented x3: Yes Mood/Affect: Normal Slit Lamp and Fundus Exam External Exam Right Left External Normal Slit Lamp Exam Right Left Lids/Lashes Normal Conjunctiva/Sclera White and quiet Cornea Mild thickening at main incision, endothelial opacities, endothelial pigment inferiorly, incisions Ben negative Anterior Chamber 2+ Cell/pigment Iris Round and reactive Lens Posterior chamber intraocular lens Fundus Exam Left eye - posterior pole flat DIAGNOSTIC TESTS: IMPRESSION & PLAN: ?? Pseudophakia, left eye - POD #1 (11/20/19), looks good, wounds tight, IOP good - Vigamox qid x 1 week, Ketorolac qid, Pred acetate qid then follow taper as instructed - Shield at night, activity restrictions - Call with pain, redness, decreased vision, flashes or floaters - f/u 7 days dilate/autorefract/refract ??? Combined forms of age-related cataract of right eye - visually significant with decreased vision. Plan cataract extraction with IOL right eye, target plano to match left eye. - consent at next visit ??? Type 2 diabetes mellitus without complication, [...] Right eye Left eye Dist sc 20/20 Tonometry (Tonopen, 9:39) Right eye Left eye Pressure 13 Pupils Pupils Dark APD Right eye PERRL 3 None Left eye PERRL 3 None Neuro/Psych Oriented x3: Yes Mood/Affect: Normal External Exam Right eye Left eye External Normal Slit Lamp Exam Right eye Left eye Lids/Lashes Normal Conjunctiva/Sclera White and mamadou et Cornea Mild thickening at main incision, endothelial opacities, endothelial pigment inferiorly, incisions Ben negative Anterior Chamber 2+ Cell/pigment Iris Round and reacti ve Lens Posterior chambe r intraocular lens Fundus Exam Left eye - posterior pole flat Care Teams Cad Draftsman Relationship Specialty Start Date End Date Valerie Santana MD [address] [place] [address] PCP - General 10/11/16 documented as of this encounter
--- OUTSIDE RECORDS SUMMARY | 2024-05-20 16:16 | XMS_ITS | Encounter Summary ---
Author Organization [facility] Address [address] [place] [address] Care Team Providers Care Master Dyer Name Role Phone Valerie Santana MD Primary Care Provider [phone] Reason for Visit * Reason Comments Follow-up follow up Encounter Details Date Type Department Care Team (Latest Contact Info) Description 03/28/2017 15:15 EDT Office Visit [facility] Pelvic Medicine and Reconstructive Surgery - Medical Office Building [address] [id number] Rohini Mcdonald MD [address] [place] [address] Medical Office [facility], [address] [phone] Urinary incontinence, unspecified type (Primary Dx) Discharge Disposition: Auto Discharge Social History Tobacco Use Types Packs/Day Years Used Date Smoking Tobacco: Never Smokeless Tobacco: Never Tobacco Cessation:Counseling Given: Yes Sex and Gender Information Value Date Recorded Sex Assigned at Not on file Gender Identity Female 08/12/2021 14:27 EDT Sexual Orientation Not on file documented as of this encounter Discharge Diagnoses Diagnosis R32 Unspecified urinary incontinence-R32[ICD-10-CM] documented in this encounter Discharge Disposition Disposition Code Departure Means Destination Auto Discharge documented in this encounter Progress Notes * Rohini Mcdonald MD - 03/28/2017 1515 EDT [facility] FO[facility] Patient: Karla Gillis is an 71 y.o. female seen for a follow-up regarding urinary urgency and incontinence, greatly improved with PFPT. Pt concerned about prolapse. States her previous partner wouldn't be sexually active with her due to prolapse. Wants to have prolapse fixed in case she finds new partner. Pt's daughter agrees this is a bad idea. Current Outpatient Prescriptions Medication Sig Dispense Refill ??? Cetirizine 10 mg capsule Take 1 Capsule by mouth daily. ??? clopidogrel (PLAVIX) 75 mg tablet Take 75 mg by mouth daily. ??? conjugated estrogens 0.625mg/G (PREMARIN) vaginal cream Place 0.5 g vaginally daily. ??? DABIGATRAN ETEXILATE MESYLATE (PRADAXA ORAL) Take by mouth 2 times daily. ??? diphenhydrAMINE (BENADRYL) 25 mg capsule Take 25 mg by mouth every 6 hours as needed (1-2 tabs). ??? GLUC HCL/GLUC MARRERO/BE-QYT-V-GLUC (GLUCOSAMINE COMPLEX ORAL) Take by mouth. ??? loratadine (CLARITIN) 10 mg tablet Take 10 mg by mouth daily. ??? METOPROLOL SUCCINATE ORAL Take 100 mg by mouth daily. ??? omeprazole (PRILOSEC) 20 mg capsule Take 20 mg by mouth daily. ??? simvastatin (ZOCOR) 20 mg tablet Take 30 mg by mouth at bedtime. ??? tolterodine (DETROL LA) 4 mg long acting capsule Take 4 mg by mouth daily. ??? warfarin (COUMADIN) 5 mg tablet Take 5 mg by mouth daily. No current facility-administered medications for this visit. Allergies Allergen Reactions ??? Oxybutynin Chloride Anaphylaxis ??? Penicillins Anaphylaxis and Other (See Comments) Ended up in a coma ??? Lisinopril ??? Codeine GI upset emesis Social History Social History ??? Marital status: Spouse name: N/A ??? Number of children: N/A ??? Years of education: N/A Social History Main Topics ??? Smoking status: Never Smoker ??? Smokeless tobacco: Never Used ??? Alcohol use None ??? Drug use: None ??? Sexual activity: Not Asked Other Topics Concern ??? None Social History Narrative Review of Systems Pelvic pain: No Dyspareunia: No Recurrent UTI: No Hematuria: No Objective There were no vitals taken for this visit. Physical Exam Pelvic: Ext: no exophytic lesion; Vagina: stage 1 cystocele , stage 2 rectocele Assessment and Plan Karla Gillis is a 71 y.o. female with urinary incontinence and pelvic floor prolapse. Symptoms improved with PFPT, Defer pessary trial for now. Rohini Mcdonald MD documented in this encounter Plan of Treatment Not on file documented as of this encounter Visit Diagnoses Diagnosis Urinary incontinence, unspecified type- Primary documented in this encounter Historical Medications * This list may reflect changes made after this encounter. Medication Sig Dispensed Refills Start Date End Date DABIGATRAN ETEXILATE MESYLATE (PRADAXA ORAL) Take 150 mg by mouth 2 times daily. conjugated estrogens 0.625mg/G (PREMARIN) vaginal cream Place 0.5 g vaginally daily. 12/15/2022 added in this encounter Care Teams Master Dyer Relationship Specialty Start Date End Date Valerie Santana MD [address] [place] [phone] PCP - General 10/11/16 documented as of this encounter
--- OUTSIDE RECORDS SUMMARY | 2024-05-20 16:16 | XMS_ITS | Encounter Summary ---
Author Organization [facility] Address [address] [place] [address] Care Team Providers Care Abseiling Instructor Name Role Phone Valerie Santana MD Primary Care Provider [phone] Reason for Visit * Reason Onset Date Comments Appointment Related 11/28/2016 Encounter Details Date Type Department Care Team (Late st Contact Info) Description 11/28/2016 Telephone [facility] Therapy - Medical Office Building [address] [place] [address] Therapy, Physical Appointment Related Social History Tobacco Use Types Packs/Day Years Used Date Smoking Tobacco: Never Smokeless Tobacco: Never Sex and Gender Information Value Date Recorded Sex Assigned at Not on file Gender Identity Female 08/12/2021 14:27 EDT Sexual Orientation Not on file documented as of this encounter Miscellaneous Notes * Telephone Encounter - Lauren Dobbs - 11/28/2016 1445 EST [facility] - MEDICAL OFFICE BUILDING [address] [facility] [address] A confirmation call was made to patient regarding 11/30/2016 physical therapy appointment. A message was left with date/time/location of appointment and phone number to the [facility]. documented in this encounter Plan of Treatment Not on file documented as of this encounter Visit Diagnoses Not on filedocumented in this encounter Care Teams Abseiling Instructor Relationship Specialty Start Date End Date Valerie Santana MD [address] [place] [phone] PCP - General 10/11/16 documented as of this encounter
--- OUTSIDE RECORDS SUMMARY | 2024-05-20 16:16 | XMS_ITS | Encounter Summary ---
Author Organization [facility] Address [address] [place] [address] Care Team Providers Care Online Health And Fitness Coach Name Role Phone Unavailable Primary Care Provider Unavailabl e Encounter Details Date Type Department Care Team (Latest Contact Info) Description 07/25/2007 11:10 EDT - 07/25/2007 11:59 EDT Hospital Encounter [facility] [address] [place] [address] Ulices Alexander MD Discharge Disposition: Auto Discharge [...] Associated Diagnosis Comments L SPINE 2-3 VIEWS 07/25/2007 11: 42 EDT documented in this encounter Results * L SPINE 2-3 VIEWS (07/25/2007 11:42 EDT) Anatomical Region Laterality Modality Other 07/25/2007 11:4 2 EDT Narrative 04/12/2009 2:38 EDT lbp. s/p l2 and l4 compression fractures 06/17/07. assess healing. L SPINE 2-3 VIEWS ??Jul 25, 2007 11:42:00 AM Signs and Symptoms:: ??lbp. ??s/p l2 and l4 compression fractures 06/17/07. assess healing. Comparison: July 03, 2007 Findings: Upright frontal and lateral views of the lumbar spine demonstrate mild compression of L2 and severe compression of L4, neither of which has demonstrably changed. ??The compression of L2 is worse on the right side causing a left convex scoliosis. Overall, there has been slight progression of scoliosis but no other change since the previous study. Procedure Note Salazar Norris MD - 04/12/2009 lbp. s/p l2 and l4 compression fractures 06/17/07. assess healing. L SPINE 2-3 VIEWS Jul 25, 2007 11:42:00 AM Signs and Symptoms:: lbp. s/p l2 and l4 compression fractures 06/17/07. assess healing. Comparison: July 03, 2007 Findings: Upright frontal and lateral views of the lumbar spine demonstrate mild compression of L2 and severe compression of L4, neither of which has demonstrably changed. The compression of L2 is worse on the right side causing a left convex scoliosis. Overall, there has been slight progression of scoliosis but no other change since the previous study. Ulices Alexander MD IMG DIAGNOSTIC IMAG ING ORDERABLES documented in this encounter Visit Diagnoses Not on filedocumented in this encounter
--- OUTSIDE RECORDS SUMMARY | 2024-05-20 16:16 | XMS_ITS | Encounter Summary ---
Author Organization [facility] Address [address] [place] [address] Care Team Providers Care Environmental Designer Name Role Phone Isrrael Lockett MD Primary Care Provider [phone] Encounter Details Date Type Department Care Team (Late st Contact Info) Description 06/11/2014 Phlebotomy Only [address] [address] Hydraulic Oil Tool Operator, Outpatient Social History Tobacco Use Types Packs/Day Years Used Date Smoking Tobacco: Never Assessed Sex and Gender Information Value Date Recorded Sex Assigned at Not on file Gender Identity Female 08/12/2021 14:27 EDT Sexual Orientation Not on file documented as of this encounter Plan of Treatment Not on file documented as of this encounter Visit Diagnoses Not on filedocumented in this encounter Care Teams Environmental Designer Relationship Specialty Start Date End Date Isrrael Lockett MD [address] [place] [address] PCP - General 06/11/14 10/10/16 documented as of this encounter
--- OUTSIDE RECORDS SUMMARY | 2024-05-20 16:16 | XMS_ITS | Encounter Summary ---
Author Organization [facility] Address [address] [place] [address] Care Team Providers Care Industrial Aerial Installer Name Role Phone Valerie Santana MD Primary Care Provider [phone] Encounter Details Date Type Department Care Team (Latest Contact Info) Description 11/30/2016 14:33 EST - 12/19/2016 23:59 EST Hospital Encounter [facility] - Medical Office Building [phone] Rohini Mcdonald MD [address] [facility] Medical Office Building, [address] [place] [address] Discharge Disposition: Auto Discharge Social History Tobacco [...] as needed (1-2 tabs). 01/10/2022 GLUC HCL/GLUC MARRERO/LF-OOV-M-GLUC (GLUCOSAMINE COMPLEX ORAL) Take by mouth. 01/10/2022 [...] on filedocumented in this encounter Care Teams Industrial Aerial Installer Relationship Specialty Start Date End Date Valerie Santana MD [address] [place] [phone] PCP - General 10/11/16 documented as of this encounter
--- OUTSIDE RECORDS SUMMARY | 2024-05-20 16:16 | XMS_ITS | Encounter Summary ---
Author Organization [facility] Address [address] [place] [address] Care Team Providers Care Pharmacy Customer Care Specialist Name Role Phone Valerie Santana MD Primary Care Provider [phone] Encounter Details Date Type Department Care Team (Late st Contact Info) Description 03/14/2017 Historical Results Only [facility] Radiology Results [address] [place], [place] [id number] Valerie Santana MD [address] [place] [address] Social History Tobacco Use Types Packs/Day Years [...] Associated Diagnosis Comments CT HEAD WO CONTRAST 03/14/2017 1 5:48 EDT documented in this encounter Results * CT HEAD WO CONTRAST (03/14/2017 15:48 EDT) Anatomical Region Laterality Modality Head Other 03/14/2017 15:4 8 EDT Narrative 03/14/2017 15:51 EDT ? EXAM: CAT SCAN/HEAD WITHOUT CONTRAST ?EX. D/ (1528) ? CLINICAL INFORMATION: ? I63.39 R29.898 ??NEW ONSET RIGHT HAND WEAKNESS ? ASSESS FOR RECURRENT CVA ? INDICATION: I63.39 R29.898 ??NEW ONSET RIGHT HAND WEAKNESS: ASSESS FOR ? RECURRENT CVA RIGHT HAND WEAKNESS, HX CVA ? TECHNIQUE: Axial unenhanced imaging of the brain was obtained. ? COMPARISON: None. ? FINDINGS: There is extensive encephalomalacia along the right ? convexity in the parasylvian region. Associated ex vacuo dilatation ? of the right lateral ventricle is noted. No abnormal intra-articular ? axial fluid collections are seen. No evidence of cerebral herniation ? is detected. No abnormal mass effect is observed. The paranasal ? sinuses are clear. The mastoid air cells are clear. The orbits are ? unremarkable. There is global volume loss. Patchy low attenuation ? white matter changes are seen within the centrum semiovale. ? IMPRESSION: ? 1. No acute intracranial abnormality detected. If there is clinical ? concern for an acute infarct, MRI may be able to provide more ? sensitive assessment. ? 2. 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 ? 3. Global volume loss and patchy white matter disease. This pattern ? of white matter disease is nonspecific though most commonly reflects ? small vessel ischemic disease of aging. ? REPORT SIGNED IN OTHER VENDOR SYSTEM 03/14/2017 ?Reported By: Harlan Maciel MD ? CC: ? Transcribed Date/Time: 03/14/2017 (1551) ? Azure Architect: [email or web address] ? Printed Date/Time: 04/07/2019 (5240) ? PAGE 1 ? Signed Report ? Procedure Note Harlan Maciel MD - 08/27/2019 EXAM: CAT SCAN/HEAD WITHOUT CONTRAST EX. D/ (1528) CLINICAL INFORMATION: I63.39 R29.898 NEW ONSET RIGHT HAND WEAKNESS ASSESS FOR RECURRENT CVA INDICATION: I63.39 R29.898 NEW ONSET RIGHT HAND WEAKNESS: ASSESSFOR RECURRENT CVA RIGHT HAND WEAKNESS, HX CVA TECHNIQUE: Axial unenhanced imaging of the brain was obtained. COMPARISON: None. FINDINGS: There is extensive encephalomalacia along the right convexity in the parasylvian region. Associated ex vacuo dilatation of the right lateral ventricle is noted. No abnormalintra-articular axial fluid collections are seen. No evidence of cerebralherniation is detected. No abnormal mass effect is observed. The paranasal sinuses are clear. The mastoid air cells are clear. The orbits are unremarkable. There is global volume loss. Patchy low attenuation white matter changes are seen within the centrum semiovale. IMPRESSION: 1. No acute intracranial abnormality detected. If there is clinical concern for an acute infarct, MRI may be able to provide more sensitive assessment. 2. 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 3. Global volume loss and patchy white matter disease. This pattern of white matter disease is nonspecific though most commonlyreflects small vessel ischemic disease of aging. REPORT SIGNED IN OTHER VENDOR SYSTEM 03/14/2017 Reported By: Harlan Maciel MD CC: Transcribed Date/Time: 03/14/2017 (4383) Azure Architect: Printed Date/Time: 04/07/2019 (0209) PAGE 1 Signed Report Valerie Santana MD IMG CT ORDERABLES documented in this encounter Visit Diagnoses Not on filedocumented in this encounter Care Teams Pharmacy Customer Care Specialist Relationship Specialty Start Date End Date Valerie Santana MD [address] [place] [address] PCP - General 10/11/16 documented as of this encounter
--- OUTSIDE RECORDS SUMMARY | 2024-05-20 16:16 | XMS_ITS | Encounter Summary ---
Author Organization [facility] Address [address] [place] [address] Care Team Providers Care Optometrist/Practice Owner Name Role Phone Unavailable Primary Care Provider Unavailabl e Encounter Details Date Type Department Care Team (Late st Contact Info) Description 07/25/2007 Before PRISM Converted Visit (Maple) [facility] - Maple conversion [address] [place] [address] Ulices Alexander MD Social History Tobacco Use Types Packs/Day Years Used Date Smoking Tobacco: Never Assessed Sex and Gender Information Value Date Recorded Sex Assigned at Not on file Gender Identity Female 08/12/2021 14:27 EDT Sexual Orientation Not on file documented as of this encounter Progress Notes * Ulices Alexander MD - 08/27/2009 1617 EST [facility] [address] [facility] [address] [facility] [address] PROGRESS/FOLLOWUP NOTE - 07/25/2007 Primary Care Physician: Isrrael Lockett MD Consultation Requested By: Richie Vann MD Attending: Ulices Alexander MD PROBLEM Severe back pain secondary to compression fracture of L4. SUBJECTIVE Karla has not improved since I saw her a month ago. She had to take two Percocet in order to be able to get out of bed this morning. Her pain was quite severe; it was 10/10 in the office today. It is more like a 3/10. She spends most of the daysitting. Bowel and bladder function is normal. OBJECTIVE Karla is able to walk normally. She has no motor or sensory deficit in the lower extremities. Straight leg raising is to 90??. Her pain is primarily in the low back and buttock area. X-ray taken of her lumbar spine in lateral shows the compression fracture at L4 unchanged from the x-rays from a month ago. ASSESSMENT Acute compression fracture of L4. PLAN I want to get an MRI of Ana Maria lumbar spine and then have her see one of the interventionalists inRadiology to consider a vertebroplasty. If she does well with that I will not need to see her in follow up. Her prognosis is guarded given the extreme pain that she is having now and I do not think that she will improve with time given how she looks now. I recommend continued follow up with Dr. Lockett for pain management. I think taking the Percocet is absolutely necessary at this point given theintensity of her pain. I have instructed Karla to call to make an appointment if treatment doesnt go well for her. I am assuming a vertebroplasty will make a great deal of difference in her pain. I Signed by Ulices Alexander MD 08/06/2007 07:18 Ulices Alexander MD - Ulices Alexander MD - arlyn Job ID: [id number] Doc ID: [id number] cc: MD Richie Barney MD - Ulices Alexander MD - cmalryn Job ID: [id number] Doc ID: [id number] cc: MD Richie Barney MD documented in this encounter Plan of Treatment Not on file documented as of this encounter Visit Diagnoses Not on filedocumented in this encounter
--- OUTSIDE RECORDS SUMMARY | 2024-05-20 16:16 | XMS_ITS | Encounter Summary ---
Author Organization [facility] Address [address] [place] [address] Care Team Providers Care Conveyor Feeder Offbearer Name Role Phone Isrrael Lockett MD Primary Care Provider [phone] Reason for Visit * Reason Comments New Patient Visit incontinence, since 2 strokes in December Encounter Details Date Type Department Care Team (Latest Contact Info) Description 10/09/2016 13:00 EST Office Visit [facility] - Medical Office [facility] [address] [place] [id number] Rohini Mcdonald MD [address] [place] [address] Medical Office [facility], [address] [phone] Incontinence (Primary Dx) Discharge Disposition: Auto Discharge Social History Tobacco Use Types Packs/Day Years Used Date Smoking Tobacco: Never Smokeless Tobacco: Never Sex and Gender Information Value Date Recorded Sex Assigned at Not on file Gender Identity Female 08/12/2021 14:27 EDT Sexual Orientation Not on file documented as of this encounter Last Filed Vital Signs Vital Sign Reading Time Taken Comments Blood Pressure 162/70 10/09/2016 1307 EST Pulse 84 10/09/2016 1307 EST Temperature - - Respiratory Rate - - Oxygen Saturation - - Inhaled Oxygen Concentration - - Weight 90.3 kg (199 lb) 10/09/2016 1307 EST Height 154.9 cm (5' 1) 10/09/2016 1307 EST Body Mass Index 37.6 10/09/2016 1307 EST documented in this encounter Discharge Diagnoses Diagnosis R32 Unspecified urinary incontinence-R32[ICD-10-CM] documented in this encounter Discharge Disposition Disposition Code Departure Means Destination Auto Discharge documented in this encounter Progress Notes * Anette Celis MD - 10/09/2016 1300 EST [facility] FEMALE EXAMINATION Patient: Karla Gillis is an 71 y.o. female seen for consultation at the request of Valerie Santana MD for New Patient Visit (incontinence, since 2 strokes in December). HPI Incontinence: Patient complains of urinary incontinence. This has been present for several years intermittently then after her stroke approx 1 year ago she has had mixed urinary stress and urgency incontinence that has been much worse. She leaks urine with coughing, standing, sneezing, with urge. Patient describes the symptoms as frequent urination (10x per day), nocturia 3 times per night, urge to urinate with little or no warning and urine leakage with coughing/heavy physical activity. Factors associated with symptoms include worsening since stroke, Detrol has improved urgency aspect to thepoint that she is able to make it to the bathroom more often. Evaluation to date has included: UA/CS: normal.Treatment to date has included: Detrol. She has not had urodynamic testing, PFPT or cystoscopy. She has a previous anterior repair for a symptomatic cystocele many years ago. She is not a smoker however her parents both smoked when she was growing up. She presents with her daughter and granddaughter. She has had 4 vaginal deliveries with infants ranging from 4-8lbs, with one episiotomy. She denies any bowel complaints including incontinence and constipation. ROS Pelvic pain: No Dyspareunia: No Recurrent UTI: Yes Hematuria: Yes A review of the patient's medical, social, and family history along with medications and allergies was performed. OB History No data available No past medical history on file. No past surgical history on file. No family history on file. Social History Social History ??? Marital status: Spouse name: N/A ??? Number of children: N/A ??? Years of education: N/A Social History Main Topics ??? Smoking status: Never Smoker ??? Smokeless tobacco: Never Used ??? Alcohol use None ??? Drug use: None ??? Sexual activity: Not Asked Other Topics Concern ??? None Social History Narrative ??? None Current Outpatient Prescriptions Medication Sig Dispense Refill ??? Cetirizine 10 mg capsule Take 1 Capsule by mouth daily. ??? clopidogrel (PLAVIX) 75 mg tablet Take 75 mg by mouth daily. ??? diphenhydrAMINE (BENADRYL) 25 mg capsule Take 25 mg by mouth every 6 hours as needed (1-2 tabs). ??? GLUC HCL/GLUC MARRERO/MN-APY-U-GLUC (GLUCOSAMINE COMPLEX ORAL) Take by mouth. ??? [...] ??? Lisinopril ??? Codeine GI upset emesis A 15 point Review of Systems was performed. Positives related to the patient???s complaint are listed below; all others are either negative or documented in the patient???s scanned Review of Systems. PELVIC EXAM External Genitalia: Normal Vaginal Examination: Vaginal atrophy moderate Cervix Normal Uterus: Normal Pelvic Floor Relaxation: present cystocele, stage: 1 and rectocele, stage: 2, scarring noted anteriorly from prior repair Adnexa: Normal Urethra Normal Bladder Normal Rectal spincter tone: deferred Rectal prolapse: Absent Rectal hemorrhoids: Absent Perineum Normal Vitals Visit Vitals ??? BP (!) 162/70 ??? Pulse 84 ??? Ht 154.9 cm (61) ??? Wt 90.3 kg (199 lb) ??? BMI 37.6 kg/m2 General Physical Exam Constitutional/General: Oriented to person, place, and time. Appears well- developed and well-nourished. HEENT: Head: normocephalic and atraumatic Eyes: conjunctivae and EOM normal Nose: nose normal Throat/mouth: oropharynx clear and moist Neck: normal range of motion Pulmonary: effort normal Abdomen: abdomen soft Musculoskeletal: normal range of motion Skin: warm, dry and intact Neuro/Psych: alert and oriented to person, place, and time Labs Results for orders placed or performed in visit on 10/09/16 POCT URINE DIPSTICK Result Value Ref Range Color YELLOW Clarity, UA Clear Glucose Neg Neg Bilirubin Neg Neg Ketones Neg Neg Specific [place] 1.015 1.001 - 1.035 Blood 1+ (A) Neg pH 7.5 4.6 - 8.0 Protein Neg Neg Urobilinogen 0.2 0.2 - 1.0 E.U./dl Nitrite Neg Neg Leuk Esterase Neg Neg Tech ID [id number] Assessment Karla Gillis is a 71 y.o., para 4 female with mixed stress and urge incontinence, cystocele and asymptomatic rectocele with a recent stroke. Plan Karla was seen today for new patient visit. Diagnoses and all orders for this visit: Incontinence - POCT Urine Dipstick - Cytology (Non-Gynecologic including Fluids and Fine Needle Aspiration) Other orders - tolterodine (DETROL LA) 4 mg long acting capsule; Take 4 mg by mouth daily. - Cetirizine 10 mg capsule; Take 1 Capsule by mouth daily. - warfarin (COUMADIN) 5 mg tablet; Take 5 mg by mouth daily. - clopidogrel (PLAVIX) 75 mg tablet; Take 75 mg by mouth daily. - omeprazole (PRILOSEC) 20 mg capsule; Take 20 mg by mouth daily. - METOPROLOL SUCCINATE ORAL; Take 100 mg by mouth daily. - simvastatin (ZOCOR) 20 mg tablet; Take 30 mg by mouth at bedtime. - loratadine (CLARITIN) 10 mg tablet; Take 10 mg by mouth daily. - GLUC HCL/GLUC MARRERO/FP-PNQ-W-GLUC (GLUCOSAMINE COMPLEX ORAL); Take by mouth. - diphenhydrAMINE (BENADRYL) 25 mg capsule; Take 25 mg by mouth every 6 hours as needed (1-2 tabs). Vaginal estrogen Pelvic Floor Physical Therapy Urine cytology *Referral for PFPT and behavior modification for urge incontinence *Vaginal estrogen cream ordered to pharmacy, instructed to apply with finger 2- 3x/week to vagina *Urine cytology as 1+ blood on U/A and history of exposure to second hand smoke for many years *Follow-up in 3mos, consider urodynamic testing if conservative interventions are not effective Patient seen, examined and discussed with Dr. Tamara Celis MD Attestation statement: I saw and examined the patient with the resident/fellow. I agree with the findings and plan of care documented in the resident's/fellow's note. Rohini Mcdonald MD 10/09/2016 14:16 documented in this encounter Plan of Treatment Scheduled Orders Name Type Priority Associated Diagnoses Orde r Schedule CYTOLOGY (NON-GYNECOLOGIC INCLUDING FLUIDS AND FINE NEEDLE ASPIRATION)- ORDER ONLY Pathology Routine Incontinence Ordered: 10/09/2016 documented as of this encounter Procedures Procedure Name Priority Date/Time Associated Diagnosis Comments POCT URINE DIPSTICK, CLINITEK Routine 10/09/2016 13:29 EST Incontinence documented in this encounter Results * (ABNORMAL) POCT URINE DIPSTICK (10/09/2016 13:29 EST) Color YELLOW 10/09/2016 13:37 [facility] Clarity, UA Clear 10/09/2016 13:37 [facility] Glucose Neg Neg 10/09/2016 13:37 [facility] Bilirubin Neg Neg 10/09/2016 13:37 [facility] Ketones Neg Neg 10/09/2016 13:37 [facility] Specific [place] 1.015 1.001 - 1.035 10/09/2016 13:37 [facility] Blood 1+(A) Neg 10/09/2016 13:37 [facility] pH 7.5 4.6 - 8.0 10/09/2016 13:37 [facility] Protein Neg Neg 10/09/2016 13:37 [facility] Urobilinogen 0.2 0.2 - 1.0 E.U./dl 10/09/2016 13:37 [facility] Nitrite Neg Neg 10/09/2016 13:[address] [facility] Leuk Esterase Neg Neg 10/09/2016 13:[address] [facility] nurse discharge planner ID [id number] 10/09/2016 13:[address] [facility] Comment:Test performed at [facility] Urine specimen (specimen) URINE / Unknown 10/09/2016 13:29 EST 10/09/2016 13:37 EST Rohini Mcdonald MD POINT OF CARE TE ST ORDERABLES [facility] [address] [place] [address] documented in this encounter Visit Diagnoses Diagnosis Incontinence- Primary Unspecified urinary incontinence documented in this encounter Historical Medications * This list may reflect changes made after this encounter. Medication Sig Dispensed Refills Start Date End Date omeprazole (PRILOSEC) 20 mg capsule Take 1 Capsule by mouth daily. Cetirizine 10 mg capsule Take 1 Capsule by mouth daily. diphenhydrAMINE (BENADRYL) 25 mg capsule Take 25 mg by mouth every 6 hours as needed (1-2 tabs). 01/10/2022 GLUC HCL/GLUC MARRERO/TN-VLC-M-GLUC (GLUCOSAMINE COMPLEX ORAL) Take by mouth. 01/10/2022 loratadine (CLARITIN) 10 mg tablet Take 10 mg by mouth daily. 01/10/2022 simvastatin (ZOCOR) 20 mg tablet Take 30 mg by mouth at bedtime. 12/15/2022 METOPROLOL SUCCINATE ORAL Take 50 mg by mouth daily. 12/15/2022 clopidogrel (PLAVIX) 75 mg tablet Take 75 mg by mouth daily. 01/06/2022 warfarin (COUMADIN) 5 mg tablet Take 5 mg by mouth daily. 01/06/2022 tolterodine (DETROL LA) 4 mg long acting capsule Take 4 mg by mouth daily. 01/10/2022 added in this encounter Care Teams Conveyor Feeder Offbearer Relationship Specialty Start Date End Date Isrrael Lockett MD [address] [place] [address] PCP - General 06/11/14 10/10/16 documented as of this encounter
--- OUTSIDE RECORDS SUMMARY | 2024-05-20 16:16 | XMS_ITS | Encounter Summary ---
Author Organization [facility] Address [address] [place] [address] Care Team Providers Care Cell Inspector Name Role Phone Unavailable Primary Care Provider Unavailabl e Encounter Details Date Type Department Care Team (Latest Contact Info) Description 08/21/2007 17:38 EDT Hospital Encounter [facility] [address] [place] [address] Ulices Alexander MD Discharge Disposition: Auto Discharge [...] Procedure Name Priority Date/Time Associated Diagnosis Comments MR LUMBAR SPINE WO CONTRAST 08/21/2007 18:54 EDT documented in this encounter Results * MR LUMBAR SPINE WO CONTRAST (08/21/2007 18:54 EDT) Anatomical Region Laterality Modality Other 08/21/2007 18:5 4 EDT Narrative 04/12/2009 2:20 EDT severe low back pain, compression fracture l4 Lumbar spine August 21, 2007 at 1757. Impression: 1. Anterior compression fracture at L4 with edema extending into the pedicles. While this may represent an osteoporotic compression fracture, the edema pattern is somewhat atypical and pathologic fracture cannot be excluded. Followup evaluation with contrast-enhanced MRI in 3 months is recommended. Nuclide bone scan is recommended to survey the entire skeleton. 2. Anterior compression deformity at L2 with mild loss of height. 3. Bilateral lateral recess stenosis and central canal stenosis at L3-L4 and L4-L5 from facet arthropathy and ligamentum flavum hypertrophy. History: Severe low back pain, compression fracture at L4. Comparison: Plain film of July 25, 2007 and plain film of July 03, 2007. Technique: Sagittal T1, sagittal T2, axial T1, axial T2, and coronal T2 images of the lumbar spine were obtained. Findings: The conus terminates normally at the T12-L1 level. The marrow signal in the lumbar spine is mildly heterogeneous suggestive of osteopenia. Mild levoscoliosis with its apex at the L2 level is present. There is anterior compression deformity at L2 with less than 50% loss of vertebral body height. There is no abnormal T2 prolongation within the L2 vertebral body to suggest that this is an acute finding. Loss of disc signal throughout the lumbar spine indicates disc degeneration. At L4 there is an anterior compression fracture with greater than 50% loss of vertebral body height. High T2 signal is present within the vertebral body representing edema. This extends into the pedicles. The paraspinal soft tissues appear normal. At the L1-L2 and L2-L3 levels there is mild concentric disc bulge but no significant lateral foraminal narrowing or central canal narrowing. At L3-L4 there is diffuse concentric disc bulge without focal herniation. Bilateral lateral recess narrowing is present as is central canal stenosis from bilateral facet and ligamentum flavum hypertrophy. At L4-L5 there is a diffuse concentric disc bulge, bilateral lateral recess stenosis and central canal stenosis from facet and ligamentum flavum hypertrophy. At L5-S1 there is no focal herniation, central canal, or lateral recess narrowing. I have personally reviewed the images and the above interpretation and agree with the findings. Procedure Note Demetrio Zaidi MD / Sandra Gillespie MD - 04/12/2009 severe low back pain, compression fracture l4 Lumbar spine August 21, 2007 at 1757. Impression: 1. Anterior compression fracture at L4 with edema extending into the pedicles. While this may represent an osteoporotic compression fracture, the edema pattern is somewhat atypical and pathologic fracture cannot be excluded. Followup evaluation with contrast-enhanced MRI in 3 months is recommended. Nuclide bone scan is recommended to survey the entire skeleton. 2. Anterior compression deformity at L2 with mild loss of height. 3. Bilateral lateral recess stenosis and central canal stenosis at L3-L4 and L4-L5 from facet arthropathy and ligamentum flavum hypertrophy. History: Severe low back pain, compression fracture at L4. Comparison: Plain film of July 25, 2007 and plain film of July 03, 2007. Technique: Sagittal T1, sagittal T2, axial T1, axial T2, and coronal T2 images of the lumbar spine were obtained. Findings: The conus terminates normally at the T12-L1 level. The marrow signal in the lumbar spine is mildly heterogeneous suggestive of osteopenia. Mild levoscoliosis with its apex at the L2 level is present. There is anterior compression deformity at L2 with less than 50% loss of vertebral body height. There is no abnormal T2 prolongation within the L2 vertebral body to suggest that this is an acute finding. Loss of disc signal throughout the lumbar spine indicates disc degeneration. At L4 there is an anterior compression fracture with greater than 50% loss of vertebral body height. High T2 signal is present within the vertebral body representing edema. This extends into the pedicles. The paraspinal soft tissues appear normal. At the L1-L2 and L2-L3 levels there is mild concentric disc bulge but no significant lateral foraminal narrowing or central canal narrowing. At L3-L4 there is diffuse concentric disc bulge without focal herniation. Bilateral lateral recess narrowing is present as is central canal stenosis from bilateral facet and ligamentum flavum hypertrophy. At L4-L5 there is a diffuse concentric disc bulge, bilateral lateral recess stenosis and central canal stenosis from facet and ligamentum flavum hypertrophy. At L5-S1 there is no focal herniation, central canal, or lateral recess narrowing. I have personally reviewed the images and the above interpretation and agree with the findings. Ulices Alexander MD IMG MRI ORDERABLES documented in this encounter Visit Diagnoses Not on filedocumented in this encounter
--- OUTSIDE RECORDS SUMMARY | 2024-05-20 16:16 | XMS_ITS | Encounter Summary ---
Author Organization [facility] Address [address] [place] [address] Care Team Providers Care Squirrel Worker Name Role Phone Valerie Santana MD Primary Care Provider [phone] Encounter Details Date Type Department Care Team (Late st Contact Info) Description 11/09/2017 Historical Results Only [facility] - [facility] Lab - [address] [phone] Valerie Santana MD [address] [place] [phone] Social History Tobacco Use Types Packs/Day [...] Date/Time Associated Diagnosis Comments COMPLETE BLOOD COUNT WITH DIFFERENTIAL (AUTO) Routine 11/09/2017 13:33 EST ALT Routine 11/09/2017 13:33 EST MAGNESIUM Routine 11/09/2017 13:33 EST LIPID PROFILE (INCLUDES CHOLESTEROL, TRIGLYCERIDES, HDL, LDL) Routine 11/09/2017 13:33 EST BASIC METABOLIC PANEL (BMP) Routine 11/09/2017 13:33 EST documented in this encounter Results * ALT (11/09/2017 13:33 EST) SGPT/ALT - [facility] 27 9 - 52 U/L 8 15:13 EST [facility] 11/09/2017 13:3 3 EST 11/09/2017 13:33 EST Narrative [facility] - 11/09/2017 15:13 EST Does PT Have a Latex Allergy? UNKNOWN Valerie Santana MD CHEMISTRY & BLOOD GA S ORDERABLES Performing Organization Address City/[facility]/ZIP Co de Phone Number [facility] * (ABNORMAL) MAGNESIUM (11/09/2017 13:33 EST) Magnesium 1.60(L) 1.7 - 2.8 mg/dL 11/09/2017 15:13 [facility] 11/09/2017 13:3 3 EST 11/09/2017 13:33 EST [facility] - 11/09/2017 15:13 EST Does PT Have a Latex Allergy? UNKNOWN Valerie Santana MD CHEMISTRY & BLOOD GA S ORDERABLES [facility] * (ABNORMAL) LIPID PROFILE (INCLUDES CHOLESTEROL, TRIGLYCERIDES, HDL, LDL) (11/09/2017 13:33 EST) Triglyceride 89 <150 mg/dL 11/09/2017 15:13 [facility] Comment: Adult: Normal: ?<150 mg/dl ? Borderline High: 150-199 mg/dl ? High: ?200-499 mg/dl ? Very High: >zt=780 Cholesterol 177 <200 mg/dL 11/09/2017 15:13 [facility] Comment: Acceptable: ??<200 Borderline: ??200-239 High: ?> or = 240 Chol/HDL Ratio 2.8 0 - 4.5 11/09/2017 15:13 [facility] Comment: DESIRABLE RATIO IS LESS THAN 4.1 PATIENTS ARE CONSIDERED AT RISK: WOMEN RATIO >5 MEN RATIO >6 FASTING? - [facility] No 8 13:34 [facility] HDL 63(H) 40 - 60 mg/dL 11/09/2017 15:13 [facility] Comment: ?? Reference Range Low: ? < 40 ??mg/dL Normal: ??40-60 mg/dL High: ?>= 60 mg/dL LDL CHOLESTEROL - [facility] 96 60 - 100 mg/dL 11/09/2017 15:13 [facility] Non HDL Cholesterol 114 mg/dl 11/09/2017 15:13 [facility] Comment: Desirable: ?Less than 130 Borderline High: ??130-159 High: ? 160-189 Very High: ?Greater than or equal to 190 11/09/2017 13:3 3 EST 11/09/2017 13:33 EST Narrative [facility] - 11/09/2017 15:13 EST Does PT Have a Latex Allergy? UNKNOWN Valerie Santana MD CHEMISTRY & BLOOD GA S ORDERABLES [facility] * BASIC METABOLIC PANEL (BMP) (11/09/2017 13:33 EST) BUN - [facility] 15 10 - 26 mg/dL 11/09/2017 15:13 [facility] CALCIUM - [facility] 10.0 8.5 - 10.5 mg/dL 11/09/2017 15:13 [facility] Chloride 103 96 - 110 mmol/L 11/09/2017 15:13 [facility] CO2 Total 27 22 - 32 mEq/L 11/09/2017 15:13 [facility] CREATININE 0.64 0.52 - 1.04 mg/dL 11/09/2017 15:13 [facility] eGFR >60 11/09/2017 15:13 [facility] Comment: Chronic renal impairment is defined as GFR <60 Multiply result by 1.210 for patients. eGFR calculated using the IDMS-traceable MDRD Study Equation. ??(effective 08/24/2014) Anion Gap 12 0 - 18 11/09/2017 15:13 [facility] GLUCOSE - [facility] 95 70 - 100 mg/dL 11/09/2017 15:13 [facility] Potassium 4.0 3.5 - 5.0 mEq/L 11/09/2017 15:13 [facility] Sodium 142 136 - 145 mEq/L 11/09/2017 15:13 [facility] 11/09/2017 13:3 3 EST 11/09/2017 13:33 EST [facility] - 11/09/2017 15:13 EST Does PT Have a Latex Allergy? UNKNOWN Valerie Santana MD CHEMISTRY & BLOOD GA S ORDERABLES [facility] * COMPLETE BLOOD COUNT WITH DIFFERENTIAL (AUTO) (11/09/2017 13:33 EST) ABSOLUTE NEUTROPHIL COUN - [facility] 3.60 1.7 - 7.0 10e3/ul 11/09/2017 15:30 [facility] BASO # - [facility] 0.03 0.0 - 0.3 10e3/uL 11/09/2017 15:30 [facility] BASO % - [facility] 1 0 - 2 % 11/09/2017 15:30 [facility] EOS # - [facility] 0.23 0.05 - 0.5 10e3/uL 11/09/2017 15:30 [facility] EOS % - [facility] 4 0 - 5 % 11/09/2017 15:30 [facility] GRAN % - [facility] 62 40 - 80 % 11/09/2017 15:30 [facility] HEMATOCRIT - [facility] 40.9 34.0 - 47.0 % 11/09/2017 15:30 [facility] HEMOGLOBIN - [facility] 13.5 11.2 - 15.7 g/dl 11/09/2017 15:30 [facility] IG# - [facility] 0.02 0 - 0.07 10e3/uL 11/09/2017 15:30 [facility] IG% - [facility] 0.3 0 - 0.9 % 11/09/2017 15:30 [facility] LYMPH # - [facility] 1.54 0.9 - 2.9 10e3/uL 11/09/2017 15:30 [facility] LYMPH% - [facility] 26 20 - 40 % 11/09/2017 15:30 [facility] MEAN CORPUSCULAR HGB - CV 29.7 26 - 34 pg 11/09/2017 15:30 [facility] MEAN CORPUSCULAR HGB CONC - [facility] 33.0 31 - 36 g/dL 11/09/2017 15:30 [facility] MEAN CELL VOLUME - [facility] 90.1 77 - 100 fl 11/09/2017 15:30 [facility] MONO # - [facility] 0.44 0.3 - 0.9 10e3/uL 11/09/2017 15:30 [facility] MONO% - [facility] 8 0 - 12 % 11/09/2017 15:30 [facility] PLATELET COUNT 264 150 - 400 10e3/ul 11/09/2017 15:30 [facility] RED BLOOD COUNT - [facility] 4.54 3.8 - 5.2 10e6/ul 11/09/2017 15:30 [facility] RED CELL DISTRI WIDTH - [facility] 14.0 11.8 - 15.6 % 11/09/2017 15:30 [facility] WHITE BLOOD COUNT - [facility] 5.9 3.5 - 10.5 10e3/ul 11/09/2017 15:30 [facility] 11/09/2017 13:3 3 EST 11/09/2017 13:33 EST [facility] - 11/09/2017 15:30 EST Does PT Have a Latex Allergy? UNKNOWN Valerie Santana MD HEMATOLOGY & PF4 ORD ERABLES [facility] documented in this encounter Visit Diagnoses Not on filedocumented in this encounter Care Teams Squirrel Worker Relationship Specialty Start Date End Date Valerie Santana MD [address] [place] [phone] PCP - General 10/11/16 documented as of this encounter
--- OUTSIDE RECORDS SUMMARY | 2024-05-20 16:16 | XMS_ITS | Encounter Summary ---
Author Organization [facility] Address [address] [place] [address] Care Team Providers Care Zipper Cutter Name Role Phone Unavailable Primary Care Provider Unavailabl e Encounter Details Date Type Department Care Team (Late st Contact Info) Description 09/03/2007 Before PRISM Converted Visit (Maple) [facility] - Maple conversion [address], [place] [phone] Sharmila Mckeon PA-C [address] [facility], [address] [place] [phone] Social History Tobacco Use Types Packs/Day Years Used Date Smoking Tobacco: Never Assessed Sex and Gender Information Value Date Recorded Sex Assigned at Not on file Gender Identity Female 08/12/2021 14:27 EDT Sexual Orientation Not on file documented as of this encounter Plan of Treatment Not on file documented as of this encounter Visit Diagnoses * Evaluation - Sharmila Neves PA - 08/31/2009 0140 EST INTERVENTIONAL RADIOLOGY CLINIC EVALUATION - 09/03/2007 September 03, 2007 Ulices Alexander MD [facility] [address] [place] [address] Alexander: I had the pleasure of seeing Karla Gillis in the vascular interventional radiology clinic as requested by you in consultation for possible vertebroplasty. As you recall, Mrs. Gillis is a [id number] who suffered a fall in May of 2007, which caused immediate severe pain in her low back. [facility] department imaging revealed an L4 compression fracture. Pain remained unchanged for some time, and MRI was performed August 21, 2007, at [facility]. This revealed an acute L4 fracture, old L2 fracture and L3-L4/L4-L5 central canal stenosis. Typically, Mrs. 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 However, after the injury, she required use of a wheelchair and has been unable to stand for more than 10 minutes at a time. In addition to her lumbar back pain, Mrs. Gillis complains of significant bilateral hip and anterior thigh pain which limits her ambulation. Overall, however, Mrs. Gillis states that she is feeling much better than she did the last time shesaw you in the office, going as far as saying she is feeling 50% better in the past four weeks. Shecontinues, however, to take long- acting OxyContin twice a day, ibuprofen 800 mg twice a day and supplements with oxycodone IR 5 mg as needed. She is able to stand up to 15 minutes at a time, sit for 30 minutes at a time, and transfer in and out of the shower, walk to the kitchen to get a cup of coffee and walk to the bathroom without use of the wheelchair. PAST MEDICAL HISTORY GERD. PAST SURGICAL HISTORY EGD, no problems with sedation. MEDICATIONS 1. OxyContin, dose unknown, b.i.d. 2. Ibuprofen 800 mg b.i.d. 3. Oxycodone IR 5 mg as needed. 4. Aspirin 81 mg daily. 5. Prilosec, dose unknown, daily. 6. Vitamins. ALLERGIES PENICILLIN, REACTION UNKNOWN. CODEINE, WHICH CAUSES NAUSEA AND VOMITING. SOCIAL HISTORY Mrs. Gillis is and lives with her spouse in [place], [place]. She denies tobacco and alcohol use. 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 She has been out on worker's compensation disability since her injury in May. PHYSICAL EXAMINATION The patient ambulates hesitatingly with an antalgic gait. She is tender to palpation and percussionover the lumbar spinous processes. IMAGING Dr. Marquez reviewed the MRI images from August 21, 2007, which reveal a severe L4 compression fracture with edema. ASSESSMENT AND PLAN The patient was seen with and examined by Dr. Arpit Marquez, who was present for the entire consultation. The vertebroplasty procedure was explained in detail. The possibility of the need to perform kyphoplasty due to the very narrow waist of the fractured L4 vertebra was also discussed with the patient. Possible complications, including, but not limited to, infection, bleeding, intravasation of cement, and extrusion of cement into the spinal canal were reviewed. The patient's questions were answered. Since Mrs. Cappss pain has actually improved significantly since she last saw you in the office, it was decided to proceed with continued conservative treatment for another four weeks. The patient will try to decrease hernarcotic use, and will try to increase her activity as tolerated. I will call her in one month to see how she is doing. In the meantime, if her pain is to worsen, she can call us to schedule vertebroplasty/kyphoplasty. Forty minutes was spent in consultation, with greater than 50% of the total visit time spent in [id number] counseling. It was a pleasure to participate in the care of this kind patient. Please do not hesitate to contact us with any questions or concerns. Sincerely, Signed by SIMON Weller 09/04/2007 14:00 SIMON Weller - SIMON Weller A - [facility] Job ID: [id number] Document ID: [id number] cc: MD Sharmila Barney PA Warren T Rinehart, MD documented in this encounter
--- OUTSIDE RECORDS SUMMARY | 2024-05-20 16:16 | XMS_ITS | Encounter Summary ---
Author Organization [facility] Address [address] [place] [address] Care Team Providers Care Analyst Geochemical Prospecting Name Role Phone Valerie Santana MD Primary Care Provider [phone] Reason for Visit * Reason Comments Cataract Referred by Daryl virgen,JASEN for Cataract eval. * Consult (Routine) - Closed Specialty Diagnoses / Procedures Referred By Adi trejo Referred To Contact Ophthalmology Diagnoses Cataract Daryl Lucia, OD [address] [place] [address] [phone] [address] [address] Referral ID Status Reason Start Date Expiration Date Visits Re quested Visits Authorized [id number] Closed 1 1 Encounter Details Date Type Department Care Team (Late st Contact Info) Description 08/11/2019 10:00 EDT Office Visit [facility] [address] [place] [address] Cuca Mike MD [address] [place] [phone] Social History Tobacco Use Types Packs/Day Years [...] * Patient Instructions* Cuca Mike MD - 08/11/2019 10:00 EDT Please make an appointment with your Primary Care Provider for a pre-operative physical. Try to schedule for about 2 weeks prior to your surgery. (First week of October is preferred) Your lens measurement appointment is: 10/01/19 at 1:00pm at our office [address] [place], [place] Your surgery date for your first eye is: 10/30/19 at [facility] (check in at Patient Registration). The Hospital will call you prior to the surgery with your report time. Your surgery date for your second eye is: 11/20/29 documented in this encounter Progress Notes * Cuca Mike MD - 08/11/2019 1000 EDT Chief Complaint Patient presents with ??? Cataract Referred by Daryl Lucia,OD for Cataract eval. HPI The patient is a 74 y.o. female c/o decreased vision, both eyes L>R, has lots of difficulty seeing magazines due to glare, Rx specs are not helping nor are otc readers- did not bring Rx specs today. Overall vision very blurry. 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 Also has DM- 2-3 years, well controlled and taken off metformin. Not asked to check bgs. No DR per Dr. Lucia note. Referred for cat eval by Dr. Lucia. Right Eye: Blurred Vision, Tearing, Itching Left Eye: Blurred Vision, Tearing, Itching Visual Aid: Glasses(otc readers) Current Rx Age Location: Both eyes Pain: 0 - No pain Quality: Blurry Severity: Moderate Duration: Months Timing: Constant Lasts: Months Context: vision blurrier over last 6 mos, can not read any longer and can not see at all with Rx glasses, uses OTC readers which do not help much, has Hx of left Homonimous hemianopsia since CVA about 4 yrs ago, denies any recent floaters or flashes, Dr Lucia referred for significant cataracts, c/o both eyes tearing frequently with severe itching at times for long time. occ has some crustiness in corners of eyes Modifying factors: Associated Signs & Symptoms: has been Rxd for Type 2 Daibetes but only diet control at present since loosing weight Attestation: ROS Constitutional: Loss of Weight ENT/Mouth NL Cardiovascular: High Blood Pressure, High Cholesterol Respiratory: NL Gastrointestinal: (GERD) Genitourinary: NL Musculoskeletal: Joint Pain Integumentary: NL Neurologic: (Hx of CVA) Psychiatric: NL Endocrine: Diabetes Hematologic: (on Plavix) Immunologic: Mathematics Improvement Teacher: Exposures: None Other: Attestation: Base Eye Exam Visual Acuity (Snellen - Linear) Right Left Dist sc 20/150 -1 20/70 -2 Dist ph sc 20/30 -2 20/60 +2 Near cc J5 J5 Tonometry (Applanation, 10:48) Right Left Pressure 10 10 Tonometry #2 (Tonopen, 10:50) Right Left Pressure 11 13 Pupils Dark Shape React APD Right 2.5 Round Brisk None Left 3 Round Slow None Visual Wallace (Counting fingers) Right Left Full Restrictions Partial outer superior nasal, inferior nasal deficiencies Extraocular Movement Right Left Full Full Neuro/Psych Oriented x3: Yes Mood/Affect: Normal Dilation Both eyes: 1.0% Mydriacyl, 2.5% Phenylephrine @ 10:52 Slit Lamp and Fundus Exam External Exam Right Left External Brow ptosis Brow ptosis Slit Lamp Exam Right Left Lids/Lashes Normal Normal Conjunctiva/Sclera White and quiet White and quiet Cornea Clear, no guttata Clear, no guttata Anterior Chamber Deep and quiet Deep and quiet Iris Round and reactive, no pseudoexfoliation material, dilates to 7mm Round and reactive, no pseudoexfoliation material, dilates to 7mm Lens 2-3+ Nuclear sclerosis, cortical spokes 3+ Nuclear sclerosis, cortical wedge infero nasally Fundus Exam Right Left Vitreous Posterior vitreous detachment Posterior vitreous detachment Disc Normal Normal C/D Ratio 0.2 0.2 Macula No thickening or exudate, no microaneurysms, no dot blot hemorrhages No thickening or exudate, no microaneurysms, no dot blot hemorrhages Vessels Normal Normal Periphery No dot-blot hemorrhages or microaneurysms No dot-blot hemorrhages or microaneurysms Refraction Wearing Rx Sphere Cylinder Right +1.75 Sphere Left +1.75 Sphere Type: otc reader Manifest Refraction (Auto) Sphere Cylinder [place] Dist [place] Right +2.50 +2.50 085 20/40- Left +0.25 +1.00 150 20/50- Manifest Refraction #2 Sphere Cylinder [place] Dist [place] Right +1.50 +2.50 085 20/60-2 Left +0.25 +0.75 150 20/40-2 DIAGNOSTIC TESTS: IMPRESSION & PLAN: ??? Combined forms of age-related cataract of both eyes - visually significant with decreased vision. R/B/A cataract surgery discussed including bleeding, infection, loss of vision, loss of the eye, retinal detachment, glaucoma, and subsequent surgery. Pt wishes to proceed. Discussed IOLs, options ofpremium IOLs. Pt interested in monofocal IOL for distance emmetropia. Plan cataract extraction with IOL left eye first, target plano. Consent signed today. Schedule Biometry. Pt advised to schedule a pre-op physical with PCP within 30 days of surgery. ??? Type 2 diabetes mellitus without complication, without long-term current use of insulin - no ocular findings - Recommend good blood sugar and blood pressure control - Recommend annual dilated eye exam - Letter to PCP ??? Posterior vitreous detachment of both eyes - retina flat with no holes/tears/retinal detachment - call for increase in flashes or [...] she is personally performing the service. DENNYS Sanderson Patient Education Topic: cataract evaluation- referral Dr. Lucia Method: Demonstration, Handout and Verbal Taught to: Patient and Family Barriers: None Outcomes: independent Signature: Cuca Mike MD documented in this encounter Plan of Treatment Not on file documented as of this encounter Visit Diagnoses Diagnosis Combined forms of age-related cataract of both eyes- Primary Other and combined forms of senile cataract Type 2 diabetes mellitus without complication, without long-term current use of insulin ([facility]) Posterior vitreous detachment of both eyes Vitreous degeneration Homonymous hemianopia, left Refractive error Unspecified disorder of refraction and accommodation documented in this encounter Historical Medications * This list may reflect changes made after this encounter. Medication Sig Dispensed Refills Start Date End Date losartan (COZAAR) 100 mg tablet Take 100 mg by mouth daily. 01/10/2022 added in this encounter Eye Exam Visual Acuity (Snellen - Linear) Right eye Left eye Dist sc 20/150 -1 20/70 -2 Dist ph sc 20/30 -2 20/60 +2 Near cc J5 J5 Tonometry #1 (Applanation, 10:48) Right eye Left eye Pressure 10 10 Tonometry #2 (Tonopen, 10:50) Right eye Left eye Pressure 11 13 Pupils Dark Shape React APD Right eye 2.5 Round Brisk None Left eye 3 Round Slow None Visual Wallace (Counting fingers) Right eye Left eye Full Restrictions Partial outer superior nasal, in ferior nasal deficiencies Extraocular Movement Right eye Left eye Full Full Neuro/Psych Oriented x3: Yes Mood/Affect: Normal Dilation Both eyes: 1.0% Mydriacyl, 2 .5% Phenylephrine @ 10:52 External Exam Right eye Left eye External Brow ptosis Brow ptosis Slit Lamp Exam Right eye Left eye Lids/Lashes Normal Normal Conjunctiva/Sclera White and quiet White and mamadou et Cornea Clear, no guttata Clear, no gutt jay Anterior Chamber Deep and quiet Deep and quiet Iris Round and reactive, no pseudoexfoliation material, dilates to 7mm Round and reactive, no pseudoexfoliation material, dilates to 7mm Lens 2-3+ Nuclear scleros is, cortical spokes 3+ Nuclear sclerosis, cortical wedge infero nasally Vitreous Posterior vitreous detachment Po sterior vitreous detachment Fundus Exam Right eye Left eye Disc Normal Normal C/D Ratio 0.2 0.2 Macula No thickening or exu date, no microaneurysms, no dot blot hemorrhages No thickening or exudate, no microaneurysms, no dot blot hemorrhages Vessels Normal Normal Periphery No dot-blot hemorrha ges or microaneurysms No dot-blot hemorrhages or microaneurysms Wearing Rx Sphere Cylinder Right eye +1.75 Sphere Left eye +1.75 Sphere Type: otc reader Manifest Refraction #1 (Auto) Sphere Cylinder [place] Dist VA Right eye +2.50 +2.50 085 20/40- Left eye +0.25 +1.00 150 20/50- Manifest Refraction #2 Sphere Cylinder [place] Dist VA Right eye +1.50 +2.50 085 20/60-2 Left eye +0.25 +0.75 150 20/40-2 Care Teams Analyst Geochemical Prospecting Relationship Specialty Start Date End Date Valerie Santana MD [address] [place] [phone] PCP - General 10/11/16 documented as of this encounter
--- OUTSIDE RECORDS SUMMARY | 2024-05-20 16:16 | XMS_ITS | Encounter Summary ---
Author Organization [facility] Address [address] [place] [address] Care Team Providers Care Set Painter Name Role Phone Valerie Santana MD Primary Care Provider [phone] Encounter Details Date Type Department Care Team (Latest Contact Info) Description 11/12/2019 Documentation Visit [facility] [address] [place] [address] Cuca Mike MD [address] [place] [phone] Combined forms of age-related cataract of left eye (Primary Dx) Social History Tobacco Use [...] Progress Notes * Myrtle Holley COA - 11/12/2019 1608 EST Left Eye Lens Calc w/o IOL Biometry Optical Coherence Biometry Calculations Date of original biometry: 11/05/2019 Read date: 11/12/19 Indicated eye: the left eye Procedure date: 11/20/2019 Procedure location: [facility] Lens type: [id number] Lens power: 23.5 Electronically Signed: Cuca Mike MD 11/12/19 documented in this encounter Plan of Treatment Pending Results Name Type Priority Associated Diagnoses Date /Time LEFT EYE LENS CALC W/O IOL BIOMETRY Ophthalmology Routine Combined forms of age-related cataract of left eye 11/12/2019 16:10 EST documented as of this encounter Visit Diagnoses Diagnosis Combined forms of age-related cataract of left eye- Primary Other and combined forms of senile cataract documented in this encounter Care Teams Set Painter Relationship Specialty Start Date End Date Valerie Santana MD [address] [place] [phone] PCP - General 10/11/16 documented as of this encounter
--- OUTSIDE RECORDS SUMMARY | 2024-05-20 16:16 | XMS_ITS | Encounter Summary ---
Author Organization [facility] Address [address] [place] [address] Care Team Providers Care Damage Appraiser Name Role Phone Valerie Santana MD Primary Care Provider [phone] Reason for Visit * Reason Onset Date Comments Appointment Related 03/06/2017 Encounter Details Date Type Department Care Team (Late st Contact Info) Description 03/06/2017 Telephone [facility] Rehabilitation Therapy - Medical Office Building [address] [place] [address] Therapy, Physical Appointment Related Social History Tobacco Use Types Packs/Day Years Used Date Smoking Tobacco: Never Smokeless Tobacco: Never Sex and Gender Information Value Date Recorded Sex Assigned at Not on file Gender Identity Female 08/12/2021 14:27 EDT Sexual Orientation Not on file documented as of this encounter Miscellaneous Notes * Telephone Encounter - Lauren Dobbs - 03/06/2017 1133 EDT [facility]Y - MEDICAL OFFICE BUILDING [address] [facility] [address] A confirmation call was made to patient regarding 03/08/2017 physical therapy appointment. A message was left with date/time/location of appointment and phone number to the [facility]. documented in this encounter Plan of Treatment Not on file documented as of this encounter Visit Diagnoses Not on filedocumented in this encounter Care Teams Damage Appraiser Relationship Specialty Start Date End Date Valerie Santana MD [address] [place] [address] PCP - General 10/11/16 documented as of this encounter
[2024-05-20 21:16] LABS: HCT 38.3 % (36.0-46.0); HGB 12.5 g/dL (11.2-15.7); MCH 29.9 pg (27.0-33.0); MCHC 32.6 % (32.0-36.0); MCV 92 fL (80-95); MPV 10.8 fL (8.0-11.0); Platelet Count 188 10^3/uL (130-400); RBC 4.18 10^6/uL (3.93-5.22); RDW 13.2 % (11.7-14.6); WBC 4.43 10^3/uL (4.4-10.8)
[2024-05-20 21:39] LABS: Anion Gap 6.1 mmol/L (3-11); BUN 20 mg/dL (7-18); CO2 29.9 mmol/L (21.0-32.0); CREATININE 0.7 mg/dL (0.55-1.02); Calcium 9.6 mg/dL (8.5-10.1); Calculated LDL 82 mg/dL (<100); Chloride 101 mmol/L (98-107); Cholesterol 153 mg/dL (<200); Estimated GFR 87.92 (mL/min/1.73m2); Glucose 117 mg/dL (74-106); HDL Cholesterol 62 mg/dL (40-60); Sodium 137 mmol/L (136-145); Triglyceride 45 mg/dL (<150)
[2024-05-20 21:51] LABS: Microalb ug/mg Crea 13.1 ug/mg Cr
== END 2024-05-20 16:11 | disposition home or self-care (01) ==
LOC: NCHCN 16:10
PROVIDERS: PCP Family Medicine; Visit Provider Family Medicine
DX: I10 Essential (primary) hypertension (principal); E11.9 Type 2 diabetes mellitus without complications; E78.5 Hyperlipidemia, unspecified
CPT/HCPCS: 80048; 80061; 85027; 82043; 82570

== ENCOUNTER 2025-06-02 15:44 | Outpatient (REF) | payer MEDICARE, OTHER, SELFPAY | END 2025-06-02 15:45 | disposition home or self-care (01) | LOC: NCHCN 15:44 | PROVIDERS: PCP Family Medicine; Visit Provider Family Medicine | DX: R39.89 Other symptoms and signs involving the genitourinary system (principal); B96.29 Other Escherichia coli [E. coli] as the cause of diseases classified elsewhere | CPT/HCPCS: 87077; 87086; 87186 ==